=== PATIENT | male | born 1965 | race Native Hawaiian/Other Pacific Islander ===

== ENCOUNTER 2018-11-13 21:45 | Inpatient (IN) | payer OTHER ==
[2018-11-13] MEDS ORDERED: OCTREOTIDE 200 MCG in SODIUM CHLORIDE 0.9% 100 ML IV STA (21:50)
[2018-11-13] MEDS ORDERED: OCTREOTIDE 100 MCG/ML INJ IVP STA (21:50)
[2018-11-13] MEDS ORDERED: SODIUM CHLORIDE 0.9% 1,000 ML IV STA ×2 (21:50)
[2018-11-13] MEDS ORDERED: PANTOPRAZOLE 40 MG/10 ML VIAL IVP ONE (21:54)
[2018-11-13] MEDS ORDERED: ONDANSETRON 4 MG/2 ML VIAL IVP STA (22:00)
[2018-11-13 22:22] LABS: Anisocytosis Slight; Basophils # (A) 0.1 k/uL (0-0.2); Basophils % (A) 1 %; Eosinophils % (A) 0 %; HCT 20.6 % (39.0-53.0); Hypochromasia Marked; Lymphocytes # (A) 0.9 k/uL (1.0-4.8); Lymphocytes % (A) 18 %; MCH 24.8 pg (25.0-35.0); MCV 82.9 fL (80.0-100.0); Mean Platelet Volume 8.7; Monocytes # (A) 0.4 k/uL (0-1.0); Monocytes % (A) 9 %; Neutrophils # (A) 3.4 k/uL (1.3-7.7); Neutrophils % (A) 67 %; Platelet Count 88 k/uL (150-450); RBC 2.48 m/uL (4.30-5.90); RDW 17.6 % (11.5-15.5); WBC 5.1 k/uL (3.8-10.6)
[2018-11-13 22:32] LABS: INR 1.4 (<1.2)
[2018-11-13 22:33] LABS: Partial Thromboplastin Time 24.5 sec (22.0-30.0); Prothrombin Time 14.5 sec (9.0-12.0)
[2018-11-13 22:36] LABS: ALT 34 U/L (21-72); AST 93 U/L (17-59); Alkaline Phosphatase 172 U/L (38-126); Anion Gap 10 mmol/L; Blood Urea Nitrogen 32 mg/dL (9-20); Calcium 8.2 mg/dL (8.4-10.2); Carbon Dioxide 19 mmol/L (22-30); Chloride 109 mmol/L (98-107); Glucose 168 mg/dL (74-99); Lipase 314 U/L (23-300); Potassium 5.1 mmol/L (3.5-5.1); Sodium 138 mmol/L (137-145); Total Bilirubin 1.5 mg/dL (0.2-1.3); Total Protein 6.9 g/dL (6.3-8.2)
[2018-11-13 22:46] LABS: HGB 6.2 gm/dL (13.0-17.5)
[2018-11-13 22:47] LABS: Creatine Kinase 407 U/L (55-170)
[2018-11-13 23:00] LABS: Troponin I <0.012 ng/mL (0.000-0.034)
--- NOTE | 2018-11-14 00:24 | ED ---
GI Bleed HPI - General Chief complaint: GI Bleed Stated complaint: Vomiting Blood Time Seen by Provider: 11/13/18 21:49 Source: patient, EMS Mode of arrival: EMS Limitations: no limitations - History of Present Illness Initial comments: This 53-year-old male presents with a GI bleed. He apparently has been vomiting up blood. Onset occurred 4 times so far. He states that it was bright red blood. This just started several hours prior to arrival. He denies any abdominal pain. He states that he may have had some slight dark stools recently. He does drink alcohol regularly. He states that he drinks 6+ beers per day on average. He denies any known history of esophageal varices. He was seen in the ER a couple years ago for some rectal bleeding. He denies any chest pain, shortness breath, or fevers. He does not take any nonsteroidal anti -inflammatory medications. He does not take any PPI medications but has been on them in the past. No other complaints or modifying factors. - Related Data Home Medications Medication Instructions Recorded Confirmed No Known Home Medications 11/13/18 11/13/18 Allergies Allergy/AdvReac Type Severity Reaction Status Date / Time No Known Allergies Allergy Verified 11/13/18 21:58 Review of Systems ROS Statement: Those systems with pertinent positive or pertinent negative responses have been documented in the HPI. ROS Other: All systems not noted in ROS Statement are negative. Past Medical History Past Medical History: Chest Pain / Angina, Diabetes Mellitus, GERD/Reflux, GI Bleed, Hyperlipidemia, Hypertension Additional Past Medical History / Comment(s): IP ADM JAN 17-2015 FOR PNEUMONIA. HAS BEEN NON-COMPLIANT WITH MEDICATIONS DUE TO FINANCES. FEW YEARS AGO, RECTAL BLEEDING WHICH REQUIRED TRANSFUSIONS, BUT ORIGIN WAS NEVER DISCOVERED, [facility] TO [facility]. History of Any Multi-Drug Resistant Organisms: None Reported Past Surgical History: Orthopedic Surgery Additional Past Surgical History / Comment(s): LT ANKLE PINS/PLATES. Past Anesthesia/Blood Transfusion Reactions: Postoperative Nausea & Vomiting ( PONV) Additional Past Anesthesia/Blood Transfusion Reaction / Comment(s): HX BLOOD TRANSFUSION (LOW HGB FROM BLEEDING, UNKNOW SOURCE) Past Psychological History: No Psychological Hx Reported Smoking Status: Former smoker Past Alcohol Use History: Daily Past Drug Use History: None Reported General Exam - General Exam Comments Initial Comments: GENERAL: The patient is well nourished and well hydrated. VITAL SIGNS: Heart rate, blood pressure, respiratory rate reviewed as recorded in nurse's notes. EYES: Pupils are round and reactive. Extraocular movements are intact. No conjunctival / lid redness or swelling. ENT: No external evidence of injury, swelling, or ecchymosis. Airway is patent. Throat is clear. NECK: Nontender. No swelling or evidence of injury. No subcutaneous emphysema. Trachea is midline. No thyroid mass. HEART: Regular rate and rhythm. Good peripheral pulses. LUNGS/CHEST: Breath sounds clear and equal bilaterally. No rales, rhonchi, or wheezes. No ecchymosis, subcutaneous emphysema, or tenderness. ABDOMEN: Abdomen soft without tenderness. No palpable masses or organomegaly. No peritoneal signs. No abdominal wall swelling or ecchymosis. EXTREMITIES: No extremity tenderness. Normal muscle tone and function. No thoracolumbar tenderness. NEUROLOGIC: Sensation is grossly intact. Cranial nerve exam reveals face is symmetrical, tongue is midline, speech is clear. SKIN: No abrasions or ecchymosis is noted. No induration or masses noted. PSYCHIATRIC: Alert and oriented. Appropriate behavior and judgment. Limitations: no limitations Course Vital Signs 11/13/18 11/13/18 11/13/18 21:51 22:30 23:00 Temperature 99.3 F Pulse Rate 134 H 120 H 115 H Respiratory 20 18 18 Rate Blood Pressure 114/55 126/88 141/71 O2 Sat by Pulse 98 98 98 Oximetry 11/13/18 11/13/18 11/14/18 23:29 23:39 00:09 Temperature 98.3 F 98.8 F 98.6 F Pulse Rate 114 H 111 H 112 H Respiratory 18 18 18 Rate Blood Pressure 130/61 128/71 120/66 O2 Sat by Pulse 100 99 98 Oximetry Medical Decision Making - Medical Decision Making The patient was seen and examined immediately upon arrival. He did present as a alliance party when EMS. He did receive some Zofran intravenously for his nausea. He does present quite tachycardic on the monitor with a heart rate around 130. His blood pressure has remained stable. The EKG shows a sinus tachycardia at a rate of 124. There is no acute ST-T wave changes identified. The IN intervals 122, QRS duration is 86, and the QTC intervals 497. His hemoglobin came back quite low at 6.2. Old records do relate that his previous hemoglobin was 13.8 two years ago. The old records do relate that he had a slight degree of rectal bleeding on last admission ear there is no EGD completed at his records that I am aware of. The possibility of esophageal varices is always possible. The possibility of a gastritis or peptic ulcer disease is also likely. He was started on octreotide intravenously as well as Protonix intravenously. He received ample fluid hydration. It is felt as though he would require blood transfusion. He is agreeable and 2 units of packed red blood cells are transfused. The case is discussed with Dr. Jimenez from gastroenterology and she is agreeable with current course of care. The case also was discussed with Dr. Garvey from intensive care unit. Case will be discussed with internal medicine in the near future and patient admitted to the ICU. Approximately 30 minutes of critical care time is utilized and the treatment of the patient. He is counseled extensively regarding alcohol abuse. - Lab Data Result diagrams: 11/13/18 21:48 11/13/18 21:48 Lab Results 11/13/18 11/13/18 11/13/18 Range/Units 21:48 21:48 21:48 WBC 5.1 (3.8-10.6) k/uL RBC 2.48 L (4.30-5.90) m/uL Hgb 6.2 L* (13.0-17.5) gm/dL Hct 20.6 L (39.0-53.0) % MCV 82.9 (80.0-100.0) fL MCH 24.8 L (25.0-35.0) pg MCHC 30.0 L (31.0-37.0) g/dL RDW 17.6 H (11.5-15.5) % Plt Count 88 L (150-450) k/uL Neutrophils % 67 % Lymphocytes % 18 % Monocytes % 9 % Eosinophils % 0 % Basophils % 1 % Neutrophils # 3.4 (1.3-7.7) k/uL Lymphocytes # 0.9 L (1.0-4.8) k/uL Monocytes # 0.4 (0-1.0) k/uL Eosinophils # 0.0 (0-0.7) k/uL Basophils # 0.1 (0-0.2) k/uL Hypochromasia Marked Anisocytosis Slight PT (9.0-12.0) sec INR (<1.2) APTT (22.0-30.0) sec Sodium 138 (137-145) mmol/L Potassium 5.1 (3.5-5.1) mmol/L Chloride 109 H (98-107) mmol/L Carbon Dioxide 19 L (22-30) mmol/L Anion Gap 10 mmol/L BUN 32 H (9-20) mg/dL Creatinine 0.64 L (0.66-1.25) mg/dL Est GFR (CKD-EPI)AfAm >90 (>60 ml/min/1.73 sqM) Est GFR (CKD-EPI)NonAf >90 (>60 ml/min/1.73 sqM) Glucose 168 H (74-99) mg/dL Plasma Lactic Acid Ranjit (0.7-2.0) mmol/L Calcium 8.2 L (8.4-10.2) mg/dL Total Bilirubin 1.5 H (0.2-1.3) mg/dL AST 93 H (17-59) U/L ALT 34 (21-72) U/L Alkaline Phosphatase 172 H (38-126) U/L Total Creatine Kinase 407 H (55-170) U/L CK-MB (CK-2) 3.0 H (0.0-2.4) ng/mL CK-MB (CK-2) Rel Index 0.7 Troponin I <0.012 (0.000-0.034) ng/mL Total Protein 6.9 (6.3-8.2) g/dL Albumin 3.0 L (3.5-5.0) g/dL Lipase 314 H (23-300) U/L Serum Alcohol mg/dL Blood Type Blood Type Recheck Antibody Screen Crossmatch Spec Expiration Date 11/13/18 11/13/18 11/13/18 Range/Units 21:48 21:48 21:48 WBC (3.8-10.6) k/uL RBC (4.30-5.90) m/uL Hgb (13.0-17.5) gm/dL Hct (39.0-53.0) % MCV (80.0-100.0) fL MCH (25.0-35.0) pg MCHC (31.0-37.0) g/dL RDW (11.5-15.5) % Plt Count (150-450) k/uL Neutrophils % % Lymphocytes % % Monocytes % % Eosinophils % % Basophils % % Neutrophils # (1.3-7.7) k/uL Lymphocytes # (1.0-4.8) k/uL Monocytes # (0-1.0) k/uL Eosinophils # (0-0.7) k/uL Basophils # (0-0.2) k/uL Hypochromasia Anisocytosis PT 14.5 H (9.0-12.0) sec INR 1.4 H (<1.2) APTT 24.5 (22.0-30.0) sec Sodium (137-145) mmol/L Potassium (3.5-5.1) mmol/L Chloride (98-107) mmol/L Carbon Dioxide (22-30) mmol/L Anion Gap mmol/L BUN (9-20) mg/dL Creatinine (0.66-1.25) mg/dL Est GFR (CKD-EPI)AfAm (>60 ml/min/1.73 sqM) Est GFR (CKD-EPI)NonAf (>60 ml/min/1.73 sqM) Glucose (74-99) mg/dL Plasma Lactic Acid Ranjit 4.6 H* (0.7-2.0) mmol/L Calcium (8.4-10.2) mg/dL Total Bilirubin (0.2-1.3) mg/dL AST (17-59) U/L ALT (21-72) U/L Alkaline Phosphatase (38-126) U/L Total Creatine Kinase (55-170) U/L CK-MB (CK-2) (0.0-2.4) ng/mL CK-MB (CK-2) Rel Index Troponin I (0.000-0.034) ng/mL Total Protein (6.3-8.2) g/dL Albumin (3.5-5.0) g/dL Lipase (23-300) U/L Serum Alcohol mg/dL Blood Type A Positive Blood Type Recheck No Antibody Screen NEGATIVE Crossmatch See Detail Spec Expiration Date 11/16/2018 - 234711/13/18 Range/Units 23:38 WBC (3.8-10.6) k/uL RBC (4.30-5.90) m/uL Hgb (13.0-17.5) gm/dL Hct (39.0-53.0) % MCV (80.0-100.0) fL MCH (25.0-35.0) pg MCHC (31.0-37.0) g/dL RDW (11.5-15.5) % Plt Count (150-450) k/uL Neutrophils % % Lymphocytes % % Monocytes % % Eosinophils % % Basophils % % Neutrophils # (1.3-7.7) k/uL Lymphocytes # (1.0-4.8) k/uL Monocytes # (0-1.0) k/uL Eosinophils # (0-0.7) k/uL Basophils # (0-0.2) k/uL Hypochromasia Anisocytosis PT (9.0-12.0) sec INR (<1.2) APTT (22.0-30.0) sec Sodium (137-145) mmol/L Potassium (3.5-5.1) mmol/L Chloride (98-107) mmol/L Carbon Dioxide (22-30) mmol/L Anion Gap mmol/L BUN (9-20) mg/dL Creatinine (0.66-1.25) mg/dL Est GFR (CKD-EPI)AfAm (>60 ml/min/1.73 sqM) Est GFR (CKD-EPI)NonAf (>60 ml/min/1.73 sqM) Glucose (74-99) mg/dL Plasma Lactic Acid Ranjit (0.7-2.0) mmol/L Calcium (8.4-10.2) mg/dL Total Bilirubin (0.2-1.3) mg/dL AST (17-59) U/L ALT (21-72) U/L Alkaline Phosphatase (38-126) U/L Total Creatine Kinase (55-170) U/L CK-MB (CK-2) (0.0-2.4) ng/mL CK-MB (CK-2) Rel Index Troponin I (0.000-0.034) ng/mL Total Protein (6.3-8.2) g/dL Albumin (3.5-5.0) g/dL Lipase (23-300) U/L Serum Alcohol 41 mg/dL Blood Type Blood Type Recheck Antibody Screen Crossmatch Spec Expiration Date Disposition Clinical Impression: Upper GI bleed, Sinus tachycardia, Anemia, Alcohol abuse, Elevated LFTs, Lactic acidosis Disposition: ADMITTED IP TO THIS HOSP Condition: Fair Is patient prescribed a controlled substance at d/c from ED?: No Time of Disposition: 00:24 Decision Date: 11/14/18 Decision Time: 00:24
[2018-11-14] MEDS ORDERED: NALOXONE 0.4 MG/ML 1 ML VIAL IV PRN (00:25)
[2018-11-14 01:26] LABS: Glucose,Whole Blood 152 mg/dL (75-99)
[2018-11-14 02:06] VITALS: BMI 25.3
[2018-11-14 05:41] LABS: Anion Gap 8 mmol/L; Blood Urea Nitrogen 27 mg/dL (9-20); Carbon Dioxide 22 mmol/L (22-30); Chloride 109 mmol/L (98-107); Glucose 142 mg/dL (74-99); Magnesium 1.6 mg/dL (1.6-2.3); Phosphorus 3.4 mg/dL (2.5-4.5); Potassium 4.5 mmol/L (3.5-5.1); Sodium 139 mmol/L (137-145)
[2018-11-14 05:52] LABS: Anisocytosis Slight; Basophils % (A) 1 %; Eosinophils % (A) 1 %; HCT 24.7 % (39.0-53.0); Hypochromasia Marked; Lymphocytes # (A) 1.5 k/uL (1.0-4.8); Lymphocytes % (A) 30 %; MCH 26.1 pg (25.0-35.0); MCHC 31.1 g/dL (31.0-37.0); Mean Platelet Volume 7.9; Monocytes # (A) 0.5 k/uL (0-1.0); Monocytes % (A) 10 %; Neutrophils # (A) 2.7 k/uL (1.3-7.7); Neutrophils % (A) 55 %; Poikilocytosis Moderate; RBC 2.94 m/uL (4.30-5.90); WBC 4.9 k/uL (3.8-10.6)
[2018-11-14] MEDS ORDERED: Magnesium Replacement Protocol 1 EACH MISC MISCELLANE PRN (06:20)
[2018-11-14 06:39] LABS: HGB 7.7 gm/dL (13.0-17.5); Platelet Count 60 k/uL (150-450)
[2018-11-14 07:03] LABS: Glucose,Whole Blood 140 mg/dL (75-99)
[2018-11-14] MEDS: PANTOPRAZOLE 40 MG/10 ML VIAL IV SCH ×2 (08:07→20:17)
[2018-11-14] MEDS: MAGNESIUM SULFATE-D5W PMX 1 GM in DEXTROSE/WATER 1 100ML.BAG IVPB SCH ×2 (08:07→09:24)
[2018-11-14] MEDS ORDERED: THIAMINE 100 MG/ML 2 ML VIAL IM STA (08:39)
[2018-11-14] MEDS ORDERED: LORazepam 2 MG/ML INJ IV PRN ×2 (08:39)
--- NOTE | 2018-11-14 10:38 | P.CNPUL ---
History of Present Illness Consult date: 11/14/18 Requesting physician: Chung Etienne Chief complaint: Hematemesis, melena, acute GI bleed History of present illness: This is a 53-year-old male, he is to follow with Dr. Amaya in [place], but has not followed with her for some time, was brought into the emergency department on 11/13/2018 per ambulance for acute onset of gastrointestinal bleeding, patient started vomiting bright red blood yesterday at around 5 PM in the afternoon, he did have some dark stools as well. He denies any abdominal pain, he has a regular alcohol intake, 5-6 beers daily. Denies any prior history of GI bleeding, or esophageal varices. Reviewing previous records it appears that patient does have history of liver cirrhosis related to EtOH abuse , ascites, previous history of cholecystectomy, liver biopsy, diabetes mellitus type 2 previously insulin-dependent, however has not been on any insulin for some time. The history includes hypertension, hyperlipidemia, GERD/reflux, previous episodes of pneumonia, former smoker, depression. His previous episode of rectal bleeding did require blood transfusions. In the emergency department blood work showed WBC of 5.1, hemoglobin of 6.2, platelet count was 88, INR is 1.4, sodium 138, potassium 5.1, chloride is 109, CO2 of 19, BUN of 32 , creatinine is 0.64, plasma lactic acid was 4.6, total bilirubin was 1.5, AST was 93, ALT was 34, alkaline phosphatase was 172, total CK was 407, CK-MB was 3.0, troponins was negative 1, lipase was slightly elevated at 314. Serum alcohol level was 41. he was transfused with 2 units of pack red blood cells, he was given IV fluids of 0.9 normal saline of 1 L. His morning he is hemodynamically stable, he was given an infusion of octreotide in the emergency department started on PPI therapy. Currently on no oxygen, maintenance IV fluid is 0.9 normal saline at 100 ML per hour. His awake and alert, oriented 3 , his mother is at the bedside, and apparently patient's brother a few years back from from acute esophageal varices hemorrhage related to liver cirrhosis related to alcohol abuse. Review of Systems All systems: negative Constitutional: Denies chills, Denies fever Eyes: denies blurred vision, denies pain Ears, nose, mouth and throat: Denies headache, Denies sore throat Cardiovascular: Denies chest pain, Denies shortness of breath Respiratory: Denies cough Gastrointestinal: Reports change in bowel habits, Reports hematemesis, Reports melena, Denies abdominal pain, Denies diarrhea, Denies nausea, Denies vomiting Musculoskeletal: Denies myalgias Integumentary: Denies pruritus, Denies rash Neurological: Denies numbness, Denies weakness Psychiatric: Denies anxiety, Denies depression Endocrine: Denies fatigue, Denies weight change Past Medical History Past Medical History: Chest Pain / Angina, Diabetes Mellitus, GERD/Reflux, GI Bleed, Hyperlipidemia, Hypertension Additional Past Medical History / Comment(s): IP ADM JAN 17-2015 FOR PNEUMONIA. HAS BEEN NON-COMPLIANT WITH MEDICATIONS DUE TO FINANCES. FEW YEARS AGO, RECTAL BLEEDING WHICH REQUIRED TRANSFUSIONS, BUT ORIGIN WAS NEVER DISCOVERED, [facility]. History of Any Multi-Drug Resistant Organisms: None Reported Past Surgical History: Orthopedic Surgery Additional Past Surgical History / Comment(s): LT ANKLE PINS/PLATES. Past Anesthesia/Blood Transfusion Reactions: Postoperative Nausea & Vomiting ( PONV) Additional Past Anesthesia/Blood Transfusion Reaction / Comment(s): HX BLOOD TRANSFUSION (LOW HGB FROM BLEEDING, UNKNOW SOURCE) Past Psychological History: No Psychological Hx Reported Smoking Status: Current some day smoker Past Alcohol Use History: Daily Additional Past Alcohol Use History / Comment(s): QUIT: Dec. SMOKED FOR : 30 YRS. PPD: 1.5. NO ETOH, BUT UP UNTIL HIS ADMISSION FOR PNEUMONIA IN DEC 2015, PATIENT WAS DRINKING DAILY, ENOUGH TO PUT HIM TO SLEEP. DEPRESSED TO DUE LOSS OF NIECE AND BROTHER. Past Drug Use History: None Reported Medications and Allergies Home Medications Medication Instructions Recorded Confirmed Type No Known Home Medications 11/13/18 11/13/18 History Allergies Allergy/AdvReac Type Severity Reaction Status Date / Time No Known Allergies Allergy Verified 11/13/18 21:58 Physical Exam Vitals: Vital Signs Temp Pulse Pulse Resp BP BP Pulse Ox 11/14/18 10:00 105 H 10 L 150/87 98 11/14/18 09:00 104 H 15 140/81 96 11/14/18 08:27 98 11/14/18 08:00 98.1 F 98 12 143/80 98 11/14/18 07:00 100 15 131/73 97 11/14/18 06:30 103 H 11 L 131/73 97 18 06:00 103 H 14 148/80 94 L 11/14/18 05:30 96 8 L 148/80 95 11/14/18 05:00 105 H 11 L 148/86 95 11/14/18 04:30 103 H 10 L 148/86 95 11/14/18 04:00 98.4 F 105 H 16 149/86 97 11/14/18 03:52 98.5 F 107 H 17 149/86 97 11/14/18 03:30 106 H 14 149/86 98 11/14/18 03:07 105 H 30 H 11/14/18 03:00 104 H 17 135/68 96 11/14/18 02:30 112 H 30 H 135/68 96 11/14/18 02:28 98.7 F 110 H 22 132/67 97 11/14/18 02:00 112 H 19 111/69 96 11/14/18 01:58 98.5 F 105 H 21 136/68 99 11/14/18 01:48 98.6 F 107 H 18 111/69 98 11/14/18 01:46 98.6 F 112 H 18 111/69 98 11/14/18 01:30 109 H 10 L 111/69 98 11/14/18 01:25 109 H 20 98 11/14/18 01:00 98.6 F 117 H 20 119/64 98 11/14/18 00:54 98.6 F 105 H 18 111/69 98 11/14/18 00:30 118 H 24 120/66 99 11/14/18 00:09 98.6 F 112 H 18 120/66 98 11/14/18 00:00 98.6 F 122 H 14 128/71 99 18 23:39 98.8 F 111 H 18 128/71 99 11/13/18 23:32 113 H 10 L 114/69 98 11/13/18 23:29 98.3 F 114 H 18 130/61 100 11/13/18 23:00 115 H 18 141/71 98 18 22:30 120 H 18 126/88 98 11/13/18 21:51 99.3 F 134 H 20 114/55 98 Intake and Output 12/11/14/18 11/14/18 22:59 06:59 14:59 Intake Total 1530 400 Output Total 1300 Balance 1530 -900 Intake: IV 300 400 Magnesium Sulfate-D5w Pmx 200 1 gm In Dextrose/Water 1 100ml.bag @ 100 mls/hr IVPB Q1H [facility] Rx#: [id number] Sodium Chloride 0.9% 1, 300 200 000 ml @ 100 mls/hr IV . Q10H [facility] Rx#:[id number] Blood Product 1230 Rc As-1 Unit 310 [id number] Rc As-1 Unit 310 [id number] Output: Urine 1300 Other: Voiding Method Toilet Toilet Urinal Urinal # Voids 1 Weight 79.379 kg 73.5 kg GENERAL EXAM: Alert, active, has a 53-year-old male comfortable in no apparent distress. HEAD: Normocephalic/atraumatic. EYES: Normal reaction of pupils, equal size. Conjunctiva pink, sclera white. NOSE: Clear with pink turbinates. THROAT: No erythema or exudates. NECK: No masses, no JVD, no thyroid enlargement, no adenopathy. CHEST: No chest wall deformity. Symmetrical expansion. LUNGS: Equal air entry with no crackles, wheeze, rhonchi or dullness. CVS: Regular rate and rhythm, normal S1 and S2, no gallops, no murmurs, no rubs ABDOMEN: Soft, nontender. No hepatosplenomegaly, normal bowel sounds, no guarding or rigidity. EXTREMITIES: No clubbing, no edema, no cyanosis, 2+ pulses and upper and lower extremities. MUSCULOSKELETAL: Muscle strength and tone normal. SPINE: No scoliosis or deformity SKIN: No rashes CENTRAL NERVOUS SYSTEM: Alert and oriented -3. No focal deficits, tone is normal in all 4 extremities. PSYCHIATRIC: Alert and oriented -3. Appropriate affect. Intact judgment and insight. Results - Laboratory Findings CBC and BMP: 11/14/18 05:01 11/14/18 05:01 PT/INR, D-dimer PT 14.5 sec (9.0-12.0) H 11/13/18 21:48 INR 1.4 (<1.2) H 11/13/18 21:48 Abnormal lab findings: Abnormal Labs 11/13/18 11/13/18 11/13/18 21:48 21:48 21:48 RBC 2.48 L Hgb 6.2 L* Hct 20.6 L MCH 24.8 L MCHC 30.0 L RDW 17.6 H Plt Count 88 L Lymphocytes # 0.9 L PT INR Chloride 109 H Carbon Dioxide 19 L BUN 32 H Creatinine 0.64 L Glucose 168 H POC Glucose (mg/dL) Plasma Lactic Acid Ranjit Calcium 8.2 L Total Bilirubin 1.5 H AST 93 H Alkaline Phosphatase 172 H Total Creatine Kinase 407 H CK-MB (CK-2) 3.0 H Albumin 3.0 L Lipase 314 H Crossmatch 11/13/18 11/13/18 11/13/18 21:48 21:48 21:48 RBC Hgb Hct MCH MCHC RDW Plt Count Lymphocytes # PT 14.5 H INR 1.4 H Chloride Carbon Dioxide BUN Creatinine Glucose POC Glucose (mg/dL) Plasma Lactic Acid Ranjit 4.6 H* Calcium Total Bilirubin AST Alkaline Phosphatase Total Creatine Kinase CK-MB (CK-2) Albumin Lipase Crossmatch See Detail 11/14/18 11/14/18 11/14/18 01:23 05:01 05:01 RBC 2.94 L Hgb 7.7 L D Hct 24.7 L MCH MCHC RDW 17.0 H Plt Count 60 L Lymphocytes # PT INR Chloride 109 H Carbon Dioxide BUN 27 H Creatinine 0.60 L Glucose 142 H POC Glucose (mg/dL) 152 H Plasma Lactic Acid Ranjit Calcium 8.0 L Total Bilirubin AST Alkaline Phosphatase Total Creatine Kinase CK-MB (CK-2) Albumin Lipase Crossmatch 11/14/18 07:01 RBC Hgb Hct MCH MCHC RDW Plt Count Lymphocytes # PT INR Chloride Carbon Dioxide BUN Creatinine Glucose POC Glucose (mg/dL) 140 H Plasma Lactic Acid Ranjit Calcium Total Bilirubin AST Alkaline Phosphatase Total Creatine Kinase CK-MB (CK-2) Albumin Lipase Crossmatch - Diagnostic Findings Additional studies: EKG reviewed Assessment and Plan Plan: Assessment: #1. Acute GI hemorrhage, patient presented with hematemesis and dark tarry stools #2. Blood loss anemia #3. Elevated liver enzymes #4. History of liver cirrhosis related to EtOH #5. 5-6 beers daily #6. Elevated plasma lactic acid level, improved with IV hydration and blood transfusions #7. Diabetes mellitus type 2, previously on insulin, has not taken it in a while #8. Medical noncompliance #9. Hypertension #10. Previous episode of rectal bleeding requiring blood transfusions #11. Smoker #12. Previous episodes of pneumonia Plan: Continue the IV fluids, continue serial H&H's, GI service has been consulted. Continue PPI therapy, patient did receive infusion of octreotide in the emergency department, has not had any recurrence of hematemesis or dark tarry stools while in the hospital, he will remain in the intensive care unit. We'll continue to closely monitor I performed a history & physical examination of the patient and discussed their management with my nurse practitioner, Rosamaria Patel. I reviewed the nurse practitioner's note and agree with the documented findings and plan of care. Lung sounds are positive for clear breath sounds. The findings and the impression was discussed with the patient. I attest to the documentation by the nurse practitioner. Time with Patient: Greater than 30
[2018-11-14 12:20] LABS: Glucose,Whole Blood 171 mg/dL (75-99)
[2018-11-14] MEDS: LORazepam 2 MG/ML INJ IV PRN (12:56)
[2018-11-14 13:19] LABS: Anisocytosis Slight; HCT 25.8 % (39.0-53.0); HGB 8.2 gm/dL (13.0-17.5); Hypochromasia Marked; MCH 26.3 pg (25.0-35.0); MCHC 31.7 g/dL (31.0-37.0); Mean Platelet Volume 7.9; Poikilocytosis Moderate; RBC 3.11 m/uL (4.30-5.90); RDW 17.3 % (11.5-15.5); WBC 4.2 k/uL (3.8-10.6)
[2018-11-14 13:24] LABS: Platelet Count 71 k/uL (150-450)
[2018-11-14 14:45] LABS: Hemoglobin A1C 6.7 % (4.0-6.0)
[2018-11-14] MEDS ORDERED: PROPOFOL 10 MG/ML 20 ML VIAL IV ONE (15:21)
[2018-11-14] MEDS ORDERED: IV FLUID CONTINUATION 1,000 ML IV ONE (15:21)
--- NOTE | 2018-11-14 16:05 | P.PCN ---
Date of Procedure: 11/14/18 Description of Procedure: BRIEF HISTORY: 53-year-old male, brought into the emergency department on 11/13/2018 per ambulance for acute onset of gastrointestinal bleeding, patient started vomiting bright red blood yesterday, he did have some dark stools as well. He denies any abdominal pain, he has a regular alcohol intake, 5-6 beers daily. Denies any prior history of GI bleeding, or esophageal varices. Reviewing previous records it appears that patient does have history of liver cirrhosis related to EtOH abuse, ascites, previous history of cholecystectomy, liver biopsy, diabetes mellitus type 2 previously insulin-dependent, hypertension, hyperlipidemia, GERD/reflux, previous episodes of pneumonia, former smoker, depression. His previous episode of rectal bleeding did require blood transfusions. In the emergency department blood work showed WBC of 5.1, hemoglobin of 6.2, platelet count was 88, INR is 1.4, sodium 138, potassium 5.1 , chloride is 109, CO2 of 19, BUN of 32, creatinine is 0.64, plasma lactic acid was 4.6, total bilirubin was 1.5, AST was 93, ALT was 34, alkaline phosphatase was 172, total CK was 407, CK-MB was 3.0, troponins was negative 1, lipase was slightly elevated at 314. Serum alcohol level was 41. he was transfused with 2 units of pack red blood cells. PROCEDURE PERFORMED: Esophagogastroduodenoscopy with esophageal variceal banding. PREOPERATIVE DIAGNOSIS: Hematemesis, Anemia due to blood loss. ESTIMATED BLOOD LOSS: Minimal. IV sedation per anesthesia. PROCEDURE: After informed consent was obtained, the patient was brought into the endoscopy unit. IV sedation was administered by Anesthesia under continuous monitoring. Initially the Olympus GIF-190 video endoscope was inserted into the mouth. Esophagus intubated without any difficulty. It was gradually advanced into the stomach and duodenum and carefully examined. The bulb and the second part of the duodenum appeared normal. The scope at this time was withdrawn to the stomach, adequately insufflated with air, and upon careful examination, mucosa of the antrum, body, cardia and the fundus appeared normal. The scope was then withdrawn into the esophagus. The GE junction was located at 38 cm from the incisors. Moderate sized esophageal varices were noted in the distal esophagus and variceal banding with placement of 4 bands was performed. No active GI bleeding was noted. The patient tolerated the procedure well. IMPRESSION: 1. Moderate sized esophageal varices, status post esophageal variceal banding. 2. No active GI bleeding. RECOMMENDATIONS: The findings of this examination were discussed with the patient in the ICU team. Okay for liquid diet. Continue Protonix IV therapy, octreotide therapy and ceftriaxone for SBP prophylaxis given history of ascites. Monitor hemoglobin and transfuse as needed. Alcohol abstinence. Follow up with gastroenterology on discharge for scheduling for repeat EGD to ensure variceal obliteration.
[2018-11-14] MEDS: THIAMINE 100 MG TAB PO SCH (16:46)
[2018-11-14 17:03] LABS: Glucose,Whole Blood 123 mg/dL (75-99)
[2018-11-14] MEDS: OCTREOTIDE 200 MCG in SODIUM CHLORIDE 0.9% 100 ML IV SCH (17:08)
--- NOTE | 2018-11-14 20:14 | P.HPIM ---
History of Present Illness H&P Date: 11/14/18 Chief Complaint: GI BLEED 53 y/o male with a H/O alcoholism says he drinnks about 6-7 beers /day comes in with above mentioned complains. Patient says he had about 3 episodes of bright red vomitus . He denied loida abdominal pain , no chest pain, no racing heart, no diarrhea, no constipation, no lightheadedness, no diaainess, no fever, no chiulls, no tingling, no numbness of the extremities, no itch , no rash. ER course : In the emergency department blood work showed WBC of 5.1, hemoglobin of 6.2, platelet count was 88, INR is 1.4, sodium 138, potassium 5.1 , chloride is 109, CO2 of 19, BUN of 32, creatinine is 0.64, plasma lactic acid was 4.6, total bilirubin was 1.5, AST was 93, ALT was 34, alkaline phosphatase was 172, total CK was 407, CK-MB was 3.0, troponins was negative 1, lipase was slightly elevated at 314. Serum alcohol level was 41. he was transfused with 2 units of pack red blood cells, he was given IV fluids of 0.9 normal saline of 1 L. He was started on octreotide drip and PPI. He was also started on maintanence fluids. He was admitted to the ICU. GI and research physicist are consulted. Past Medical History Past Medical History: Chest Pain / Angina, Diabetes Mellitus, GERD/Reflux, GI Bleed, Hyperlipidemia, Hypertension Additional Past Medical History / Comment(s): IP ADM JAN 17-2015 FOR PNEUMONIA. HAS BEEN NON-COMPLIANT WITH MEDICATIONS DUE TO FINANCES. FEW YEARS AGO, RECTAL BLEEDING WHICH REQUIRED TRANSFUSIONS, BUT ORIGIN WAS NEVER DISCOVERED, [facility] TO [facility]. History of Any Multi-Drug Resistant Organisms: None Reported Past Surgical History: Orthopedic Surgery Additional Past Surgical History / Comment(s): LT ANKLE PINS/PLATES. Past Anesthesia/Blood Transfusion Reactions: Postoperative Nausea & Vomiting ( PONV) Additional Past Anesthesia/Blood Transfusion Reaction / Comment(s): HX BLOOD TRANSFUSION (LOW HGB FROM BLEEDING, UNKNOW SOURCE) Past Psychological History: No Psychological Hx Reported Smoking Status: Current some day smoker Past Alcohol Use History: Daily Additional Past Alcohol Use History / Comment(s): QUIT: Dec. SMOKED FOR : 30 YRS. PPD: 1.5. NO ETOH, BUT UP UNTIL HIS ADMISSION FOR PNEUMONIA IN DEC 2015, PATIENT WAS DRINKING DAILY, ENOUGH TO PUT HIM TO SLEEP. DEPRESSED TO DUE LOSS OF NIECE AND BROTHER. Past Drug Use History: None Reported Medications and Allergies Home Medications Medication Instructions Recorded Confirmed Type No Known Home Medications 11/13/18 11/13/18 History Allergies Allergy/AdvReac Type Severity Reaction Status Date / Time No Known Allergies Allergy Verified 11/13/18 21:58 Physical Exam Vitals: Vital Signs Temp Pulse Pulse Resp BP BP Pulse Ox 11/14/18 18:00 87 13 135/71 97 11/14/18 17:00 96 18 126/37 97 11/14/18 16:00 98.0 F 96 11 L 149/93 98 11/14/18 15:00 98 13 127/74 95 11/14/18 14:00 92 11 L 126/88 96 11/14/18 13:42 82 11 L 149/93 11/14/18 13:00 97 24 148/96 98 11/14/18 12:00 98.1 F 100 17 114/97 97 11/14/18 11:00 107 H 8 L 136/84 95 11/14/18 10:00 105 H 10 L 150/87 98 11/14/18 09:00 104 H 15 140/81 96 11/14/18 08:27 98 11/14/18 08:00 98.1 F 98 12 143/80 98 11/14/18 07:00 100 15 131/73 97 11/14/18 06:30 103 H 11 L 131/73 97 11/14/18 06:00 103 H 14 148/80 94 L 11/14/18 05:30 96 8 L 148/80 95 11/14/18 05:00 105 H 11 L 148/86 95 11/14/18 04:30 103 H 10 L 148/86 95 11/14/18 04:00 98.4 F 105 H 16 149/86 97 11/14/18 03:52 98.5 F 107 H 17 149/86 97 11/14/18 03:30 106 H 14 149/86 98 11/14/18 03:07 105 H 30 H 11/14/18 03:00 104 H 17 135/68 96 11/14/18 02:30 112 H 30 H 135/68 96 11/14/18 02:28 98.7 F 110 H 22 132/67 97 11/14/18 02:00 112 H 19 111/69 96 11/14/18 01:58 98.5 F 105 H 21 136/68 99 11/14/18 01:48 98.6 F 107 H 18 111/69 98 11/14/18 01:46 98.6 F 112 H 18 111/69 98 11/14/18 01:30 109 H 10 L 111/69 98 11/14/18 01:25 109 H 20 98 11/14/18 01:00 98.6 F 117 H 20 119/64 98 11/14/18 00:54 98.6 F 105 H 18 111/69 98 11/14/18 00:30 118 H 24 120/66 99 11/14/18 00:09 98.6 F 112 H 18 120/66 98 11/14/18 00:00 98.6 F 122 H 14 128/71 99 11/13/18 23:39 98.8 F 111 H 18 128/71 99 11/13/18 23:32 113 H 10 L 114/69 98 11/13/18 23:29 98.3 F 114 H 18 130/61 100 11/13/18 23:00 115 H 18 141/71 98 11/13/18 22:30 120 H 18 126/88 98 11/13/18 21:51 99.3 F 134 H 20 114/55 98 Intake and Output 11/14/18 11/14/18 11/14/18 06:59 14:59 22:59 Intake Total 1530 800 800 Output Total 2000 400 Balance 1530 -1200 400 Intake: IV 300 800 800 Magnesium Sulfate-D5w Pmx 200 1 gm In Dextrose/Water 1 100ml.bag @ 100 mls/hr IVPB Q1H [facility] Rx#: [id number] Sodium Chloride 0.9% 1, 300 600 500 000 ml @ 100 mls/hr IV . Q10H STA Rx#:[id number] Blood Product 1230 Rc As-1 Unit 310 [id number] Rc As-1 Unit 310 [id number] Output: Urine 1999 400 Other: Voiding Method Toilet Toilet Toilet Urinal Urinal Urinal # Voids 1 Weight 73.5 kg - Constitutional General appearance: average body habitus, cooperative, no acute distress - EENT Eyes: PERRLA ENT: hearing grossly normal, normal oropharynx - Neck Neck: no lymphadenopathy, no thyromegaly - Respiratory Respiratory: bilateral: CTA - Cardiovascular Heart sounds: normal: S1, S2 - Gastrointestinal General gastrointestinal: no hepatomegaly, normal bowel sounds, no splenomegaly - Neurologic Neurologic: CNII-XII intact - Musculoskeletal Musculoskeletal: strength equal bilaterally - Psychiatric Psychiatric: A&O x's 3, appropriate affect Results CBC & Chem 7: 11/14/18 12:27 11/14/18 05:01 Labs: Abnormal Lab Results - Last 24 Hours (Table) 11/13/18 11/13/18 11/13/18 Range/Units 21:48 21:48 21:48 RBC 2.48 L (4.30-5.90) m/uL Hgb 6.2 L* (13.0-17.5) gm/dL Hct 20.6 L (39.0-53.0) % MCH 24.8 L (25.0-35.0) pg MCHC 30.0 L (31.0-37.0) g/dL RDW 17.6 H (11.5-15.5) % Plt Count 88 L (150-450) k/uL Lymphocytes # 0.9 L (1.0-4.8) k/uL PT (9.0-12.0) sec INR (<1.2) Chloride 109 H (98-107) mmol/L Carbon Dioxide 19 L (22-30) mmol/L BUN 32 H (9-20) mg/dL Creatinine 0.64 L (0.66-1.25) mg/dL Glucose 168 H (74-99) mg/dL POC Glucose (mg/dL) (75-99) mg/dL Hemoglobin A1c (4.0-6.0) % Plasma Lactic Acid Ranjit (0.7-2.0) mmol/L Calcium 8.2 L (8.4-10.2) mg/dL Total Bilirubin 1.5 H (0.2-1.3) mg/dL AST 93 H (17-59) U/L Alkaline Phosphatase 172 H (38-126) U/L Total Creatine Kinase 407 H (55-170) U/L CK-MB (CK-2) 3.0 H (0.0-2.4) ng/mL Albumin 3.0 L (3.5-5.0) g/dL Lipase 314 H (23-300) U/L Crossmatch 11/13/18 11/13/18 11/13/18 Range/Units 21:48 21:48 21:48 RBC (4.30-5.90) m/uL Hgb (13.0-17.5) gm/dL Hct (39.0-53.0) % MCH (25.0-35.0) pg MCHC (31.0-37.0) g/dL RDW (11.5-15.5) % Plt Count (150-450) k/uL Lymphocytes # (1.0-4.8) k/uL PT 14.5 H (9.0-12.0) sec INR 1.4 H (<1.2) Chloride (98-107) mmol/L Carbon Dioxide (22-30) mmol/L BUN (9-20) mg/dL Creatinine (0.66-1.25) mg/dL Glucose (74-99) mg/dL POC Glucose (mg/dL) (75-99) mg/dL Hemoglobin A1c (4.0-6.0) % Plasma Lactic Acid Ranjit 4.6 H* (0.7-2.0) mmol/L Calcium (8.4-10.2) mg/dL Total Bilirubin (0.2-1.3) mg/dL AST (17-59) U/L Alkaline Phosphatase (38-126) U/L Total Creatine Kinase (55-170) U/L CK-MB (CK-2) (0.0-2.4) ng/mL Albumin (3.5-5.0) g/dL Lipase (23-300) U/L Crossmatch See Detail 11/14/18 11/14/18 11/14/18 Range/Units 01:23 05:01 05:01 RBC 2.94 L (4.30-5.90) m/uL Hgb 7.7 L D (13.0-17.5) gm/dL Hct 24.7 L (39.0-53.0) % MCH (25.0-35.0) pg MCHC (31.0-37.0) g/dL RDW 17.0 H (11.5-15.5) % Plt Count 60 L (150-450) k/uL Lymphocytes # (1.0-4.8) k/uL PT (9.0-12.0) sec INR (<1.2) Chloride 109 H (98-107) mmol/L Carbon Dioxide (22-30) mmol/L BUN 27 H (9-20) mg/dL Creatinine 0.60 L (0.66-1.25) mg/dL Glucose 142 H (74-99) mg/dL POC Glucose (mg/dL) 152 H (75-99) mg/dL Hemoglobin A1c (4.0-6.0) % Plasma Lactic Acid Ranjit (0.7-2.0) mmol/L Calcium 8.0 L (8.4-10.2) mg/dL Total Bilirubin (0.2-1.3) mg/dL AST (17-59) U/L Alkaline Phosphatase (38-126) U/L Total Creatine Kinase (55-170) U/L CK-MB (CK-2) (0.0-2.4) ng/mL Albumin (3.5-5.0) g/dL Lipase (23-300) U/L Crossmatch 11/14/18 11/14/18 11/14/18 Range/Units 05:01 07:01 11:53 RBC (4.30-5.90) m/uL Hgb (13.0-17.5) gm/dL Hct (39.0-53.0) % MCH (25.0-35.0) pg MCHC (31.0-37.0) g/dL RDW (11.5-15.5) % Plt Count (150-450) k/uL Lymphocytes # (1.0-4.8) k/uL PT (9.0-12.0) sec INR (<1.2) Chloride (98-107) mmol/L Carbon Dioxide (22-30) mmol/L BUN (9-20) mg/dL Creatinine (0.66-1.25) mg/dL Glucose (74-99) mg/dL POC Glucose (mg/dL) 140 H 171 H (75-99) mg/dL Hemoglobin A1c 6.7 H (4.0-6.0) % Plasma Lactic Acid Ranjit (0.7-2.0) mmol/L Calcium (8.4-10.2) mg/dL Total Bilirubin (0.2-1.3) mg/dL AST (17-59) U/L Alkaline Phosphatase (38-126) U/L Total Creatine Kinase (55-170) U/L CK-MB (CK-2) (0.0-2.4) ng/mL Albumin (3.5-5.0) g/dL Lipase (23-300) U/L Crossmatch 11/14/18 11/14/18 Range/Units 12:27 16:49 RBC 3.11 L (4.30-5.90) m/uL Hgb 8.2 L (13.0-17.5) gm/dL Hct 25.8 L (39.0-53.0) % MCH (25.0-35.0) pg MCHC (31.0-37.0) g/dL RDW 17.3 H (11.5-15.5) % Plt Count 71 L (150-450) k/uL Lymphocytes # (1.0-4.8) k/uL PT (9.0-12.0) sec INR (<1.2) Chloride (98-107) mmol/L Carbon Dioxide (22-30) mmol/L BUN (9-20) mg/dL Creatinine (0.66-1.25) mg/dL Glucose (74-99) mg/dL POC Glucose (mg/dL) 123 H (75-99) mg/dL Hemoglobin A1c (4.0-6.0) % Plasma Lactic Acid Ranjit (0.7-2.0) mmol/L Calcium (8.4-10.2) mg/dL Total Bilirubin (0.2-1.3) mg/dL AST (17-59) U/L Alkaline Phosphatase (38-126) U/L Total Creatine Kinase (55-170) U/L CK-MB (CK-2) (0.0-2.4) ng/mL Albumin (3.5-5.0) g/dL Lipase (23-300) U/L Crossmatch Thrombosis Risk Factor Assmnt - DVT/VTE Prophylaxis DVT/VTE Prophylaxis: Mechanical Prophylaxis ordered - Choose All That Apply Each Factor Represents 1 point: Age 41-60 years, Obesity (BMI >25) Other Risk Factors: No Thrombosis Risk Factor Assessment Total Risk Factor Score: 2 Thrombosis Risk Factor Assessment Level: Low Risk Assessment and Plan Assessment: 1. Acute GI hemorrhage, patient presented with hematemesis and dark tarry stools 2. Blood loss anemia 3. Transaminitis 4. History of liver cirrhosis related to EtOH 5. Alcoholism 6. Lactic acidosis 7. Diabetes mellitus type 2, previously on insulin, has not taken it in a while 8. Hypertension 9. Non compliance Plan: - The patient will be admitted to ICU - The patient now is hemodynamically stable. - He is s/p 2 units blood transfusion, - GI consutled. NPO for now for possible scope - Will monitor H AND H, transfuse if needed. - DVT PPX will SCDS - Continue protonix - Will f/u with the patient - Expected lenght of stay is more than 2 midnights. - Patient is full code. Time with Patient: Greater than 30
[2018-11-14] MEDS: SODIUM CHLORIDE 0.9% 1,000 ML IV SCH (20:17)
[2018-11-14 21:15] LABS: Anisocytosis Slight; HCT 25.5 % (39.0-53.0); HGB 8.3 gm/dL (13.0-17.5); Hypochromasia Marked; MCH 27.2 pg (25.0-35.0); MCHC 32.5 g/dL (31.0-37.0); MCV 83.7 fL (80.0-100.0); Mean Platelet Volume 8.5; Poikilocytosis Moderate; RBC 3.05 m/uL (4.30-5.90); RDW 17.4 % (11.5-15.5); WBC 3.8 k/uL (3.8-10.6)
[2018-11-14 21:17] LABS: Platelet Count 67 k/uL (150-450)
[2018-11-14 21:57] LABS: Glucose,Whole Blood 120 mg/dL (75-99)
[2018-11-15] MEDS: OCTREOTIDE 200 MCG in SODIUM CHLORIDE 0.9% 100 ML IV SCH ×3 (00:17→17:20)
[2018-11-15] MEDS: SODIUM CHLORIDE 0.9% 1,000 ML IV SCH ×2 (04:44→17:19)
[2018-11-15 04:57] LABS: Anisocytosis Slight; HCT 23.8 % (39.0-53.0); HGB 7.8 gm/dL (13.0-17.5); Hypochromasia Marked; MCHC 32.6 g/dL (31.0-37.0); Mean Platelet Volume 8.2; Poikilocytosis Moderate; RBC 2.87 m/uL (4.30-5.90); RDW 17.6 % (11.5-15.5)
[2018-11-15 04:59] LABS: Platelet Count 70 k/uL (150-450)
[2018-11-15 05:13] LABS: Anion Gap 6 mmol/L; Blood Urea Nitrogen 18 mg/dL (9-20); Calcium 7.4 mg/dL (8.4-10.2); Carbon Dioxide 22 mmol/L (22-30); Chloride 108 mmol/L (98-107); Glucose 113 mg/dL (74-99); Magnesium 2.1 mg/dL (1.6-2.3); Phosphorus 3.3 mg/dL (2.5-4.5); Potassium 4.1 mmol/L (3.5-5.1); Sodium 136 mmol/L (137-145)
--- NOTE | 2018-11-15 05:56 | P.CONS ---
History of Present Illness - Reason for Consult Consult date: 11/14/18 Hematemesis Requesting physician: Chung Etienne - Chief Complaint Hematemesis - History of Present Illness 53-year-old male patient with multiple medical comorbidities including decompensated alcoholic cirrhosis with ascites, diabetes mellitus, hypertension , dyslipidemia, GERD, depression and active alcohol abuse who presented to the hospital with complaints of bright red blood in his vomitus. The patient reports multiple episodes of vomiting bright red blood prior to presentation. He denies any prior history of variceal bleeding or being told of the diagnosis of varices in the past. He has had episodes of bright red blood per rectum with the last episode approximately 4 years ago at which time he had a colonoscopy. He currently drinks 5-6 beers daily. He has a documented history of abdominal ascites. He also had a brother who had a similar episode of upper GI bleeding and presented to the hospital late and subsequently from a variceal bleed. He denies any abdominal pain at this time. On presentation he was found to have a hemoglobin of 8.5 which subsequently trended down to 7.3. Other laboratory evaluation was significant for an INR of 1.4, total bilirubin 1.5, alkaline phosphatase 172, AST 93, ALT 34, and a platelet count of 88,000. He denies any prior upper endoscopy. Review of Systems REVIEW OF SYSTEMS: CARDIO: Denies any chest pain or palpitations. PULMONARY: Denies any shortness of breath or wheezing. GENITOURINARY: No dysuria or hematuria. MUSCULOSKELETAL: No weakness reported. SKIN: Denies any new rashes or lesions, jaundice or pallor. PSYCHIATRIC: Documented history of depression. NEUROLOGY: Denies headache, denies any new focal deficits. EARS: No tinnitus, discharge or new hearing loss. NOSE: No discharge or congestion. EYES: No pain in eyes or change in vision. CONSTITUTIONAL: No recent weight loss. No fever, chills, night sweats. Past Medical History Past Medical History: Chest Pain / Angina, Diabetes Mellitus, GERD/Reflux, GI Bleed, Hyperlipidemia, Hypertension Additional Past Medical History / Comment(s): IP ADM JAN 17-2015 FOR PNEUMONIA. HAS BEEN NON-COMPLIANT WITH MEDICATIONS DUE TO FINANCES. FEW YEARS AGO, RECTAL BLEEDING WHICH REQUIRED TRANSFUSIONS, BUT ORIGIN WAS NEVER DISCOVERED, [facility]. History of Any Multi-Drug Resistant Organisms: None Reported Past Surgical History: Orthopedic Surgery Additional Past Surgical History / Comment(s): LT ANKLE PINS/PLATES. Past Anesthesia/Blood Transfusion Reactions: Postoperative Nausea & Vomiting ( PONV) Additional Past Anesthesia/Blood Transfusion Reaction / Comm: HX BLOOD TRANSFUSION (LOW HGB FROM BLEEDING, UNKNOW SOURCE) Past Psychological History: No Psychological Hx Reported Smoking Status: Current some day smoker Past Alcohol Use History: Daily Additional Past Alcohol Use History / Comment(s): QUIT: Dec. SMOKED FOR : 30 YRS. PPD: 1.5. NO ETOH, BUT UP UNTIL HIS ADMISSION FOR PNEUMONIA IN DEC 2015, PATIENT WAS DRINKING DAILY, ENOUGH TO PUT HIM TO SLEEP. DEPRESSED TO DUE LOSS OF NIECE AND BROTHER. Past Drug Use History: None Reported Medications and Allergies Home Medications Medication Instructions Recorded Confirmed Type No Known Home Medications 11/13/18 11/13/18 History Allergies Allergy/AdvReac Type Severity Reaction Status Date / Time No Known Allergies Allergy Verified 11/13/18 21:58 Physical Exam Vitals: Vital Signs Temp Pulse Pulse Resp BP BP Pulse Ox 11/14/18 12:00 98.1 F 100 17 114/97 97 11/14/18 11:00 107 H 8 L 136/84 95 11/14/18 10:00 105 H 10 L 150/87 98 11/14/18 09:00 104 H 15 140/81 96 11/14/18 08:27 98 11/14/18 08:00 98.1 F 98 12 143/80 98 11/14/18 07:00 100 15 131/73 97 11/14/18 06:30 103 H 11 L 131/73 97 11/14/18 06:00 103 H 14 148/80 94 L 11/14/18 05:30 96 8 L 148/80 95 11/14/18 05:00 105 H 11 L 148/86 95 11/14/18 04:30 103 H 10 L 148/86 95 11/14/18 04:00 98.4 F 105 H 16 149/86 97 11/14/18 03:52 98.5 F 107 H 17 149/86 97 11/14/18 03:30 106 H 14 149/86 98 11/14/18 03:07 105 H 30 H 11/14/18 03:00 104 H 17 135/68 96 11/14/18 02:30 112 H 30 H 135/68 96 11/14/18 02:28 98.7 F 110 H 22 132/67 97 11/14/18 02:00 112 H 19 111/69 96 11/14/18 01:58 98.5 F 105 H 21 136/68 99 11/14/18 01:48 98.6 F 107 H 18 111/69 98 11/14/18 01:46 98.6 F 112 H 18 111/69 98 11/14/18 01:30 109 H 10 L 111/69 98 11/14/18 01:25 109 H 20 98 11/14/18 01:00 98.6 F 117 H 20 119/64 98 11/14/18 00:54 98.6 F 105 H 18 111/69 98 11/14/18 00:30 118 H 24 120/66 99 11/14/18 00:09 98.6 F 112 H 18 120/66 98 11/14/18 00:00 98.6 F 122 H 14 128/71 99 11/13/18 23:39 98.8 F 111 H 18 128/71 99 11/13/18 23:32 113 H 10 L 114/69 98 11/13/18 23:29 98.3 F 114 H 18 130/61 100 11/13/18 23:00 115 H 18 141/71 98 11/13/18 22:30 120 H 18 126/88 98 11/13/18 21:51 99.3 F 134 H 20 114/55 98 Intake and Output 11/14/18 11/14/18 11/14/18 06:59 14:59 22:59 Intake Total 1530 600 Output Total 1999 Balance 1530 -1400 Intake: IV 300 600 Magnesium Sulfate-D5w Pmx 200 1 gm In Dextrose/Water 1 100ml.bag @ 100 mls/hr IVPB Q1H [facility] Rx#: [id number] Sodium Chloride 0.9% 1, 300 400 000 ml @ 100 mls/hr IV . Q10H [facility] Rx#:[id number] Blood Product 1230 Rc As-1 Unit 310 [id number] Rc As-1 Unit 310 [id number] Output: Urine 2000 Other: Voiding Method Toilet Toilet Urinal Urinal # Voids 1 Weight 73.5 kg On physical examination, patient appears comfortable in no apparent distress. HEAD: Normocephalic, atraumatic. EYES: No scleral icterus. No conjunctival injection. MOUTH: No lesions, tongue midline. NECK: Trachea midline, no gross abnormalities. CHEST: Clear to auscultation with no wheezing or rhonchi appreciated. HEART: Regular rate and rhythm. ABDOMEN: Soft, obese. Bowel sounds are positive. No organomegaly. No guarding or rigidity. EXTREMITIES: No pedal edema. SKIN: No rashes, no jaundice. NEUROLOGIC: Alert and oriented x3. No focal deficits. Results CBC & Chem 7: 11/15/18 04:23 11/15/18 04:23 Labs: Abnormal Lab Results - Last 24 Hours (Table) 11/13/18 11/13/18 11/13/18 Range/Units 21:48 21:48 21:48 RBC 2.48 L (4.30-5.90) m/uL Hgb 6.2 L* (13.0-17.5) gm/dL Hct 20.6 L (39.0-53.0) % MCH 24.8 L (25.0-35.0) pg MCHC 30.0 L (31.0-37.0) g/dL RDW 17.6 H (11.5-15.5) % Plt Count 88 L (150-450) k/uL Lymphocytes # 0.9 L (1.0-4.8) k/uL PT (9.0-12.0) sec INR (<1.2) Chloride 109 H (98-107) mmol/L Carbon Dioxide 19 L (22-30) mmol/L BUN 32 H (9-20) mg/dL Creatinine 0.64 L (0.66-1.25) mg/dL Glucose 168 H (74-99) mg/dL POC Glucose (mg/dL) (75-99) mg/dL Hemoglobin A1c (4.0-6.0) % Plasma Lactic Acid Ranjit (0.7-2.0) mmol/L Calcium 8.2 L (8.4-10.2) mg/dL Total Bilirubin 1.5 H (0.2-1.3) mg/dL AST 93 H (17-59) U/L Alkaline Phosphatase 172 H (38-126) U/L Total Creatine Kinase 407 H (55-170) U/L CK-MB (CK-2) 3.0 H (0.0-2.4) ng/mL Albumin 3.0 L (3.5-5.0) g/dL Lipase 314 H (23-300) U/L Crossmatch 11/13/18 11/13/18 11/13/18 Range/Units 21:48 21:48 21:48 RBC (4.30-5.90) m/uL Hgb (13.0-17.5) gm/dL Hct (39.0-53.0) % MCH (25.0-35.0) pg MCHC (31.0-37.0) g/dL RDW (11.5-15.5) % Plt Count (150-450) k/uL Lymphocytes # (1.0-4.8) k/uL PT 14.5 H (9.0-12.0) sec INR 1.4 H (<1.2) Chloride (98-107) mmol/L Carbon Dioxide (22-30) mmol/L BUN (9-20) mg/dL Creatinine (0.66-1.25) mg/dL Glucose (74-99) mg/dL POC Glucose (mg/dL) (75-99) mg/dL Hemoglobin A1c (4.0-6.0) % Plasma Lactic Acid Ranjit 4.6 H* (0.7-2.0) mmol/L Calcium (8.4-10.2) mg/dL Total Bilirubin (0.2-1.3) mg/dL AST (17-59) U/L Alkaline Phosphatase (38-126) U/L Total Creatine Kinase (55-170) U/L CK-MB (CK-2) (0.0-2.4) ng/mL Albumin (3.5-5.0) g/dL Lipase (23-300) U/L Crossmatch See Detail 11/14/18 11/14/18 11/14/18 Range/Units 01:23 05:01 05:01 RBC 2.94 L (4.30-5.90) m/uL Hgb 7.7 L D (13.0-17.5) gm/dL Hct 24.7 L (39.0-53.0) % MCH (25.0-35.0) pg MCHC (31.0-37.0) g/dL RDW 17.0 H (11.5-15.5) % Plt Count 60 L (150-450) k/uL Lymphocytes # (1.0-4.8) k/uL PT (9.0-12.0) sec INR (<1.2) Chloride 109 H (98-107) mmol/L Carbon Dioxide (22-30) mmol/L BUN 27 H (9-20) mg/dL Creatinine 0.60 L (0.66-1.25) mg/dL Glucose 142 H (74-99) mg/dL POC Glucose (mg/dL) 152 H (75-99) mg/dL Hemoglobin A1c (4.0-6.0) % Plasma Lactic Acid Ranjit (0.7-2.0) mmol/L Calcium 8.0 L (8.4-10.2) mg/dL Total Bilirubin (0.2-1.3) mg/dL AST (17-59) U/L Alkaline Phosphatase (38-126) U/L Total Creatine Kinase (55-170) U/L CK-MB (CK-2) (0.0-2.4) ng/mL Albumin (3.5-5.0) g/dL Lipase (23-300) U/L Crossmatch 11/14/18 11/14/18 11/14/18 Range/Units 05:01 07:01 11:53 RBC (4.30-5.90) m/uL Hgb (13.0-17.5) gm/dL Hct (39.0-53.0) % MCH (25.0-35.0) pg MCHC (31.0-37.0) g/dL RDW (11.5-15.5) % Plt Count (150-450) k/uL Lymphocytes # (1.0-4.8) k/uL PT (9.0-12.0) sec INR (<1.2) Chloride (98-107) mmol/L Carbon Dioxide (22-30) mmol/L BUN (9-20) mg/dL Creatinine (0.66-1.25) mg/dL Glucose (74-99) mg/dL POC Glucose (mg/dL) 140 H 171 H (75-99) mg/dL Hemoglobin A1c 6.7 H (4.0-6.0) % Plasma Lactic Acid Ranjit (0.7-2.0) mmol/L Calcium (8.4-10.2) mg/dL Total Bilirubin (0.2-1.3) mg/dL AST (17-59) U/L Alkaline Phosphatase (38-126) U/L Total Creatine Kinase (55-170) U/L CK-MB (CK-2) (0.0-2.4) ng/mL Albumin (3.5-5.0) g/dL Lipase (23-300) U/L Crossmatch 11/14/18 Range/Units 12:27 RBC 3.11 L (4.30-5.90) m/uL Hgb 8.2 L (13.0-17.5) gm/dL Hct 25.8 L (39.0-53.0) % MCH (25.0-35.0) pg MCHC (31.0-37.0) g/dL RDW 17.3 H (11.5-15.5) % Plt Count 71 L (150-450) k/uL Lymphocytes # (1.0-4.8) k/uL PT (9.0-12.0) sec INR (<1.2) Chloride (98-107) mmol/L Carbon Dioxide (22-30) mmol/L BUN (9-20) mg/dL Creatinine (0.66-1.25) mg/dL Glucose (74-99) mg/dL POC Glucose (mg/dL) (75-99) mg/dL Hemoglobin A1c (4.0-6.0) % Plasma Lactic Acid Ranjit (0.7-2.0) mmol/L Calcium (8.4-10.2) mg/dL Total Bilirubin (0.2-1.3) mg/dL AST (17-59) U/L Alkaline Phosphatase (38-126) U/L Total Creatine Kinase (55-170) U/L CK-MB (CK-2) (0.0-2.4) ng/mL Albumin (3.5-5.0) g/dL Lipase (23-300) U/L Crossmatch Assessment and Plan (1) Anemia Narrative/Plan: Anemia of acute blood loss with the patient presenting after multiple episodes of upper GI bleeding. No documented history of varices, however labwork is consistent with cirrhosis and the patient has a history of ascites in the past. Current Visit: Yes Status: Acute Code(s): D64.9 - ANEMIA, UNSPECIFIED SNOMED Code(s): 819083555 (2) Alcohol abuse Current Visit: Yes Status: Acute Code(s): F10.10 - ALCOHOL ABUSE, UNCOMPLICATED SNOMED Code(s): 85402362 (3) Upper GI bleed Current Visit: Yes Status: Acute Code(s): K92.2 - GASTROINTESTINAL HEMORRHAGE, UNSPECIFIED SNOMED Code(s): 83290069 (4) Cirrhosis of liver Narrative/Plan: Decompensated alcoholic cirrhosis with history of ascites. Current Visit: No Status: Acute Code(s): K74.60 - UNSPECIFIED CIRRHOSIS OF LIVER SNOMED Code(s): 23230888 Plan: Supportive care Nothing by mouth prior to upper endoscopy Continue Protonix We'll start ceftriaxone for SBP prophylaxis Continue octreotide Alcohol abstinence Sodium restriction Monitor hemoglobin and transfuse as needed Thank you for allowing us to participate in the care of this patient we will continue to follow
[2018-11-15 07:10] LABS: Glucose,Whole Blood 119 mg/dL (75-99)
[2018-11-15] MEDS: PANTOPRAZOLE 40 MG/10 ML VIAL IV SCH ×2 (08:41→21:17)
--- NOTE | 2018-11-15 08:54 | P.PN ---
Subjective Progress Note Date: 11/15/18 Principal diagnosis: Hematemesis, melena, acute GI bleed This is a 53-year-old male, he is to follow with Dr. Amaya in [place], but has not followed with her for some time, was brought into the emergency department on 11/13/2018 per ambulance for acute onset of gastrointestinal bleeding, patient started vomiting bright red blood yesterday at around 5 PM in the afternoon, he did have some dark stools as well. He denies any abdominal pain, he has a regular alcohol intake, 5-6 beers daily. Denies any prior history of GI bleeding, or esophageal varices. Reviewing previous records it appears that patient does have history of liver cirrhosis related to EtOH abuse , ascites, previous history of cholecystectomy, liver biopsy, diabetes mellitus type 2 previously insulin-dependent, however has not been on any insulin for some time. The history includes hypertension, hyperlipidemia, GERD/reflux, previous episodes of pneumonia, former smoker, depression. His previous episode of rectal bleeding did require blood transfusions. In the emergency department blood work showed WBC of 5.1, hemoglobin of 6.2, platelet count was 88, INR is 1.4, sodium 138, potassium 5.1, chloride is 109, CO2 of 19, BUN of 32 , creatinine is 0.64, plasma lactic acid was 4.6, total bilirubin was 1.5, AST was 93, ALT was 34, alkaline phosphatase was 172, total CK was 407, CK-MB was 3.0, troponins was negative 1, lipase was slightly elevated at 314. Serum alcohol level was 41. he was transfused with 2 units of pack red blood cells, he was given IV fluids of 0.9 normal saline of 1 L. His morning he is hemodynamically stable, he was given an infusion of octreotide in the emergency department started on PPI therapy. Currently on no oxygen, maintenance IV fluid is 0.9 normal saline at 100 ML per hour. His awake and alert, oriented 3 , his mother is at the bedside, and apparently patient's brother a few years back from from acute esophageal varices hemorrhage related to liver cirrhosis related to alcohol abuse. On 11/15/2018 patient seen again in follow-up in the intensive care unit, he is status post EGD on 11/14/2018 which showed esophageal varices, and banding was done for esophageal varices. Morning he is awake and alert, in no acute distress, just mild abdominal discomfort, feels like his stomach is upset, stomach is soft and nontender. No nausea or vomiting, no further episodes of hematemesis or melena. Today's hemoglobin is 7.8, she was transfused with 2 units of packed red blood cells this admission. He is afebrile, nontoxic tachycardic, sinus mechanism, blood pressures 140/100, room air pulse ox is 95% . No signs of delirium tremens. Current IV fluids include 0.9 normal saline at a rate of 100 ML per hour, and octreotide at 25 mg per hour. Objective - Vital Signs Vital signs: Vital Signs Temp 98.2 F 11/15/18 08:00 Pulse 93 11/15/18 08:00 Resp 13 11/15/18 08:00 BP 148/100 11/15/18 08:00 Pulse Ox 95 11/15/18 08:00 Intake & Output 11/14/18 11/15/18 11/15/18 18:59 06:59 18:59 Intake Total 1600 1190.233 200 Output Total 2400 700 975 Balance -800 490.233 -775 Weight 73.9 kg Intake: IV 1600 1100 200 Magnesium Sulfate-D5w Pmx 200 1 gm In Dextrose/Water 1 100ml.bag @ 100 mls/hr IVPB Q1H [facility] Rx#: [id number] Sodium Chloride 0.9% 1, 100 000 ml @ 100 mls/hr IV . Q10H [facility] Rx#:[id number] Sodium Chloride 0.9% 1, 1100 1100 100 000 ml @ 100 mls/hr IV . Q10H [facility] Rx#:[id number] Intake, IV Titration 90.233 Amount Octreotide 200 mcg In 90.233 Sodium Chloride 0.9% 100 ml @ 25 MCG/HR 12.62 mls/ hr IV .Q8H1M [facility] Rx#: [id number] Output: Urine 2400 700 975 Other: Voiding Method Toilet Toilet Urinal Urinal # Voids 1 - Exam GENERAL EXAM: Alert, active, has a 53-year-old male comfortable in no apparent distress. HEAD: Normocephalic/atraumatic. EYES: Normal reaction of pupils, equal size. Conjunctiva pink, sclera white. NOSE: Clear with pink turbinates. THROAT: No erythema or exudates. NECK: No masses, no JVD, no thyroid enlargement, no adenopathy. CHEST: No chest wall deformity. Symmetrical expansion. LUNGS: Equal air entry with no crackles, wheeze, rhonchi or dullness. CVS: Regular rate and rhythm, normal S1 and S2, no gallops, no murmurs, no rubs ABDOMEN: Soft, nontender. No hepatosplenomegaly, normal bowel sounds, no guarding or rigidity. EXTREMITIES: No clubbing, no edema, no cyanosis, 2+ pulses and upper and lower extremities. MUSCULOSKELETAL: Muscle strength and tone normal. SPINE: No scoliosis or deformity SKIN: No rashes CENTRAL NERVOUS SYSTEM: Alert and oriented -3. No focal deficits, tone is normal in all 4 extremities. PSYCHIATRIC: Alert and oriented -3. Appropriate affect. Intact judgment and insight. - Labs CBC & Chem 7: 11/15/18 04:23 11/15/18 04:23 Labs: Abnormal Lab Results - Last 24 Hours (Table) 11/14/18 11/14/18 11/14/18 Range/Units 05:01 11:53 12:27 RBC 3.11 L (4.30-5.90) m/uL Hgb 8.2 L (13.0-17.5) gm/dL Hct 25.8 L (39.0-53.0) % RDW 17.3 H (11.5-15.5) % Plt Count 71 L (150-450) k/uL Sodium (137-145) mmol/L Chloride (98-107) mmol/L Creatinine (0.66-1.25) mg/dL Glucose (74-99) mg/dL POC Glucose (mg/dL) 171 H (75-99) mg/dL Hemoglobin A1c 6.7 H (4.0-6.0) % Calcium (8.4-10.2) mg/dL 11/14/18 11/14/18 11/14/18 Range/Units 16:49 20:33 21:11 RBC 3.05 L (4.30-5.90) m/uL Hgb 8.3 L (13.0-17.5) gm/dL Hct 25.5 L (39.0-53.0) % RDW 17.4 H (11.5-15.5) % Plt Count 67 L (150-450) k/uL Sodium (137-145) mmol/L Chloride (98-107) mmol/L Creatinine (0.66-1.25) mg/dL Glucose (74-99) mg/dL POC Glucose (mg/dL) 123 H 120 H (75-99) mg/dL Hemoglobin A1c (4.0-6.0) % Calcium (8.4-10.2) mg/dL 11/15/18 11/15/18 11/15/18 Range/Units 04:23 04:23 07:07 RBC 2.87 L (4.30-5.90) m/uL Hgb 7.8 L (13.0-17.5) gm/dL Hct 23.8 L (39.0-53.0) % RDW 17.6 H (11.5-15.5) % Plt Count 70 L (150-450) k/uL Sodium 136 L (137-145) mmol/L Chloride 108 H (98-107) mmol/L Creatinine 0.63 L (0.66-1.25) mg/dL Glucose 113 H (74-99) mg/dL POC Glucose (mg/dL) 119 H (75-99) mg/dL Hemoglobin A1c (4.0-6.0) % Calcium 7.4 L (8.4-10.2) mg/dL Assessment and Plan Plan: Assessment: #1. Acute GI hemorrhage, patient presented with hematemesis and dark tarry stools, status post EGD with banding of for esophageal varices #2. Blood loss anemia, patient has been transfused with 2 units of packed red blood cells, this morning's hemoglobin is 7.8 #3. Elevated liver enzymes #4. History of liver cirrhosis related to EtOH #5. 5-6 beers daily #6. Elevated plasma lactic acid level, improved with IV hydration and blood transfusions #7. Diabetes mellitus type 2, previously on insulin, has not taken it in a while #8. Medical noncompliance #9. Hypertension #10. Previous episode of rectal bleeding requiring blood transfusions #11. Smoker #12. Previous episodes of pneumonia Plan: Continue the octreotide infusion per GI service recommendations, continue the IV fluids, patient is tolerating clear liquid diet, has not had any recurrence of hematemesis or melena. Continue serial H&H's. We'll continue to follow. I performed a history & physical examination of the patient and discussed their management with my nurse practitioner, Rosamaria Patel. I reviewed the nurse practitioner's note and agree with the documented findings and plan of care. Lung sounds are positive for clear breath sounds. The findings and the impression was discussed with the patient. I attest to the documentation by the nurse practitioner. Time with Patient: Greater than 30
--- NOTE | 2018-11-15 09:11 | P.PN ---
Subjective Progress Note Date: 11/15/18 Principal diagnosis: Acute upper GI bleed 53-year-old male admitted with acute upper GI bleed status post EGD yesterday with findings of moderate size esophageal varices status post banding without active bleeding. Hemoglobin 7.8. Platelets 70,000. BUN 18. Creatinine 0.6. Denies abdominal pain. No episodes of hematemesis hematochezia or melena post procedure. Reports some mild nausea. Receiving intravenous PPI and Sandostatin. Objective - Vital Signs Vital signs: Vital Signs Temp 98.2 F 11/15/18 08:00 Pulse 93 11/15/18 08:00 Resp 13 11/15/18 08:00 BP 148/100 11/15/18 08:00 Pulse Ox 95 11/15/18 08:00 Intake & Output 11/14/18 11/15/18 11/15/18 18:59 06:59 18:59 Intake Total 1600 1190.233 200 Output Total 2400 700 975 Balance -800 490.233 -775 Weight 73.9 kg Intake: IV 1600 1100 200 Magnesium Sulfate-D5w Pmx 200 1 gm In Dextrose/Water 1 100ml.bag @ 100 mls/hr IVPB Q1H [facility] Rx#: [id number] Sodium Chloride 0.9% 1, 100 000 ml @ 100 mls/hr IV . Q10H [facility] Rx#:[id number] Sodium Chloride 0.9% 1, 1100 1100 100 000 ml @ 100 mls/hr IV . Q10H [facility] Rx#:[id number] Intake, IV Titration 90.233 Amount Octreotide 200 mcg In 90.233 Sodium Chloride 0.9% 100 ml @ 25 MCG/HR 12.62 mls/ hr IV .Q8H1M [facility] Rx#: [id number] Output: Urine 2400 700 975 Other: Voiding Method Toilet Toilet Urinal Urinal # Voids 1 - Exam General appearance: The patient is alert, oriented, in no acute distress. HET: Head is normocephalic and atraumatic. Pupils are equal and reactive. Oropharynx is clear without lesions. Neck: Supple without lymphadenopathy. Trachea midline. Heart: S1 S2. Regular rate and rhythm. Lungs: No crackles or wheezes are heard. Abdomen: Soft, nontender, nondistended with bowel sounds. No peritoneal signs. No palpable organomegaly or masses. Extremities: Normal skin color and turgor. No cyanosis, rash, ulceration, clubbing, or edema. Radial and pedal pulses are 2/4 bilaterally. Neurological: No focal deficits. Strength and sensation are grossly intact. - Labs CBC & Chem 7: 11/15/18 04:23 11/15/18 04:23 Labs: Abnormal Lab Results - Last 24 Hours (Table) 11/14/18 11/14/18 11/14/18 Range/Units 05:01 11:53 12:27 RBC 3.11 L (4.30-5.90) m/uL Hgb 8.2 L (13.0-17.5) gm/dL Hct 25.8 L (39.0-53.0) % RDW 17.3 H (11.5-15.5) % Plt Count 71 L (150-450) k/uL Sodium (137-145) mmol/L Chloride (98-107) mmol/L Creatinine (0.66-1.25) mg/dL Glucose (74-99) mg/dL POC Glucose (mg/dL) 171 H (75-99) mg/dL Hemoglobin A1c 6.7 H (4.0-6.0) % Calcium (8.4-10.2) mg/dL 11/14/18 11/14/18 11/14/18 Range/Units 16:49 20:33 21:11 RBC 3.05 L (4.30-5.90) m/uL Hgb 8.3 L (13.0-17.5) gm/dL Hct 25.5 L (39.0-53.0) % RDW 17.4 H (11.5-15.5) % Plt Count 67 L (150-450) k/uL Sodium (137-145) mmol/L Chloride (98-107) mmol/L Creatinine (0.66-1.25) mg/dL Glucose (74-99) mg/dL POC Glucose (mg/dL) 123 H 120 H (75-99) mg/dL Hemoglobin A1c (4.0-6.0) % Calcium (8.4-10.2) mg/dL 11/15/18 11/15/18 11/15/18 Range/Units 04:23 04:23 07:07 RBC 2.87 L (4.30-5.90) m/uL Hgb 7.8 L (13.0-17.5) gm/dL Hct 23.8 L (39.0-53.0) % RDW 17.6 H (11.5-15.5) % Plt Count 70 L (150-450) k/uL Sodium 136 L (137-145) mmol/L Chloride 108 H (98-107) mmol/L Creatinine 0.63 L (0.66-1.25) mg/dL Glucose 113 H (74-99) mg/dL POC Glucose (mg/dL) 119 H (75-99) mg/dL Hemoglobin A1c (4.0-6.0) % Calcium 7.4 L (8.4-10.2) mg/dL Assessment and Plan (1) Upper GI bleed Narrative/Plan: Secondary to esophageal varices status post EGD with esophageal banding. Current Visit: Yes Status: Acute Code(s): K92.2 - GASTROINTESTINAL HEMORRHAGE, UNSPECIFIED SNOMED Code(s): 65978920 (2) Thrombocytopenia Current Visit: Yes Status: Acute Code(s): D69.6 - THROMBOCYTOPENIA, UNSPECIFIED SNOMED Code(s): 176077156 (3) Esophageal varices Current Visit: Yes Status: Acute Code(s): I85.00 - ESOPHAGEAL VARICES WITHOUT BLEEDING SNOMED Code(s): 16649245 (4) Acute blood loss anemia Current Visit: Yes Status: Acute Code(s): D62 - ACUTE POSTHEMORRHAGIC ANEMIA SNOMED Code(s): 723683782 (5) Alcohol abuse Current Visit: Yes Status: Acute Code(s): F10.10 - ALCOHOL ABUSE, UNCOMPLICATED SNOMED Code(s): 08884949 (6) Cirrhosis of liver Current Visit: No Status: Acute Code(s): K74.60 - UNSPECIFIED CIRRHOSIS OF LIVER SNOMED Code(s): 23014709 Plan: 1. Clear liquids do not advance. CBC at noon. Continue the IV Sandostatin and PPI. Daily monitoring of CBC. We'll continue to follow. Assessment and plan a care discussed with Dr. Peña
--- NOTE | 2018-11-15 09:37 | P.PN ---
Subjective Progress Note Date: 11/15/18 53-year-old gentleman admitted to ICU for upper GI bleed. He has a history of alcoholism apparently drinks about 6-7 beers daily. 11/15/2019 Patient had EGD with banding of the varices He is on octreotide drip He complains of no further bleeding episode but at the same time he hasn't had a bowel movement yet. He does not complain of any chest pain racing heart, says that he is feeling dizzy when he walks to the restroom No cough no shortness of breath No abdominal pain Objective - Vital Signs Vital signs: Vital Signs Temp 98.2 F 11/15/18 08:00 Pulse 93 11/15/18 08:00 Resp 13 11/15/18 08:00 BP 148/100 11/15/18 08:00 Pulse Ox 95 11/15/18 08:00 Intake & Output 11/14/18 11/15/18 11/15/18 18:59 06:59 18:59 Intake Total 1600 1190.233 200 Output Total 2400 700 975 Balance -800 490.233 -775 Weight 73.9 kg Intake: IV 1600 1100 200 Magnesium Sulfate-D5w Pmx 200 1 gm In Dextrose/Water 1 100ml.bag @ 100 mls/hr IVPB Q1H [facility] Rx#: [id number] Sodium Chloride 0.9% 1, 100 000 ml @ 100 mls/hr IV . Q10H [facility] Rx#:[id number] Sodium Chloride 0.9% 1, 1100 1100 100 000 ml @ 100 mls/hr IV . Q10H [facility] Rx#:[id number] Intake, IV Titration 90.233 Amount Octreotide 200 mcg In 90.233 Sodium Chloride 0.9% 100 ml @ 25 MCG/HR 12.62 mls/ hr IV .Q8H1M [facility] Rx#: [id number] Output: Urine 2400 700 975 Other: Voiding Method Toilet Toilet Urinal Urinal # Voids 1 - Constitutional General appearance: Present: cooperative - EENT Eyes: Present: PERRLA - Neck Neck: Absent: lymphadenopathy, thyromegaly - Respiratory Respiratory: bilateral: CTA - Cardiovascular Heart sounds: normal: S1, S2 - Gastrointestinal General gastrointestinal: Present: normal bowel sounds. Absent: hepatomegaly, splenomegaly - Integumentary Integumentary: Present: normal - Neurologic Neurologic: Present: CNII-XII intact - Musculoskeletal Musculoskeletal: Present: generalized weakness, strength equal bilaterally - Psychiatric Psychiatric: Present: A&O x's 3, appropriate affect - Labs CBC & Chem 7: 11/15/18 04:23 11/15/18 04:23 Labs: Abnormal Lab Results - Last 24 Hours (Table) 11/14/18 11/14/18 11/14/18 Range/Units 05:01 11:53 12:27 RBC 3.11 L (4.30-5.90) m/uL Hgb 8.2 L (13.0-17.5) gm/dL Hct 25.8 L (39.0-53.0) % RDW 17.3 H (11.5-15.5) % Plt Count 71 L (150-450) k/uL Sodium (137-145) mmol/L Chloride (98-107) mmol/L Creatinine (0.66-1.25) mg/dL Glucose (74-99) mg/dL POC Glucose (mg/dL) 171 H (75-99) mg/dL Hemoglobin A1c 6.7 H (4.0-6.0) % Calcium (8.4-10.2) mg/dL 11/14/18 11/14/18 11/14/18 Range/Units 16:49 20:33 21:11 RBC 3.05 L (4.30-5.90) m/uL Hgb 8.3 L (13.0-17.5) gm/dL Hct 25.5 L (39.0-53.0) % RDW 17.4 H (11.5-15.5) % Plt Count 67 L (150-450) k/uL Sodium (137-145) mmol/L Chloride (98-107) mmol/L Creatinine (0.66-1.25) mg/dL Glucose (74-99) mg/dL POC Glucose (mg/dL) 123 H 120 H (75-99) mg/dL Hemoglobin A1c (4.0-6.0) % Calcium (8.4-10.2) mg/dL 11/15/18 11/15/18 11/15/18 Range/Units 04:23 04:23 07:07 RBC 2.87 L (4.30-5.90) m/uL Hgb 7.8 L (13.0-17.5) gm/dL Hct 23.8 L (39.0-53.0) % RDW 17.6 H (11.5-15.5) % Plt Count 70 L (150-450) k/uL Sodium 136 L (137-145) mmol/L Chloride 108 H (98-107) mmol/L Creatinine 0.63 L (0.66-1.25) mg/dL Glucose 113 H (74-99) mg/dL POC Glucose (mg/dL) 119 H (75-99) mg/dL Hemoglobin A1c (4.0-6.0) % Calcium 7.4 L (8.4-10.2) mg/dL Assessment and Plan Assessment: 1. Acute GI hemorrhage, patient presented with hematemesis and dark tarry stools status post EGD and banding 2. Blood loss anemia 3. Transaminitis 4. History of liver cirrhosis related to EtOH 5. Alcoholism with impending ETOH withdrawals 6. Lactic acidosis 7. Diabetes mellitus type 2, previously on insulin, has not taken it in a while 8. Hypertension 9. Non compliance Plan: - The patient will be admitted to ICU - The patient now is hemodynamically stable. - He is s/p 2 units blood transfusion, hemoglobin is stable as of now - GI consutled. Had EGD done with banding of the VARICES. He is on clear liquid diet - Will monitor H AND H, transfuse if needed. - He apparently was on insulin previously but because of financial issues is not on any diabetic medication. His blood pressure is maintaining okay as of now we'll continue to monitor the blood pressure - His blood pressure as also high apparently we'll keep a watch on the blood pressure and will put him on an JUSTINO inhibitor if his blood pressures more than 160/110 consistently - DVT PPX will SCDS - Continue protonix - Will f/u with the patient - Expected length of stay is more than 2 midnights. - Patient is full code.
[2018-11-15] MEDS: THIAMINE 100 MG TAB PO SCH ×2 (11:55→17:19)
[2018-11-15 12:09] LABS: Glucose,Whole Blood 110 mg/dL (75-99)
[2018-11-15 13:32] LABS: Anisocytosis Slight; Basophils % (A) 1 %; Eosinophils # (A) 0.1 k/uL (0-0.7); Eosinophils % (A) 3 %; HCT 26.2 % (39.0-53.0); HGB 8.1 gm/dL (13.0-17.5); Hypochromasia Marked; Lymphocytes # (A) 0.9 k/uL (1.0-4.8); Lymphocytes % (A) 27 %; MCH 25.8 pg (25.0-35.0); MCHC 30.9 g/dL (31.0-37.0); MCV 83.5 fL (80.0-100.0); Mean Platelet Volume 8.4; Monocytes # (A) 0.3 k/uL (0-1.0); Monocytes % (A) 8 %; Neutrophils % (A) 58 %; Poikilocytosis Slight; RBC 3.13 m/uL (4.30-5.90); RDW 17.5 % (11.5-15.5); WBC 3.5 k/uL (3.8-10.6)
[2018-11-15 13:47] LABS: Platelet Count 73 k/uL (150-450)
[2018-11-15] MEDS ORDERED: SODIUM CHLORIDE 0.9% 500 ML 500 ML IV ONE (15:42)
[2018-11-15 17:17] LABS: Glucose,Whole Blood 140 mg/dL (75-99)
[2018-11-15 18:29] LABS: Anisocytosis Slight; HCT 24.8 % (39.0-53.0); HGB 7.8 gm/dL (13.0-17.5); Hypochromasia Marked; MCH 26.8 pg (25.0-35.0); MCHC 31.4 g/dL (31.0-37.0); MCV 85.4 fL (80.0-100.0); Mean Platelet Volume 7.9; Poikilocytosis Moderate; RBC 2.91 m/uL (4.30-5.90); RDW 17.5 % (11.5-15.5); WBC 4.2 k/uL (3.8-10.6)
[2018-11-15 18:31] LABS: Platelet Count 75 k/uL (150-450)
[2018-11-15 20:39] LABS: Glucose,Whole Blood 105 mg/dL (75-99)
[2018-11-15] MEDS: LORazepam 2 MG/ML INJ IV PRN (21:28)
[2018-11-16 05:08] LABS: Anisocytosis Slight; Basophils % (A) 1 %; Eosinophils # (A) 0.2 k/uL (0-0.7); Eosinophils % (A) 4 %; HCT 24.2 % (39.0-53.0); HGB 7.6 gm/dL (13.0-17.5); Hypochromasia Marked; Lymphocytes # (A) 1.2 k/uL (1.0-4.8); Lymphocytes % (A) 30 %; MCH 26.5 pg (25.0-35.0); MCHC 31.6 g/dL (31.0-37.0); MCV 84.1 fL (80.0-100.0); Mean Platelet Volume 8.1; Monocytes # (A) 0.4 k/uL (0-1.0); Monocytes % (A) 9 %; Neutrophils % (A) 51 %; Poikilocytosis Slight; RBC 2.87 m/uL (4.30-5.90); RDW 17.9 % (11.5-15.5); WBC 3.8 k/uL (3.8-10.6)
[2018-11-16 05:25] LABS: ALT 38 U/L (21-72); AST 83 U/L (17-59); Albumin 2.7 g/dL (3.5-5.0); Alkaline Phosphatase 172 U/L (38-126); Anion Gap 7 mmol/L; Blood Urea Nitrogen 12 mg/dL (9-20); Calcium 7.4 mg/dL (8.4-10.2); Carbon Dioxide 21 mmol/L (22-30); Chloride 106 mmol/L (98-107); Glucose 104 mg/dL (74-99); Magnesium 1.8 mg/dL (1.6-2.3); Phosphorus 3.3 mg/dL (2.5-4.5); Potassium 3.7 mmol/L (3.5-5.1); Sodium 134 mmol/L (137-145); Total Bilirubin 1.8 mg/dL (0.2-1.3); Total Protein 6.6 g/dL (6.3-8.2)
[2018-11-16 05:33] LABS: Platelet Count 75 k/uL (150-450)
[2018-11-16] MEDS ORDERED: Potassium Replacement Protocol 1 EACH MISC MISCELLANE PRN (06:36)
[2018-11-16] MEDS: SODIUM CHLORIDE 0.9% 1,000 ML IV SCH ×4 (06:51→22:36)
[2018-11-16] MEDS: OCTREOTIDE 200 MCG in SODIUM CHLORIDE 0.9% 100 ML IV SCH ×2 (06:51→22:35)
[2018-11-16 06:57] LABS: Glucose,Whole Blood 114 mg/dL (75-99)
[2018-11-16] MEDS: POTASSIUM CHLORIDE 10 MEQ in WATER FOR INJECTION 1 100ML.BAG IVPB SCH ×2 (07:17→09:01)
[2018-11-16] MEDS: MAGNESIUM SULFATE-D5W PMX 1 GM in DEXTROSE/WATER 1 100ML.BAG IVPB SCH ×2 (07:17→09:00)
[2018-11-16] MEDS: PANTOPRAZOLE 40 MG/10 ML VIAL IV SCH ×2 (09:01→20:31)
[2018-11-16] MEDS ORDERED: diphenhydrAMINE 25 MG CAP PO STA (09:23)
--- NOTE | 2018-11-16 09:23 | P.PN ---
Subjective Progress Note Date: 11/16/18 Principal diagnosis: Hematemesis, melena, acute GI bleed This is a 53-year-old male, he is to follow with Dr. Amaya in [place], but has not followed with her for some time, was brought into the emergency department on 11/13/2018 per ambulance for acute onset of gastrointestinal bleeding, patient started vomiting bright red blood yesterday at around 5 PM in the afternoon, he did have some dark stools as well. He denies any abdominal pain, he has a regular alcohol intake, 5-6 beers daily. Denies any prior history of GI bleeding, or esophageal varices. Reviewing previous records it appears that patient does have history of liver cirrhosis related to EtOH abuse , ascites, previous history of cholecystectomy, liver biopsy, diabetes mellitus type 2 previously insulin-dependent, however has not been on any insulin for some time. The history includes hypertension, hyperlipidemia, GERD/reflux, previous episodes of pneumonia, former smoker, depression. His previous episode of rectal bleeding did require blood transfusions. In the emergency department blood work showed WBC of 5.1, hemoglobin of 6.2, platelet count was 88, INR is 1.4, sodium 138, potassium 5.1, chloride is 109, CO2 of 19, BUN of 32 , creatinine is 0.64, plasma lactic acid was 4.6, total bilirubin was 1.5, AST was 93, ALT was 34, alkaline phosphatase was 172, total CK was 407, CK-MB was 3.0, troponins was negative 1, lipase was slightly elevated at 314. Serum alcohol level was 41. he was transfused with 2 units of pack red blood cells, he was given IV fluids of 0.9 normal saline of 1 L. His morning he is hemodynamically stable, he was given an infusion of octreotide in the emergency department started on PPI therapy. Currently on no oxygen, maintenance IV fluid is 0.9 normal saline at 100 ML per hour. His awake and alert, oriented 3 , his mother is at the bedside, and apparently patient's brother a few years back from from acute esophageal varices hemorrhage related to liver cirrhosis related to alcohol abuse. On 11/15/2018 patient seen again in follow-up in the intensive care unit, he is status post EGD on 11/14/2018 which showed esophageal varices, and banding was done for esophageal varices. Morning he is awake and alert, in no acute distress, just mild abdominal discomfort, feels like his stomach is upset, stomach is soft and nontender. No nausea or vomiting, no further episodes of hematemesis or melena. Today's hemoglobin is 7.8, she was transfused with 2 units of packed red blood cells this admission. He is afebrile, nontoxic tachycardic, sinus mechanism, blood pressures 140/100, room air pulse ox is 95% . No signs of delirium tremens. Current IV fluids include 0.9 normal saline at a rate of 100 ML per hour, and octreotide at 25 mg per hour. On 11/16/2018 patient seen in follow-up in the intensive care unit, he is awake and alert, no acute distress,no hematemesis or melena, hemodynamically patient is stable, this morning's hemoglobin is 7.6. Patient has received 2 units of packed red blood cells on admission. Patient status post EGD with esophageal variceal banding 4. Remains on octreotide infusion at 25 mg per hour, IV fluids 0.9 normal saline at a rate of 125 ML per hour. No nausea, no vomiting or diarrhea. Tolerating clear liquid diet. No shortness of breath, no chest pain Objective - Vital Signs Vital signs: Vital Signs Temp 98.0 F 11/16/18 04:00 Pulse 84 11/16/18 09:00 Resp 12 11/16/18 09:00 BP 142/92 11/16/18 09:00 Pulse Ox 97 11/16/18 09:00 Intake & Output 11/15/18 11/16/18 11/16/18 18:59 06:59 18:59 Intake Total 9003.152 5721 1175 Output Total 2800 2150 1200 Balance -855.191 -549 -25 Weight 73.9 kg 72 kg Intake: IV 1750 1500 375 Sodium Chloride 0.9% 1, 100 000 ml @ 100 mls/hr IV . Q10H [facility] Rx#:[id number] Sodium Chloride 0.9% 1, 1025 1500 375 000 ml @ 125 mls/hr IV . Q8H [facility] Rx#:[id number] Sodium Chloride 0.9% 500 625 ml 500 ml @ 999 mls/hr IV .Q31M [facility] Rx#:[id number] Intake, IV Titration 194.809 101 300 Amount Magnesium Sulfate-D5w Pmx 200 1 gm In Dextrose/Water 1 100ml.bag @ 100 mls/hr IVPB Q1H [facility] Rx#: [id number] Octreotide 200 mcg In 194.809 101 Sodium Chloride 0.9% 100 ml @ 25 MCG/HR 12.62 mls/ hr IV .Q8H1M [facility] Rx#: [id number] Potassium Chloride 10 meq 100 In Water For Injection 1 100ml.bag @ 100 mls/hr IVPB Q1H [facility] Rx#: [id number] Oral 500 Output: Urine 2800 2150 1200 Other: Voiding Method Toilet Toilet Toilet Urinal Urinal Urinal # Voids 1 1 - Exam GENERAL EXAM: Alert, active, has a 53-year-old male comfortable in no apparent distress. HEAD: Normocephalic/atraumatic. EYES: Normal reaction of pupils, equal size. Conjunctiva pink, sclera white. NOSE: Clear with pink turbinates. THROAT: No erythema or exudates. NECK: No masses, no JVD, no thyroid enlargement, no adenopathy. CHEST: No chest wall deformity. Symmetrical expansion. LUNGS: Equal air entry with no crackles, wheeze, rhonchi or dullness. CVS: Regular rate and rhythm, normal S1 and S2, no gallops, no murmurs, no rubs ABDOMEN: Soft, nontender. No hepatosplenomegaly, normal bowel sounds, no guarding or rigidity. EXTREMITIES: No clubbing, no edema, no cyanosis, 2+ pulses and upper and lower extremities. MUSCULOSKELETAL: Muscle strength and tone normal. SPINE: No scoliosis or deformity SKIN: No rashes CENTRAL NERVOUS SYSTEM: Alert and oriented -3. No focal deficits, tone is normal in all 4 extremities. PSYCHIATRIC: Alert and oriented -3. Appropriate affect. Intact judgment and insight. - Labs CBC & Chem 7: 11/16/18 04:26 11/16/18 04:26 Labs: Abnormal Lab Results - Last 24 Hours (Table) 11/15/18 11/15/18 11/15/18 Range/Units 11:53 12:29 17:13 WBC 3.5 L (3.8-10.6) k/uL RBC 3.13 L (4.30-5.90) m/uL Hgb 8.1 L (13.0-17.5) gm/dL Hct 26.2 L (39.0-53.0) % MCHC 30.9 L (31.0-37.0) g/dL RDW 17.5 H (11.5-15.5) % Plt Count 73 L (150-450) k/uL Lymphocytes # 0.9 L (1.0-4.8) k/uL Sodium (137-145) mmol/L Carbon Dioxide (22-30) mmol/L Creatinine (0.66-1.25) mg/dL Glucose (74-99) mg/dL POC Glucose (mg/dL) 110 H 140 H (75-99) mg/dL Calcium (8.4-10.2) mg/dL Total Bilirubin (0.2-1.3) mg/dL AST (17-59) U/L Alkaline Phosphatase (38-126) U/L Albumin (3.5-5.0) g/dL 11/15/18 11/15/18 11/16/18 Range/Units 18:13 20:26 04:26 WBC (3.8-10.6) k/uL RBC 2.91 L (4.30-5.90) m/uL Hgb 7.8 L (13.0-17.5) gm/dL Hct 24.8 L (39.0-53.0) % MCHC (31.0-37.0) g/dL RDW 17.5 H (11.5-15.5) % Plt Count 75 L (150-450) k/uL Lymphocytes # (1.0-4.8) k/uL Sodium 134 L (137-145) mmol/L Carbon Dioxide 21 L (22-30) mmol/L Creatinine 0.59 L (0.66-1.25) mg/dL Glucose 104 H (74-99) mg/dL POC Glucose (mg/dL) 105 H (75-99) mg/dL Calcium 7.4 L (8.4-10.2) mg/dL Total Bilirubin 1.8 H (0.2-1.3) mg/dL AST 83 H (17-59) U/L Alkaline Phosphatase 172 H (38-126) U/L Albumin 2.7 L (3.5-5.0) g/dL 18 12/20/18 Range/Units 04:26 06:54 WBC (3.8-10.6) k/uL RBC 2.87 L (4.30-5.90) m/uL Hgb 7.6 L (13.0-17.5) gm/dL Hct 24.2 L (39.0-53.0) % MCHC (31.0-37.0) g/dL RDW 17.9 H (11.5-15.5) % Plt Count 75 L (150-450) k/uL Lymphocytes # (1.0-4.8) k/uL Sodium (137-145) mmol/L Carbon Dioxide (22-30) mmol/L Creatinine (0.66-1.25) mg/dL Glucose (74-99) mg/dL POC Glucose (mg/dL) 114 H (75-99) mg/dL Calcium (8.4-10.2) mg/dL Total Bilirubin (0.2-1.3) mg/dL AST (17-59) U/L Alkaline Phosphatase (38-126) U/L Albumin (3.5-5.0) g/dL Assessment and Plan Plan: Assessment: #1. Acute GI hemorrhage, patient presented with hematemesis and dark tarry stools, status post EGD with banding of for esophageal varices times 4 #2. Blood loss anemia, patient has been transfused with 2 units of packed red blood cells, this morning's hemoglobin is 7.6 #3. Elevated liver enzymes #4. History of liver cirrhosis related to EtOH #5. 5-6 beers daily #6. Elevated plasma lactic acid level, improved with IV hydration and blood transfusions #7. Diabetes mellitus type 2, previously on insulin, has not taken it in a while #8. Medical noncompliance #9. Hypertension #10. Previous episode of rectal bleeding requiring blood transfusions #11. Smoker #12. Previous episodes of pneumonia Plan: Patient remains stable, no further bleeding, despite his hemoglobin 7.6, continues on octreotide infusion, we'll ask the GI service whether the patient has to continue on that. Tolerating clear liquid diet. Possible transfer out of the intensive care unit today I performed a history & physical examination of the patient and discussed their management with my nurse practitioner, Rosamaria Patel. I reviewed the nurse practitioner's note and agree with the documented findings and plan of care. Lung sounds are positive for clear breath sounds. The findings and the impression was discussed with the patient. I attest to the documentation by the nurse practitioner. Time with Patient: Greater than 30
--- NOTE | 2018-11-16 09:58 | P.PN ---
Subjective Progress Note Date: 11/16/18 53-year-old gentleman admitted to ICU for upper GI bleed. He has a history of alcoholism apparently drinks about 6-7 beers daily. 11/15/2018 Patient had EGD with banding of the varices He is on octreotide drip He complains of no further bleeding episode but at the same time he hasn't had a bowel movement yet. He does not complain of any chest pain racing heart, says that he is feeling dizzy when he walks to the restroom No cough no shortness of breath No abdominal pain 11/16/2018 Patient having no further episodes of bleeding. Started on clear liquids by GI. Awaiting further recommendations by GI On octreotide drip as per GI recommendations Patient is having a new rash on his chest and his bilateral shoulders. He said that he slept on his chest facing the bed, the reason for the rash. Objective - Vital Signs Vital signs: Vital Signs Temp 98.0 F 11/16/18 04:00 Pulse 84 11/16/18 09:00 Resp 12 11/16/18 09:00 BP 142/92 11/16/18 09:00 Pulse Ox 97 11/16/18 09:00 Intake & Output 11/15/18 11/16/18 11/16/18 18:59 06:59 18:59 Intake Total 4164.026 3466 1175 Output Total 2800 2150 1200 Balance -855.191 -549 -25 Weight 73.9 kg 72 kg Intake: IV 1750 1500 375 Sodium Chloride 0.9% 1, 100 000 ml @ 100 mls/hr IV . Q10H [facility] Rx#:[id number] Sodium Chloride 0.9% 1, 1025 1500 375 000 ml @ 125 mls/hr IV . Q8H [facility] Rx#:[id number] Sodium Chloride 0.9% 500 625 ml 500 ml @ 999 mls/hr IV .Q31M [facility] Rx#:[id number] Intake, IV Titration 194.809 101 300 Amount Magnesium Sulfate-D5w Pmx 200 1 gm In Dextrose/Water 1 100ml.bag @ 100 mls/hr IVPB Q1H [facility] Rx#: [id number] Octreotide 200 mcg In 194.809 101 Sodium Chloride 0.9% 100 ml @ 25 MCG/HR 12.62 mls/ hr IV .Q8H1M [facility] Rx#: [id number] Potassium Chloride 10 meq 100 In Water For Injection 1 100ml.bag @ 100 mls/hr IVPB Q1H [facility] Rx#: [id number] Oral 500 Output: Urine 2800 2150 1200 Other: Voiding Method Toilet Toilet Toilet Urinal Urinal Urinal # Voids 1 1 - Exam Insert physical exam - Constitutional General appearance: Present: cooperative - EENT Eyes: Present: PERRLA ENT: Present: normal oropharynx - Neck Neck: Absent: lymphadenopathy, thyromegaly - Respiratory Respiratory: bilateral: CTA - Cardiovascular Heart sounds: normal: S1, S2 - Gastrointestinal General gastrointestinal: Present: normal bowel sounds. Absent: hepatomegaly, splenomegaly - Integumentary Integumentary: Present: rash - Neurologic Neurologic Comment(s): Patient complaining of lightheadedness while walking Neurologic: Present: CNII-XII intact - Psychiatric Psychiatric: Present: A&O x's 3, appropriate affect - Labs CBC & Chem 7: 11/16/18 04:26 11/16/18 04:26 Labs: Abnormal Lab Results - Last 24 Hours (Table) 11/15/18 11/15/18 11/15/18 Range/Units 11:53 12:29 17:13 WBC 3.5 L (3.8-10.6) k/uL RBC 3.13 L (4.30-5.90) m/uL Hgb 8.1 L (13.0-17.5) gm/dL Hct 26.2 L (39.0-53.0) % MCHC 30.9 L (31.0-37.0) g/dL RDW 17.5 H (11.5-15.5) % Plt Count 73 L (150-450) k/uL Lymphocytes # 0.9 L (1.0-4.8) k/uL Sodium (137-145) mmol/L Carbon Dioxide (22-30) mmol/L Creatinine (0.66-1.25) mg/dL Glucose (74-99) mg/dL POC Glucose (mg/dL) 110 H 140 H (75-99) mg/dL Calcium (8.4-10.2) mg/dL Total Bilirubin (0.2-1.3) mg/dL AST (17-59) U/L Alkaline Phosphatase (38-126) U/L Albumin (3.5-5.0) g/dL 11/15/18 11/15/18 11/16/18 Range/Units 18:13 20:26 04:26 WBC (3.8-10.6) k/uL RBC 2.91 L (4.30-5.90) m/uL Hgb 7.8 L (13.0-17.5) gm/dL Hct 24.8 L (39.0-53.0) % MCHC (31.0-37.0) g/dL RDW 17.5 H (11.5-15.5) % Plt Count 75 L (150-450) k/uL Lymphocytes # (1.0-4.8) k/uL Sodium 134 L (137-145) mmol/L Carbon Dioxide 21 L (22-30) mmol/L Creatinine 0.59 L (0.66-1.25) mg/dL Glucose 104 H (74-99) mg/dL POC Glucose (mg/dL) 105 H (75-99) mg/dL Calcium 7.4 L (8.4-10.2) mg/dL Total Bilirubin 1.8 H (0.2-1.3) mg/dL AST 83 H (17-59) U/L Alkaline Phosphatase 172 H (38-126) U/L Albumin 2.7 L (3.5-5.0) g/dL 11/16/18 11/16/18 Range/Units 04:26 06:54 WBC (3.8-10.6) k/uL RBC 2.87 L (4.30-5.90) m/uL Hgb 7.6 L (13.0-17.5) gm/dL Hct 24.2 L (39.0-53.0) % MCHC (31.0-37.0) g/dL RDW 17.9 H (11.5-15.5) % Plt Count 75 L (150-450) k/uL Lymphocytes # (1.0-4.8) k/uL Sodium (137-145) mmol/L Carbon Dioxide (22-30) mmol/L Creatinine (0.66-1.25) mg/dL Glucose (74-99) mg/dL POC Glucose (mg/dL) 114 H (75-99) mg/dL Calcium (8.4-10.2) mg/dL Total Bilirubin (0.2-1.3) mg/dL AST (17-59) U/L Alkaline Phosphatase (38-126) U/L Albumin (3.5-5.0) g/dL Assessment and Plan Assessment: 1. Acute GI hemorrhage, patient presented with hematemesis and dark tarry stools status post EGD and banding 2. Orthostatic hypertension 3. Blood loss anemia 4. Transaminitis 5. History of liver cirrhosis related to EtOH 6. Alcoholism with impending ETOH withdrawals 7. Lactic acidosis 8. Diabetes mellitus type 2, previously on insulin, has not taken it in a while 9. Hypertension 10. Non compliance Plan: - The patient will be admitted to ICU - Patient still on octreotide drip. We will wait for J further recommendations regarding this - He is on clear liquids. Further recommendations regarding [place] diet as per GI - He had orthostatics positive yesterday. He was given 500 mL fluid bolus and was started on 125 mL/h of IV fluids. We'll check orthostatics again - Monitor H&H and transfuse if needed - He is on CIWA protocol but is not requiring Ativan frequently. His CIWA score this morning was 2 - DVT and GI prophylaxis - We'll monitor labs - He might transfer out of ICU today - Counselled again to stop all alcohol and smoking patient showed understanding Time with Patient: Greater than 30
--- NOTE | 2018-11-16 11:31 | P.PN ---
Subjective Progress Note Date: 11/16/18 Principal diagnosis: Acute upper GI bleed 53-year-old male admitted with acute upper GI bleed status post EGD with findings of moderate size esophageal varices status post banding without active bleeding. Hemoglobin 7.6. Platelets 75,000. BUN 12. Creatinine 0.5. Denies abdominal pain. Mild lightheadedness dizziness when sitting up otherwise denies hematemesis hematochezia or melena. Receiving intravenous PPI and Sandostatin. Objective - Vital Signs Vital signs: Vital Signs Temp 98.0 F 11/16/18 04:00 Pulse 86 11/16/18 10:00 Resp 19 11/16/18 10:00 BP 161/95 11/16/18 10:00 Pulse Ox 96 11/16/18 10:00 Intake & Output 11/15/18 11/16/18 11/16/18 18:59 06:59 18:59 Intake Total 9264.537 6543 1400 Output Total 2800 2150 1500 Balance -855.191 -549 -100 Weight 73.9 kg 72 kg Intake: IV 1750 1500 500 Sodium Chloride 0.9% 1, 100 000 ml @ 100 mls/hr IV . Q10H [facility] Rx#:[id number] Sodium Chloride 0.9% 1, 1025 1500 500 000 ml @ 125 mls/hr IV . Q8H [facility] Rx#:[id number] Sodium Chloride 0.9% 500 625 ml 500 ml @ 999 mls/hr IV .Q31M [facility] Rx#:[id number] Intake, IV Titration 194.809 101 400 Amount Magnesium Sulfate-D5w Pmx 200 1 gm In Dextrose/Water 1 100ml.bag @ 100 mls/hr IVPB Q1H [facility] Rx#: [id number] Octreotide 200 mcg In 194.809 101 Sodium Chloride 0.9% 100 ml @ 25 MCG/HR 12.62 mls/ hr IV .Q8H1M [facility] Rx#: [id number] Potassium Chloride 10 meq 150 In Water For Injection 1 100ml.bag @ 100 mls/hr IVPB Q1H [facility] Rx#: [id number] cefTRIAXone 1,000 mg In 50 Sodium Chloride 0.9% 50 ml @ 100 mls/hr IVPB Q24HR [facility] Rx#:[id number] Oral 500 Output: Urine 2800 2150 1500 Other: Voiding Method Toilet Toilet Toilet Urinal Urinal Urinal # Voids 1 1 - Exam General appearance: The patient is alert, oriented, in no acute distress. HET: Head is normocephalic and atraumatic. Pupils are equal and reactive. Oropharynx is clear without lesions. Neck: Supple without lymphadenopathy. Trachea midline. Heart: S1 S2. Regular rate and rhythm. Lungs: No crackles or wheezes are heard. Abdomen: Soft, nontender, nondistended with bowel sounds. No peritoneal signs. No palpable organomegaly or masses. Extremities: Normal skin color and turgor. No cyanosis, rash, ulceration, clubbing, or edema. Radial and pedal pulses are 2/4 bilaterally. Neurological: No focal deficits. Strength and sensation are grossly intact. - Labs CBC & Chem 7: 11/16/18 04:26 11/16/18 04:26 Labs: Abnormal Lab Results - Last 24 Hours (Table) 11/15/18 11/15/18 11/15/18 Range/Units 11:53 12:29 17:13 WBC 3.5 L (3.8-10.6) k/uL RBC 3.13 L (4.30-5.90) m/uL Hgb 8.1 L (13.0-17.5) gm/dL Hct 26.2 L (39.0-53.0) % MCHC 30.9 L (31.0-37.0) g/dL RDW 17.5 H (11.5-15.5) % Plt Count 73 L (150-450) k/uL Lymphocytes # 0.9 L (1.0-4.8) k/uL Sodium (137-145) mmol/L Carbon Dioxide (22-30) mmol/L Creatinine (0.66-1.25) mg/dL Glucose (74-99) mg/dL POC Glucose (mg/dL) 110 H 140 H (75-99) mg/dL Calcium (8.4-10.2) mg/dL Total Bilirubin (0.2-1.3) mg/dL AST (17-59) U/L Alkaline Phosphatase (38-126) U/L Albumin (3.5-5.0) g/dL 11/15/18 11/15/18 11/16/18 Range/Units 18:13 20:26 04:26 WBC (3.8-10.6) k/uL RBC 2.91 L (4.30-5.90) m/uL Hgb 7.8 L (13.0-17.5) gm/dL Hct 24.8 L (39.0-53.0) % MCHC (31.0-37.0) g/dL RDW 17.5 H (11.5-15.5) % Plt Count 75 L (150-450) k/uL Lymphocytes # (1.0-4.8) k/uL Sodium 134 L (137-145) mmol/L Carbon Dioxide 21 L (22-30) mmol/L Creatinine 0.59 L (0.66-1.25) mg/dL Glucose 104 H (74-99) mg/dL POC Glucose (mg/dL) 105 H (75-99) mg/dL Calcium 7.4 L (8.4-10.2) mg/dL Total Bilirubin 1.8 H (0.2-1.3) mg/dL AST 83 H (17-59) U/L Alkaline Phosphatase 172 H (38-126) U/L Albumin 2.7 L (3.5-5.0) g/dL 18 11/16/18 Range/Units 04:26 06:54 WBC (3.8-10.6) k/uL RBC 2.87 L (4.30-5.90) m/uL Hgb 7.6 L (13.0-17.5) gm/dL Hct 24.2 L (39.0-53.0) % MCHC (31.0-37.0) g/dL RDW 17.9 H (11.5-15.5) % Plt Count 75 L (150-450) k/uL Lymphocytes # (1.0-4.8) k/uL Sodium (137-145) mmol/L Carbon Dioxide (22-30) mmol/L Creatinine (0.66-1.25) mg/dL Glucose (74-99) mg/dL POC Glucose (mg/dL) 114 H (75-99) mg/dL Calcium (8.4-10.2) mg/dL Total Bilirubin (0.2-1.3) mg/dL AST (17-59) U/L Alkaline Phosphatase (38-126) U/L Albumin (3.5-5.0) g/dL Assessment and Plan (1) Upper GI bleed Narrative/Plan: Secondary to esophageal varices status post EGD with esophageal banding. Current Visit: Yes Status: Acute Code(s): K92.2 - GASTROINTESTINAL HEMORRHAGE, UNSPECIFIED SNOMED Code(s): 18616201 (2) Thrombocytopenia Current Visit: Yes Status: Acute Code(s): D69.6 - THROMBOCYTOPENIA, UNSPECIFIED SNOMED Code(s): 434306456 (3) Esophageal varices Current Visit: Yes Status: Acute Code(s): I85.00 - ESOPHAGEAL VARICES WITHOUT BLEEDING SNOMED Code(s): 01569280 (4) Acute blood loss anemia Current Visit: Yes Status: Acute Code(s): D62 - ACUTE POSTHEMORRHAGIC ANEMIA SNOMED Code(s): 365584381 (5) Alcohol abuse Current Visit: Yes Status: Acute Code(s): F10.10 - ALCOHOL ABUSE, UNCOMPLICATED SNOMED Code(s): 97269577 (6) Cirrhosis of liver Current Visit: No Status: Acute Code(s): K74.60 - UNSPECIFIED CIRRHOSIS OF LIVER SNOMED Code(s): 23236084 Plan: 1. Low residue diet. CBC in a.m. Discontinue IV Sandostatin continue PPI. We 'll continue to follow. Assessment and plan a care discussed with Dr. Peña
[2018-11-16] MEDS: THIAMINE 100 MG TAB PO SCH ×2 (11:54→17:25)
[2018-11-16 12:55] LABS: Glucose,Whole Blood 135 mg/dL (75-99)
[2018-11-16 18:26] LABS: Glucose,Whole Blood 143 mg/dL (75-99)
[2018-11-16 20:37] LABS: Glucose,Whole Blood 151 mg/dL (75-99)
[2018-11-16] MEDS ORDERED: diphenhydrAMINE 25 MG CAP PO PRN (20:47)
[2018-11-17 07:30] LABS: Glucose,Whole Blood 123 mg/dL (75-99)
[2018-11-17] MEDS: SODIUM CHLORIDE 0.9% 1,000 ML IV SCH ×2 (08:12→16:14)
[2018-11-17] MEDS: PANTOPRAZOLE 40 MG/10 ML VIAL IV SCH ×2 (08:12→20:41)
[2018-11-17 08:26] LABS: Anisocytosis Slight; HCT 25.4 % (39.0-53.0); HGB 7.9 gm/dL (13.0-17.5); Hypochromasia Marked; MCH 26.4 pg (25.0-35.0); MCV 85.3 fL (80.0-100.0); Mean Platelet Volume 7.6; Poikilocytosis Slight; RBC 2.98 m/uL (4.30-5.90); RDW 18.2 % (11.5-15.5)
[2018-11-17 08:34] LABS: Anion Gap 6 mmol/L; Blood Urea Nitrogen 14 mg/dL (9-20); Calcium 7.7 mg/dL (8.4-10.2); Carbon Dioxide 21 mmol/L (22-30); Chloride 110 mmol/L (98-107); Glucose 110 mg/dL (74-99); Magnesium 1.9 mg/dL (1.6-2.3); Potassium 4.4 mmol/L (3.5-5.1); Sodium 137 mmol/L (137-145)
[2018-11-17 08:44] LABS: Basophils # (M) 0.04 k/uL (0-0.2); Lymphocytes # (M) 1.24 k/uL (1.0-4.8); Monocytes # (M) 0.32 k/uL (0-1.0); Neutrophils % (M) 55 %; Nucleated Red Blood Cells 0 /100 WBC (0-0); Total Cells Counted 100
[2018-11-17 08:45] LABS: Platelet Count 97 k/uL (150-450)
[2018-11-17 08:47] LABS: Polychromasia Present
[2018-11-17] MEDS ORDERED: POLYETHYLENE GLYCOL 3350 17 GM POWD.PACK PO PRN (09:15)
--- NOTE | 2018-11-17 09:25 | P.PN ---
Subjective Progress Note Date: 11/17/18 53-year-old gentleman admitted to ICU for upper GI bleed. He has a history of alcoholism apparently drinks about 6-7 beers daily. 11/15/2018 Patient had EGD with banding of the varices He is on octreotide drip He complains of no further bleeding episode but at the same time he hasn't had a bowel movement yet. He does not complain of any chest pain racing heart, says that he is feeling dizzy when he walks to the restroom No cough no shortness of breath No abdominal pain 11/16/2018 Patient having no further episodes of bleeding. Started on clear liquids by GI. Awaiting further recommendations by GI On octreotide drip as per GI recommendations Patient is having a new rash on his chest and his bilateral shoulders. He said that he slept on his chest facing the bed, the reason for the rash. 11/17/2018 Patient says that he still N and dizzy on getting up and walk. No further bleeding episodes but he hasn't had a bowel movement the last 4 days. He says he is passing gas as though and complains of no belly pain. He was transferred out of ICU yesterday after the octreotide drip was stopped He had a new rash on his chest which is stable and not spreading Objective - Vital Signs Vital signs: Vital Signs Temp 99.5 F 11/17/18 06:12 Pulse 104 H 11/17/18 06:12 Resp 16 11/17/18 06:12 BP 102/63 11/17/18 06:12 Pulse Ox 99 11/17/18 06:12 Intake & Output 11/16/18 11/17/18 11/17/18 18:59 06:59 18:59 Intake Total 2775 1000 Output Total 3800 300 Balance -1025 700 Intake: IV 1125 1000 Sodium Chloride 0.9% 1, 1125 1000 000 ml @ 125 mls/hr IV . Q8H [facility] Rx#:[id number] Intake, IV Titration 450 Amount Magnesium Sulfate-D5w Pmx 200 1 gm In Dextrose/Water 1 100ml.bag @ 100 mls/hr IVPB Q1H [facility] Rx#: [id number] Potassium Chloride 10 meq 200 In Water For Injection 1 100ml.bag @ 100 mls/hr IVPB Q1H [facility] Rx#: [id number] cefTRIAXone 1,000 mg In 50 Sodium Chloride 0.9% 50 ml @ 100 mls/hr IVPB Q24HR [facility] Rx#:[id number] Oral 1200 Output: Urine 3800 300 Other: Voiding Method Toilet Toilet Urinal Urinal # Voids 2 - Exam On exam, alert and oriented x3. HEENT: Conjunctivae normal. eyes normal. NECK: No JVD. No thyroid enlargement. No LNs CARDIOVASCULAR: S1, S2 muffled. No murmur RESPIRATION: Breath sounds diminished in the bases. No rhonchi or crackles. No bronchial breathing. ABDOMEN: Soft, nontender . No guarding. no masses palpable. No ascites, No hepatosplenomegaly.Bowel sounds heard. LEGS: No edema. no swelling NERVOUS SYSTEM: Cranial N 2-12 grossly normal. Moves all 4 limbs. No focal deficits. No sensory deficit. No signs of cerebellar dysfucntion. Skin: no ulcer rash on his chest and bilateral shoulders anteriorly. Joints: No active swelling. No inflammation. Lymphatic system. No LN neck axilla or groin. - Labs CBC & Chem 7: 11/17/18 08:04 11/17/18 07:44 Labs: Abnormal Lab Results - Last 24 Hours (Table) 11/16/18 11/16/18 11/16/18 Range/Units 12:52 18:24 20:35 RBC (4.30-5.90) m/uL Hgb (13.0-17.5) gm/dL Hct (39.0-53.0) % RDW (11.5-15.5) % Plt Count (150-450) k/uL Chloride (98-107) mmol/L Carbon Dioxide (22-30) mmol/L Glucose (74-99) mg/dL POC Glucose (mg/dL) 135 H 143 H 151 H (75-99) mg/dL Calcium (8.4-10.2) mg/dL 11/17/18 11/17/18 11/17/18 Range/Units 07:08 07:44 08:04 RBC 2.98 L (4.30-5.90) m/uL Hgb 7.9 L (13.0-17.5) gm/dL Hct 25.4 L (39.0-53.0) % RDW 18.2 H (11.5-15.5) % Plt Count 97 L (150-450) k/uL Chloride 110 H (98-107) mmol/L Carbon Dioxide 21 L (22-30) mmol/L Glucose 110 H (74-99) mg/dL POC Glucose (mg/dL) 123 H (75-99) mg/dL Calcium 7.7 L (8.4-10.2) mg/dL Assessment and Plan Assessment: 1. Acute GI hemorrhage, patient presented with hematemesis and dark tarry stools status post EGD and banding 2. Orthostatic hypertension 3. Blood loss anemia 4. Rash on his chest and bilateral shoulders anteriorly 5. Transaminitis 6. History of liver cirrhosis related to EtOH 7. Alcoholism with impending ETOH withdrawals 8. Lactic acidosis 9. Diabetes mellitus type 2, previously on insulin, has not taken it in a while 10. Hypertension 11. Non compliance Plan: - Patient transferred to ICU last night - Still complaining of lightheadedness. He was orthostatic positive previously - We will recheck orthostatic blood pressure. Continue fluid resuscitation - Monitor hemoglobin and hematocrit - Advance diet as per GI - We'll continue to monitor the patient Time with Patient: Greater than 30
[2018-11-17] MEDS: THIAMINE 100 MG TAB PO SCH ×2 (11:17→16:13)
--- NOTE | 2018-11-17 11:24 | P.PN ---
Subjective Progress Note Date: 11/17/18 Principal diagnosis: Acute upper GI bleed 53-year-old male admitted with acute upper GI bleed status post EGD with findings of moderate size esophageal varices status post banding without active bleeding. Hemoglobin 7.9. Platelets 97,000. Denies abdominal pain. Mild lightheadedness dizziness when sitting up otherwise denies hematemesis hematochezia or melena. Objective - Vital Signs Vital signs: Vital Signs Temp 98.1 F 11/17/18 09:25 Pulse 105 H 11/17/18 09:25 Resp 16 11/17/18 06:12 BP 118/66 11/17/18 09:25 Pulse Ox 99 11/17/18 06:12 Intake & Output 11/16/18 11/17/18 11/17/18 18:59 06:59 18:59 Intake Total 2775 1000 240 Output Total 3800 300 Balance -1025 700 240 Intake: IV 1125 1000 Sodium Chloride 0.9% 1, 1125 1000 000 ml @ 125 mls/hr IV . Q8H [facility] Rx#:[id number] Intake, IV Titration 450 Amount Magnesium Sulfate-D5w Pmx 200 1 gm In Dextrose/Water 1 100ml.bag @ 100 mls/hr IVPB Q1H [facility] Rx#: [id number] Potassium Chloride 10 meq 200 In Water For Injection 1 100ml.bag @ 100 mls/hr IVPB Q1H [facility] Rx#: [id number] cefTRIAXone 1,000 mg In 50 Sodium Chloride 0.9% 50 ml @ 100 mls/hr IVPB Q24HR [facility] Rx#:[id number] Oral 1200 240 Output: Urine 3800 300 Other: Voiding Method Toilet Toilet Urinal Urinal # Voids 2 - Exam General appearance: The patient is alert, oriented, in no acute distress. HET: Head is normocephalic and atraumatic. Pupils are equal and reactive. Oropharynx is clear without lesions. Neck: Supple without lymphadenopathy. Trachea midline. Heart: S1 S2. Regular rate and rhythm. Lungs: No crackles or wheezes are heard. Abdomen: Soft, nontender, nondistended with bowel sounds. No peritoneal signs. No palpable organomegaly or masses. Extremities: Normal skin color and turgor. No cyanosis, rash, ulceration, clubbing, or edema. Radial and pedal pulses are 2/4 bilaterally. Neurological: No focal deficits. Strength and sensation are grossly intact. - Labs CBC & Chem 7: 11/17/18 08:04 11/17/18 07:44 Labs: Abnormal Lab Results - Last 24 Hours (Table) 11/16/18 11/16/18 11/16/18 Range/Units 12:52 18:24 20:35 RBC (4.30-5.90) m/uL Hgb (13.0-17.5) gm/dL Hct (39.0-53.0) % RDW (11.5-15.5) % Plt Count (150-450) k/uL Chloride (98-107) mmol/L Carbon Dioxide (22-30) mmol/L Glucose (74-99) mg/dL POC Glucose (mg/dL) 135 H 143 H 151 H (75-99) mg/dL Calcium (8.4-10.2) mg/dL 11/17/18 11/17/18 11/17/18 Range/Units 07:08 07:44 08:04 RBC 2.98 L (4.30-5.90) m/uL Hgb 7.9 L (13.0-17.5) gm/dL Hct 25.4 L (39.0-53.0) % RDW 18.2 H (11.5-15.5) % Plt Count 97 L (150-450) k/uL Chloride 110 H (98-107) mmol/L Carbon Dioxide 21 L (22-30) mmol/L Glucose 110 H (74-99) mg/dL POC Glucose (mg/dL) 123 H (75-99) mg/dL Calcium 7.7 L (8.4-10.2) mg/dL Assessment and Plan (1) Upper GI bleed Narrative/Plan: Secondary to esophageal varices status post EGD with esophageal banding. Current Visit: Yes Status: Acute Code(s): K92.2 - GASTROINTESTINAL HEMORRHAGE, UNSPECIFIED SNOMED Code(s): 10751828 (2) Thrombocytopenia Current Visit: Yes Status: Acute Code(s): D69.6 - THROMBOCYTOPENIA, UNSPECIFIED SNOMED Code(s): 030962706 (3) Esophageal varices Current Visit: Yes Status: Acute Code(s): I85.00 - ESOPHAGEAL VARICES WITHOUT BLEEDING SNOMED Code(s): 71716473 (4) Acute blood loss anemia Current Visit: Yes Status: Acute Code(s): D62 - ACUTE POSTHEMORRHAGIC ANEMIA SNOMED Code(s): 142729500 (5) Alcohol abuse Current Visit: Yes Status: Acute Code(s): F10.10 - ALCOHOL ABUSE, UNCOMPLICATED SNOMED Code(s): 81747896 (6) Cirrhosis of liver Current Visit: No Status: Acute Code(s): K74.60 - UNSPECIFIED CIRRHOSIS OF LIVER SNOMED Code(s): 50685562 Plan: 1. Low residue diet. CBC in a.m. Protonix 40 mg twice daily. Continue antibiotics for a total of 7 days. We'll follow as needed. Return to GI office in 3-4 weeks. Assessment and plan a care discussed with Dr. Peña
[2018-11-17 12:46] LABS: Glucose,Whole Blood 123 mg/dL (75-99)
--- NOTE | 2018-11-17 14:54 | P.PN ---
Subjective Progress Note Date: 11/17/18 Principal diagnosis: Hematemesis, melena, acute GI bleed This is a 53-year-old male, he is to follow with Dr. Amaya in [place], but has not followed with her for some time, was brought into the emergency department on 11/13/2018 per ambulance for acute onset of gastrointestinal bleeding, patient started vomiting bright red blood yesterday at around 5 PM in the afternoon, he did have some dark stools as well. He denies any abdominal pain, he has a regular alcohol intake, 5-6 beers daily. Denies any prior history of GI bleeding, or esophageal varices. Reviewing previous records it appears that patient does have history of liver cirrhosis related to EtOH abuse , ascites, previous history of cholecystectomy, liver biopsy, diabetes mellitus type 2 previously insulin-dependent, however has not been on any insulin for some time. The history includes hypertension, hyperlipidemia, GERD/reflux, previous episodes of pneumonia, former smoker, depression. His previous episode of rectal bleeding did require blood transfusions. In the emergency department blood work showed WBC of 5.1, hemoglobin of 6.2, platelet count was 88, INR is 1.4, sodium 138, potassium 5.1, chloride is 109, CO2 of 19, BUN of 32 , creatinine is 0.64, plasma lactic acid was 4.6, total bilirubin was 1.5, AST was 93, ALT was 34, alkaline phosphatase was 172, total CK was 407, CK-MB was 3.0, troponins was negative 1, lipase was slightly elevated at 314. Serum alcohol level was 41. he was transfused with 2 units of pack red blood cells, he was given IV fluids of 0.9 normal saline of 1 L. His morning he is hemodynamically stable, he was given an infusion of octreotide in the emergency department started on PPI therapy. Currently on no oxygen, maintenance IV fluid is 0.9 normal saline at 100 ML per hour. His awake and alert, oriented 3 , his mother is at the bedside, and apparently patient's brother a few years back from from acute esophageal varices hemorrhage related to liver cirrhosis related to alcohol abuse. On 11/15/2018 patient seen again in follow-up in the intensive care unit, he is status post EGD on 11/14/2018 which showed esophageal varices, and banding was done for esophageal varices. Morning he is awake and alert, in no acute distress, just mild abdominal discomfort, feels like his stomach is upset, stomach is soft and nontender. No nausea or vomiting, no further episodes of hematemesis or melena. Today's hemoglobin is 7.8, she was transfused with 2 units of packed red blood cells this admission. He is afebrile, nontoxic tachycardic, sinus mechanism, blood pressures 140/100, room air pulse ox is 95% . No signs of delirium tremens. Current IV fluids include 0.9 normal saline at a rate of 100 ML per hour, and octreotide at 25 mg per hour. On 11/16/2018 patient seen in follow-up in the intensive care unit, he is awake and alert, no acute distress,no hematemesis or melena, hemodynamically patient is stable, this morning's hemoglobin is 7.6. Patient has received 2 units of packed red blood cells on admission. Patient status post EGD with esophageal variceal banding 4. Remains on octreotide infusion at 25 mg per hour, IV fluids 0.9 normal saline at a rate of 125 ML per hour. No nausea, no vomiting or diarrhea. Tolerating clear liquid diet. No shortness of breath, no chest pain On 11/17/2018 patient seen again in follow-up on medical surgical floor. She is resting comfortably in bed, in no acute distress, has not had any further bleeding, no abdominal pain, no hematemesis, no melena, hemodynamically patient is stable, no specific complaints, today's hemoglobin is 7.9, patient will receive another unit of blood today. He did receive 3 units of packed red blood cells this admission, IV 0.9 normal saline at a rate of 125 ML per hour, patient is on PPI therapy, simvastatin has been discontinued, no chest pain or shortness of breath. Patient is tolerating low-fat diet. Objective - Vital Signs Vital signs: Vital Signs Temp 99.7 F H 11/17/18 14:32 Pulse 88 11/17/18 14:32 Resp 18 11/17/18 14:32 BP 127/62 11/17/18 14:32 Pulse Ox 97 11/17/18 14:32 Intake & Output 11/16/18 11/17/18 11/17/18 18:59 06:59 18:59 Intake Total 2775 1000 480 Output Total 3800 300 Balance -1025 700 480 Intake: IV 1125 1000 Sodium Chloride 0.9% 1, 1125 1000 000 ml @ 125 mls/hr IV . Q8H [facility] Rx#:[id number] Intake, IV Titration 450 Amount Magnesium Sulfate-D5w Pmx 200 1 gm In Dextrose/Water 1 100ml.bag @ 100 mls/hr IVPB Q1H [facility] Rx#: [id number] Potassium Chloride 10 meq 200 In Water For Injection 1 100ml.bag @ 100 mls/hr IVPB Q1H [facility] Rx#: [id number] cefTRIAXone 1,000 mg In 50 Sodium Chloride 0.9% 50 ml @ 100 mls/hr IVPB Q24HR [facility] Rx#:[id number] Oral 1200 480 Blood Product 0 Rc As-1 Unit 0 [id number] Output: Urine 3800 300 Other: Voiding Method Toilet Toilet Urinal Urinal # Voids 2 2 - Exam GENERAL EXAM: Alert, active, has a 53-year-old male comfortable in no apparent distress. HEAD: Normocephalic/atraumatic. EYES: Normal reaction of pupils, equal size. Conjunctiva pink, sclera white. NOSE: Clear with pink turbinates. THROAT: No erythema or exudates. NECK: No masses, no JVD, no thyroid enlargement, no adenopathy. CHEST: No chest wall deformity. Symmetrical expansion. LUNGS: Equal air entry with no crackles, wheeze, rhonchi or dullness. CVS: Regular rate and rhythm, normal S1 and S2, no gallops, no murmurs, no rubs ABDOMEN: Soft, nontender. No hepatosplenomegaly, normal bowel sounds, no guarding or rigidity. EXTREMITIES: No clubbing, no edema, no cyanosis, 2+ pulses and upper and lower extremities. MUSCULOSKELETAL: Muscle strength and tone normal. SPINE: No scoliosis or deformity SKIN: No rashes CENTRAL NERVOUS SYSTEM: Alert and oriented -3. No focal deficits, tone is normal in all 4 extremities. PSYCHIATRIC: Alert and oriented -3. Appropriate affect. Intact judgment and insight. - Labs CBC & Chem 7: 11/17/18 08:04 11/17/18 07:44 Labs: Abnormal Lab Results - Last 24 Hours (Table) 11/16/18 11/16/18 11/17/18 Range/Units 18:24 20:35 07:08 RBC (4.30-5.90) m/uL Hgb (13.0-17.5) gm/dL Hct (39.0-53.0) % RDW (11.5-15.5) % Plt Count (150-450) k/uL Chloride (98-107) mmol/L Carbon Dioxide (22-30) mmol/L Glucose (74-99) mg/dL POC Glucose (mg/dL) 143 H 151 H 123 H (75-99) mg/dL Calcium (8.4-10.2) mg/dL Crossmatch 11/17/18 11/17/18 11/17/18 Range/Units 07:44 08:04 12:22 RBC 2.98 L (4.30-5.90) m/uL Hgb 7.9 L (13.0-17.5) gm/dL Hct 25.4 L (39.0-53.0) % RDW 18.2 H (11.5-15.5) % Plt Count 97 L (150-450) k/uL Chloride 110 H (98-107) mmol/L Carbon Dioxide 21 L (22-30) mmol/L Glucose 110 H (74-99) mg/dL POC Glucose (mg/dL) (75-99) mg/dL Calcium 7.7 L (8.4-10.2) mg/dL Crossmatch See Detail 11/17/18 Range/Units 12:31 RBC (4.30-5.90) m/uL Hgb (13.0-17.5) gm/dL Hct (39.0-53.0) % RDW (11.5-15.5) % Plt Count (150-450) k/uL Chloride (98-107) mmol/L Carbon Dioxide (22-30) mmol/L Glucose (74-99) mg/dL POC Glucose (mg/dL) 123 H (75-99) mg/dL Calcium (8.4-10.2) mg/dL Crossmatch Assessment and Plan Plan: Assessment: #1. Acute GI hemorrhage, patient presented with hematemesis and dark tarry stools, status post EGD with banding of for esophageal varices times 4 #2. Blood loss anemia, patient has been transfused with 2 units of packed red blood cells, this morning's hemoglobin is 7.6 #3. Elevated liver enzymes #4. History of liver cirrhosis related to EtOH #5. 5-6 beers daily #6. Elevated plasma lactic acid level, improved with IV hydration and blood transfusions #7. Diabetes mellitus type 2, previously on insulin, has not taken it in a while #8. Medical noncompliance #9. Hypertension #10. Previous episode of rectal bleeding requiring blood transfusions #11. Smoker #12. Previous episodes of pneumonia Plan: Hemodynamically patient remains stable, no further bleeding noted, no shortness of breath or chest pain, vital signs are stable, today's hemoglobin 7.9, patient will receive another unit of packed red blood cells. From pulmonary/ critical care perspective patient is stable, will continue to follow on as- needed basis. I performed a history & physical examination of the patient and discussed their management with my nurse practitioner, Rosamaria Patel. I reviewed the nurse practitioner's note and agree with the documented findings and plan of care. Lung sounds are positive for clear breath sounds. The findings and the impression was discussed with the patient. I attest to the documentation by the nurse practitioner. Time with Patient: Less than 30
[2018-11-17 17:30] LABS: Glucose,Whole Blood 116 mg/dL (75-99)
[2018-11-17 21:09] LABS: Glucose,Whole Blood 162 mg/dL (75-99)
[2018-11-18] MEDS: SODIUM CHLORIDE 0.9% 1,000 ML IV SCH ×2 (02:39→09:20)
[2018-11-18 07:16] LABS: Glucose,Whole Blood 109 mg/dL (75-99)
[2018-11-18 08:08] LABS: Anisocytosis Slight; Basophils % (A) 1 %; Eosinophils # (A) 0.2 k/uL (0-0.7); Eosinophils % (A) 4 %; HCT 30.2 % (39.0-53.0); HGB 9.3 gm/dL (13.0-17.5); Hypochromasia Marked; Lymphocytes # (A) 1.2 k/uL (1.0-4.8); Lymphocytes % (A) 30 %; MCH 26.5 pg (25.0-35.0); MCV 85.6 fL (80.0-100.0); Mean Platelet Volume 8.9; Monocytes # (A) 0.4 k/uL (0-1.0); Monocytes % (A) 11 %; Neutrophils % (A) 51 %; Poikilocytosis Slight; RBC 3.52 m/uL (4.30-5.90); RDW 18.2 % (11.5-15.5); WBC 3.9 k/uL (3.8-10.6)
[2018-11-18 08:16] LABS: Platelet Count 94 k/uL (150-450)
[2018-11-18 08:22] LABS: Magnesium 1.7 mg/dL (1.6-2.3); Phosphorus 3.3 mg/dL (2.5-4.5)
[2018-11-18] MEDS: PANTOPRAZOLE 40 MG/10 ML VIAL IV SCH (09:20)
[2018-11-18] MEDS: THIAMINE 100 MG TAB PO SCH (09:20)
--- NOTE | 2018-11-18 11:50 | PN ---
PROGRESS NOTE DATE OF SERVICE: 11/18/2018 Patient is a 53 -year-old white male with alcoholic cirrhosis of the liver, admitted to hospital with acute upper GI bleed, underwent an EGD with variceal ligation by Dr. Peña 4 days ago. Hemoglobin remains stable. No further bleeding. He denies any symptoms. PHYSICAL EXAMINATION: Appears comfortable in no apparent distress. VITAL SIGNS: Stable. Blood pressure is 124/76, pulse rate 93, temperature 99.2. HEENT examination unremarkable. Conjunctivae pink. Sclerae anicteric. Oral cavity no lesions. Neck no jugular venous distention or lymph node enlargement. Chest was clear to auscultation. HEART: Regular rate and rhythm. ABDOMEN: Soft, nontender. Bowel sounds are positive. No organomegaly. Extremities: No pedal edema. Skin: No rashes. NEUROLOGIC: Alert and oriented x3. No focal deficits. LABS: Today hemoglobin is 9.3, WBC 3.9, platelets 94,000. Basic metabolic panel is within normal limits. IMPRESSION: 1. Acute esophageal variceal bleeding, status post 3 units of blood transfusion. He underwent an EGD with variceal ligation by Dr. Peña 3 days ago. He remains stable. No further bleeding. Hemoglobin stable at 9.3 g/dL. 2. History of heavy alcoholism of 30 years, quit drinking 2 weeks ago. 3. Thrombocytopenia related to portal hypertension/hypersplenism. 4. Mild elevation of AST and ALT and bilirubin consistent with chronic alcoholic liver disease. RECOMMENDATIONS: 1. Advance diet as tolerated. 2. Low-fat diet, low-salt diet. 3. Abstinence from alcohol. 4. He was advised to follow up with Dr. Peña in 2 weeks for repeat upper endoscopy with variceal ligation on outpatient basis to prevent recurrent esophageal variceal bleeding. Thank you for this consultation. MMODL / IJN: [id number] /
[2018-11-18 12:13] LABS: Glucose,Whole Blood 153 mg/dL (75-99)
--- NOTE | 2018-11-18 14:12 | P.DS ---
Providers Date of admission: 11/14/18 00:24 Expected date of discharge: 11/18/18 Attending physician: Chung Etienne Consults: 11/14/18 00:25 Consult Physician Urgent Consulting Provider: Navdeep Garvey Consult Reason/Comments: ICU mgmt Do you want consulting provider notified?: Already Contacted Consult Physician Urgent Consulting Provider: Lorin Pride Consult Reason/Comments: upper gi bleed Do you want consulting provider notified?: Already Contacted Primary care physician: Luana Amaya Hospital Course: Discharge diagnosis - Upper GI bleed status post EGD and banding of esophageal paresis - Anemia blood loss hemoglobin stable at this time. - Orthostatic hypotension - Transaminitis probably due to EtOH - Diabetes mellitus previously on insulin blood sugar stable so far. 53-year-old gentleman was admitted for upper GI bleed. His hemoglobin was low. He was given about 2 units of blood transfusion initially. He was also seen by GI who did scope and had banding of his wheezes done. Patient's initially was lightheaded and dizzy on walking. Orthostatic blood pressures were done which were positive. Patient was given IV fluids. He was also given one extra unit of blood later on. His lightheadedness and dizziness improved and follow- up orthostats were negative. On the day of discharge that is 11/18/2018 He was initially complaining of lightheadedness. But later on he was instructed to not to get up too fast and sit on the edge of the bed for about a few minutes before starting to get up and walk. Patient did that and he was no longer lightheaded. He later on walked the whole hallway without been lightheaded or dizzy. He was instructed to take it slow in the beginning and continue drinking a lot of fluids. He did not complain of any further GI bleeding episodes, no abdominal pain, nausea and vomiting, or diarrhea constipation, no tingling numbness of his extremities, and additional rash. On exam, alert and oriented x3. HEENT: Conjunctivae normal. eyes normal. NECK: No JVD. No thyroid enlargement. No LNs CARDIOVASCULAR: S1, S2 muffled. No murmur RESPIRATION: Breath sounds diminished in the bases. No rhonchi or crackles. No bronchial breathing. ABDOMEN: Soft, nontender . No guarding. no masses palpable. No ascites, No hepatosplenomegaly.Bowel sounds heard. LEGS: No edema. no swelling NERVOUS SYSTEM: Cranial N 2-12 grossly normal. Moves all 4 limbs. No focal deficits. No sensory deficit. No signs of cerebellar dysfucntion. Skin: no ulcer no rash Joints: No active swelling. No inflammation. Lymphatic system. No LN neck axilla or groin. Patient Condition at Discharge: Fair Plan - Discharge Summary Discharge Rx Participant: No New Discharge Prescriptions: New Omeprazole [PriLOSEC] 20 mg PO AC-BRKFST #30 cap Discharge Medication List Omeprazole [PriLOSEC] 20 mg PO AC-BRKFST #30 cap 11/18/18 [Rx] Follow up Appointment(s)/Referral(s): Kasi Peña MD [STAFF PHYSICIAN] - 12/12/18 11:30 am Activity/Diet/Wound Care/Special Instructions: Please make an appointment with the PCP and follow them closely. If you don't have one please get a new PCP Discharge Disposition: HOME SELF-CARE
[2018-11-18 15:19] VITALS: BP 108/73; PULSE 96; RESP 16; TEMP 98.9
== END 2018-11-18 16:00 | disposition home or self-care (01) | DRG 432 ==
LOC: EC 21:45 → 2SICU 11-14 00:24 → 4MS4W 11-16 22:20
PROVIDERS: ADMIT Hospitalist; ATTEND Hospitalist
PROC: 30233N1 Transfusion of Nonautologous Red Blood Cells into Peripheral Vein, Percutaneous Approach (ICD-10-PCS; principal; 2018-11-13)
PROC: 06L38CZ Occlusion of Esophageal Vein with Extraluminal Device, Via Natural or Artificial Opening Endoscopic (ICD-10-PCS; 2018-11-14)
DX: K70.31 Alcoholic cirrhosis of liver with ascites (principal); I85.11 Secondary esophageal varices with bleeding; F10.239 Alcohol dependence with withdrawal, unspecified; E87.2 Acidosis; D62 Acute posthemorrhagic anemia; K76.6 Portal hypertension; D69.59 Other secondary thrombocytopenia; D73.1 Hypersplenism; E11.9 Type 2 diabetes mellitus without complications; F32.9 Major depressive disorder, single episode, unspecified; I95.1 Orthostatic hypotension; I10 Essential (primary) hypertension; K21.9 Gastro-esophageal reflux disease without esophagitis; E78.5 Hyperlipidemia, unspecified; Y90.1 Blood alcohol level of 20-39 mg/100 ml; F17.210 Nicotine dependence, cigarettes, uncomplicated; Z71.6 Tobacco abuse counseling; Z71.41 Alcohol abuse counseling and surveillance of alcoholic; Z91.19 Patient's noncompliance with other medical treatment and regimen; Z87.01 Personal history of pneumonia (recurrent); Z90.49 Acquired absence of other specified parts of digestive tract
CPT/HCPCS: 36415; 43255; 80048; 80053; 80320; 82550; 82553; 83036; 83605; 83690; 83735; 84100; 84484; 85025; 85027; 85610; 85730; 86850; 86900; 86901; 86920; 93005; 96361; 96365; 96366; 96374; 96375; 99291

== ENCOUNTER 2019-01-04 09:32 | Day surgery (SDC) | payer OTHER ==
[2019-01-02 14:30] VITALS: BMI 25.2
[~2019-01-04 09:32] MED LIST: HYDROmorphone 0.5 MG/0.5 ML SYRINGE IVP PRN; LACTATED RINGERS 1,000 ML IV SCH; LIDOCAINE 1% 20 ML VIAL (10MG/ML) FOR IV START INTRADERMA PRN
[2019-01-04 10:22] VITALS: RESP 18; TEMP 98
[2019-01-04 10:25] LABS: Glucose,Whole Blood 119 mg/dL (75-99)
[2019-01-04] MEDS ORDERED: PROPOFOL 10 MG/ML 20 ML VIAL IV ONE (10:42)
--- NOTE | 2019-01-04 11:13 | P.PCN ---
Date of Procedure: 01/04/19 Description of Procedure: BRIEF HISTORY: 53-year-old male who is here for follow-up after recent hospitalization for upper GI bleed in which the patient initially presented with a hemoglobin of 6.2 and underwent upper esophageal endoscopy. The patient was found to have moderate sized esophageal varices which were banded at that time. He reports no bleeding since his last admission. He has a known history of EtOH cirrhosis.. PROCEDURE PERFORMED: Esophagogastroduodenoscopy with esophageal variceal banding. PREOPERATIVE DIAGNOSIS: Alcoholic cirrhosis, esophageal varices, history of upper GI bleed. ESTIMATED BLOOD LOSS: Minimal. IV sedation per anesthesia. PROCEDURE: After informed consent was obtained, the patient was brought into the endoscopy unit. IV sedation was administered by Anesthesia under continuous monitoring. Initially the Olympus GIF-190 video endoscope was inserted into the mouth. Esophagus intubated without any difficulty. It was gradually advanced into the stomach and duodenum and carefully examined. The bulb and the second part of the duodenum appeared normal. The scope at this time was withdrawn to the stomach, adequately insufflated with air, and upon careful examination, mucosa of the antrum, body, cardia and the fundus appeagrossly normal, however mucosal changes consistent with portal hypertension gastropathy were noted. The scope was then withdrawn into the esophagus. The GE junction was located at 37 cm from the incisors. moderate sized esophageal varices were noted in the distal esophagus. Banding of 4 varices with the [employer] super 7 corporate quality manager was successfully achieved. Patient tolerated the procedure well. IMPRESSION: 1. Moderate-sized esophageal varices with banding of 4 varices. 2. Portal hypertensive gastropathy. RECOMMENDATIONS: The findings of this examination were discussed with the patient. Okay for liquid diet today. Can advance to soft diet tomorrow. Monitor for signs or symptoms of GI bleeding. Follow up with gastroenterology as previously scheduled. Patient will need repeat upper endoscopy in 4 weeks with possible banding at that time.
[2019-01-04 11:41] VITALS: BP 140/87; PULSE 89
== END 2019-01-04 11:45 | disposition home or self-care (01) ==
LOC: ORWHC2ENDO 09:32
PROVIDERS: ATTEND Internal Medicine
DX: I85.00 Esophageal varices without bleeding (principal); K76.6 Portal hypertension; K31.89 Other diseases of stomach and duodenum; F10.10 Alcohol abuse, uncomplicated; K70.31 Alcoholic cirrhosis of liver with ascites; I20.9 Angina pectoris, unspecified; I10 Essential (primary) hypertension; E78.5 Hyperlipidemia, unspecified; E11.9 Type 2 diabetes mellitus without complications; K21.9 Gastro-esophageal reflux disease without esophagitis; K85.90 Acute pancreatitis without necrosis or infection, unspecified; F17.210 Nicotine dependence, cigarettes, uncomplicated; Z79.899 Other long term (current) drug therapy; Z90.49 Acquired absence of other specified parts of digestive tract
CPT/HCPCS: 43244; J2704; 43255

== ENCOUNTER → 2019-01-04 | Outpatient (CLI) | payer OTHER ==
--- NOTE | 2019-01-04 09:21 | US ---
EXAMINATION TYPE: US abdomen complete DATE OF EXAM: 01/04/2019 COMPARISON: 01/19/2016 CLINICAL HISTORY: K70.30 Alcoholic cirrhosis of liver without ascite. EXAM MEASUREMENTS: Liver Length: 17.1 cm Gallbladder Wall: Surgically absent CBD: 0.5 cm Spleen: 12.5 cm Right Kidney: 11.8 x 5.0 x 4.9 cm Left Kidney: 11.1 x 4.2 x 4.3 cm Pancreas: Obscured by bowel gas Liver: Coarse, heterogeneous echotexture. Nodular contour Gallbladder: Surgically absent. Echogenic area visualized, possible air within the gallbladder fossa Evidence for sonographic Jenkins's sign: No CBD: wnl as visualized, distal portion obscured by bowel gas Spleen: Granulomas visualized Right Kidney: No hydronephrosis or masses seen Left Kidney: No hydronephrosis or masses seen Upper IVC: wnl as visualized Abd Aorta: Proximal portion obscured by bowel gas, visualized portions wnl The liver is coarse in its overall echotexture with nodular peripheral contour. The intrahepatic port ion of the IVC and proximal abdominal aorta are within normal limits. Common bile duct is unremarkab le. The visualized portions of the pancreas are homogenous. The spleen is unremarkable. Kidneys ar e symmetric and free of hydronephrosis. No renal lesions are seen. IMPRESSION: 1. Coarse echotexture throughout the liver which may reflect fatty liver versus diffuse hepatocellula r disease. Underlying cirrhosis is difficult to exclude. Correlate clinically.
[2019-01-04 10:44] LABS: INR 1.2 (<1.2); Prothrombin Time 12.3 sec (9.0-12.0)
[2019-01-04 10:53] LABS: Anisocytosis Slight; HCT 31.9 % (39.0-53.0); HGB 10.1 gm/dL (13.0-17.5); Hypochromasia Moderate; MCH 26.5 pg (25.0-35.0); MCHC 31.5 g/dL (31.0-37.0); Mean Platelet Volume 6.1; Microcytosis Slight; RDW 17.9 % (11.5-15.5); WBC 4.1 k/uL (3.8-10.6)
[2019-01-04 10:54] LABS: Platelet Count 159 k/uL (150-450)
[2019-01-04 11:05] LABS: ALT 28 U/L (21-72); AST 51 U/L (17-59); Albumin 3.7 g/dL (3.5-5.0); Alkaline Phosphatase 232 U/L (38-126); Anion Gap 8 mmol/L; Blood Urea Nitrogen 11 mg/dL (9-20); Calcium 9.3 mg/dL (8.4-10.2); Carbon Dioxide 23 mmol/L (22-30); Chloride 110 mmol/L (98-107); Glucose 122 mg/dL (74-99); Potassium 4.6 mmol/L (3.5-5.1); Sodium 141 mmol/L (137-145); Total Bilirubin 1.3 mg/dL (0.2-1.3); Total Protein 8.1 g/dL (6.3-8.2)
== END | disposition home or self-care (01) ==
LOC: RADUSWWP 08:46
PROVIDERS: ATTEND Internal Medicine
DX: K70.30 Alcoholic cirrhosis of liver without ascites (principal)
CPT/HCPCS: 36415; 76700; 80053; 82105; 85027; 85610

== ENCOUNTER 2019-03-22 12:10 | Day surgery (SDC) | payer OTHER ==
[2019-03-22 13:02] VITALS: RESP 16; TEMP 97.4
[2019-03-22] MEDS ORDERED: LIDOCAINE 1% 20 ML VIAL (10MG/ML) FOR IV START INTRADERMA ONE (13:10)
[2019-03-22] MEDS ORDERED: LACTATED RINGERS 1,000 ML IV ONE (13:11)
[2019-03-22 13:14] LABS: Glucose,Whole Blood 143 mg/dL (75-99)
[2019-03-22] MEDS ORDERED: LACTATED RINGERS 1,000 ML IV SCH (13:15)
[2019-03-22] MEDS ORDERED: LIDOCAINE 1% 20 ML VIAL (10MG/ML) FOR IV START INTRADERMA PRN (13:15)
[2019-03-22] MEDS ORDERED: LIDOCAINE 1% INJ 10MG/ML (20 ML MDV) ONE (14:23)
[2019-03-22] MEDS ORDERED: MIDAZOLAM 2 MG/2 ML VIAL ONE (14:23)
[2019-03-22] MEDS ORDERED: fentaNYL (PF) 50 MCG/ML 2 ML AMP ONE (14:23)
[2019-03-22] MEDS ORDERED: PROPOFOL 10 MG/ML 20 ML VIAL IV ONE (14:23)
--- NOTE | 2019-03-22 14:50 | P.PCN ---
Date of Procedure: 03/22/19 Description of Procedure: BRIEF HISTORY: Patient is a 53-year-old, pleasant, male patient with a known history of alcoholic cirrhosis and prior variceal bleeding who presents for outpatient variceal banding. Patient has had banding on 2 occasions. He does report a recent episode of hematemesis. Currently no acute complaints. PROCEDURE PERFORMED: Esophagogastroduodenoscopy with variceal banding. PREOPERATIVE DIAGNOSIS: Cirrhosis, esophageal varices, history of variceal bleed . ESTIMATED BLOOD LOSS: Minimal. IV sedation per anesthesia. PROCEDURE: After informed consent was obtained, the patient was brought into the endoscopy unit. IV sedation was administered by Anesthesia under continuous monitoring. Initially the Olympus GIF-190 video endoscope was inserted into the mouth. Esophagus intubated without any difficulty. It was gradually advanced into the stomach and duodenum and carefully examined. The bulb and the second part of the duodenum appeared normal. The scope at this time was withdrawn to the stomach, adequately insufflated with air, and upon careful examination, mucosa of the antrum, body, cardia and the fundus with mucosal findings consistent with total hypertensive gastropathy. The scope was then withdrawn into the esophagus. The GE junction was located at 38 cm from the incisors Esophageal varices were noted in the distal esophagus. At this time the scope was withdrawn through the esophagus out of the patient's mouth and a super 7 variceal manager pricing was placed on the endoscope, which was then passed through the patient's mouth into his distal esophagus. 6 bands were placed around varices in the distal esophagus. The patient tolerated the procedure well. IMPRESSION: 1. Portal hypertensive gastropathy . 2. Esophageal variceal banding, 6 bands were placed in the distal esophagus. RECOMMENDATIONS: The findings of this examination were discussed with the patient and his family. Okay for full liquids today. Monitor for signs and symptoms of GI bleeding. Follow-up in the gastroenterology office as previously scheduled. Plan on repeat EGD in 4 weeks for further banding.
[2019-03-22 15:55] VITALS: BP 119/71; PULSE 91
== END 2019-03-22 15:48 | disposition home or self-care (01) ==
LOC: ORWHC2ENDO 12:10
PROVIDERS: ATTEND Internal Medicine
DX: K70.30 Alcoholic cirrhosis of liver without ascites (principal); I85.10 Secondary esophageal varices without bleeding; K76.6 Portal hypertension; K31.89 Other diseases of stomach and duodenum; K21.9 Gastro-esophageal reflux disease without esophagitis; F17.210 Nicotine dependence, cigarettes, uncomplicated; E11.9 Type 2 diabetes mellitus without complications; Z87.19 Personal history of other diseases of the digestive system; Z79.899 Other long term (current) drug therapy
CPT/HCPCS: 43244; J2250; J2001; J3010; J2704; 43255

== ENCOUNTER 2019-03-23 10:53 | Inpatient (IN) | payer OTHER ==
[2019-03-23] MEDS ORDERED: PANTOPRAZOLE 40 MG/10 ML VIAL IVP STA (11:27)
[2019-03-23] MEDS ORDERED: OCTREOTIDE 100 MCG/ML INJ IVP STA (11:27)
[2019-03-23] MEDS ORDERED: SODIUM CHLORIDE 0.9% 1,000 ML IV STA (11:27)
[2019-03-23] MEDS ORDERED: OCTREOTIDE 500 MCG in SODIUM CHLORIDE 0.9% 250 ML IV STA (11:32)
--- NOTE | 2019-03-23 11:32 | ED ---
General Adult HPI - General Chief complaint: GI Bleed Stated complaint: Vomiting Blood Time Seen by Provider: 03/23/19 11:06 Source: patient, RN notes reviewed Mode of arrival: EMS Limitations: no limitations - History of Present Illness Initial comments: Patient is a pleasant 53-year-old male presenting to the emergency department with hematemesis. Patient had a single episode on Tuesday. Patient did have EGD done yesterday with what patient describes as banding. Patient had some discomfort last night. Patient did have dark stools this morning. Patient has vomited approximately 6 or 7 times of moderate amount of bloody emesis. Patient does have known history of cirrhosis and esophageal varices. Patient believes this is from history of alcohol use. Patient did feel somewhat lightheaded earlier. - Related Data Home Medications Medication Instructions Recorded Confirmed No Known Home Medications 03/22/19 03/23/19 Allergies Allergy/AdvReac Type Severity Reaction Status Date / Time No Known Allergies Allergy Verified 03/23/19 11:14 Review of Systems ROS Statement: Those systems with pertinent positive or pertinent negative responses have been documented in the HPI. ROS Other: All systems not noted in ROS Statement are negative. Constitutional: Denies: fever Eyes: Denies: eye pain ENT: Denies: ear pain Respiratory: Denies: cough, dyspnea Cardiovascular: Denies: chest pain Endocrine: Denies: fatigue Gastrointestinal: Reports: abdominal pain, vomiting, hematemesis Genitourinary: Denies: dysuria Musculoskeletal: Denies: back pain Skin: Denies: rash Neurological: Denies: headache Past Medical History Past Medical History: Chest Pain / Angina, Diabetes Mellitus, GERD/Reflux, GI Bleed, Hyperlipidemia, Hypertension Additional Past Medical History / Comment(s): IP ADM JAN 17-2015 FOR PNEUMONIA. HAS BEEN NON-COMPLIANT WITH MEDICATIONS DUE TO FINANCES. FEW YEARS AGO, RECTAL BLEEDING WHICH REQUIRED TRANSFUSIONS, BUT ORIGIN WAS NEVER DISCOVE RED, [facility] WENT TO [facility]. History of Any Multi-Drug Resistant Organisms: None Reported Past Surgical History: Orthopedic Surgery Additional Past Surgical History / Comment(s): EGD 03/22/19 Past Anesthesia/Blood Transfusion Reactions: Postoperative Nausea & Vomiting (PONV) Additional Past Anesthesia/Blood Transfusion Reaction / Comment(s): HX BLOOD TRANSFUSION (LOW HGB FROM BLEEDING, UNKNOW SOURCE) Past Psychological History: No Psychological Hx Reported Smoking Status: Current some day smoker Past Alcohol Use History: Daily, Occasional Past Drug Use History: None Reported - Past Family History Mother Family Medical History: No Reported History General Exam Limitations: no limitations General appearance: alert, in no apparent distress Head exam: Present: normocephalic Eye exam: Present: normal appearance, PERRL ENT exam: Present: normal oropharynx Neck exam: Present: normal inspection Respiratory exam: Present: normal lung sounds bilaterally Cardiovascular Exam: Present: tachycardia Expanded Peripheral pulses: 2+: Radial (R), Radial (L), Dorsalis Pedis (R), Dorsalis Pedis (L) GI/Abdominal exam: Present: soft. Absent: distended, tenderness Extremities exam: Present: normal inspection Neurological exam: Present: alert Psychiatric exam: Present: normal affect, normal mood Skin exam: Present: normal color Course Vital Signs 03/23/19 11:00 Temperature 98.1 F Pulse Rate 108 H Respiratory 19 Rate Blood Pressure 85/49 O2 Sat by Pulse 99 Oximetry - Reevaluation(s) Reevaluation #1: 03/23/19 11:41 Case was discussed with Dr. vigil, who will consult and see the patient. 03/23/19 12:22 Patient was seen by practitioner Awa ruiz. Plan is for patient to be admitted and Dr. vigil is going to schedule for scope today. Medical Decision Making - Medical Decision Making Patient reevaluated. Patient updated. Case was discussed with Dr. Medley, covering for hospital call, who will admit. Case also discussed with Dr. Gan, who will consult for critical care. Blood transfusion was ordered by GI. - Lab Data Result diagrams: 03/23/19 11:00 03/23/19 11:00 Lab Results 03/23/19 03/23/19 03/23/19 Range/Units 11:00 11:00 11:00 WBC 6.0 (3.8-10.6) k/uL RBC 2.45 L (4.30-5.90) m/uL Hgb 6.7 L* (13.0-17.5) gm/dL Hct 21.0 L (39.0-53.0) % MCV 85.7 (80.0-100.0) fL MCH 27.3 (25.0-35.0) pg MCHC 31.8 (31.0-37.0) g/dL RDW 16.7 H (11.5-15.5) % Plt Count 111 L (150-450) k/uL Neutrophils % 73 % Lymphocytes % 19 % Monocytes % 5 % Eosinophils % 1 % Basophils % 0 % Neutrophils # 4.4 (1.3-7.7) k/uL Lymphocytes # 1.1 (1.0-4.8) k/uL Monocytes # 0.3 (0-1.0) k/uL Eosinophils # 0.0 (0-0.7) k/uL Basophils # 0.0 (0-0.2) k/uL Hypochromasia Slight Anisocytosis Slight PT 13.8 H (9.0-12.0) sec INR 1.4 H (<1.2) APTT 23.4 (22.0-30.0) sec Sodium 136 L (137-145) mmol/L Potassium 4.2 (3.5-5.1) mmol/L Chloride 107 (98-107) mmol/L Carbon Dioxide 18 L (22-30) mmol/L Anion Gap 11 mmol/L BUN 26 H (9-20) mg/dL Creatinine 0.61 L (0.66-1.25) mg/dL Est GFR (CKD-EPI)AfAm >90 (>60 ml/min/1.73 sqM) Est GFR (CKD-EPI)NonAf >90 (>60 ml/min/1.73 sqM) Glucose 171 H (74-99) mg/dL Calcium 8.1 L (8.4-10.2) mg/dL Total Bilirubin 1.8 H (0.2-1.3) mg/dL AST 55 (17-59) U/L ALT 34 (21-72) U/L Alkaline Phosphatase 180 H (38-126) U/L Total Protein 6.2 L (6.3-8.2) g/dL Albumin 2.8 L (3.5-5.0) g/dL Lipase 199 (23-300) U/L Blood Type Blood Type Recheck Antibody Screen Crossmatch Spec Expiration Date 03/23/19 Range/Units 11:00 WBC (3.8-10.6) k/uL RBC (4.30-5.90) m/uL Hgb (13.0-17.5) gm/dL Hct (39.0-53.0) % MCV (80.0-100.0) fL MCH (25.0-35.0) pg MCHC (31.0-37.0) g/dL RDW (11.5-15.5) % Plt Count (150-450) k/uL Neutrophils % % Lymphocytes % % Monocytes % % Eosinophils % % Basophils % % Neutrophils # (1.3-7.7) k/uL Lymphocytes # (1.0-4.8) k/uL Monocytes # (0-1.0) k/uL Eosinophils # (0-0.7) k/uL Basophils # (0-0.2) k/uL Hypochromasia Anisocytosis PT (9.0-12.0) sec INR (<1.2) APTT (22.0-30.0) sec Sodium (137-145) mmol/L Potassium (3.5-5.1) mmol/L Chloride (98-107) mmol/L Carbon Dioxide (22-30) mmol/L Anion Gap mmol/L BUN (9-20) mg/dL Creatinine (0.66-1.25) mg/dL Est GFR (CKD-EPI)AfAm (>60 ml/min/1.73 sqM) Est GFR (CKD-EPI)NonAf (>60 ml/min/1.73 sqM) Glucose (74-99) mg/dL Calcium (8.4-10.2) mg/dL Total Bilirubin (0.2-1.3) mg/dL AST (17-59) U/L ALT (21-72) U/L Alkaline Phosphatase (38-126) U/L Total Protein (6.3-8.2) g/dL Albumin (3.5-5.0) g/dL Lipase (23-300) U/L Blood Type A Positive Blood Type Recheck No Antibody Screen NEGATIVE Crossmatch See Detail Spec Expiration Date 03/26/2019 - 230 Critical Care Time Critical Care Time: Yes Total Critical Care Time: 33 Disposition Clinical Impression: Upper GI hemorrhage, Esophageal varices Disposition: ADMITTED IP TO THIS [facility] Condition: Critical Is patient prescribed a controlled substance at d/c from ED?: No Referrals: None,Stated [Primary Care Provider] - 1-2 days Decision Time: 13:03
--- NOTE | 2019-03-23 12:11 | P.CONS ---
History of Present Illness - Reason for Consult Consult date: 03/23/19 GI bleed Requesting physician: Arvind Rojas - Chief Complaint Hematemesis - History of Present Illness 53-year-old gentleman with a history of alcohol liver cirrhosis portal hypertension and ascites esophageal varices previous banding December 2018 status post outpatient EGD yesterday with variceal banding 6 bands. Patient presented with lightheadedness multiple episodes of hematemesis with melena and epigastric discomfort. No current hemoglobin or labs to review. Hemoglobin in December 2018 was 10.1. Platelet 159. White count 4.1. Afebrile. Blood pressure 85/49. Heart rate 108. Respiratory rate 19. Oxygen saturation room air 99%. Review of Systems Constitutional: Denies fever, chills, sweats, weight gain, or loss. L ightheadedness. HEENT: Negative for migraines, blurred vision or loss, earaches, drainage, tinnitus, oral mucosal lesions, dysphagia, or odynophagia. Cardiac: Negative for chest pain, arrhythmias, or palpitation. Respiratory: Negative for shortness of breath, hemoptysis, cough, or sputum production. Gastrointestinal: See HPI for pertinent findings. Genitourinary: Negative for hematuria, urgency, frequency, polyuria, dysuria, or penile discharge. Musculoskeletal: Negative for muscle aches, swelling, arthritis, and arthralgias. Neurologic: Negative for stroke or TIA. Endocrine: Negative for thyroid problems. Skin: Negative for rash or itching. Psychiatric: Negative history for depression and anxiety Past Medical History Past Medical History: Chest Pain / Angina, Diabetes Mellitus, GERD/Reflux, GI Bleed, Hyperlipidemia, Hypertension Additional Past Medical History / Comment(s): IP ADM JAN 17-2015 FOR PNEUM ONIA. HAS BEEN NON-COMPLIANT WITH MEDICATIONS DUE TO FINANCES. FEW YEARS AGO, RECTAL BLEEDING WHICH REQUIRED TRANSFUSIONS, BUT ORIGIN WAS NEVER DISCOVERED, [facility] WENT TO [facility]. History of Any Multi-Drug Resistant Organisms: None Reported Past Surgical History: Orthopedic Surgery Additional Past Surgical History / Comment(s): EGD 03/22/19 Past Anesthesia/Blood Transfusion Reactions: Postoperative Nausea & Vomiting (PONV) Additional Past Anesthesia/Blood Transfusion Reaction / Comm: HX BLOOD TRANSFUSION (LOW HGB FROM BLEEDING, UNKNOW SOURCE) Past Psychological History: No Psychological Hx Reported Smoking Status: Current some day smoker Past Alcohol Use History: Daily, Occasional Past Drug Use History: None Reported - Past Family History Mother Family Medical History: No Reported History Medications and Allergies Home Medications Medication Instructions Recorded Confirmed Type No Known Home Medications 03/22/19 03/23/19 History Allergies Allergy/AdvReac Type Severity Reaction Status Date / Time No Known Allergies Allergy Verified 03/23/19 11:14 Physical Exam Vitals: Vital Signs Temp Pulse Resp BP Pulse Ox 03/23/19 11:00 98.1 F 108 H 19 85/49 99 Intake and Output 03/22/19 03/23/19 03/23/19 22:59 06:59 14:59 Other: Weight 71.214 kg General appearance: The patient is alert, oriented, pale. HET: Head is normocephalic and atraumatic. Pupils are equal and reactive. Oropharynx is clear without lesions. Neck: Supple without lymphadenopathy. Trachea midline. Heart: S1 S2. Regular rate and rhythm. Lungs: No crackles or wheezes are heard. Abdomen: Soft, mild midepigastric tenderness, nondistended with bowel sounds. No peritoneal signs. No palpable organomegaly or masses. Extremities: Normal skin color and turgor. No cyanosis, rash, ulceration, clubbing, or edema. Radial and pedal pulses are 2/4 bilaterally. Neurological: No focal deficits. Strength and sensation are grossly intact. Results CBC & Chem 7: 03/23/19 11:00 Assessment and Plan (1) Hematemesis Narrative/Plan: Acute symptomatic upper GI bleed hematemesis melena acute blood loss in a patient with known alcohol liver cirrhosis portal hypertension esophageal varices status post outpatient EGD yesterday with variceal banding 6. Current Visit: Yes Status: Acute Code(s): K92.0 - HEMATEMESIS SNOMED Code(s): 8539382 (2) Esophageal varices Current Visit: Yes Status: Acute Code(s): I85.00 - ESOPHAGEAL VARICES WITHOUT BLEEDING SNOMED Code(s): 17108026 (3) Alcoholic cirrhosis of liver Current Visit: Yes Status: Acute Code(s): K70.30 - ALCOHOLIC CIRRHOSIS OF LIVER WITHOUT ASCITES SNOMED Code(s): 651044923 Plan: 1. ICU monitoring. Nothing by mouth. EGD evaluation. IV Sandostatin bolus followed by continuous infusion. T/C/Transfuse 1 unit of blood now. Rocephin 1 g every 24 SBP prophylaxis. CBC PT/INR CMP pending. Protonix 40 mg IV twice daily. The journeyman apprentice electricians has discussed the risks, benefits and alternative therapies for the above-mentioned procedure and for both sedation/analgesia as well as necessary blood product administration, if indicated, as they pertain to this patient. The patient has indicated understanding and acceptance of the risks and procedures discussed. Thank you for this kind referral and the opportunity to participate in the care of your patient. This consultation was discussed with Dr. Peña. The impression and plan of care have been directed as dictated.
[2019-03-23 12:20] LABS: Anisocytosis Slight; Basophils % (A) 0 %; Eosinophils % (A) 1 %; Hypochromasia Slight; Lymphocytes # (A) 1.1 k/uL (1.0-4.8); Lymphocytes % (A) 19 %; MCH 27.3 pg (25.0-35.0); MCHC 31.8 g/dL (31.0-37.0); MCV 85.7 fL (80.0-100.0); Mean Platelet Volume 8.2; Monocytes # (A) 0.3 k/uL (0-1.0); Monocytes % (A) 5 %; Neutrophils # (A) 4.4 k/uL (1.3-7.7); Neutrophils % (A) 73 %; Platelet Count 111 k/uL (150-450); RBC 2.45 m/uL (4.30-5.90); RDW 16.7 % (11.5-15.5)
[2019-03-23 12:23] LABS: INR 1.4 (<1.2); Partial Thromboplastin Time 23.4 sec (22.0-30.0); Prothrombin Time 13.8 sec (9.0-12.0)
[2019-03-23 12:25] LABS: HGB 6.7 gm/dL (13.0-17.5)
[2019-03-23 12:26] LABS: ALT 34 U/L (21-72); AST 55 U/L (17-59); Albumin 2.8 g/dL (3.5-5.0); Alkaline Phosphatase 180 U/L (38-126); Anion Gap 11 mmol/L; Blood Urea Nitrogen 26 mg/dL (9-20); Calcium 8.1 mg/dL (8.4-10.2); Carbon Dioxide 18 mmol/L (22-30); Chloride 107 mmol/L (98-107); Glucose 171 mg/dL (74-99); Lipase 199 U/L (23-300); Potassium 4.2 mmol/L (3.5-5.1); Sodium 136 mmol/L (137-145); Total Bilirubin 1.8 mg/dL (0.2-1.3); Total Protein 6.2 g/dL (6.3-8.2)
[2019-03-23] MEDS ORDERED: NALOXONE 0.4 MG/ML 1 ML VIAL IV PRN (13:03)
[2019-03-23] MEDS ORDERED: PHENYLEPHRINE-0.9% NACL SYG 1 MG/10 ML SYRINGE ONE (14:40)
[2019-03-23] MEDS ORDERED: LIDOCAINE 1% INJ 10MG/ML (20 ML MDV) ONE (14:40)
[2019-03-23] MEDS ORDERED: PROPOFOL 10 MG/ML 20 ML VIAL IV ONE (14:40)
[2019-03-23] MEDS ORDERED: IV FLUID CONTINUATION 700 ML IV ONE (14:50)
--- NOTE | 2019-03-23 15:28 | P.HPIM ---
History of Present Illness Chief Complaint: Upper GI bleed Very pleasant 53-year-old gentleman with a past medical history significant for GI bleed, history of esophageal varesis, alcoholic liver disease comes to the ER for above-mentioned complaints. He says that he's been having upper GI bleed for the past few days. He had EGD with banding done yesterday. This morning he started having bleeding again, that's why came into the ER for further management. Patient says that this morning he was lightheaded and dizzy. Otherwise he was not complaining of any chest pain, racing heart, no cough no shortness breath, he was having abdominal pain this morning but not now. He is not having any diarrhea constipation, no tingling numbness of any extremities, no itch no rash ER course- temperature 97.6 pulse 90 respiration 18 blood pressure 91/58. Labwork was initial WBC 6.0 hemoglobin 6.7 platelets 111 sodium 1:30 potassium 4.2 bun 26 creatinine 0.61. Lipase 199. Patient was given 1 L alert, IV fluids and admitted to the hospitalist service for further evaluation and management. GI saw the patient and he's been taken for an EGD at the time of my dictation Review of Systems All systems: negative Past Medical History Past Medical History: Chest Pain / Angina, Diabetes Mellitus, GERD/Reflux, GI Bleed, Hyperlipidemia, Hypertension, Pneumonia Additional Past Medical History / Comment(s): Cirrhosis, esophageal varicies with variceal bleed, lower GI bleed with transfusions, anemia, chronic low back pain with sciatica, diet controlled diabetic History of Any Multi-Drug Resistant Organisms: None Reported Past Surgical History: Cholecystectomy, Orthopedic Surgery Additional Past Surgical History / Comment(s): EGDs-last time 03/22/19 with banding, colonoscopies with benign polyps, capsule endoscopy, L ankle fracture with pins/plate, Past Anesthesia/Blood Transfusion Reactions: Postoperative Nausea & Vomiting (PONV) Additional Past Anesthesia/Blood Transfusion Reaction / Comment(s): Blood transf usions without reaction. Smoking Status: Former smoker - Past Family History Mother Family Medical History: Diabetes Mellitus, Pneumonia Father Family Medical History: Coronary Artery Disease (CAD), Myocardial Infarction (MT) Additional Family Medical History / Comment(s): Father had MIs with the first MT occuring while he was in his 60s. Medications and Allergies Home Medications Medication Instructions Recorded Confirmed Type No Known Home Medications 03/22/19 03/23/19 History Allergies Allergy/AdvReac Type Severity Reaction Status Date / Time No Known Allergies Allergy Verified 03/23/19 11:14 Physical Exam Vitals: Vital Signs Temp Pulse Resp BP Pulse Ox 03/23/19 14:15 90 18 91/58 03/23/19 13:55 97.6 F 92 18 89/56 03/23/19 13:50 98.0 F 94 16 97/54 100 03/23/19 13:45 98.0 F 20 L 16 90/32 03/23/19 13:40 97.9 F 93 18 96/52 99 03/23/19 13:35 97.9 F 91 18 80/48 03/23/19 13:34 97.9 F 93 20 67/49 03/23/19 13:00 100 19 88/55 99 03/23/19 12:50 101 H 15 88/55 100 03/23/19 12:40 99 16 89/51 99 03/23/19 12:30 97 18 95/55 99 03/23/19 12:20 106 H 16 03/23/19 12:10 113 H 18 91/54 99 03/23/19 12:00 110 H 16 107/60 100 03/23/19 11:50 112 H 18 89/51 100 03/23/19 11:40 105 H 17 89/54 99 03/23/19 11:30 108 H 15 89/54 98 03/23/19 11:20 117 H 20 90/53 100 03/23/19 11:10 107 H 17 85/49 99 03/23/19 11:00 98.1 F 110 H 17 85/49 99 03/23/19 10:58 99 Intake and Output 03/23/19 03/23/19 03/23/19 06:59 14:59 22:59 Intake Total 500 Balance 500 Intake: IV 500 Blood Product 0 Rc As-1 Unit 0 [id number] Other: Weight 71.214 kg On exam, alert and oriented x3. HEENT: Patient has pallor on conjunctival examination, no evidence of any trauma. NECK: No JVD. No thyroid enlargement. No LNs CARDIOVASCULAR: S1, S2 muffled. No murmur RESPIRATION: Breath sounds diminished in the bases. No rhonchi or crackles. No bronchial breathing. ABDOMEN: Soft, nontender . No guarding. no masses palpable. No ascites, No hepatosplenomegaly.Bowel sounds heard. LEGS: No edema. no swelling NERVOUS SYSTEM: Cranial N 2-12 grossly normal. Moves all 4 limbs. No focal deficits. No sensory deficit. No signs of cerebellar dysfucntion. Skin: no ulcer no rash Results CBC & Chem 7: 03/23/19 11:00 03/23/19 11:00 Labs: Abnormal Lab Results - Last 24 Hours (Table) 03/23/19 03/23/19 03/23/19 Range/Units 11:00 11:00 11:00 RBC 2.45 L (4.30-5.90) m/uL Hgb 6.7 L* (13.0-17.5) gm/dL Hct 21.0 L (39.0-53.0) % RDW 16.7 H (11.5-15.5) % Plt Count 111 L (150-450) k/uL PT 13.8 H (9.0-12.0) sec INR 1.4 H (<1.2) Sodium 136 L (137-145) mmol/L Carbon Dioxide 18 L (22-30) mmol/L BUN 26 H (9-20) mg/dL Creatinine 0.61 L (0.66-1.25) mg/dL Glucose 171 H (74-99) mg/dL Calcium 8.1 L (8.4-10.2) mg/dL Total Bilirubin 1.8 H (0.2-1.3) mg/dL Alkaline Phosphatase 180 H (38-126) U/L Total Protein 6.2 L (6.3-8.2) g/dL Albumin 2.8 L (3.5-5.0) g/dL Crossmatch 03/23/19 Range/Units 11:00 RBC (4.30-5.90) m/uL Hgb (13.0-17.5) gm/dL Hct (39.0-53.0) % RDW (11.5-15.5) % Plt Count (150-450) k/uL PT (9.0-12.0) sec INR (<1.2) Sodium (137-145) mmol/L Carbon Dioxide (22-30) mmol/L BUN (9-20) mg/dL Creatinine (0.66-1.25) mg/dL Glucose (74-99) mg/dL Calcium (8.4-10.2) mg/dL Total Bilirubin (0.2-1.3) mg/dL Alkaline Phosphatase (38-126) U/L Total Protein (6.3-8.2) g/dL Albumin (3.5-5.0) g/dL Crossmatch See Detail Thrombosis Risk Factor Assmnt - Choose All That Apply Any of the Below Risk Factors Present?: Yes Each Factor Represents 1 point: Age 41-60 years Other Risk Factors: No Other congenital or acquired thrombophilia - If yes, enter type in comment: No Thrombosis Risk Factor Assessment Total Risk Factor Score: 1 Thrombosis Risk Factor Assessment Level: Low Risk Assessment and Plan Assessment: - Upper GI bleed - Anemia due to blood loss - Esophageal varesis status post banding a day ago - Alcoholic liver disease - History of diabetes - History of GERD - History of hypertension - History of hyperlipidemia Plan We will admit the patient to ICU Patient is being taken to EGD. He is in the process of receiving 1 unit of blood transfusion He will be needing further blood transfusion. Continue Protonix DVT and GI prophylaxis We'll order for lab work in the morning Expected length of stay more than 2 midnights Patient wants a full code Time with Patient: Greater than 30
--- NOTE | 2019-03-23 15:28 | P.PCN ---
Date of Procedure: 03/23/19 Description of Procedure: BRIEF HISTORY: 53-year-old gentleman with a history of alcohol liver cirrhosis portal hypertension and ascites esophageal varices previous banding December 2018 status post outpatient EGD yesterday with variceal banding 6 bands. Patient presented with lightheadedness multiple episodes of hematemesis with melena and epigastric discomfort. No current hemoglobin or labs to review. Hemoglobin in December 2018 was 10.1. Platelet 159. White count 4.1. Afebrile. Blood pressure 85/49. Heart rate 108. Respiratory rate 19. Oxygen saturation room air 99%. PROCEDURE PERFORMED: Esophagogastroduodenoscopy with variceal banding. PREOPERATIVE DIAGNOSIS: Hematemesis, history of esophageal varices. ESTIMATED BLOOD LOSS: Minimal. IV sedation per anesthesia. PROCEDURE: After informed consent was obtained, the patient was brought into the endoscopy unit. IV sedation was administered by Anesthesia under continuous monitoring. Initially the Olympus GIF-190 video endoscope was inserted into the mouth. Esophagus intubated without any difficulty. It was gradually advanced into the stomach and duodenum and carefully examined. The bulb and the second part of the duodenum appeared normal, with a small amount of old hemolyzed blood noted. The scope at this time was withdrawn to the stomach, adequately insufflated with air, and upon careful examination, mucosa of the antrum, body, cardia and the fundus appeared normal, with old blood but no active bleeding noted in the stomach. Lavage was performed with clearing of the old blood and source of bleeding was noted. The scope was then withdrawn into the esophagus. Shallow ulcerated areas where previous variceal bands had been placed were noted. 2 varices with suspicion for bleeding were banded. The patient tolerated the procedure well. IMPRESSION: 1. Old blood with no active bleeding noted in the stomach and small bowel. 2. Ulceration at the site of prior variceal band ligation was noted. 2 varices were banded. RECOMMENDATIONS: The findings of this examination were discussed with the patient. Okay for ice chips and sips of water. Continue Protonix IV twice daily. Continue octreotide IV. Continue to monitor hemoglobin and transfuse as needed. Further recommendations pending clinical course.
[2019-03-23 15:46] LABS: Glucose,Whole Blood 192 mg/dL (75-99)
--- NOTE | 2019-03-23 15:53 | P.CNPUL ---
History of Present Illness Consult date: 03/23/19 Requesting physician: Arvind Rojas Chief complaint: Acute GI bleed, hematemesis, anemia History of present illness: This is a 53-year-old male patient of Dr. Amaya, past medical history of chronic alcoholic liver disease, esophageal varices with banding, previous episodes of GI bleeding, and we had previously seen this patient in consultation for critical care management for previous episodes of GI bleed requiring adm ission to the intensive care unit. On 03/23/2019 patient presented to the emergency department per ambulance with complaints of hematemesis. Patient apparently undergone EGD yesterday with banding of the esophageal varices, he had increased discomfort last night, and passed some dark stools this morning. This morning he had 6 or 7 episodes of bloody emesis. Was complaining of weakness and lightheadedness. His discomfort was in the epigastric area. Blood work showed a hemoglobin of 6.7, white blood cell count was 6.0, platelet count was 111, INR was 1.4, sodium is 136, potassium is 4.2, CO2 was 18, BUN is 26, creatinine 0.61. Total bilirubin is 1.8, AST was 55, ALT was 34, alkaline gina sphatase was 180, lipase was 199. Patient was hypotensive, with a pressure of 67/49, heart rate is 93-101 BPM, he is afebrile, he is symptomatic, with lightheadedness, he was given 2 L of 0.9 normal saline and fluid boluses, he was started on Sandostatin drip at 25 g per hour. PPI therapy was started at 40 mg twice daily of Protonix. Patient is being transfused with good of packed red blood cells. She will be admitted to the intensive care unit for close hemodynamic monitoring Review of Systems All systems: negative Constitutional: Reports fatigue, Reports weakness, Denies chills, Denies fever Eyes: denies blurred vision, denies pain Ears, nose, mouth and throat: Denies headache, Denies sore throat Cardiovascular: Denies chest pain, Denies shortness of breath Respiratory: Reports dyspnea, Denies cough Gastrointestinal: Reports hematemesis, Reports melena, Denies abdominal pain, Denies diarrhea, Denies nausea, Denies vomiting Musculoskeletal: Denies myalgias Integumentary: Denies pruritus, Denies rash Neurological: Denies numbness, Denies weakness Psychiatric: Denies anxiety, Denies depression Endocrine: Denies fatigue, Denies weight change Past Medical History Past Medical History: Chest Pain / Angina, Diabetes Mellitus, GERD/Reflux, GI Bleed, Hyperlipidemia, Hypertension, Pneumonia Additional Past Medical History / Comment(s): Cirrhosis, esophageal varicies with variceal bleed, lower GI bleed with transfusions, anemia, chronic low back pain with sciatica, diet controlled diabetic History of Any Multi-Drug Resistant Organisms: None Reported Past Surgical History: Cholecystectomy, Orthopedic Surgery Additional Past Surgical History / Comment(s): EGDs-last time 03/22/19 with banding, colonoscopies with benign polyps, capsule endoscopy, L ankle fracture with pins/plate, Past Anesthesia/Blood Transfusion Reactions: Postoperative Nausea & Vomiting (PONV) Additional Past Anesthesia/Blood Transfusion Reaction / Comment(s): Blood transfusions without reaction. Smoking Status: Former smoker - Past Family History Mother Family Medical History: Diabetes Mellitus, Pneumonia Father Family Medical History: Coronary Artery Disease (CAD), Myocardial Infarction (ME) Additional Family Medical History / Comment(s): Father had MIs with the first ME occuring while he was in his 60s. Medications and Allergies Home Medications Medication Instructions Recorded Confirmed Type No Known Home Medications 03/22/19 03/23/19 History Allergies Allergy/AdvReac Type Severity Reaction Status Date / Time No Known Allergies Allergy Verified 03/23/19 11:14 Physical Exam Vitals: Vital Signs Temp Pulse Resp BP Pulse Ox 03/23/19 14:15 90 18 91/58 03/23/19 13:55 97.6 F 92 18 89/56 03/23/19 13:50 98.0 F 94 16 97/54 100 03/23/19 13:45 98.0 F 20 L 16 90/32 03/23/19 13:40 97.9 F 93 18 96/52 99 03/23/19 13:35 97.9 F 91 18 80/48 03/23/19 13:34 97.9 F 93 20 67/49 03/23/19 13:00 100 19 88/55 99 03/23/19 12:50 101 H 15 88/55 100 03/23/19 12:40 99 16 89/51 99 03/23/19 12:30 97 18 95/55 99 03/23/19 12:20 106 H 16 03/23/19 12:10 113 H 18 91/54 99 03/23/19 12:00 110 H 16 107/60 100 03/23/19 11:50 112 H 18 89/51 100 03/23/19 11:40 105 H 17 89/54 99 03/23/19 11:30 108 H 15 89/54 98 03/23/19 11:20 117 H 20 90/53 100 03/23/19 11:10 107 H 17 85/49 99 03/23/19 11:00 98.1 F 110 H 17 85/49 99 03/23/19 10:58 99 Intake and Output 03/22/19 03/23/19 03/23/19 22:59 06:59 14:59 Intake Total 0 Balance 0 Intake: Blood Product 0 Rc As-1 Unit 0 [id number] Other: Weight 71.214 kg GENERAL EXAM: Alert, pleasant, 53-year-old male comfortable in no apparent distress. HEAD: Normocephalic/atraumatic. EYES: Normal reaction of pupils, equal size. Conjunctiva pink, sclera white. NOSE: Clear with pink turbinates. THROAT: No erythema or exudates. NECK: No masses, no JVD, no thyroid enlargement, no adenopathy. CHEST: No chest wall deformity. Symmetrical expansion. LUNGS: Equal air entry with no crackles, wheeze, rhonchi or dullness. CVS: Regular rate and rhythm, normal S1 and S2, no gallops, no murmurs, no rubs ABDOMEN: Soft, nontender. No hepatosplenomegaly, normal bowel sounds, no guarding or rigidity. EXTREMITIES: No clubbing, no edema, no cyanosis, 2+ pulses and upper and lower extremities. MUSCULOSKELETAL: Muscle strength and tone normal. SPINE: No scoliosis or deformity SKIN: No rashes CENTRAL NERVOUS SYSTEM: Alert and oriented -3. No focal deficits, tone is normal in all 4 extremities. PSYCHIATRIC: Alert and oriented -3. Appropriate affect. Intact judgment and insight. Results - Laboratory Findings CBC and BMP: 03/23/19 11:00 03/23/19 11:00 PT/INR, D-dimer PT 13.8 sec (9.0-12.0) H 03/23/19 11:00 INR 1.4 (<1.2) H 03/23/19 11:00 Abnormal lab findings: Abnormal Labs 03/23/19 03/23/19 03/23/19 11:00 11:00 11:00 RBC 2.45 L Hgb 6.7 L* Hct 21.0 L RDW 16.7 H Plt Count 111 L PT 13.8 H INR 1.4 H Sodium 136 L Carbon Dioxide 18 L BUN 26 H Creatinine 0.61 L Glucose 171 H Calcium 8.1 L Total Bilirubin 1.8 H Alkaline Phosphatase 180 H Total Protein 6.2 L Albumin 2.8 L Crossmatch 03/23/19 11:00 RBC Hgb Hct RDW Plt Count PT INR Sodium Carbon Dioxide BUN Creatinine Glucose Calcium Total Bilirubin Alkaline Phosphatase Total Protein Albumin Crossmatch See Detail Assessment and Plan Plan: Assessment: #1. Acute GI hemorrhage, status post EGD with banding of esophageal varices 6 on 03/22/2019, and history of previous banding of esophageal varices 2 in the past #2. Recurrent episodes of GI bleeding, requiring hospitalization and blood transfusions #3. Blood loss anemia, with hemoglobin of 6.7 #4. History of liver cirrhosis related to EtOH #5. Daily EtOH use, currently down to 2 beers a day #6. Diabetes mellitus type 2, previously on insulin, has not taken it in a while #7. Medical noncompliance #8. Hypertension #9. Previous episode of rectal bleeding requiring blood transfusions #10. Smoker #11. Previous episodes of pneumonia Plan: Sandostatin infusion, continue PPI therapy, continue serial H&H's, patient is receiving a unit of packed red blood cells, and receive 2 L of 0.9 normal saline and fluid boluses, GI service is following, and patient has undergone EGD with banding and 2 other esophageal varices. Will remain the intensive care unit today, for close hemodynamic monitoring. Will continue to closely monitor. I performed a history & physical examination of the patient and discussed their management with my nurse practitioner, Rosamaria Patel. I reviewed the nurse practitioner's note and agree with the documented findings and plan of care. Lung sounds are positive for diminished breath sounds. The findings and the impression was discussed with the patient. I attest to the documentation by the nurse practitioner. Time with Patient: Greater than 30
[2019-03-23] MEDS: SODIUM CHLORIDE 0.9% 1,000 ML IV SCH ×2 (16:00→20:54)
[2019-03-23 18:08] LABS: Anisocytosis Slight; HGB 7.3 gm/dL (13.0-17.5); MCH 28.3 pg (25.0-35.0); MCV 85.8 fL (80.0-100.0); Mean Platelet Volume 8.7; RBC 2.57 m/uL (4.30-5.90); RDW 16.9 % (11.5-15.5); WBC 5.2 k/uL (3.8-10.6)
[2019-03-23 18:11] LABS: Platelet Count 92 k/uL (150-450)
[2019-03-23] MEDS: PANTOPRAZOLE 40 MG/10 ML VIAL IVP SCH (20:55)
[2019-03-23 21:46] LABS: Anisocytosis Slight; HCT 23.3 % (39.0-53.0); HGB 7.4 gm/dL (13.0-17.5); Hypochromasia Moderate; MCH 28.4 pg (25.0-35.0); MCV 88.8 fL (80.0-100.0); Mean Platelet Volume 8.2; RBC 2.62 m/uL (4.30-5.90); RDW 16.6 % (11.5-15.5); WBC 5.7 k/uL (3.8-10.6)
[2019-03-23 21:50] LABS: Platelet Count 85 k/uL (150-450)
[2019-03-23 21:56] LABS: ALT 39 U/L (21-72); AST 56 U/L (17-59); Albumin 2.6 g/dL (3.5-5.0); Alkaline Phosphatase 172 U/L (38-126); Anion Gap 6 mmol/L; Blood Urea Nitrogen 25 mg/dL (9-20); Calcium 7.8 mg/dL (8.4-10.2); Carbon Dioxide 20 mmol/L (22-30); Chloride 111 mmol/L (98-107); Glucose 98 mg/dL (74-99); Potassium 4.1 mmol/L (3.5-5.1); Sodium 137 mmol/L (137-145); Total Bilirubin 1.4 mg/dL (0.2-1.3); Total Protein 5.9 g/dL (6.3-8.2)
[2019-03-24 04:39] LABS: Anisocytosis Slight; Basophils % (A) 1 %; Eosinophils # (A) 0.1 k/uL (0-0.7); Eosinophils % (A) 1 %; HCT 21.1 % (39.0-53.0); Hypochromasia Moderate; Lymphocytes # (A) 1.7 k/uL (1.0-4.8); Lymphocytes % (A) 31 %; MCH 29.1 pg (25.0-35.0); MCV 88.2 fL (80.0-100.0); Mean Platelet Volume 7.8; Monocytes # (A) 0.3 k/uL (0-1.0); Monocytes % (A) 6 %; Neutrophils % (A) 58 %; RBC 2.39 m/uL (4.30-5.90); RDW 17.2 % (11.5-15.5); WBC 5.3 k/uL (3.8-10.6)
[2019-03-24 04:40] LABS: Platelet Count 82 k/uL (150-450)
[2019-03-24 04:47] LABS: Anion Gap 6 mmol/L; Blood Urea Nitrogen 21 mg/dL (9-20); Calcium 7.7 mg/dL (8.4-10.2); Carbon Dioxide 18 mmol/L (22-30); Chloride 111 mmol/L (98-107); Glucose 97 mg/dL (74-99); Magnesium 1.6 mg/dL (1.6-2.3); Potassium 3.9 mmol/L (3.5-5.1); Sodium 135 mmol/L (137-145)
[2019-03-24] MEDS ORDERED: Magnesium Replacement Protocol 1 EACH MISC MISCELLANE PRN (05:33)
[2019-03-24] MEDS ORDERED: Potassium Replacement Protocol 1 EACH MISC MISCELLANE PRN (05:34)
[2019-03-24] MEDS ORDERED: POTASSIUM CHLORIDE ER 20 MEQ TAB.ER PO SCH (06:00)
[2019-03-24] MEDS: SODIUM CHLORIDE 0.9% 1,000 ML IV SCH ×3 (06:52→20:30)
[2019-03-24] MEDS: MAGNESIUM SULFATE-D5W PMX 1 GM in DEXTROSE/WATER 1 100ML.BAG IVPB SCH ×2 (06:53→08:46)
[2019-03-24] MEDS: PANTOPRAZOLE 40 MG/10 ML VIAL IVP SCH ×2 (08:47→20:30)
[2019-03-24] MEDS: ACETAMINOPHEN TAB 325 MG TAB PO PRN (10:08)
--- NOTE | 2019-03-24 10:37 | P.PN ---
Subjective Progress Note Date: 03/24/19 Principal diagnosis: This is a 53-year-old male patient of Dr. Amaya, past medical history of chronic alcoholic liver disease, esophageal varices with banding, previous episodes of GI bleeding, and we had previously seen this patient in consultation for critical care management for previous episodes of GI bleed requiring admission to the intensive care unit. On 03/23/2019 patient presented to the emergency department per ambulance with complaints of hematemesis. Patient ap parently undergone EGD yesterday with banding of the esophageal varices, he had increased discomfort last night, and passed some dark stools this morning. This morning he had 6 or 7 episodes of bloody emesis. Was complaining of weakness and lightheadedness. His discomfort was in the epigastric area. Blood work showed a hemoglobin of 6.7, white blood cell count was 6.0, platelet count was 111, INR was 1.4, sodium is 136, potassium is 4.2, CO2 was 18, BUN is 26, creatinine 0.61. Total bilirubin is 1.8, AST was 55, ALT was 34, alkaline phosphatase was 180, lipase was 199. Patient was hypotensive, with a pressure of 67/49, heart rate is 93-101 BPM, he is afebrile, he is symptomatic, with l ightheadedness, he was given 2 L of 0.9 normal saline and fluid boluses, he was started on Sandostatin drip at 25 g per hour. PPI therapy was started at 40 mg twice daily of Protonix. Patient is being transfused with good of packed red blood cells. She will be admitted to the intensive care unit for close hemodynamic monitoring The patient is seen today 03/24/2019 in follow-up in the intensive care unit. He is status post EGD with esophageal variceal binding. He had 1 small black tarry stool last evening. Current hemoglobin 7.0. He is awake and alert in no acute distress. He is on room air. He's afebrile. He is hemodynamically stable. White count 5.3. Hemoglobin 7.0. Creatinine 0.52. He remains on octreotide at 25 g per hour. Protonix 40 mg IV push twice a day. 0.9 normal saline at 125 mL per hour. Currently nothing by mouth. Objective - Vital Signs Vital signs: Vital Signs Temp 98.6 F 03/24/19 04:00 Pulse 93 04/27/19 07:00 Resp 17 03/24/19 07:00 BP 131/73 03/24/19 07:00 Pulse Ox 96 03/24/19 07:00 Intake & Output 03/23/19 03/24/19 03/24/19 18:59 06:59 18:59 Intake Total 887.5 1500 225 Output Total 1153 0 Balance 887.5 347 225 Weight 71.214 kg 72 kg Intake: IV 887.5 1500 225 Magnesium Sulfate-D5w Pmx 100 1 gm In Dextrose/Water 1 100ml.bag @ 100 mls/hr IVPB Q1H [facility] Rx#: [id number] Octreotide 500 mcg In 12.5 Sodium Chloride 0.9% 250 ml @ 25 MCG/HR 12.5 mls/ hr IV .Q20H [facility] Rx#: [id number] Sodium Chloride 0.9% 1, 375 1500 125 000 ml @ 125 mls/hr IV . Q8H [facility] Rx#:[id number] Blood Product 0 Rc As-1 Unit 0 [id number] Output: Urine 1150 0 Stool 3 Other: # Voids 1 - Exam GENERAL EXAM: Alert, pleasant, 53-year-old male comfortable in no apparent distress. On room air. HEAD: Normocephalic/atraumatic. EYES: Normal reaction of pupils, equal size. Conjunctiva pink, sclera white. NOSE: Clear with pink turbinates. THROAT: No erythema or exudates. NECK: No masses, no JVD, no thyroid enlargement, no adenopathy. CHEST: No chest wall deformity. Symmetrical expansion. LUNGS: Equal air entry with no crackles, wheeze, rhonchi or dullness. CVS: Regular rate and rhythm, normal S1 and S2, no gallops, no murmurs, no rubs ABDOMEN: Soft, nontender. No hepatosplenomegaly, normal bowel sounds, no guarding or rigidity. EXTREMITIES: No clubbing, no edema, no cyanosis, 2+ pulses and upper and lower extremities. MUSCULOSKELETAL: Muscle strength and tone normal. SPINE: No scoliosis or deformity SKIN: No rashes CENTRAL NERVOUS SYSTEM: Alert and oriented -3. No focal deficits, tone is normal in all 4 extremities. PSYCHIATRIC: Alert and oriented -3. Appropriate affect. Intact judgment and insight. - Labs CBC & Chem 7: 03/24/19 04:20 03/24/19 04:20 Labs: Abnormal Lab Results - Last 24 Hours (Table) 03/23/19 03/23/19 03/23/19 Range/Units 11:00 11:00 11:00 RBC 2.45 L (4.30-5.90) m/uL Hgb 6.7 L* (13.0-17.5) gm/dL Hct 21.0 L (39.0-53.0) % RDW 16.7 H (11.5-15.5) % Plt Count 111 L (150-450) k/uL PT 13.8 H (9.0-12.0) sec INR 1.4 H (<1.2) Sodium 136 L (137-145) mmol/L Chloride (98-107) mmol/L Carbon Dioxide 18 L (22-30) mmol/L BUN 26 H (9-20) mg/dL Creatinine 0.61 L (0.66-1.25) mg/dL Glucose 171 H (74-99) mg/dL POC Glucose (mg/dL) (75-99) mg/dL Calcium 8.1 L (8.4-10.2) mg/dL Total Bilirubin 1.8 H (0.2-1.3) mg/dL Alkaline Phosphatase 180 H (38-126) U/L Total Protein 6.2 L (6.3-8.2) g/dL Albumin 2.8 L (3.5-5.0) g/dL Crossmatch 03/23/19 03/23/19 03/23/19 Range/Units 11:00 15:43 17:37 RBC 2.57 L (4.30-5.90) m/uL Hgb 7.3 L (13.0-17.5) gm/dL Hct 22.0 L (39.0-53.0) % RDW 16.9 H (11.5-15.5) % Plt Count 92 L (150-450) k/uL PT (9.0-12.0) sec INR (<1.2) Sodium (137-145) mmol/L Chloride (98-107) mmol/L Carbon Dioxide (22-30) mmol/L BUN (9-20) mg/dL Creatinine (0.66-1.25) mg/dL Glucose (74-99) mg/dL POC Glucose (mg/dL) 192 H (75-99) mg/dL Calcium (8.4-10.2) mg/dL Total Bilirubin (0.2-1.3) mg/dL Alkaline Phosphatase (38-126) U/L Total Protein (6.3-8.2) g/dL Albumin (3.5-5.0) g/dL Crossmatch See Detail 03/23/19 03/23/19 03/24/19 Range/Units 21:24 21:24 04:20 RBC 2.62 L 2.39 L (4.30-5.90) m/uL Hgb 7.4 L 7.0 L (13.0-17.5) gm/dL Hct 23.3 L 21.1 L (39.0-53.0) % RDW 16.6 H 17.2 H (11.5-15.5) % Plt Count 85 L 82 L (150-450) k/uL PT (9.0-12.0) sec INR (<1.2) Sodium (137-145) mmol/L Chloride 111 H (98-107) mmol/L Carbon Dioxide 20 L (22-30) mmol/L BUN 25 H (9-20) mg/dL Creatinine 0.51 L (0.66-1.25) mg/dL Glucose (74-99) mg/dL POC Glucose (mg/dL) (75-99) mg/dL Calcium 7.8 L (8.4-10.2) mg/dL Total Bilirubin 1.4 H (0.2-1.3) mg/dL Alkaline Phosphatase 172 H (38-126) U/L Total Protein 5.9 L (6.3-8.2) g/dL Albumin 2.6 L (3.5-5.0) g/dL Crossmatch 03/24/19 Range/Units 04:20 RBC (4.30-5.90) m/uL Hgb (13.0-17.5) gm/dL Hct (39.0-53.0) % RDW (11.5-15.5) % Plt Count (150-450) k/uL PT (9.0-12.0) sec INR (<1.2) Sodium 135 L (137-145) mmol/L Chloride 111 H (98-107) mmol/L Carbon Dioxide 18 L (22-30) mmol/L BUN 21 H (9-20) mg/dL Creatinine 0.52 L (0.66-1.25) mg/dL Glucose (74-99) mg/dL POC Glucose (mg/dL) (75-99) mg/dL Calcium 7.7 L (8.4-10.2) mg/dL Total Bilirubin (0.2-1.3) mg/dL Alkaline Phosphatase (38-126) U/L Total Protein (6.3-8.2) g/dL Albumin (3.5-5.0) g/dL Crossmatch Assessment and Plan Assessment: Assessment: #1. Acute GI hemorrhage, status post EGD with banding of esophageal varices 6 on 03/22/2019, and history of previous banding of esophageal varices 2 in the past #2. Recurrent episodes of GI bleeding, requiring hospitalization and blood transfusions #3. Blood loss anemia, with hemoglobin of 6.7 #4. History of liver cirrhosis related to EtOH #5. Daily EtOH use, currently down to 2 beers a day #6. Diabetes mellitus type 2, previously on insulin, has not taken it in a while #7. Medical noncompliance #8. Hypertension #9. Previous episode of rectal bleeding requiring blood transfusions #10. Smoker #11. Previous episodes of pneumonia Plan: The patient was seen and evaluated by Dr. Garvey. He is currently stable from the critical care standpoint. We'll continue to monitor his hemoglobins every 6 hours. Transfuse if less than 7.0. Continue 0.9 normal saline at 125 ML's per hour. Octreotide per GI services. Nutrition per GI services. Continue Protonix. We'll continue to follow and make further recommendations based on his clinical status. I, the cosigning physician, performed a history & physical examination of the patient. Lungs sounds are clear. Maintaining good O2 saturations in the 90s on room air. I discussed the assessment and plan of care with my nurse practitioner, Adalgisa Dubose. I attest to the above note as dictated by her.
[2019-03-24 10:48] LABS: WBC 4.7 k/uL (3.8-10.6)
[2019-03-24 10:49] LABS: Anisocytosis Slight; HCT 21.2 % (39.0-53.0); HGB 7.1 gm/dL (13.0-17.5); MCH 28.4 pg (25.0-35.0); MCHC 33.3 g/dL (31.0-37.0); MCV 85.3 fL (80.0-100.0); Mean Platelet Volume 8.8; RBC 2.49 m/uL (4.30-5.90); RDW 17.7 % (11.5-15.5)
[2019-03-24 10:50] LABS: Platelet Count 81 k/uL (150-450)
--- NOTE | 2019-03-24 17:17 | P.PN ---
Subjective This is a pleasant 53 years old male with past medical history of diabetes mellitus, GERD, GI bleed, hyperlipidemia, hypertension, liver cirrhosis and esophageal varices, chronic low back pain with sciatica. Patient presents with hematemesis. Patient underwent EGD and has esophageal varices banding. Patient currently feels comfortable not in distress. No abdominal pain no more bleeding episodes. No chest pain or dyspnea. Vitas looks stable. Hemoglobin stable at 7.1. BMP was unremarkable. Objective - Vital Signs Vital signs: Vital Signs Temp 98.3 F 03/24/19 16:00 Pulse 78 03/24/19 16:00 Resp 14 03/24/19 16:00 BP 114/71 03/24/19 16:00 Pulse Ox 97 03/24/19 16:00 Intake & Output 03/23/19 03/24/19 03/24/19 18:59 06:59 18:59 Intake Total 887.5 1500 1987.5 Output Total 1153 550 Balance 887.5 347 1437.5 Weight 71.214 kg 72 kg Intake: IV 887.5 1500 1187.5 Magnesium Sulfate-D5w Pmx 100 1 gm In Dextrose/Water 1 100ml.bag @ 100 mls/hr IVPB Q1H [facility] Rx#: [id number] Octreotide 500 mcg In 12.5 87.5 Sodium Chloride 0.9% 250 ml @ 25 MCG/HR 12.5 mls/ hr IV .Q20H [facility] Rx#: [id number] Sodium Chloride 0.9% 1, 375 1500 1000 000 ml @ 125 mls/hr IV . Q8H [facility] Rx#:[id number] Oral 800 Blood Product 0 Rc As-1 Unit 0 [id number] Output: Urine 1150 550 Stool 3 Other: Voiding Method Toilet # Voids 1 2 - Exam GENERAL: The patient is alert and oriented x3, not in any acute distress. Well developed, well nourished. HEENT: Pupils are round and equally reacting to light. EOMI. No scleral icterus. No conjunctival pallor. Normocephalic, atraumatic. No pharyngeal erythema. No thyromegaly. CARDIOVASCULAR: S1 and S2 present. No murmurs, rubs, or gallops. PULMONARY: Chest is clear to auscultation, no wheezing or crackles. ABDOMEN: Soft, nontender, nondistended, normoactive bowel sounds. No palpable organomegaly. MUSCULOSKELETAL: No joint swelling or deformity. EXTREMITIES: No cyanosis, clubbing, or pedal edema. NEUROLOGICAL: Gross neurological examination did not reveal any focal deficits. SKIN: No rashes. - Labs CBC & Chem 7: 03/24/19 09:37 03/24/19 04:20 Labs: Abnormal Lab Results - Last 24 Hours (Table) 03/23/19 03/23/19 03/23/19 Range/Units 17:37 21:24 21:24 RBC 2.57 L 2.62 L (4.30-5.90) m/uL Hgb 7.3 L 7.4 L (13.0-17.5) gm/dL Hct 22.0 L 23.3 L (39.0-53.0) % RDW 16.9 H 16.6 H (11.5-15.5) % Plt Count 92 L 85 L (150-450) k/uL Sodium (137-145) mmol/L Chloride 111 H (98-107) mmol/L Carbon Dioxide 20 L (22-30) mmol/L BUN 25 H (9-20) mg/dL Creatinine 0.51 L (0.66-1.25) mg/dL Calcium 7.8 L (8.4-10.2) mg/dL Total Bilirubin 1.4 H (0.2-1.3) mg/dL Alkaline Phosphatase 172 H (38-126) U/L Total Protein 5.9 L (6.3-8.2) g/dL Albumin 2.6 L (3.5-5.0) g/dL 03/24/19 03/24/19 03/24/19 Range/Units 04:20 04:20 09:37 RBC 2.39 L 2.49 L (4.30-5.90) m/uL Hgb 7.0 L 7.1 L (13.0-17.5) gm/dL Hct 21.1 L 21.2 L (39.0-53.0) % RDW 17.2 H 17.7 H (11.5-15.5) % Plt Count 82 L 81 L (150-450) k/uL Sodium 135 L (137-145) mmol/L Chloride 111 H (98-107) mmol/L Carbon Dioxide 18 L (22-30) mmol/L BUN 21 H (9-20) mg/dL Creatinine 0.52 L (0.66-1.25) mg/dL Calcium 7.7 L (8.4-10.2) mg/dL Total Bilirubin (0.2-1.3) mg/dL Alkaline Phosphatase (38-126) U/L Total Protein (6.3-8.2) g/dL Albumin (3.5-5.0) g/dL Assessment and Plan Assessment: - Upper GI bleed - Acute blood loss anemia - Esophageal varesis status post banding - Alcoholic liver disease - History of diabetes - History of GERD - History of hypertension - History of hyperlipidemia Plan: This is a pleasant 53 years old male who presents with hematemesis. He had EGD with banding of his esophageal varices. GI consult is appreciated. Pulmonary team are following the patient. Continue antibiotic. Continue Protonix. Continue with IV fluids. Keep monitoring his hemoglobin.Labs and medication were reviewed.. Continue same treatment. Continue with symptomatic treatment. Resume home medication. Monitor lytes and vitals. DVT and GI prophylaxis. Further recommendations of the clinical course of the patient DVT prophylaxis: no heparin and review of GI bleed GI Prophylaxis: PPI
--- NOTE | 2019-03-24 17:31 | P.PN ---
Subjective Progress Note Date: 03/24/19 Principal diagnosis: Anemia of acute blood loss, upper GI bleed The patient is seen lying in bed. No further hematemesis or dark stool. Asking for his diet to be advanced. Objective - Vital Signs Vital signs: Vital Signs Temp 98.3 F 03/24/19 16:00 Pulse 78 03/24/19 16:00 Resp 14 03/24/19 16:00 BP 114/71 03/24/19 16:00 Pulse Ox 97 03/24/19 16:00 Intake & Output 03/23/19 03/24/19 03/24/19 18:59 06:59 18:59 Intake Total 887.5 1500 1987.5 Output Total 1153 550 Balance 887.5 347 1437.5 Weight 71.214 kg 72 kg Intake: IV 887.5 1500 1187.5 Magnesium Sulfate-D5w Pmx 100 1 gm In Dextrose/Water 1 100ml.bag @ 100 mls/hr IVPB Q1H [facility] Rx#: [id number] Octreotide 500 mcg In 12.5 87.5 Sodium Chloride 0.9% 250 ml @ 25 MCG/HR 12.5 mls/ hr IV .Q20H [facility] Rx#: [id number] Sodium Chloride 0.9% 1, 375 1500 1000 000 ml @ 125 mls/hr IV . Q8H [facility] Rx#:[id number] Oral 800 Blood Product 0 Rc As-1 Unit 0 [id number] Output: Urine 1150 550 Stool 3 Other: Voiding Method Toilet # Voids 1 2 - Exam On physical examination, patient appears comfortable in no apparent distress. HEAD: Normocephalic, atraumatic. EYES: No scleral icterus. No conjunctival injection. MOUTH: No lesions, tongue midline. NECK: Trachea midline, no gross abnormalities. CHEST: Clear to auscultation with no wheezing or rhonchi appreciated. HEART: Regular rate and rhythm. ABDOMEN: Soft, obese. Bowel sounds are positive. No organomegaly. No guarding or rigidity. EXTREMITIES: No pedal edema. SKIN: No rashes, no jaundice. NEUROLOGIC: Alert and oriented x3. No focal deficits. - Labs CBC & Chem 7: 03/24/19 09:37 03/24/19 04:20 Labs: Abnormal Lab Results - Last 24 Hours (Table) 03/23/19 03/23/1903/23/19 Range/Units 17:37 21:24 21:24 RBC 2.57 L 2.62 L (4.30-5.90) m/uL Hgb 7.3 L 7.4 L (13.0-17.5) gm/dL Hct 22.0 L 23.3 L (39.0-53.0) % RDW 16.9 H 16.6 H (11.5-15.5) % Plt Count 92 L 85 L (150-450) k/uL Sodium (137-145) mmol/L Chloride 111 H (98-107) mmol/L Carbon Dioxide 20 L (22-30) mmol/L BUN 25 H (9-20) mg/dL Creatinine 0.51 L (0.66-1.25) mg/dL Calcium 7.8 L (8.4-10.2) mg/dL Total Bilirubin 1.4 H (0.2-1.3) mg/dL Alkaline Phosphatase 172 H (38-126) U/L Total Protein 5.9 L (6.3-8.2) g/dL Albumin 2.6 L (3.5-5.0) g/dL 03/24/19 03/24/19 03/24/19 Range/Units 04:20 04:20 09:37 RBC 2.39 L 2.49 L (4.30-5.90) m/uL Hgb 7.0 L 7.1 L (13.0-17.5) gm/dL Hct 21.1 L 21.2 L (39.0-53.0) % RDW 17.2 H 17.7 H (11.5-15.5) % Plt Count 82 L 81 L (150-450) k/uL Sodium 135 L (137-145) mmol/L Chloride 111 H (98-107) mmol/L Carbon Dioxide 18 L (22-30) mmol/L BUN 21 H (9-20) mg/dL Creatinine 0.52 L (0.66-1.25) mg/dL Calcium 7.7 L (8.4-10.2) mg/dL Total Bilirubin (0.2-1.3) mg/dL Alkaline Phosphatase (38-126) U/L Total Protein (6.3-8.2) g/dL Albumin (3.5-5.0) g/dL Assessment and Plan (1) Hematemesis Narrative/Plan: Patient presenting with multiple episodes of hematemesis one day after variceal banding in the outpatient setting. Unclear if hematemesis is secondary to variceal bleed or secondary to bleeding from ulcerated in the setting of previous banding, no active bleeding on repeat EGD with to further varices banded. Current Visit: Yes Status: Acute Code(s): K92.0 - HEMATEMESIS SNOMED Code(s): 3602392 (2) Esophageal varices Current Visit: Yes Status: Acute Code(s): I85.00 - ESOPHAGEAL VARICES WITHOUT BLEEDING SNOMED Code(s): 37422535 (3) Upper GI bleed Current Visit: Yes Status: Acute Code(s): K92.2 - GASTROINTESTINAL HEMORRHAGE, UNSPECIFIED SNOMED Code(s): 21430809 (4) Acute blood loss anemia Narrative/Plan: Anemia of acute blood loss due to upper GI bleed. Hemoglobin stable at 7.1 from 7.0 previously. Current Visit: No Status: Acute Code(s): D62 - ACUTE POSTHEMORRHAGIC ANEMIA SNOMED Code(s): 640544603 Plan: Supportive care Diet advance to full liquid today Continue to monitor hemoglobin every 12 hours, or sooner if signs or symptoms of GI bleeding occur Continue Protonix and octreotide therapy No further plans for endoscopic evaluation at this time Continue to monitor for signs and symptoms of GI bleeding Thank you for allowing us to participate in the care of this patient we will continue to follow
[2019-03-24 22:19] LABS: Anisocytosis Slight; HCT 22.1 % (39.0-53.0); HGB 7.2 gm/dL (13.0-17.5); Hypochromasia Slight; MCH 28.7 pg (25.0-35.0); MCHC 32.5 g/dL (31.0-37.0); MCV 88.3 fL (80.0-100.0); Mean Platelet Volume 8.4; RDW 18.3 % (11.5-15.5); WBC 4.6 k/uL (3.8-10.6)
[2019-03-24 22:21] LABS: Platelet Count 93 k/uL (150-450)
[2019-03-25 05:46] LABS: Anisocytosis Slight; Hypochromasia Slight; MCV 87.7 fL (80.0-100.0); Mean Platelet Volume 8.2; Monocytes % (A) 7 %
[2019-03-25 05:49] LABS: Basophils % (A) 1 %; Eosinophils # (A) 0.2 k/uL (0-0.7); Eosinophils % (A) 4 %; HCT 21.9 % (39.0-53.0); HGB 7.1 gm/dL (13.0-17.5); Lymphocytes # (A) 1.6 k/uL (1.0-4.8); Lymphocytes % (A) 33 %; MCH 28.5 pg (25.0-35.0); MCHC 32.5 g/dL (31.0-37.0); Monocytes # (A) 0.4 k/uL (0-1.0); Neutrophils # (A) 2.5 k/uL (1.3-7.7); Neutrophils % (A) 51 %; RBC 2.49 m/uL (4.30-5.90); RDW 18.6 % (11.5-15.5); WBC 4.9 k/uL (3.8-10.6)
[2019-03-25 05:51] LABS: Platelet Count 98 k/uL (150-450)
[2019-03-25 06:04] LABS: Anion Gap 6 mmol/L; Blood Urea Nitrogen 12 mg/dL (9-20); Calcium 7.8 mg/dL (8.4-10.2); Carbon Dioxide 21 mmol/L (22-30); Chloride 109 mmol/L (98-107); Glucose 109 mg/dL (74-99); Magnesium 1.9 mg/dL (1.6-2.3); Sodium 136 mmol/L (137-145)
[2019-03-25] MEDS: SODIUM CHLORIDE 0.9% 1,000 ML IV SCH (06:17)
[2019-03-25] MEDS: PANTOPRAZOLE 40 MG/10 ML VIAL IVP SCH ×2 (08:26→20:09)
[2019-03-25 09:11] LABS: Glucose,Whole Blood 225 mg/dL (75-99)
--- NOTE | 2019-03-25 09:24 | P.PN ---
Subjective Progress Note Date: 03/25/19 Principal diagnosis: Acute GI bleeding, hematemesis, anemia This is a 53-year-old male patient of Dr. Amaya, past medical history of chronic alcoholic liver disease, esophageal varices with banding, previous episodes of GI bleeding, and we had previously seen this patient in consultation for critical care management for previous episodes of GI bleed requiring admission to the intensive care unit. On 03/23/2019 patient presented to the emergency department per ambulance with complaints of hematemesis. Patient apparently undergone EGD yesterday with banding of the esophageal varices, he had increased discomfort last night, and passed some dark stools this morning. This morning he had 6 or 7 episodes of bloody emesis. Was complaining of weakness and lightheadedness. His discomfort was in the epigastric area. Blood work showed a hemoglobin of 6.7, white blood cell count was 6.0, platelet count was 111, INR was 1.4, sodium is 136, potassium is 4.2, CO2 was 18, BUN is 26, creatinine 0.61. Total bilirubin is 1.8, AST was 55, ALT was 34, alkaline phosphatase was 180, lipase was 199. Patient was hypotensive, with a pressure of 67/49, heart rate is 93-101 BPM, he is afebrile, he is symptomatic, with lightheadedness, he was given 2 L of 0.9 normal saline and fluid boluses, he was started on Sandostatin drip at 25 g per hour. PPI therapy was started at 40 mg twice daily of Protonix. Patient is being transfused with good of packed red blood cells. She will be admitted to the intensive care unit for close hemodynamic monitoring On 03/25/2019 patient seen in follow-up in intensive care unit, he is awake and alert, oriented 3, no acute distress, no further episodes of hematemesis or melanotic stools, today's hemoglobin is 7.1, patient was transfused with only one unit of packed red blood cells this admission, troponin normal saline at a rate of 125 ML per hour, with him probably Hep-Lock his IV fluids, he is tolerating full liquid diet, hemodynamically stable, no abdominal pain, no nausea or vomiting. Fever or chills, no acute complaints overnight. He is awaiting a bed on general medical floor. Sandostatin drip has been discontinued. Objective - Vital Signs Vital signs: Vital Signs Temp 98.6 F 03/25/19 08:00 Pulse 75 03/25/19 08:00 Resp 14 03/25/19 08:00 BP 130/84 03/25/19 08:00 Pulse Ox 96 03/25/19 08:00 Intake & Output 03/24/19 03/25/19 03/25/19 18:59 06:59 18:59 Intake Total 1987.5 1000 500 Output Total 550 1 Balance 1437.5 1000 499 Weight 72.2 kg Intake: IV 1187.5 1000 500 Magnesium Sulfate-D5w Pmx 100 1 gm In Dextrose/Water 1 100ml.bag @ 100 mls/hr IVPB Q1H [facility] Rx#: [id number] Octreotide 500 mcg In 87.5 Sodium Chloride 0.9% 250 ml @ 25 MCG/HR 12.5 mls/ hr IV .Q20H [facility] Rx#: [id number] Sodium Chloride 0.9% 1, 1000 1000 500 000 ml @ 125 mls/hr IV . Q8H [facility] Rx#:[id number] Oral 800 Output: Urine 550 Stool 1 Other: Voiding Method Toilet Toilet # Voids 2 2 2 - Exam GENERAL EXAM: Alert, pleasant, 53-year-old male comfortable in no apparent distress. HEAD: Normocephalic/atraumatic. EYES: Normal reaction of pupils, equal size. Conjunctiva pink, sclera white. NOSE: Clear with pink turbinates. THROAT: No erythema or exudates. NECK: No masses, no JVD, no thyroid enlargement, no adenopathy. CHEST: No chest wall deformity. Symmetrical expansion. LUNGS: Equal air entry with no crackles, wheeze, rhonchi or dullness. CVS: Regular rate and rhythm, normal S1 and S2, no gallops, no murmurs, no rubs ABDOMEN: Soft, nontender. No hepatosplenomegaly, normal bowel sounds, no guarding or rigidity. EXTREMITIES: No clubbing, no edema, no cyanosis, 2+ pulses and upper and lower extremities. MUSCULOSKELETAL: Muscle strength and tone normal. SPINE: No scoliosis or deformity SKIN: No rashes CENTRAL NERVOUS SYSTEM: Alert and oriented -3. No focal deficits, tone is normal in all 4 extremities. PSYCHIATRIC: Alert and oriented -3. Appropriate affect. Intact judgment and insight. - Labs CBC & Chem 7: 03/25/19 04:30 03/25/19 04:30 Labs: Abnormal Lab Results - Last 24 Hours (Table) 03/24/19 03/24/19 03/25/19 Range/Units 09:37 21:48 04:30 RBC 2.49 L 2.50 L (4.30-5.90) m/uL Hgb 7.1 L 7.2 L (13.0-17.5) gm/dL Hct 21.2 L 22.1 L (39.0-53.0) % RDW 17.7 H 18.3 H (11.5-15.5) % Plt Count 81 L 93 L (150-450) k/uL Sodium 136 L (137-145) mmol/L Chloride 109 H (98-107) mmol/L Carbon Dioxide 21 L (22-30) mmol/L Creatinine 0.52 L (0.66-1.25) mg/dL Glucose 109 H (74-99) mg/dL POC Glucose (mg/dL) (75-99) mg/dL Calcium 7.8 L (8.4-10.2) mg/dL 03/25/19 03/25/19 Range/Units 04:30 09:09 RBC 2.49 L (4.30-5.90) m/uL Hgb 7.1 L (13.0-17.5) gm/dL Hct 21.9 L (39.0-53.0) % RDW 18.6 H (11.5-15.5) % Plt Count 98 L (150-450) k/uL Sodium (137-145) mmol/L Chloride (98-107) mmol/L Carbon Dioxide (22-30) mmol/L Creatinine (0.66-1.25) mg/dL Glucose (74-99) mg/dL POC Glucose (mg/dL) 225 H (75-99) mg/dL Calcium (8.4-10.2) mg/dL Assessment and Plan Plan: Assessment: #1. Acute GI hemorrhage, status post EGD with banding of esophageal varices 6 on 03/22/2019, and history of previous banding of esophageal varices 2 in the past #2. Recurrent episodes of GI bleeding, requiring hospitalization and blood transfusions #3. Blood loss anemia, with hemoglobin of 6.7 #4. History of liver cirrhosis related to EtOH #5. Daily EtOH use, currently down to 2 beers a day #6. Diabetes mellitus type 2, previously on insulin, has not taken it in a while #7. Medical noncompliance #8. Hypertension #9. Previous episode of rectal bleeding requiring blood transfusions #10. Smoker #11. Previous episodes of pneumonia Plan: Continue monitoring for evidence of bleeding, hemodynamically patient remains stable, has had no hematemesis or melanotic stools, hemoglobin is stable at 7.1. Clinically he is stable, no acute complaints, Hep-Lock IV fluids, he is tolerating oral diet, continue with Protonix, Sandostatin drip has been discontinued, he stable to be transferred out of the intensive care unit today to general medical floor. I performed a history & physical examination of the patient and discussed their management with my nurse practitioner, Rosamaria Patel. I reviewed the nurse practitioner's note and agree with the documented findings and plan of care. Lung sounds are positive for diminished breath sounds. The findings and the impression was discussed with the patient. I attest to the documentation by the nurse practitioner. Time with Patient: Less than 30
[2019-03-25 10:26] LABS: Glucose,Whole Blood 148 mg/dL (75-99)
--- NOTE | 2019-03-25 11:44 | P.PN ---
Subjective 53-year-old gentleman with a past medical history significant for oncology liver disease, esophageal varices who had banding a day before the present admission comes in with upper GI bleed. He was taken to EGD by GI and had 2 more bands put in. 03/25/2019 Today, the patient says that he's doing good still feeling lightheaded and dizzy little bit. He is on full liquid diet. He said that he hasn't had a bowel movement as he's not been eating since admission. He otherwise does not complain of any further bleeding episodes He does not complain of any chest pain racing heart, no cough no shortness breath, no abdominal pain, no nausea and vomiting. Objective - Vital Signs Vital signs: Vital Signs Temp 98.6 F 03/25/19 08:00 Pulse 75 03/25/19 08:00 Resp 14 03/25/19 08:00 BP 130/84 03/25/19 08:00 Pulse Ox 96 03/25/19 08:00 Intake & Output 03/24/19 03/25/19 03/25/19 18:59 06:59 18:59 Intake Total 1987.5 1000 500 Output Total 550 3 Balance 1437.5 1000 497 Weight 72.2 kg Intake: IV 1187.5 1000 500 Magnesium Sulfate-D5w Pmx 100 1 gm In Dextrose/Water 1 100ml.bag @ 100 mls/hr IVPB Q1H [facility] Rx#: [id number] Octreotide 500 mcg In 87.5 Sodium Chloride 0.9% 250 ml @ 25 MCG/HR 12.5 mls/ hr IV .Q20H [facility] Rx#: [id number] Sodium Chloride 0.9% 1, 1000 1000 500 000 ml @ 125 mls/hr IV . Q8H [facility] Rx#:[id number] Oral 800 Output: Urine 550 Stool 3 Other: Voiding Method Toilet Toilet # Voids 2 2 2 - Exam On exam, alert and oriented x3. HEENT: Pallor appreciated. NECK: No JVD. No thyroid enlargement. No LNs CARDIOVASCULAR: S1, S2 positive RESPIRATION: Breath sounds diminished in the bases. No rhonchi or crackles. No bronchial breathing. ABDOMEN: Soft, nontender . No guarding. no masses palpable. No ascites, No hepatosplenomegaly.Bowel sounds heard. LEGS: No edema. no swelling NERVOUS SYSTEM: Cranial N 2-12 grossly normal. Moves all 4 limbs. No focal deficits. No sensory deficit. No signs of cerebellar dysfucntion. - Labs CBC & Chem 7: 03/25/19 04:30 03/25/19 04:30 Labs: Abnormal Lab Results - Last 24 Hours (Table) 03/24/19 03/25/19 03/25/19 Range/Units 21:48 04:30 04:30 RBC 2.50 L 2.49 L (4.30-5.90) m/uL Hgb 7.2 L 7.1 L (13.0-17.5) gm/dL Hct 22.1 L 21.9 L (39.0-53.0) % RDW 18.3 H 18.6 H (11.5-15.5) % Plt Count 93 L 98 L (150-450) k/uL Sodium 136 L (137-145) mmol/L Chloride 109 H (98-107) mmol/L Carbon Dioxide 21 L (22-30) mmol/L Creatinine 0.52 L (0.66-1.25) mg/dL Glucose 109 H (74-99) mg/dL POC Glucose (mg/dL) (75-99) mg/dL Calcium 7.8 L (8.4-10.2) mg/dL 03/25/19 03/25/19 Range/Units 09:09 10:24 RBC (4.30-5.90) m/uL Hgb (13.0-17.5) gm/dL Hct (39.0-53.0) % RDW (11.5-15.5) % Plt Count (150-450) k/uL Sodium (137-145) mmol/L Chloride (98-107) mmol/L Carbon Dioxide (22-30) mmol/L Creatinine (0.66-1.25) mg/dL Glucose (74-99) mg/dL POC Glucose (mg/dL) 225 H 148 H (75-99) mg/dL Calcium (8.4-10.2) mg/dL Assessment and Plan Assessment: - Upper GI bleed - Anemia due to blood loss - Esophageal varesis status post banding a day ago - Alcoholic liver disease - History of diabetes - History of GERD - History of hypertension - History of hyperlipidemia Plan - patient's hemoglobin still 7.1 but is stable right now - We'll wait for GI for the recommendations regarding advancement of diet - Patient's hemoglobin remained stable and he is able to tolerate diet he probably might be able to be discharged tomorrow - We'll continue Protonix drip - We'll continue to follow with the patient Time with Patient: Greater than 30
[2019-03-25 17:14] LABS: Glucose,Whole Blood 114 mg/dL (75-99)
--- NOTE | 2019-03-25 19:14 | P.PN ---
Subjective Progress Note Date: 03/25/19 Principal diagnosis: Anemia of acute blood loss, upper GI bleed The patient is seen today denying any bowel movements, melena or hematemesis. The patient tolerated the liquid diet yesterday and has been advanced to a soft diet today. No abdominal pain reported. Objective - Vital Signs Vital signs: Vital Signs Temp 98.0 F 03/25/19 16:54 Pulse 84 03/25/19 16:54 Resp 16 03/25/19 16:54 BP 138/80 03/25/19 16:54 Pulse Ox 100 03/25/19 16:54 Intake & Output 03/25/19 03/25/19 03/26/19 06:59 18:59 06:59 Intake Total 1000 620 Output Total 4 Balance 1000 616 Weight 72.2 kg Intake: IV 1000 500 Sodium Chloride 0.9% 1, 1000 500 000 ml @ 125 mls/hr IV . Q8H [facility] Rx#:[id number] Oral 120 Output: Stool 4 Other: Voiding Method Toilet # Voids 2 1 - Exam On physical examination, patient appears comfortable in no apparent distress. HEAD: Normocephalic, atraumatic. EYES: No scleral icterus. No conjunctival injection. MOUTH: No lesions, tongue midline. NECK: Trachea midline, no gross abnormalities. CHEST: Clear to auscultation with no wheezing or rhonchi appreciated. HEART: Regular rate and rhythm. ABDOMEN: Soft, obese. Bowel sounds are positive. No organomegaly. No guarding or rigidity. EXTREMITIES: No pedal edema. SKIN: No rashes, no jaundice. NEUROLOGIC: Alert and oriented x3. No focal deficits. - Labs CBC & Chem 7: 03/25/19 04:30 03/25/19 04:30 Labs: Abnormal Lab Results - Last 24 Hours (Table) 03/24/19 03/25/19 03/25/19 Range/Units 21:48 04:30 04:30 RBC 2.50 L 2.49 L (4.30-5.90) m/uL Hgb 7.2 L 7.1 L (13.0-17.5) gm/dL Hct 22.1 L 21.9 L (39.0-53.0) % RDW 18.3 H 18.6 H (11.5-15.5) % Plt Count 93 L 98 L (150-450) k/uL Sodium 136 L (137-145) mmol/L Chloride 109 H (98-107) mmol/L Carbon Dioxide 21 L (22-30) mmol/L Creatinine 0.52 L (0.66-1.25) mg/dL Glucose 109 H (74-99) mg/dL POC Glucose (mg/dL) (75-99) mg/dL Calcium 7.8 L (8.4-10.2) mg/dL 03/25/19 03/25/19 03/25/19 Range/Units 09:09 10:24 16:56 RBC (4.30-5.90) m/uL Hgb (13.0-17.5) gm/dL Hct (39.0-53.0) % RDW (11.5-15.5) % Plt Count (150-450) k/uL Sodium (137-145) mmol/L Chloride (98-107) mmol/L Carbon Dioxide (22-30) mmol/L Creatinine (0.66-1.25) mg/dL Glucose (74-99) mg/dL POC Glucose (mg/dL) 225 H 148 H 114 H (75-99) mg/dL Calcium (8.4-10.2) mg/dL Assessment and Plan (1) Hematemesis Narrative/Plan: Patient presenting with multiple episodes of hematemesis one day after variceal banding in the outpatient setting. Unclear if hematemesis is secondary to variceal bleed or secondary to bleeding from ulcerated in the setting of previous banding, no active bleeding on repeat EGD with to further varices banded. Current Visit: Yes Status: Acute Code(s): K92.0 - HEMATEMESIS SNOMED Code(s): 3177535 (2) Esophageal varices Current Visit: Yes Status: Acute Code(s): I85.00 - ESOPHAGEAL VARICES WITHOUT BLEEDING SNOMED Code(s): 77989226 (3) Upper GI bleed Current Visit: Yes Status: Acute Code(s): K92.2 - GASTROINTESTINAL HEMORRHAGE, UNSPECIFIED SNOMED Code(s): 11730396 (4) Acute blood loss anemia Narrative/Plan: Anemia of acute blood loss due to upper GI bleed. Hemoglobin stable at 7.1. Current Visit: No Status: Acute Code(s): D62 - ACUTE POSTHEMORRHAGIC ANEMIA SNOMED Code(s): 324915402 Plan: Supportive care Diet advance to soft today Continue to monitor hemoglobin every 12 hours, or sooner if signs or symptoms of GI bleeding occur Continue Protonix and octreotide therapy No further plans for endoscopic evaluation at this time Continue to monitor for signs and symptoms of GI bleeding Thank you for allowing us to participate in the care of this patient we will continue to follow
[2019-03-25 20:09] LABS: Glucose,Whole Blood 199 mg/dL (75-99)
[2019-03-25 20:58] VITALS: RESP 18
[2019-03-26 04:55] VITALS: PULSE 80; TEMP 98.1
[2019-03-26 07:35] LABS: Anisocytosis Slight; HCT 24.1 % (39.0-53.0); HGB 7.8 gm/dL (13.0-17.5); Hypochromasia Slight; MCH 28.5 pg (25.0-35.0); MCHC 32.6 g/dL (31.0-37.0); MCV 87.4 fL (80.0-100.0); Platelet Count 113 k/uL (150-450); RBC 2.75 m/uL (4.30-5.90); RDW 18.9 % (11.5-15.5); WBC 4.3 k/uL (3.8-10.6)
[2019-03-26 07:49] LABS: Anion Gap 7 mmol/L; Blood Urea Nitrogen 11 mg/dL (9-20); Calcium 8.3 mg/dL (8.4-10.2); Carbon Dioxide 24 mmol/L (22-30); Chloride 105 mmol/L (98-107); Glucose 108 mg/dL (74-99); Sodium 136 mmol/L (137-145)
[2019-03-26] MEDS: ACETAMINOPHEN TAB 325 MG TAB PO PRN (09:03)
[2019-03-26] MEDS: PANTOPRAZOLE 40 MG/10 ML VIAL IVP SCH (09:04)
[2019-03-26 11:10] LABS: Glucose,Whole Blood 148 mg/dL (75-99)
[2019-03-26] MEDS ORDERED: LACTULOSE 20 GM/30 ML CUP PO ONE ×2 (11:26→11:39)
[2019-03-26 11:49] VITALS: BP 118/70
--- NOTE | 2019-03-26 14:47 | P.DS ---
Providers Date of admission: 03/23/19 13:03 Attending physician: Arvind Rojas MD Consults: 03/23/19 13:03 Consult Physician Stat Consulting Provider: Navdeep Garvey Consult Reason/Comments: critical care Do you want consulting provider notified?: Yes Consult Physician Stat Consulting Provider: Kasi Peña Consult Reason/Comments: Upper GI hemorrhage, esophageal varices Do you want consulting provider notified?: Already Contacted Primary care physician: Stated None Hospital Course: Diagnoses: - Upper GI bleed - Acute blood loss anemia - Esophageal varesis status post banding - Alcoholic liver disease - History of diabetes - History of GERD - History of hypertension - History of hyperlipidemia Hospital course: This is a pleasant 53 years old male with past medical history of diabetes mellitus, GERD, GI bleed, hyperlipidemia, hypertension, liver cirrhosis and esophageal varices, chronic low back pain with sciatica. Patient presents with hematemesis. Patient underwent EGD and has esophageal varices banding recently. Patient presenting with multiple episodes of hematemesis one day after variceal banding in the outpatient setting. On the presentation patient was hypotensive, he was treated with IV fluids and her significant blood transfusion and monitored intensive care unit after stabilization patient was transferred to the general medical floor. Currently patient vitals are stable. Hemoglobin stable at 7.8. Creatinine 0.5. Sugar controlled. Patient denies melena or hematemesis. No abdominal pain. No nausea vomiting. He is tolerating diet well. Patient has been evaluated and cleared by both pulmonary/critical care and gastroenterology team for discharge. Patient was eager to go home. Patient has no other complaint left chest pain or dyspnea. Problems and management plan was discussed with patient in details and he verbalized understanding and acceptance Patient was found stable and can be discharged home however he needs follow-up as an outpatient. Patient agrees with the appointments made for him with GI and PCP and he said he will follow-up. Gen: patient is a AAOx3, no distress CVS: S1-S2, RRR, no murmur Lungs: B/L CTA, no wheezing Abdomen: soft, no distention, no tenderness, positive bowel sounds Extremity: no leg edema or induration Time spent more than 35 minutes Patient Condition at Discharge: Critical Plan - Discharge Summary Discharge Rx Participant: No New Discharge Prescriptions: No Action No Known Home Medications Discharge Medication List No Known Home Medications 03/22/19 [History] Follow up Appointment(s)/Referral(s): Navdeep Garvey DO [Doctor of Osteopathic Medicine] - 10 Days Luana Amaya MD [STAFF PHYSICIAN] - 1 Week Kasi Peña MD [STAFF PHYSICIAN] - 03/31/19 11:00 am
--- NOTE | 2019-03-26 17:10 | P.PN ---
Subjective Progress Note Date: 03/26/19 Principal diagnosis: Acute GI bleeding, hematemesis, anemia This is a 53-year-old male patient of Dr. Amaya, past medical history of chronic alcoholic liver disease, esophageal varices with banding, previous episodes of GI bleeding, and we had previously seen this patient in consultation for critical care management for previous episodes of GI bleed requiring admission to the intensive care unit. On 03/23/2019 patient presented to the emergency department per ambulance with complaints of hematemesis. Patient apparently undergone EGD yesterday with banding of the esophageal varices, he had increased discomfort last night, and passed some dark stools this morning. This morning he had 6 or 7 episodes of bloody emesis. Was complaining of weakness and lightheadedness. His discomfort was in the epigastric area. Blood work showed a hemoglobin of 6.7, white blood cell count was 6.0, platelet count was 111, INR was 1.4, sodium is 136, potassium is 4.2, CO2 was 18, BUN is 26, creatinine 0.61. Total bilirubin is 1.8, AST was 55, ALT was 34, alkaline phosphatase was 180, lipase was 199. Patient was hypotensive, with a pressure of 67/49, heart rate is 93-101 BPM, he is afebrile, he is symptomatic, with lightheadedness, he was given 2 L of 0.9 normal saline and fluid boluses, he was started on Sandostatin drip at 25 g per hour. PPI therapy was started at 40 mg twice daily of Protonix. Patient is being transfused with good of packed red blood cells. She will be admitted to the intensive care unit for close hemodynamic monitoring On 03/25/2019 patient seen in follow-up in intensive care unit, he is awake and alert, oriented 3, no acute distress, no further episodes of hematemesis or melanotic stools, today's hemoglobin is 7.1, patient was transfused with only one unit of packed red blood cells this admission, troponin normal saline at a rate of 125 ML per hour, with him probably Hep-Lock his IV fluids, he is tolerating full liquid diet, hemodynamically stable, no abdominal pain, no nausea or vomiting. Fever or chills, no acute complaints overnight. He is awaiting a bed on general medical floor. Sandostatin drip has been discontinued. On 03/26/2019 patient is seen in follow-up on medical surgical floor. Patient is awake and alert, in no acute distress. Has been no further hematemesis, no melanotic 12, room air pulse ox is 100%, hemodynamically patient is stable, today's hemoglobin is 7.8, patient remains on PPI therapy. He states he hasn't had any bowel movements in several days, and patient will be given a dose of oral lactulose today Objective - Vital Signs Vital signs: Vital Signs Temp 98.1 F 03/26/19 11:48 Pulse 80 03/26/19 11:48 Resp 18 03/26/19 11:48 BP 118/70 03/26/19 11:48 Pulse Ox 100 03/26/19 11:48 Intake & Output 03/25/19 03/26/19 03/26/19 18:59 06:59 18:59 Intake Total 620 375 Output Total 4 Balance 616 375 Intake: IV 500 375 Sodium Chloride 0.9% 1, 500 375 000 ml @ 125 mls/hr IV . Q8H [facility] Rx#:[id number] Oral 120 Output: Stool 4 Other: Voiding Method Toilet # Voids 1 1 - Exam GENERAL EXAM: Alert, pleasant, 53-year-old male comfortable in no apparent distress. HEAD: Normocephalic/atraumatic. EYES: Normal reaction of pupils, equal size. Conjunctiva pink, sclera white. NOSE: Clear with pink turbinates. THROAT: No erythema or exudates. NECK: No masses, no JVD, no thyroid enlargement, no adenopathy. CHEST: No chest wall deformity. Symmetrical expansion. LUNGS: Equal air entry with no crackles, wheeze, rhonchi or dullness. CVS: Regular rate and rhythm, normal S1 and S2, no gallops, no murmurs, no rubs ABDOMEN: Soft, nontender. No hepatosplenomegaly, normal bowel sounds, no guarding or rigidity. EXTREMITIES: No clubbing, no edema, no cyanosis, 2+ pulses and upper and lower extremities. MUSCULOSKELETAL: Muscle strength and tone normal. SPINE: No scoliosis or deformity SKIN: No rashes CENTRAL NERVOUS SYSTEM: Alert and oriented -3. No focal deficits, tone is normal in all 4 extremities. PSYCHIATRIC: Alert and oriented -3. Appropriate affect. Intact judgment and insight. - Labs CBC & Chem 7: 03/26/19 06:56 03/26/19 06:56 Labs: Abnormal Lab Results - Last 24 Hours (Table) 03/25/19 03/25/19 03/26/19 Range/Units 16:56 20:07 06:56 RBC 2.75 L (4.30-5.90) m/uL Hgb 7.8 L (13.0-17.5) gm/dL Hct 24.1 L (39.0-53.0) % RDW 18.9 H (11.5-15.5) % Plt Count 113 L (150-450) k/uL Sodium (137-145) mmol/L Creatinine (0.66-1.25) mg/dL Glucose (74-99) mg/dL POC Glucose (mg/dL) 114 H 199 H (75-99) mg/dL Calcium (8.4-10.2) mg/dL 03/26/19 03/26/19 Range/Units 06:56 11:09 RBC (4.30-5.90) m/uL Hgb (13.0-17.5) gm/dL Hct (39.0-53.0) % RDW (11.5-15.5) % Plt Count (150-450) k/uL Sodium 136 L (137-145) mmol/L Creatinine 0.57 L (0.66-1.25) mg/dL Glucose 108 H (74-99) mg/dL POC Glucose (mg/dL) 148 H (75-99) mg/dL Calcium 8.3 L (8.4-10.2) mg/dL Assessment and Plan Plan: Assessment: #1. Acute GI hemorrhage, status post EGD with banding of esophageal varices 6 on 03/22/2019, and history of previous banding of esophageal varices 2 in the past #2. Recurrent episodes of GI bleeding, requiring hospitalization and blood transfusions #3. Blood loss anemia, with hemoglobin of 6.7 #4. History of liver cirrhosis related to EtOH #5. Daily EtOH use, currently down to 2 beers a day #6. Diabetes mellitus type 2, previously on insulin, has not taken it in a while #7. Medical noncompliance #8. Hypertension #9. Previous episode of rectal bleeding requiring blood transfusions #10. Smoker #11. Previous episodes of pneumonia Plan: Continue current medical treatment, give the patient on dose of oral lactulose t donato, hemodynamically patient is stable, no further bleeding, patient is being discharged home today. Advised to abstain from drinking I performed a history & physical examination of the patient and discussed their management with my nurse practitioner, Rosamaria Patel. I reviewed the nurse practitioner's note and agree with the documented findings and plan of care. Lung sounds are positive for diminished breath sounds. The findings and the impression was discussed with the patient. I attest to the documentation by the nurse practitioner. Time with Patient: Less than 30
== END 2019-03-26 14:59 | disposition home or self-care (01) | DRG 441 ==
LOC: EC 10:53 → 2SICU 13:03 → 3NMEDONC 03-25 16:46
PROVIDERS: ADMIT Internal Medicine; ATTEND Internal Medicine
PROC: 30230N1 Transfusion of Nonautologous Red Blood Cells into Peripheral Vein, Open Approach (ICD-10-PCS; 2019-03-23)
PROC: 06L38CZ Occlusion of Esophageal Vein with Extraluminal Device, Via Natural or Artificial Opening Endoscopic (ICD-10-PCS; principal; 2019-03-23 08:45)
DX: K76.6 Portal hypertension (principal); I85.11 Secondary esophageal varices with bleeding; D62 Acute posthemorrhagic anemia; K70.30 Alcoholic cirrhosis of liver without ascites; F10.20 Alcohol dependence, uncomplicated; K21.9 Gastro-esophageal reflux disease without esophagitis; E78.5 Hyperlipidemia, unspecified; G89.29 Other chronic pain; M54.40 Lumbago with sciatica, unspecified side; I10 Essential (primary) hypertension; Z91.120 Patient's intentional underdosing of medication regimen due to financial hardship; Z91.19 Patient's noncompliance with other medical treatment and regimen; Z87.01 Personal history of pneumonia (recurrent); Z90.49 Acquired absence of other specified parts of digestive tract; Z87.891 Personal history of nicotine dependence; Z83.3 Family history of diabetes mellitus; Z83.6 Family history of other diseases of the respiratory system; Z82.49 Family history of ischemic heart disease and other diseases of the circulatory system; E11.9 Type 2 diabetes mellitus without complications; I95.9 Hypotension, unspecified
CPT/HCPCS: 36415; 43255; 80048; 80053; 83690; 83735; 84100; 85025; 85027; 85610; 85730; 86850; 86900; 86901; 86920; 96365; 96366; 96367; 96375; 99291

== ENCOUNTER 2019-06-20 22:18 | Emergency (ER) | payer OTHER ==
[2019-06-20 22:28] VITALS: TEMP 98.2
[2019-06-21 00:06] LABS: Anisocytosis Slight; HCT 24.9 % (39.0-53.0); Hypochromasia Marked; MCH 20.6 pg (25.0-35.0); MCV 73.7 fL (80.0-100.0); Microcytosis Moderate; Platelet Count 106 k/uL (150-450); Poikilocytosis Slight; RBC 3.39 m/uL (4.30-5.90); RDW 18.6 % (11.5-15.5); WBC 4.2 k/uL (3.8-10.6)
[2019-06-21 00:10] LABS: ALT 30 U/L (21-72); AST 70 U/L (17-59); African American GFR (CKD) >90 (>60 ml/min/1.73 sqM); Albumin 4.1 g/dL (3.5-5.0); Alkaline Phosphatase 297 U/L (38-126); Anion Gap 12 mmol/L; Blood Urea Nitrogen 12 mg/dL (9-20); Calcium 8.7 mg/dL (8.4-10.2); Carbon Dioxide 22 mmol/L (22-30); Chloride 110 mmol/L (98-107); Glucose 119 mg/dL (74-99); Sodium 144 mmol/L (137-145); Total Bilirubin 1.2 mg/dL (0.2-1.3); Total Protein 8.3 g/dL (6.3-8.2)
--- NOTE | 2019-06-21 00:12 | ED ---
General Adult HPI - General Source: patient, RN notes reviewed Mode of arrival: ambulatory Limitations: no limitations <Wesley Gastelum - Last Filed: 06/21/19 00:56> <Angi Quevedo - Last Filed: 06/21/19 01:43> - General Chief complaint: Extremity Injury, Upper Stated complaint: Rt Hand Bug Bite Time Seen by Provider: 06/20/19 22:35 - History of Present Illness Initial comments: 53-year-old male with a past medical history of diabetes, hyperlipidemia, hypertension presents to the emergency department for pain of the left thumb. Patient states he noticed a lump to the left thumb 2 days ago. States this has worsened and swollen larger over the past 2 days. States it is painful to bend. Sates he thinks he may have gotten bit by a bug as he was outside over the weekend. Denies fevers or chills. Denies any spreading redness of his hand.Patient has no other complaints at this time including shortness of breath, chest pain, abdominal pain, nausea or vomiting, headache, or visual changes. (Wesley Gastelum) - Related Data Home Medications Medication Instructions Recorded Confirmed Pantoprazole Sodium [Protonix] 40 mg PO DAILY 05/04/19 05/04/19 Previous Rx's Medication Instructions Recorded Cephalexin [Keflex] 500 mg PO Q6HR 10 Days cap 06/21/19 Sulfamethox-Tmp 800-160Mg [Bactrim 1 tab PO Q12HR #20 tab 06/21/19 DS 800-160 mg] Allergies Allergy/AdvReac Type Severity Reaction Status Date / Time No Known Allergies Allergy Verified 05/04/19 13:54 Review of Systems ROS Other: All systems not noted in ROS Statement are negative. <Wesley Gastelum - Last Filed: 06/21/19 00:56> ROS Other: All systems not noted in ROS Statement are negative. <Angi Quevedo - Last Filed: 06/21/19 01:43> ROS Statement: Those systems with pertinent positive or pertinent negative responses have been documented in the HPI. Past Medical History Past Medical History: Chest Pain / Angina, Diabetes Mellitus, GERD/Reflux, GI Bleed, Hyperlipidemia, Hypertension, Pneumonia Additional Past Medical History / Comment(s): Cirrhosis, esophageal varicies with variceal bleed, lower GI bleed with transfusions, anemia, chronic low back pain with sciatica, diet controlled diabetic History of Any Multi-Drug Resistant Organisms: None Reported Past Surgical History: Cholecystectomy, Orthopedic Surgery Additional Past Surgical History / Comment(s): EGDs-last time 03/22/19 with banding, colonoscopies with benign polyps, capsule endoscopy, L ankle fracture with pins/plate, Past Anesthesia/Blood Transfusion Reactions: Postoperative Nausea & Vomiting (PONV) Additional Past Anesthesia/Blood Transfusion Reaction / Comment(s): Blood transfusions without reaction. Past Psychological History: No Psychological Hx Reported Smoking Status: Former smoker - Past Family History Mother Family Medical History: Diabetes Mellitus, Pneumonia Father Family Medical History: Coronary Artery Disease (CAD), Myocardial Infarction ([place]) Additional Family Medical History / Comment(s): Father had MIs with the first PR occuring while he was in his 60s. <Wesley Gastelum P - Last Filed: 06/21/19 00:56> General Exam Limitations: no limitations General appearance: alert, in no apparent distress Head exam: Present: atraumatic, normocephalic, normal inspection Eye exam: Present: normal appearance, PERRL, EOMI. Absent: scleral icterus, conjunctival injection, periorbital swelling ENT exam: Present: normal exam, mucous membranes moist Neck exam: Present: normal inspection, full ROM. Absent: tenderness, meningismus, lymphadenopathy Respiratory exam: Present: normal lung sounds bilaterally. Absent: respiratory distress, wheezes, rales, rhonchi, stridor Cardiovascular Exam: Present: regular rate, normal rhythm, normal heart sounds. Absent: systolic murmur, diastolic murmur, rubs, gallop, clicks Extremities exam: Present: tenderness (Circumferential tenderness noted to the MCP joint of the left thumb), normal capillary refill (Capillary refill less than 2 seconds, radial pulse 2+ and left upper extremity.), joint swelling (Patient does have induration noted to the left thumb MCP joint, no fluctuance palpated. Is mild stranding erythema consistent with cellulitis, mild edema.). Absent: full ROM (A she is able to flex and extend the left thumb, does have some mild pain with full extension and full flexion.) Neurological exam: Present: alert, oriented X3 Psychiatric exam: Present: normal affect, normal mood <Wesley Gastelum P - Last Filed: 06/21/19 00:56> Course Vital Signs 06/20/19 22:24 Temperature 98.2 F Pulse Rate 95 Respiratory 16 Rate Blood Pressure 148/87 O2 Sat by Pulse 99 Oximetry Medical Decision Making - Lab Data Result diagrams: 06/20/19 23:26 06/20/19 23:26 <Wesley Gastelum - Last Filed: 06/21/19 00:56> - Lab Data Result diagrams: 06/20/19 23:26 06/20/19 23:26 <Angi Quevedo - Last Filed: 06/21/19 01:43> - Medical Decision Making 53-year-old male with a past medical history of diet controlled diabetes, hyperlipidemia, hypertension presents for chief complaint of left thumb pain. States that he noticed a lump over the left MCP joint over the past several days. States that it is painful to bend his thumb. States that he did drain the area and the fluid came out. On exam patient does have intact extension and flexion of the thumb with mild pain and circumferential MCP joint tenderness. Mild edema without significant erythema. CBC shows a white count of 4.2. Patient has a history of anemia with hemoglobin of 7.0, appears chronic. CMP unremarkable. ALP is 287 which is chronic. She likely has abscess with cellulitis. Abscess is already draining. Given negative CRP and normal white blood cell count patient will be started on outpatient antibiotics after receiving 1 dose of IV antibiotics. However recommended returning if he has any worsening symptoms or more pain with movement of the thumb. Patient was also evaluated by Dr. Quevedo. (Wesley Gastelum) I, Dr. Angi Quevedo, personally saw and examined the patient. I have reviewed and agree with the [employer] findings, including all diagnostic interpretations and treatment plans as written unless otherwise stated. I was present for the jarquin portions of any procedures performed and inclusive time noted for any critical care statement (Angi Quevedo) - Lab Data Lab Results 06/20/19 06/20/19 06/20/19 Range/Units 23:26 23:26 23:26 WBC 4.2 (3.8-10.6) k/uL RBC 3.39 L (4.30-5.90) m/uL Hgb 7.0 L (13.0-17.5) gm/dL Hct 24.9 L (39.0-53.0) % MCV 73.7 L (80.0-100.0) fL MCH 20.6 L (25.0-35.0) pg MCHC 28.0 L (31.0-37.0) g/dL RDW 18.6 H (11.5-15.5) % Plt Count 106 L (150-450) k/uL Hypochromasia Marked Poikilocytosis Slight Anisocytosis Slight Microcytosis Moderate Sodium 144 (137-145) mmol/L Potassium 4.0 (3.5-5.1) mmol/L Chloride 110 H (98-107) mmol/L Carbon Dioxide 22 (22-30) mmol/L Anion Gap 12 mmol/L BUN 12 (9-20) mg/dL Creatinine 0.58 L (0.66-1.25) mg/dL Est GFR (CKD-EPI)AfAm >90 (>60 ml/min/1.73 sqM) Est GFR (CKD-EPI)NonAf >90 (>60 ml/min/1.73 sqM) Glucose 119 H (74-99) mg/dL Plasma Lactic Acid Ranjit 1.2 (0.7-2.0) mmol/L Calcium 8.7 (8.4-10.2) mg/dL Total Bilirubin 1.2 (0.2-1.3) mg/dL AST 70 H (17-59) U/L ALT 30 (21-72) U/L Alkaline Phosphatase 297 H (38-126) U/L C-Reactive Protein <5.0 (<10.0) mg/L Total Protein 8.3 H (6.3-8.2) g/dL Albumin 4.1 (3.5-5.0) g/dL Disposition Is patient prescribed a controlled substance at d/c from ED?: No Time of Disposition: 00:57 <Wesley Gastelum P - Last Filed: 06/21/19 00:56> <Angi Quevedo - Last Filed: 06/21/19 01:43> Clinical Impression: Cellulitis and abscess of hand Disposition: HOME SELF-CARE Condition: Good Instructions (If sedation given, give patient instructions): Cellulitis (ED), Abscess (ED) Additional Instructions: Please take antibiotics as directed. Please follow-up with primary care in 1-2 days. If symptoms are not improving after 24 hours return to the emergency department. Prescriptions: Sulfamethox-Tmp 800-160Mg [Bactrim DS 800-160 mg] 1 tab PO Q12HR #20 tab Cephalexin [Keflex] 500 mg PO Q6HR 10 Days cap Referrals: Luana Amaya MD [Primary Care Provider] - 1-2 days
--- NOTE | 2019-06-21 00:19 | XR ---
EXAM: XR Right Hand Complete, 3 or More Views CLINICAL HISTORY: bug bite to thumb area Reason: Pain TECHNIQUE: Frontal, lateral and oblique views of the right hand. COMPARISON: None FINDINGS: Bones/joints: No displaced fracture or dislocation identified. Osteopenia. Old fracture deformity of the distal right fifth metacarpal. Erosions of the right second metacarpal head. Soft tissues: Normal. IMPRESSION: No displaced fracture or dislocation identified. Age-indeterminate erosions of the right second metacarpal head.
[2019-06-21] MEDS ORDERED: cefTRIAXone IN SWFI 1,000 MG/10 ML SYRINGE IVP STA (00:37)
[2019-06-21 00:43] LABS: C Reactive Protein <5.0 mg/L (<10.0)
[2019-06-21] MEDS: SODIUM CHLORIDE 0.9% 1,000 ML IV STA ×2 (00:53→01:14)
[2019-06-21 01:27] VITALS: BP 143/72; PULSE 96; RESP 18
[2019-06-21 01:31] LABS: Monocytes # (M) 0.59 k/uL (0-1.0); Neutrophils % (M) 48 %; Nucleated Red Blood Cells 0 /100 WBC (0-0); Total Cells Counted 100
[2019-06-21 01:32] LABS: Anisocytosis (M) Present; Ovalocytes Present; Target Cells Present
== END 2019-06-21 01:27 | disposition home or self-care (01) ==
LOC: EC 22:18
DX: L03.113 Cellulitis of right upper limb (principal); L02.511 Cutaneous abscess of right hand; K21.9 Gastro-esophageal reflux disease without esophagitis; E11.9 Type 2 diabetes mellitus without complications; Z87.891 Personal history of nicotine dependence; Z90.49 Acquired absence of other specified parts of digestive tract; Z98.890 Other specified postprocedural states; Z79.899 Other long term (current) drug therapy; Z87.81 Personal history of (healed) traumatic fracture; Z87.01 Personal history of pneumonia (recurrent); Z87.19 Personal history of other diseases of the digestive system
CPT/HCPCS: 36415; 80053; 83605; 85025; 86140; 73130; 99283; 96374; J0696

== ENCOUNTER 2019-11-03 12:19 | Emergency (ER) | payer OTHER ==
[2019-11-03] MEDS ORDERED: diphenhydrAMINE 50 MG/ML 1 ML VIAL IVP STA (14:32)
[2019-11-03] MEDS ORDERED: methylPREDNISolone SOD SUCCI 125 MG/2 ML VIAL IV STA (14:32)
[2019-11-03] MEDS ORDERED: FAMOTIDINE 20 MG/2 ML VIAL IV STA (14:32)
[2019-11-03] MEDS ORDERED: SODIUM CHLORIDE 0.9% 500 ML 500 ML IV STA (14:32)
--- NOTE | 2019-11-03 14:41 | ED ---
General Adult HPI - General Chief complaint: Skin/Abscess/Foreign Body Stated complaint: rash; sinus cold Time Seen by Provider: 11/03/19 14:19 Source: patient, family, RN notes reviewed, old records reviewed Mode of arrival: ambulatory Limitations: no limitations - History of Present Illness Initial comments: 54-year-old male patient presents to ED for chief complaint of approximately 1 month of waxing and waning with rash. Patient reports that he changed his laundry detergent approximately one month ago. Reports that since then he has had waxing and waning itchy rash in his upper or lower extremities anterior torso. Denies taking anything for this rash. Reports that has gotten worse the last few days. Denies any other complaints at this time. Systemic: Pt denies fatigue, fever/chills. Pt denies weakness, night sweats, weight loss. Neuro: Pt denies headache, visual disturbances, syncope or pre-syncope. HEENT: Pt denies ocular discharge or irritation, otalgia, rhinorrhea, pharyngitis or notable lymphadenopathy. Cardiopulmonary: Pt denies chest pain, SOB, heart palpitations, dyspnea on exertion. Abdominal/GI: Pt denies abdominal pain, n/v/d. : Pt denies dysuria, burning w/ urination, frequency/urgency. Denies new onset urinary or bowel incontinence. MSK: Pt denies myalgia, loss of strength or function in extremities. Neuro: Pt denies new onset weakness, paresthesias. - Related Data Home Medications Medication Instructions Recorded Confirmed Pantoprazole Sodium [Protonix] 40 mg PO DAILY 05/04/19 05/04/19 Previous Rx's Medication Instructions Recorded Cephalexin [Keflex] 500 mg PO Q6HR 10 Days cap 06/21/19 Sulfamethox-Tmp 800-160Mg [Bactrim 1 tab PO Q12HR #20 tab 06/21/19 DS 800-160 mg] Cephalexin [Keflex] 500 mg PO Q6HR 10 Days #40 cap 11/03/19 Famotidine [Pepcid] 20 mg PO DAILY 3 Days #3 tablet 11/03/19 diphenhydrAMINE [Benadryl] 50 mg PO TID PRN 3 Days #9 capsule 11/03/19 predniSONE 50 mg PO DAILY 3 Days #3 tab 11/03/19 Allergies Allergy/AdvReac Type Severity Reaction Status Date / Time No Known Allergies Allergy Verified 11/03/19 12:52 Review of Systems ROS Statement: Those systems with pertinent positive or pertinent negative responses have been documented in the HPI. ROS Other: All systems not noted in ROS Statement are negative. Past Medical History Past Medical History: Chest Pain / Angina, Diabetes Mellitus, GERD/Reflux, GI Bleed, Hyperlipidemia, Hypertension, Pneumonia Additional Past Medical History / Comment(s): Cirrhosis, esophageal varicies with variceal bleed, lower GI bleed with transfusions, anemia, chronic low back pain with sciatica, diet controlled diabetic History of Any Multi-Drug Resistant Organisms: None Reported Past Surgical History: Cholecystectomy, Orthopedic Surgery Additional Past Surgical History / Comment(s): EGDs-last time 03/22/19 with banding, colonoscopies with benign polyps, capsule endoscopy, L ankle fracture with pins/plate, Past Anesthesia/Blood Transfusion Reactions: Postoperative Nausea & Vomiting (PONV) Additional Past Anesthesia/Blood Transfusion Reaction / Comment(s): Blood transfusions without reaction. Past Psychological History: No Psychological Hx Reported Smoking Status: Former smoker Past Alcohol Use History: None Reported Past Drug Use History: None Reported - Past Family History Mother Family Medical History: Diabetes Mellitus, Pneumonia Father Family Medical History: Coronary Artery Disease (CAD), Myocardial Infarction ([place]) Additional Family Medical History / Comment(s): Father had MIs with the first [place] occuring while he was in his 60s. General Exam - General Exam Comments Initial Comments: Constitutional: NAD, AOX3, Pt has pleasant affect. HEENT: NC/AT, trachea midline, neck supple, no lymphadenopathy. Posterior pharynx non erythematous, without exudates. External ears appear normal, without discharge. Right cerumen impaction noted in right ear, left tympanic membranes pale waldrop. Mucous membranes moist. Eyes PERRLA, EOM intact. There is no scleral icterus. No pallor noted. Cardiopulmonary: RRR, no murmurs, rubs or gallops, no JVD noted. Lungs CTAB in anterior and posterior james. No peripheral edema. Abdominal exam: Abdomen soft and non-distended. Abdomen non-tender to palpation in all 4 quadrants. Bowel sounds active in LLQ. No hepatosplenomegaly. No ecchymosis Neuro: CN II-XII grossly intact. No nuchal rigidity. No raccon eyes, no matos sign, no hemotympanum. No cervical spinal tenderness. MSK: No posterior calf tenderness bilaterally, homans sign negative bilaterally. Posterior tibialis and radial pulse +2 bilaterally. Sensation intact in upper and lower extremities. Full active ROM in upper and lower extremities, 5/5 stregnth. Derm: Maculopapular rash upper and lower extremities anterior torso. Does not involve palms and soles. Nonvesicular. Limitations: no limitations Course Vital Signs 11/03/19 12:52 Temperature 99.2 F Pulse Rate 96 Respiratory 18 Rate Blood Pressure 146/72 O2 Sat by Pulse 99 Oximetry Medical Decision Making - Medical Decision Making 54-year-old male patient presents to ED for chief complaint of approximately 1 month of waxing and waning with rash. Patient reports that he changed his laundry detergent approximately one month ago. Reports that since then he has had waxing and waning itchy rash in his upper or lower extremities anterior torso. Denies taking anything for this rash. Reports that has gotten worse the last few days. Denies any other complaints at this time. Patient vital signs stable, afebrile. Physical exam displayed: Maculopapular rash upper and lower extremities anterior torso. Does not involve palms and soles. Nonvesicular. Patient also had a right cerumen impaction, this was irrigated. Patient administered Benadryl Reglan steroids. We discharged 3 days these medications as well. Also be discharged with Keflex for possible secondary infection. This rash is likely contact dermatitis in nature. Girlfriend also has a similar rash. And then recently changed their laundry detergent and the rash began after. Follow with primary care provider will return to ER if condition worsens. Case discussed with Dr. Sweeney. Disposition Clinical Impression: Impacted cerumen of right ear, Rash Disposition: HOME SELF-CARE Condition: Stable Instructions (If sedation given, give patient instructions): Acute Rash (ED) Additional Instructions: Take medications as directed. Follow-up with primary care provider tomorrow. Return to ER if condition worsens in any way. Prescriptions: diphenhydrAMINE [Benadryl] 50 mg PO TID PRN 3 Days #9 capsule PRN Reason: rash Cephalexin [Keflex] 500 mg PO Q6HR 10 Days #40 cap Famotidine [Pepcid] 20 mg PO DAILY 3 Days #3 tablet predniSONE 50 mg PO DAILY 3 Days #3 tab Is patient prescribed a controlled substance at d/c from ED?: No Referrals: Luana Amaya MD [Primary Care Provider] - 1-2 days
[2019-11-03 16:16] LABS: Glucose,Whole Blood 149 mg/dL (75-99)
[2019-11-03 16:21] VITALS: BP 148/77; PULSE 86; RESP 19; TEMP 98.9
== END 2019-11-03 16:21 | disposition home or self-care (01) ==
LOC: EC 12:19
DX: H61.21 Impacted cerumen, right ear (principal); R21 Rash and other nonspecific skin eruption; K21.9 Gastro-esophageal reflux disease without esophagitis; I10 Essential (primary) hypertension; E11.9 Type 2 diabetes mellitus without complications; I25.2 Old myocardial infarction; Z79.899 Other long term (current) drug therapy; Z90.49 Acquired absence of other specified parts of digestive tract
CPT/HCPCS: 36415; 99283; 96374; 96375 ×2; J1200; J2930

== ENCOUNTER 2019-12-01 13:48 | Emergency (ER) | payer OTHER ==
[2019-12-01] MEDS ORDERED: SODIUM CHLORIDE 0.9% 1,000 ML IV STA (14:13)
[2019-12-01] MEDS ORDERED: ONDANSETRON 4 MG/2 ML VIAL IVP STA (14:13)
[2019-12-01] MEDS ORDERED: SODIUM CHLORIDE 0.9% 500 ML 500 ML IV STA (14:13)
[2019-12-01] MEDS ORDERED: PANTOPRAZOLE 40 MG/10 ML VIAL IVP STA (14:13)
[2019-12-01] MEDS ORDERED: OCTREOTIDE 500 MCG in SODIUM CHLORIDE 0.9% 250 ML IV STA (14:13)
[2019-12-01] MEDS ORDERED: OCTREOTIDE 100 MCG/ML INJ IVP STA (14:13)
--- NOTE | 2019-12-01 14:22 | ED ---
General Adult HPI - General Chief complaint: GI Bleed Stated complaint: GI BLEED Time Seen by Provider: 12/01/19 13:51 Source: patient, RN notes reviewed Mode of arrival: EMS Limitations: no limitations - History of Present Illness Initial comments: Patient is a pleasant 54-year-old male presenting to the emergency Department with complaints of hematemesis. Patient has had 5 or 6 episodes since this morning. Patient does have history of similar symptoms previously associated with gastric varices that he did have banded around 1 year ago. Patient still has nauseous and unsettled feeling of the stomach. No abdominal pain. Patient did have one black stool today earlier. 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 Patient does admit to drinking some alcohol over the holidays. - Related Data Home Medications Medication Instructions Recorded Confirmed Pantoprazole Sodium [Protonix] 40 mg PO DAILY 05/04/19 05/04/19 Previous Rx's Medication Instructions Recorded Cephalexin [Keflex] 500 mg PO Q6HR 10 Days cap 06/21/19 Sulfamethox-Tmp 800-160Mg [Bactrim 1 tab PO Q12HR #20 tab 06/21/19 DS 800-160 mg] Cephalexin [Keflex] 500 mg PO Q6HR 10 Days #40 cap 11/03/19 Famotidine [Pepcid] 20 mg PO DAILY 3 Days #3 tablet 11/03/19 diphenhydrAMINE [Benadryl] 50 mg PO TID PRN 3 Days #9 capsule 11/03/19 predniSONE 50 mg PO DAILY 3 Days #3 tab 11/03/19 Allergies Allergy/AdvReac Type Severity Reaction Status Date / Time No Known Allergies Allergy Verified 11/03/19 12:52 Review of Systems ROS Statement: Those systems with pertinent positive or pertinent negative responses have been documented in the HPI. ROS Other: All systems not noted in ROS Statement are negative. Constitutional: Denies: fever Eyes: Denies: eye pain ENT: Denies: ear pain Respiratory: Denies: cough, dyspnea Cardiovascular: Denies: chest pain Endocrine: Reports: fatigue Gastrointestinal: Reports: as per HPI, hematemesis, melena Genitourinary: Denies: dysuria Musculoskeletal: Denies: back pain Skin: Denies: rash Neurological: Denies: confusion Past Medical History Past Medical History: Chest Pain / Angina, Diabetes Mellitus, GERD/Reflux, GI Bleed, Hyperlipidemia, Hypertension, Pneumonia Additional Past Medical History / Comment(s): Cirrhosis, esophageal varicies with variceal bleed, lower GI bleed with transfusions, anemia, chronic low back pain with sciatica, diet controlled diabetic History of Any Multi-Drug Resistant Organisms: None Reported Past Surgical History: Cholecystectomy, Orthopedic Surgery Additional Past Surgical History / Comment(s): EGDs-last time 03/22/19 with banding, colonoscopies with benign polyps, capsule endoscopy, L ankle fracture with pins/plate, Past Anesthesia/Blood Transfusion Reactions: Postoperative Nausea & Vomiting (PONV) Additional Past Anesthesia/Blood Transfusion Reaction / Comment(s): Blood transfusions without reaction. Past Psychological History: No Psychological Hx Reported Smoking Status: Former smoker Past Alcohol Use History: Occasional Past Drug Use History: None Reported - Past Family History Mother Family Medical History: Diabetes Mellitus, Pneumonia Father Family Medical History: Coronary Artery Disease (CAD), Myocardial Infarction ([place]) Additional Family Medical History / Comment(s): Father had MIs with the first [place] occuring while he was in his 60s. General Exam Limitations: no limitations General appearance: alert, in no apparent distress Head exam: Present: normocephalic Eye exam: Present: scleral icterus ENT exam: Present: normal oropharynx Neck exam: Present: normal inspection Respiratory exam: Present: normal lung sounds bilaterally Cardiovascular Exam: Present: tachycardia GI/Abdominal exam: Present: soft, organomegaly (Hepatomegaly). Absent: distended, tenderness Extremities exam: Present: normal inspection Neurological exam: Present: alert Psychiatric exam: Present: normal affect, normal mood Skin exam: Present: normal color Course Vital Signs 12/01/19 13:58 Temperature 97.5 F L Pulse Rate 115 H Respiratory 22 Rate Blood Pressure 137/74 O2 Sat by Pulse 97 Oximetry Medical Decision Making - Medical Decision Making Patient reevaluated and resting comfortably in bed. Heart rate remains 113 1:15. Blood pressure remains stable. Patient is updated on results and plan. Case was discussed with both Dr. Castillo and Dr. Franklin who did not feel comfortable with consultation without GI present secondary to history of esophageal varices. Case was discussed also with Dr. Thurston at their [place], who will accept transfer. - Lab Data Result diagrams: 12/01/19 14:10 12/01/19 14:10 Lab Results 12/01/19 12/01/19 12/01/19 Range/Units 14:10 14:10 14:10 WBC 3.5 L (3.8-10.6) k/uL RBC 2.45 L (4.30-5.90) m/uL Hgb 5.7 L* (13.0-17.5) gm/dL Hct 19.5 L* (39.0-53.0) % MCV 79.5 L (80.0-100.0) fL MCH 23.4 L (25.0-35.0) pg MCHC 29.5 L (31.0-37.0) g/dL RDW 19.6 H (11.5-15.5) % Plt Count 64 L (150-450) k/uL Neutrophils % 69 % Lymphocytes % 19 % Monocytes % 7 % Eosinophils % 1 % Basophils % 1 % Neutrophils # 2.4 (1.3-7.7) k/uL Lymphocytes # 0.7 L (1.0-4.8) k/uL Monocytes # 0.3 (0-1.0) k/uL Eosinophils # 0.0 (0-0.7) k/uL Basophils # 0.0 (0-0.2) k/uL Manual Slide Review Performed Hypochromasia Marked Poikilocytosis (manual Present Anisocytosis Slight Microcytosis Slight PT 12.5 H (9.0-12.0) sec INR 1.2 H (<1.2) APTT 23.4 (22.0-30.0) sec Sodium 136 L (137-145) mmol/L Potassium 4.8 (3.5-5.1) mmol/L Chloride 102 (98-107) mmol/L Carbon Dioxide 21 L (22-30) mmol/L Anion Gap 13 mmol/L BUN 21 H (9-20) mg/dL Creatinine 0.54 L (0.66-1.25) mg/dL Est GFR (CKD-EPI)AfAm >90 (>60 ml/min/1.73 sqM) Est GFR (CKD-EPI)NonAf >90 (>60 ml/min/1.73 sqM) Glucose 318 H (74-99) mg/dL Calcium 8.4 (8.4-10.2) mg/dL Total Bilirubin 3.1 H (0.2-1.3) mg/dL AST 78 H (17-59) U/L ALT 36 (4-49) U/L Alkaline Phosphatase 279 H (38-126) U/L Total Protein 7.2 (6.3-8.2) g/dL Albumin 3.2 L (3.5-5.0) g/dL Lipase 402 H (23-300) U/L Serum Alcohol 70 mg/dL Blood Type Blood Type Recheck Bld Type Recheck Status Antibody Screen Crossmatch Spec Expiration Date 12/01/19 Range/Units 14:10 WBC (3.8-10.6) k/uL RBC (4.30-5.90) m/uL Hgb (13.0-17.5) gm/dL Hct (39.0-53.0) % MCV (80.0-100.0) fL MCH (25.0-35.0) pg MCHC (31.0-37.0) g/dL RDW (11.5-15.5) % Plt Count (150-450) k/uL Neutrophils % % Lymphocytes % % Monocytes % % Eosinophils % % Basophils % % Neutrophils # (1.3-7.7) k/uL Lymphocytes # (1.0-4.8) k/uL Monocytes # (0-1.0) k/uL Eosinophils # (0-0.7) k/uL Basophils # (0-0.2) k/uL Manual Slide Review Hypochromasia Poikilocytosis (manual Anisocytosis Microcytosis PT (9.0-12.0) sec INR (<1.2) APTT (22.0-30.0) sec Sodium (137-145) mmol/L Potassium (3.5-5.1) mmol/L Chloride (98-107) mmol/L Carbon Dioxide (22-30) mmol/L Anion Gap mmol/L BUN (9-20) mg/dL Creatinine (0.66-1.25) mg/dL Est GFR (CKD-EPI)AfAm (>60 ml/min/1.73 sqM) Est GFR (CKD-EPI)NonAf (>60 ml/min/1.73 sqM) Glucose (74-99) mg/dL Calcium (8.4-10.2) mg/dL Total Bilirubin (0.2-1.3) mg/dL AST (17-59) U/L ALT (4-49) U/L Alkaline Phosphatase (38-126) U/L Total Protein (6.3-8.2) g/dL Albumin (3.5-5.0) g/dL Lipase (23-300) U/L Serum Alcohol mg/dL Blood Type A Positive Blood Type Recheck A Pos Bld Type Recheck Status No Antibody Screen NEGATIVE Crossmatch See Detail Spec Expiration Date 12/04/2019 - 2310 Critical Care Time Critical Care Time: Yes Total Critical Care Time: 33 Disposition Clinical Impression: Upper GI hemorrhage Disposition: OTHER INSTITUTION NOT DEFINED Is patient prescribed a controlled substance at d/c from ED?: No Referrals: Luana Amaya MD [Primary Care Provider] - 1-2 days Time of Disposition: 15:28 - Out of Hospital Transfer - Req. Specs Out of Hospital Transfer - Requested Specifics: Other Emergency Center
[2019-12-01 14:55] LABS: ALT 36 U/L (4-49); AST 78 U/L (17-59); African American GFR (CKD) >90 (>60 ml/min/1.73 sqM); Albumin 3.2 g/dL (3.5-5.0); Alcohol 70 mg/dL; Alkaline Phosphatase 279 U/L (38-126); Anion Gap 13 mmol/L; Blood Urea Nitrogen 21 mg/dL (9-20); Calcium 8.4 mg/dL (8.4-10.2); Carbon Dioxide 21 mmol/L (22-30); Chloride 102 mmol/L (98-107); Glucose 318 mg/dL (74-99); INR 1.2 (<1.2); Non-African American GFR(CKD) >90 (>60 ml/min/1.73 sqM); Partial Thromboplastin Time 23.4 sec (22.0-30.0); Potassium 4.8 mmol/L (3.5-5.1); Prothrombin Time 12.5 sec (9.0-12.0); Sodium 136 mmol/L (137-145); Total Bilirubin 3.1 mg/dL (0.2-1.3); Total Protein 7.2 g/dL (6.3-8.2)
[2019-12-01 14:57] LABS: Anisocytosis Slight; Basophils % (A) 1 %; Eosinophils % (A) 1 %; Hypochromasia Marked; Lymphocytes # (A) 0.7 k/uL (1.0-4.8); Lymphocytes % (A) 19 %; MCH 23.4 pg (25.0-35.0); MCHC 29.5 g/dL (31.0-37.0); MCV 79.5 fL (80.0-100.0); Mean Platelet Volume 9.8; Microcytosis Slight; Monocytes # (A) 0.3 k/uL (0-1.0); Monocytes % (A) 7 %; Neutrophils # (A) 2.4 k/uL (1.3-7.7); Neutrophils % (A) 69 %; RBC 2.45 m/uL (4.30-5.90); RDW 19.6 % (11.5-15.5); WBC 3.5 k/uL (3.8-10.6)
[2019-12-01 14:58] LABS: HGB 5.7 gm/dL (13.0-17.5); Platelet Count 64 k/uL (150-450)
[2019-12-01 14:59] LABS: HCT 19.5 % (39.0-53.0)
[2019-12-01 15:05] LABS: Poikilocytosis (M) Present
[2019-12-01 15:58] VITALS: BP 149/74; PULSE 124; RESP 18; TEMP 99.1
== END 2019-12-01 15:56 | disposition short-term general hospital (02) ==
LOC: EC 13:48
DX: K92.0 Hematemesis (principal); R17 Unspecified jaundice; R16.0 Hepatomegaly, not elsewhere classified; R00.0 Tachycardia, unspecified; K21.9 Gastro-esophageal reflux disease without esophagitis; E11.9 Type 2 diabetes mellitus without complications; Z87.891 Personal history of nicotine dependence; Z79.899 Other long term (current) drug therapy; Z86.2 Personal history of diseases of the blood and blood-forming organs and certain disorders involving the immune mechanism; Z87.19 Personal history of other diseases of the digestive system; Z90.49 Acquired absence of other specified parts of digestive tract
CPT/HCPCS: 36415; 86900; 86901; 80053; 83690; 85025; 85610; 85730; 86850; 86920; 99291; 96374; 96375; 96361; P9016; G0480; J2405; C9113; 80320

== ENCOUNTER 2020-01-10 06:45 | Day surgery (SDC) | payer OTHER ==
[2020-01-08 14:28] VITALS: BMI 24.3
[~2020-01-10 06:45] MED LIST changes: -HYDROmorphone 0.5 MG/0.5 ML SYRINGE IVP PRN; +MIDAZOLAM 2 MG/2 ML VIAL IV PRN
[2020-01-10 07:25] VITALS: TEMP 98.3
[2020-01-10] MEDS ORDERED: LIDOCAINE 1% INJ 10MG/ML (20 ML MDV) ONE (07:30)
[2020-01-10] MEDS ORDERED: MIDAZOLAM 2 MG/2 ML VIAL ONE (07:30)
[2020-01-10] MEDS ORDERED: PROPOFOL 10 MG/ML 20 ML VIAL IV ONE (07:30)
[2020-01-10] MEDS ORDERED: fentaNYL (PF) 50 MCG/ML 2 ML AMP ONE (07:30)
--- NOTE | 2020-01-10 08:00 | P.PCN ---
Date of Procedure: 01/10/20 Description of Procedure: BRIEF HISTORY: Patient is a 54-year-old, pleasant, male patient with a known history of alcoholic cirrhosis and prior variceal bleeding who presents for outpatient variceal banding. Patient has had banding on 4 occasions in the past. He was recently seen at an outside hospital where he presented with hematemesis and had a variceal banding 1. PROCEDURE PERFORMED: Esophagogastroduodenoscopy with variceal banding. PREOPERATIVE DIAGNOSIS: Esophageal varices, cirrhosis, history of variceal bleed. ESTIMATED BLOOD LOSS: Minimal. IV sedation per anesthesia. PROCEDURE: After informed consent was obtained, the patient was brought into the endoscopy unit. IV sedation was administered by Anesthesia under continuous monitoring. Initially the Olympus GIF-190 video endoscope was inserted into the mouth. Esophagus intubated without any difficulty. It was gradually advanced into the stomach and duodenum and carefully examined. The bulb and the second part of the duodenum appeared normal. The scope at this time was withdrawn to the stomach, adequately insufflated with air, and upon careful examination, mucosa of the antrum, body, cardia and the fundus with mucosal findings consistent with total hypertensive gastropathy. The scope was then withdrawn into the esophagus. The GE junction was located at 38 cm from the incisors Esophageal varices were noted in the mid to distal esophagus. At this time the scope was withdrawn through the esophagus out of the patient's mouth and a super 7 variceal claims adjuster supervisor was placed on the endoscope, which was then passed through the patient's mouth into his distal esophagus. 6 bands were placed around varices in the distal esophagus. The patient tolerated the procedure well. IMPRESSION: 1. Portal hypertensive gastropathy . 2. Esophageal variceal banding, 6 bands were placed in the mid to distal esophagus. RECOMMENDATIONS: The findings of this examination were discussed with the patient and his girlfriend. Okay for full liquids today. Monitor for signs and symptoms of GI bleeding. Follow-up in the gastroenterology office as previously scheduled. Plan on repeat EGD in 4 weeks for further banding.
[2020-01-10 08:12] LABS: Anisocytosis Slight; Basophils % (A) 1 %; Eosinophils # (A) 0.2 k/uL (0-0.7); Eosinophils % (A) 6 %; HCT 35.6 % (39.0-53.0); Hypochromasia Moderate; Lymphocytes % (A) 23 %; MCH 24.8 pg (25.0-35.0); MCHC 30.2 g/dL (31.0-37.0); MCV 82.1 fL (80.0-100.0); Mean Platelet Volume 7.7; Microcytosis Slight; Monocytes # (A) 0.3 k/uL (0-1.0); Monocytes % (A) 7 %; Neutrophils # (A) 2.6 k/uL (1.3-7.7); Neutrophils % (A) 60 %; RBC 4.34 m/uL (4.30-5.90); RDW 17.5 % (11.5-15.5); WBC 4.3 k/uL (3.8-10.6)
[2020-01-10] MEDS ORDERED: ONDANSETRON 4 MG/2 ML VIAL IVP ONE (08:14)
[2020-01-10 08:15] LABS: ALT 29 U/L (4-49); AST 54 U/L (17-59); African American GFR (CKD) >90 (>60 ml/min/1.73 sqM); Albumin 3.8 g/dL (3.5-5.0); Alkaline Phosphatase 288 U/L (38-126); Anion Gap 8 mmol/L; Blood Urea Nitrogen 9 mg/dL (9-20); Calcium 9.1 mg/dL (8.4-10.2); Carbon Dioxide 23 mmol/L (22-30); Chloride 107 mmol/L (98-107); Glucose 133 mg/dL (74-99); Non-African American GFR(CKD) >90 (>60 ml/min/1.73 sqM); Sodium 138 mmol/L (137-145); Total Bilirubin 1.6 mg/dL (0.2-1.3); Total Protein 8.2 g/dL (6.3-8.2)
[2020-01-10 08:17] LABS: HGB 10.8 gm/dL (13.0-17.5); Platelet Count 140 k/uL (150-450)
[2020-01-10 08:31] LABS: INR 1.1 (<1.2); Prothrombin Time 11.6 sec (9.0-12.0)
[2020-01-10] MEDS ORDERED: ENALAPRILAT 1.25 MG/ML 1 ML VIAL IVP ONE ×2 (09:00→09:45)
--- NOTE | 2020-01-10 09:07 | XR ---
EXAMINATION TYPE: XR chest 1V DATE OF EXAM: 01/10/2020 HISTORY: Shortness of breath. COMPARISON: 01/21/2016 TECHNIQUE: Single view of the chest is submitted. FINDINGS: Demonstrated are scattered senescent parenchymal change. There is no evidence for focal infiltrate. The heart is stable. Hilar and mediastinal structures are within normal limits. Degenerative changes are seen of the dorsal spine. IMPRESSION: 1. Chronic changes without evidence for acute pulmonary disease.
[2020-01-10 09:34] VITALS: RESP 16
[2020-01-10] MEDS ORDERED: HYDROmorphone 0.5 MG/0.5 ML SYRINGE IVP ONE ×2 (10:10→10:15)
[2020-01-10 10:12] LABS: Glucose,Whole Blood 132 mg/dL (75-99)
[2020-01-10] MEDS ORDERED: HYDROmorphone 1 MG/ML 1 ML SYRINGE IVP STA (10:27)
[2020-01-10 10:29] VITALS: BP 147/76; PULSE 79
== END 2020-01-10 11:26 | disposition home or self-care (01) ==
LOC: ORWHC2ENDO 06:45
PROVIDERS: ATTEND Internal Medicine
DX: I85.11 Secondary esophageal varices with bleeding (principal); K70.30 Alcoholic cirrhosis of liver without ascites; K76.6 Portal hypertension; K31.89 Other diseases of stomach and duodenum; I10 Essential (primary) hypertension; K21.9 Gastro-esophageal reflux disease without esophagitis; E78.5 Hyperlipidemia, unspecified; E11.9 Type 2 diabetes mellitus without complications; Z87.891 Personal history of nicotine dependence; Z79.899 Other long term (current) drug therapy; Z98.890 Other specified postprocedural states; Z87.81 Personal history of (healed) traumatic fracture; Z90.49 Acquired absence of other specified parts of digestive tract; Z91.89 Other specified personal risk factors, not elsewhere classified
CPT/HCPCS: 80053; 85025; 85610; 82105; 71045; 43244; J2250; J2405; J2001; J3010; J2704; J1170

== ENCOUNTER → 2020-07-07 | Outpatient (CLI) | payer OTHER ==
--- NOTE | 2020-07-07 08:27 | US ---
EXAMINATION TYPE: US abdomen complete DATE OF EXAM: 07/07/2020 COMPARISON: CT 2016, US 2019 CLINICAL HISTORY: Alcoholic cirrhosis of liver w/o ascites K70.30. No pain. GB removed. EXAM MEASUREMENTS: Liver Length: 16.7 cm CBD: 0.6 cm Spleen: 14.9 cm Right Kidney: 12.1 x 5.2 x 5.5 cm Left Kidney: 11.1 x 4.4 x 4.9 cm Pancreas: Tail obscured by overlying bowel gas Liver: Heterogenous. Coarse. Nodular in appearance. Gallbladder: Surgically absent. In area of GB fossa, echogenic area seen which could be air Evidence for sonographic Jenkins's sign: neg CBD: wnl Spleen: Enlarged in size Right Kidney: wnl Left Kidney: wnl Upper IVC: wnl Abd Aorta: Mid portion obscured by overlying bowel gas. No AAA visualized in portions seen. The visualized liver remains heterogeneous. The intrahepatic portion of the IVC and visualized abdom inal aorta are within normal limits. There is no evidence of cholelithiasis. Common bile duct is un remarkable. The visualized portions of the pancreas are homogenous. The spleen is unremarkable. Ki dneys are symmetric and free of hydronephrosis. No renal lesions are seen. No new ascites. IMPRESSION: Persistent heterogeneous hyperechoic appearance of liver could reflect product of underly ing hepatocellular disease and/or fatty infiltration. Splenomegaly now present. The former is suspect ed. Correlate clinically. No new ascites noted.
[2020-07-07 09:50] LABS: HCT 33.4 % (39.0-53.0); HGB 10.8 gm/dL (13.0-17.5); MCH 27.8 pg (25.0-35.0); MCHC 32.3 g/dL (31.0-37.0); MCV 86.2 fL (80.0-100.0); Mean Platelet Volume 7.6; Platelet Count 102 k/uL (150-450); RBC 3.88 m/uL (4.30-5.90); RDW 15.1 % (11.5-15.5); WBC 3.5 k/uL (3.8-10.6)
[2020-07-07 09:51] LABS: INR 1.1 (<1.2); Prothrombin Time 11.5 sec (9.0-12.0)
[2020-07-07 10:07] LABS: ALT 35 U/L (4-49); AST 56 U/L (17-59); African American GFR (CKD) >90 (>60 ml/min/1.73 sqM); Albumin 3.7 g/dL (3.5-5.0); Alkaline Phosphatase 283 U/L (38-126); Anion Gap 6 mmol/L; Blood Urea Nitrogen 8 mg/dL (9-20); Calcium 8.7 mg/dL (8.4-10.2); Carbon Dioxide 27 mmol/L (22-30); Chloride 104 mmol/L (98-107); Glucose 182 mg/dL (74-99); Non-African American GFR(CKD) >90 (>60 ml/min/1.73 sqM); Sodium 137 mmol/L (137-145); Total Bilirubin 1.7 mg/dL (0.2-1.3); Total Protein 7.7 g/dL (6.3-8.2)
== END | disposition home or self-care (01) ==
LOC: RADUSWWP 07:44
PROVIDERS: ATTEND Internal Medicine
DX: R16.1 Splenomegaly, not elsewhere classified (principal); K70.30 Alcoholic cirrhosis of liver without ascites
CPT/HCPCS: 36415; 76700; 80053; 82105; 85027; 85610

== ENCOUNTER 2020-07-10 06:39 | Day surgery (SDC) | payer OTHER ==
[2020-07-09 09:33] VITALS: BMI 24.3
[~2020-07-10 06:39] MED LIST changes: -LIDOCAINE 1% 20 ML VIAL (10MG/ML) FOR IV START INTRADERMA PRN; -MIDAZOLAM 2 MG/2 ML VIAL IV PRN; +ONDANSETRON 4 MG/2 ML VIAL IVP PRN
[2020-07-10] MEDS ORDERED: LIDOCAINE 1% (10MG/ML) FOR IV START INTRADERMA ONE (07:10)
[2020-07-10 07:11] LABS: Glucose,Whole Blood 160 mg/dL (75-99)
[2020-07-10 07:12] VITALS: RESP 20; TEMP 97.7
[2020-07-10] MEDS ORDERED: ONDANSETRON 4 MG/2 ML VIAL ONE (07:18)
[2020-07-10] MEDS ORDERED: PROPOFOL 10 MG/ML 20 ML VIAL IV ONE (07:34)
--- NOTE | 2020-07-10 08:02 | P.PCN ---
Date of Procedure: 07/10/20 Description of Procedure: BRIEF HISTORY: Patient is a 54-year-old male presenting for outpatient EGD for esophageal varices and alcohol cirrhosis of the liver. Patient with prior history of GI bleeding and variceal banding in the past. Last EGD 01/10/2020. PROCEDURE PERFORMED: Esophagogastroduodenoscopy with banding of esophageal varices. PREOPERATIVE DIAGNOSIS: Esophageal varices in alcoholic cirrhosis of the liver. ESTIMATED BLOOD LOSS: Minimal. IV sedation per anesthesia. PROCEDURE: After informed consent was obtained, the patient was brought into the endoscopy unit. IV sedation was administered by Anesthesia under continuous monitoring. Initially the Olympus GIF-190 video endoscope was inserted into the mouth. Esophagus intubated without any difficulty. It was gradually advanced into the stomach and duodenum and carefully examined. The bulb and the second part of the duodenum appeared normal. The scope at this time was withdrawn to the stomach, adequately insufflated with air, and upon careful examination, mucosa of the antrum, body, cardia and the fundus appeared normal, Except for some mild portal hypertensive gastropathy noted. The scope was then withdrawn into the esophagus. The GE junction was located at 39 cm from the incisors. A few columns of large esophageal varices noted in the esophagus, treated with esophageal variceal band ligation with [employer] super [address] last [address] to [address] 5 bands bleeding from the distal esophagus to the proximal esophagus in a circumferential manner. Esophagus was otherwise normal. The patient tolerated the procedure well. IMPRESSION: 1. Large esophageal varices, treated with esophageal band ligation . 2. Mild portal hypertensive gastropathy. RECOMMENDATIONS: The findings of this examination were discussed with the patient and his girlfriend. Okay for liquid diet. Continue current medical management. Would recommend repeat EGD in 3-4 weeks to assess for possible further banding.
[2020-07-10] MEDS ORDERED: fentaNYL (PF) 50 MCG/ML 2 ML AMP ONE (08:09)
[2020-07-10 08:19] VITALS: PULSE 81
[2020-07-10] MEDS ORDERED: fentaNYL (PF) 50 MCG/ML 2 ML AMP IVP ONE (08:19)
[2020-07-10 08:21] VITALS: BP 144/67
[2020-07-10] MEDS ORDERED: ACETAMINOPHEN TAB 500 MG TAB ONE (08:54)
[2020-07-10] MEDS ORDERED: ACETAMINOPHEN TAB 500 MG TAB PO ONE (08:58)
== END 2020-07-10 09:16 | disposition home or self-care (01) ==
LOC: ORWHC2ENDO 06:39
PROVIDERS: ATTEND Internal Medicine
DX: K70.30 Alcoholic cirrhosis of liver without ascites (principal); I85.10 Secondary esophageal varices without bleeding; K76.6 Portal hypertension; K31.89 Other diseases of stomach and duodenum; I10 Essential (primary) hypertension; E78.5 Hyperlipidemia, unspecified; E11.9 Type 2 diabetes mellitus without complications; M54.10 Radiculopathy, site unspecified; K21.9 Gastro-esophageal reflux disease without esophagitis; Z87.19 Personal history of other diseases of the digestive system; Z87.891 Personal history of nicotine dependence; Z79.899 Other long term (current) drug therapy; Z90.49 Acquired absence of other specified parts of digestive tract; Z98.890 Other specified postprocedural states; Z91.89 Other specified personal risk factors, not elsewhere classified
CPT/HCPCS: 43244; J2405; J3010; J2704

== ENCOUNTER 2022-09-01 13:47 | Inpatient (IN) | payer OTHER ==
[2022-09-01] MEDS ORDERED: SODIUM CHLORIDE 0.9% 500 ML 500 ML IV ONE (15:00)
--- NOTE | 2022-09-01 15:36 | ED ---
General Adult HPI - General Chief complaint: Abdominal Pain Stated complaint: stomach pain Time Seen by Provider: 09/01/22 14:38 Source: patient, RN notes reviewed, old records reviewed Mode of arrival: ambulatory Limitations: no limitations - History of Present Illness Initial comments: This is a 57-year-old male who presents emergency Department complaining about abdominal distention for 2 weeks. Patient states been a little bit constipated but he said no vomiting or nausea. Patient states she did have normal bowel movement this morning. Patient states he has been a heavy drinker for many years and he stopped about 4 weeks ago. thinks his skin is looking a lot more yellow and his eyes or look ill as well. Patient denies any chest pain difficulty breathing shortness of breath per patient has any fever or chills. Patient denies lightheadedness or dizziness. Patient states is getting difficult to breathe because his abdomen is so distended. - Related Data Home Medications Medication Instructions Recorded Confirmed No Known Home Medications 09/01/22 09/01/22 Allergies Allergy/AdvReac Type Severity Reaction Status Date / Time No Known Allergies Allergy Verified 09/01/22 16:18 Review of Systems ROS Statement: Those systems with pertinent positive or pertinent negative responses have been documented in the HPI. ROS Other: All systems not noted in ROS Statement are negative. Past Medical History Past Medical History: Chest Pain / Angina, Diabetes Mellitus, GERD/Reflux, GI Bleed, Hyperlipidemia, Hypertension, Pneumonia Additional Past Medical History / Comment(s): Cirrhosis, esophageal varicies with variceal bleed, lower GI bleed with transfusions, anemia, chronic low back pain with sciatica, diet controlled diabetic History of Any Multi-Drug Resistant Organisms: None Reported Past Surgical History: Cholecystectomy, Orthopedic Surgery Additional Past Surgical History / Comment(s): EGDs-last time 03/22/19 with banding, colonoscopies with benign polyps, capsule endoscopy, L ankle fracture with pins/plate, EGD Past Anesthesia/Blood Transfusion Reactions: Postoperative Nausea & Vomiting (PONV) Additional Past Anesthesia/Blood Transfusion Reaction / Comment(s): Blood transfusions without reaction. Past Psychological History: No Psychological Hx Reported Smoking Status: Former smoker Past Alcohol Use History: None Reported Past Drug Use History: None Reported - Past Family History Mother Family Medical History: Diabetes Mellitus, Pneumonia Father Family Medical History: Coronary Artery Disease (CAD), Myocardial Infarction ([place]) Additional Family Medical History / Comment(s): Father had MIs with the first [place] occuring while he was in his 60s. General Exam - General Exam Comments Initial Comments: GENERAL: Patient is well-developed and well-nourished. Patient is nontoxic and well- hydrated and is in mild distress. ENT: Neck is soft and supple. No significant lymphadenopathy is noted. Oropharynx is clear. Moist mucous membranes. Neck has full range of motion without eliciting any pain. EYES: Patient has sclera icterus. Extraocular movements were intact and pupils were equal round and reactive to light. Eyelids were unremarkable. PULMONARY: Unlabored respirations. Good breath sounds bilaterally. No audible rales rhonchi or wheezing was noted. CARDIOVASCULAR: There is a regular rate and rhythm without any murmurs gallops or rubs. Femoral pulses are equal bilaterally ABDOMEN: Abdomen is significantly distended and appears to be fluid filled consistent with ascites. SKIN: Patient's skin is jaundiced in appearance NEUROLOGIC: Patient is alert and oriented x3. Cranial nerves II through XII are grossly intact. Motor and sensory are also intact. Normal speech, volume and content. Symmetrical smile. MUSCULOSKELETAL: Normal extremities with adequate strength and full range of motion. LYMPHATICS: No significant lymphadenopathy is noted PSYCHIATRIC: Normal psychiatric evaluation. Limitations: no limitations Course Vital Signs 09/01/22 09/01/22 13:48 15:33 Temperature 98.1 F Pulse Rate 134 H 114 H Respiratory 20 18 Rate Blood Pressure 162/96 139/100 O2 Sat by Pulse 99 98 Oximetry Medical Decision Making - Medical Decision Making I spoke with Dr. Rodriguez from [facility] and he agreed to admit th e patient admitted the patient I consult to Dr. Pride - Lab Data Result diagrams: 09/01/22 15:29 09/01/22 15:29 Lab Results 09/01/22 09/01/22 09/01/22 Range/Units 15:29 15:29 15:29 WBC 4.2 (3.8-10.6) k/uL RBC 3.39 L (4.30-5.90) m/uL Hgb 11.5 L (13.0-17.5) gm/dL Hct 35.7 L (39.0-53.0) % MCV 105.1 H (80.0-100.0) fL MCH 34.0 (25.0-35.0) pg MCHC 32.4 (31.0-37.0) g/dL RDW 14.4 (11.5-15.5) % Plt Count 156 (150-450) k/uL MPV 7.5 Neutrophils % 72 % Lymphocytes % 16 % Monocytes % 8 % Eosinophils % 2 % Basophils % 1 % Neutrophils # 3.0 (1.3-7.7) k/uL Lymphocytes # 0.7 L (1.0-4.8) k/uL Monocytes # 0.3 (0-1.0) k/uL Eosinophils # 0.1 (0-0.7) k/uL Basophils # 0.0 (0-0.2) k/uL Macrocytosis Moderate PT 15.5 H (9.0-12.0) sec INR 1.5 H (<1.2) APTT 27.7 (22.0-30.0) sec Sodium 138 (137-145) mmol/L Potassium 3.3 L (3.5-5.1) mmol/L Chloride 103 (98-107) mmol/L Carbon Dioxide 19 L (22-30) mmol/L Anion Gap 16 mmol/L BUN 9 (9-20) mg/dL Creatinine 0.66 (0.66-1.25) mg/dL Est GFR (CKD-EPI)AfAm >90 (>60 ml/min/1.73 sqM) Est GFR (CKD-EPI)NonAf >90 (>60 ml/min/1.73 sqM) Glucose 172 H (74-99) mg/dL Calcium 8.7 (8.4-10.2) mg/dL Magnesium 2.0 (1.6-2.3) mg/dL Total Bilirubin 9.3 H (0.2-1.3) mg/dL AST 148 H (17-59) U/L ALT 52 H (4-49) U/L Alkaline Phosphatase 505 H (38-126) U/L Total Protein 8.5 H (6.3-8.2) g/dL Albumin 3.1 L (3.5-5.0) g/dL Urine Color Urine Appearance (Clear) Urine pH (5.0-8.0) Ur Specific [place] (1.001-1.035) Urine Protein (Negative) Urine Glucose (UA) (Negative) Urine Ketones (Negative) Urine Blood (Negative) Urine Nitrite (Negative) Urine Bilirubin (Negative) Urine Urobilinogen (<2.0) mg/dL Ur Leukocyte Esterase (Negative) Urine RBC (0-5) /hpf Urine WBC (0-5) /hpf Urine WBC Clumps (None) /hpf Ur Squamous Epith Cells (0-4) /hpf Calcium Oxalate Crystal (None) /hpf Hyaline Casts (0-2) /lpf Urine Mucus (None) /hpf Serum Alcohol <10 mg/dL 09/01/22 Range/Units 15:31 WBC (3.8-10.6) k/uL RBC (4.30-5.90) m/uL Hgb (13.0-17.5) gm/dL Hct (39.0-53.0) % MCV (80.0-100.0) fL MCH (25.0-35.0) pg MCHC (31.0-37.0) g/dL RDW (11.5-15.5) % Plt Count (150-450) k/uL MPV Neutrophils % % Lymphocytes % % Monocytes % % Eosinophils % % Basophils % % Neutrophils # (1.3-7.7) k/uL Lymphocytes # (1.0-4.8) k/uL Monocytes # (0-1.0) k/uL Eosinophils # (0-0.7) k/uL Basophils # (0-0.2) k/uL Macrocytosis PT (9.0-12.0) sec INR (<1.2) APTT (22.0-30.0) sec Sodium (137-145) mmol/L Potassium (3.5-5.1) mmol/L Chloride (98-107) mmol/L Carbon Dioxide (22-30) mmol/L Anion Gap mmol/L BUN (9-20) mg/dL Creatinine (0.66-1.25) mg/dL Est GFR (CKD-EPI)AfAm (>60 ml/min/1.73 sqM) Est GFR (CKD-EPI)NonAf (>60 ml/min/1.73 sqM) Glucose (74-99) mg/dL Calcium (8.4-10.2) mg/dL Magnesium (1.6-2.3) mg/dL Total Bilirubin (0.2-1.3) mg/dL AST (17-59) U/L ALT (4-49) U/L Alkaline Phosphatase (38-126) U/L Total Protein (6.3-8.2) g/dL Albumin (3.5-5.0) g/dL Urine Color Dark Brown Urine Appearance Cloudy (Clear) Urine pH 6.0 (5.0-8.0) Ur Specific [place] 1.026 (1.001-1.035) Urine Protein 1+ H (Negative) Urine Glucose (UA) Negative (Negative) Urine Ketones Negative (Negative) Urine Blood Large H (Negative) Urine Nitrite Negative (Negative) Urine Bilirubin 2+ H (Negative) Urine Urobilinogen 8.0 (<2.0) mg/dL Ur Leukocyte Esterase Negative (Negative) Urine RBC >182 H (0-5) /hpf Urine WBC 8 H (0-5) /hpf Urine WBC Clumps Rare H (None) /hpf Ur Squamous Epith Cells 2 (0-4) /hpf Calcium Oxalate Crystal Few H (None) /hpf Hyaline Casts 6 H (0-2) /lpf Urine Mucus Many H (None) /hpf Serum Alcohol mg/dL Disposition Clinical Impression: Alcoholic liver failure, Ascites Disposition: ADMITTED IP TO THIS HOSP Referrals: Luana Amaya MD [Primary Care Provider] - 1-2 days Time of Disposition: 17:07
[2022-09-01 15:39] LABS: Basophils % (A) 1 %; Eosinophils # (A) 0.1 k/uL (0-0.7); Eosinophils % (A) 2 %; HCT 35.7 % (39.0-53.0); HGB 11.5 gm/dL (13.0-17.5); Lymphocytes # (A) 0.7 k/uL (1.0-4.8); Lymphocytes % (A) 16 %; MCHC 32.4 g/dL (31.0-37.0); MCV 105.1 fL (80.0-100.0); Macrocytosis Moderate; Mean Platelet Volume 7.5; Monocytes # (A) 0.3 k/uL (0-1.0); Monocytes % (A) 8 %; Neutrophils % (A) 72 %; Platelet Count 156 k/uL (150-450); RBC 3.39 m/uL (4.30-5.90); RDW 14.4 % (11.5-15.5); WBC 4.2 k/uL (3.8-10.6)
[2022-09-01 15:55] LABS: ALT 52 U/L (4-49); AST 148 U/L (17-59); African American GFR (CKD) >90 (>60 ml/min/1.73 sqM); Albumin 3.1 g/dL (3.5-5.0); Alcohol <10 mg/dL; Alkaline Phosphatase 505 U/L (38-126); Anion Gap 16 mmol/L; Blood Urea Nitrogen 9 mg/dL (9-20); Calcium 8.7 mg/dL (8.4-10.2); Carbon Dioxide 19 mmol/L (22-30); Chloride 103 mmol/L (98-107); Glucose 172 mg/dL (74-99); Non-African American GFR(CKD) >90 (>60 ml/min/1.73 sqM); Potassium 3.3 mmol/L (3.5-5.1); Sodium 138 mmol/L (137-145); Total Bilirubin 9.3 mg/dL (0.2-1.3); Total Protein 8.5 g/dL (6.3-8.2)
[2022-09-01 15:56] LABS: Appearance,Urine Cloudy (Clear); Bilirubin,Urine 2+ (Negative); Blood,Urine Large (Negative); Calcium Oxalate Crystals,Urine Few /hpf; Color,Urine Dark Brown; Glucose,Urine (UA) Negative (Negative); Hyaline Casts,Urine 6 /lpf (0-2); Ketones,Urine Negative (Negative); Leukocyte Esterase,Urine Negative (Negative); Mucus,Urine Many /hpf; Nitrite,Urine Negative (Negative); Protein,Urine 1+ (Negative); RBC,Urine >182 /hpf (0-5); Specific Gravity,Urine 1.026 (1.001-1.035); Squamous Epithelial Cell,Urine 2 /hpf (0-4); WBC,Urine 8 /hpf (0-5)
[2022-09-01 16:08] LABS: INR 1.5 (<1.2); Partial Thromboplastin Time 27.7 sec (22.0-30.0); Prothrombin Time 15.5 sec (9.0-12.0)
[2022-09-01] MEDS ORDERED: SODIUM CHLORIDE 0.9% 1,000 ML IV ONE (17:18)
[2022-09-01] MEDS ORDERED: METOPROLOL TARTRATE 12.5 MG TAB PO STA (21:15)
[2022-09-02] MEDS: HYDROcodone/APAP 5-325MG 1 EACH TAB PO PRN (09:16)
[2022-09-02] MEDS ORDERED: SPIRONOLACTONE 25 MG TAB PO SCH (12:00)
[2022-09-02] MEDS: MULTIVITAMINS, THERA 1 EACH TAB PO SCH (12:49)
[2022-09-02] MEDS: FOLIC ACID 1 MG TAB PO SCH (12:49)
[2022-09-02] MEDS: THIAMINE 100 MG TAB PO SCH ×3 (12:49→17:31)
[2022-09-02] MEDS: FUROSEMIDE 40 MG TAB PO SCH ×2 (12:49→17:30)
--- NOTE | 2022-09-02 13:58 | P.CONS ---
History of Present Illness - Reason for Consult Consult date: 09/02/22 Ascites, liver cirrhosis Requesting physician: Chung Etienne - Chief Complaint Abdominal distention - History of Present Illness This is a pleasant 57-year-old male with a past medical history including alcoholic cirrhosis of the liver, diabetes mellitus, GERD, esophageal varices, hyperlipidemia and hypertension. Patient presented to the emergency department with complaints of abdominal distention that he stated started approximately 2 weeks ago. He also was concerned with increased yellowing of his skin and eyes. He has a long-standing history of alcohol cirrhosis of the liver. He is diagnosed around 20 years ago continued to drink. He has had multiple EGDs with esophageal varices banding. Denies any previous history of paracentesis. States he drank 2 beers this past Tuesday, however, prior to that it's been about 4 weeks since he quit drinking. He has not been following with a telephone clerks supervisor or liver specialist. Last time he was seen by Dr. Peña and underwent EGD with esophageal banding in June 2020. Labs: WBC 4.2 hemoglobin 11.5 hematocrit 35 platelet count 156,000 INR 1.5 sodium 138 potassium 3.3 BUN 9 creatinine 0.6 total bilirubin 9.3 AST 148 ALT 52 alkaline phosphatase 505 serum alcohol less than 10 Review of Systems REVIEW OF SYSTEMS: CARDIOPULMONARY: No chest pain or shortness of breath. Gastrointestinal: Abdominal distention. No nausea or vomiting. No hematemesis, coffee-ground emesis. No rectal bleeding, or melena. GENITOURINARY: No dysuria or hematuria. MUSCULOSKELETAL: Reports normal range of motion., Joint pain. SKIN: No rashes. Jaundice. ENDOCRINE: No chills, fevers. No excessive weight gain or loss. No polydipsia or polyuria. PSYCHIATRIC: Unremarkable. NEUROLOGY: No change in mental status. Denies dizziness, headache. ENT: Vision unremarkable. CONSTITUTIONAL: No recent weight loss. No fever, chills, night sweats. Past Medical History Past Medical History: Chest Pain / Angina, Diabetes Mellitus, GERD/Reflux, GI Bleed, Hyperlipidemia, Hypertension, Pneumonia Additional Past Medical History / Comment(s): Cirrhosis, esophageal varicies with variceal bleed, lower GI bleed with transfusions, anemia, chronic low back pain with sciatica, diet controlled diabetic History of Any Multi-Drug Resistant Organisms: None Reported Past Surgical History: Cholecystectomy, Orthopedic Surgery Additional Past Surgical History / Comment(s): EGDs-last time 03/22/19 with banding, colonoscopies with benign polyps, capsule endoscopy, L ankle fracture with pins/plate, EGD Past Anesthesia/Blood Transfusion Reactions: Postoperative Nausea & Vomiting (PONV) Additional Past Anesthesia/Blood Transfusion Reaction / Comm: Blood transfusions without reaction. Past Psychological History: No Psychological Hx Reported Additional Psychological History / Comment(s): Pt resides with his parents. He is independent. Smoking Status: Former smoker Past Alcohol Use History: None Reported Additional Past Alcohol Use History / Comment(s): Pt started smoking 1984 and quit 01/17/15. Pt was a heavy drinker , drinking until he "fell asleep" but states he now only drinks on occasion and last time he drank was-2 months ago Past Drug Use History: None Reported - Past Family History Mother Family Medical History: Diabetes Mellitus, Pneumonia Father Family Medical History: Coronary Artery Disease (CAD), Myocardial Infarction ([place]) Additional Family Medical History / Comment(s): Father had MIs with the first [place] occuring while he was in his 60s. Medications and Allergies Home Medications Medication Instructions Recorded Confirmed Type No Known Home Medications 09/01/22 09/01/22 History Allergies Allergy/AdvReac Type Severity Reaction Status Date / Time No Known Allergies Allergy Verified 09/01/22 16:18 Physical Exam Vitals: Vital Signs Temp Pulse Pulse Resp BP BP Pulse Ox 09/02/22 11:28 98.0 F 87 17 124/72 99 09/02/22 05:00 98.2 F 90 16 114/65 96 09/01/22 22:31 88 122/72 09/01/22 20:45 88 09/01/22 20:00 98.3 F 119 H 16 153/95 99 09/01/22 18:18 116 H 18 137/80 97 09/01/22 15:33 114 H 18 139/100 98 09/01/22 13:48 98.1 F 134 H 20 162/96 99 Intake and Output 09/01/22 09/02/22 09/02/22 22:59 06:59 14:59 Intake Total 1490 Balance 1490 Intake: Intake, IV Titration 900 Amount Sodium Chloride 0.9% 1, 900 000 ml @ 75 mls/hr IV . Q30E20H ONE Rx#:[id number] Oral 590 Other: Voiding Method Toilet Urinal # Voids 2 Weight 75.07 kg General appearance: The patient is alert, oriented, appears in no acute distress. HET: Head is normocephalic and atraumatic. Conjunctiva pink. Sclera icteric. Neck: Supple without lymphadenopathy. Trachea midline. Heart: S1 S2. Regular rate and rhythm. Lungs: Clear to auscultation. Abdomen: Soft, nontender, distended, ascites. No guarding or rigidity. Skin: No rashes. Jaundice. Extremities: Normal skin color and turgor. No pedal edema. Neurological: No focal deficits. Alert and oriented x3. Results CBC & Chem 7: 09/01/22 15:29 09/01/22 15:29 Labs: Abnormal Lab Results - Last 24 Hours (Table) 09/01/22 09/01/22 09/01/22 Range/Units 15:29 15:29 15:29 RBC 3.39 L (4.30-5.90) m/uL Hgb 11.5 L (13.0-17.5) gm/dL Hct 35.7 L (39.0-53.0) % MCV 105.1 H (80.0-100.0) fL Lymphocytes # 0.7 L (1.0-4.8) k/uL PT 15.5 H (9.0-12.0) sec INR 1.5 H (<1.2) Potassium 3.3 L (3.5-5.1) mmol/L Carbon Dioxide 19 L (22-30) mmol/L Glucose 172 H (74-99) mg/dL Total Bilirubin 9.3 H (0.2-1.3) mg/dL AST 148 H (17-59) U/L ALT 52 H (4-49) U/L Alkaline Phosphatase 505 H (38-126) U/L Total Protein 8.5 H (6.3-8.2) g/dL Albumin 3.1 L (3.5-5.0) g/dL Urine Protein (Negative) Urine Blood (Negative) Urine Bilirubin (Negative) Urine RBC (0-5) /hpf Urine WBC (0-5) /hpf Urine WBC Clumps (None) /hpf Calcium Oxalate Crystal (None) /hpf Hyaline Casts (0-2) /lpf Urine Mucus (None) /hpf 09/01/22 Range/Units 15:31 RBC (4.30-5.90) m/uL Hgb (13.0-17.5) gm/dL Hct (39.0-53.0) % MCV (80.0-100.0) fL Lymphocytes # (1.0-4.8) k/uL PT (9.0-12.0) sec INR (<1.2) Potassium (3.5-5.1) mmol/L Carbon Dioxide (22-30) mmol/L Glucose (74-99) mg/dL Total Bilirubin (0.2-1.3) mg/dL AST (17-59) U/L ALT (4-49) U/L Alkaline Phosphatase (38-126) U/L Total Protein (6.3-8.2) g/dL Albumin (3.5-5.0) g/dL Urine Protein 1+ H (Negative) Urine Blood Large H (Negative) Urine Bilirubin 2+ H (Negative) Urine RBC >182 H (0-5) /hpf Urine WBC 8 H (0-5) /hpf Urine WBC Clumps Rare H (None) /hpf Calcium Oxalate Crystal Few H (None) /hpf Hyaline Casts 6 H (0-2) /lpf Urine Mucus Many H (None) /hpf Assessment and Plan (1) Alcoholic liver failure Narrative/Plan: 57-year-old with a long-standing history of alcohol abuse presented to the emergency department with complaints of abdominal distention beginning 2 weeks ago. No previous history of paracentesis. Greater than 20 year history of alcohol abuse who states he quit about 4 weeks ago. Prior to that he had heavy alcohol consumption daily. Has not been following with any telephone clerks supervisor her liver specialist recently. Has seen Dr. arevalo in the past and underwent multiple EGDs in the past with esophageal variceal banding. Patient presented with jaundice, elevated LFTs, and abdominal ascites. Plan will be for consultation 10 interventional radiology for paracentesis with fluid studies, start diuretics. Current Visit: Yes Status: Acute Code(s): K70.40 - ALCOHOLIC HEPATIC FAILURE WITHOUT COMA SNOMED Code(s): 342978283 (2) Ascites Current Visit: Yes Status: Acute Code(s): R18.8 - OTHER ASCITES SNOMED Code(s): 489373631 (3) Alcohol abuse Current Visit: No Status: Acute Code(s): F10.10 - ALCOHOL ABUSE, UNCOMPLICATED SNOMED Code(s): 05495715 Plan: 1. Continue symptomatic and supportive care 2. Low sodium diet 3. PT INR 4. Daily CMP 5. Lasix 40 mg twice a day, will decrease to daily tomorrow 6. Aldactone 100 mg daily 7. Consult to radiology for paracentesis with fluid studies 8. Alcohol abstinence 9. Recommend outpatient follow-up with gastroenterology Thank you for this consultation, we will continue to follow. Dr. Obie Pride I agree with the dictator's note, documented as a scribe by Caridad Mcghee.
[2022-09-02] MEDS: ALBUMIN HUMAN 25% 50 ML in EMPTY BAG 1 BAG IVPB SCH ×2 (19:08→20:25)
--- NOTE | 2022-09-02 23:03 | HP ---
HISTORY AND PHYSICAL CHIEF COMPLAINTS: Abdominal pain and distention. HISTORY OF PRESENT ILLNESS: This 57-year-old gentleman with a past medical history of multiple medical issues, alcohol use disease, was previously admitted in 2019 with history of GI bleed. At that time, variceal bleeding was suspected and banding was also done and subsequently the patient apparently lost to followup and currently the patient is apparently drinking alcohol again. He is recommended abdominal distention and the patient for further evaluation and treatment. There is no history of any fever, rigors, or chills. Ascites was noted and interventional radiology aspiration being planned at this time. There is no history of any fever, rigors, or chills. Bilirubin is elevated at 9.3. PAST MEDICAL HISTORY: Reviewed including alcoholic cirrhosis liver, diabetes mellitus, the rest of the history reviewed. MEDICATIONS: Home medications are none. ALLERGIES: None. FAMILY HISTORY: Reviewed include diabetes mellitus. SOCIAL HISTORY: Alcohol, previous history of smoking as mentioned earlier. REVIEW OF SYSTEMS: A 14-point review is negative as mentioned earlier. PHYSICAL EXAMINATION: VITAL SIGNS: Pulse is 87, blood pressure 110/70 respirations 17. HEENT: Conjunctivae normal. NECK: No jugular venous distention. CARDIOVASCULAR: S1, S2. RESPIRATIONS: Clear to auscultation. ABDOMEN: Distended, ascites present. No mass palpable. No tenderness. No guarding. Bowel sounds diminished. LEGS: No edema, no cyanosis, diffusely weak. SKIN: No ulcers, no rashes. JOINTS: No active deforming arthropathy. LABS: Reviewed. Bilirubin is 9.3, serum ammonia is not available. ASSESSMENT: 1. Cirrhosis liver with ascites. 2. History of alcoholic liver disease. 3. Diabetes mellitus, type 2. 4. Multiple medical issues. RECOMMENDATIONS: Recommended to continue current management and discuss with Gastroenterology possible interventional consultation and ascitic aspiration fluid for therapeutic and diagnostic studies. Otherwise, resume the home medications. Diuretics. Alcohol cessation advised and discussed with the patient understands and further recommendations to follow. Prognosis guarded. See orders for details. MMODL / IJN: [id number] /
[2022-09-02 23:12] LABS: Appearance,BF Clear
[2022-09-03 00:12] LABS: Albumin, Fluid Source Ascites; T. Protein, Body Fluid Source Ascites; Total Protein, Body Fluid 1680 mg/dL
[2022-09-03] MEDS: SPIRONOLACTONE 25 MG TAB PO SCH (08:07)
[2022-09-03] MEDS: PANTOPRAZOLE 40 MG TABLET PO SCH (08:08)
[2022-09-03] MEDS: FUROSEMIDE 40 MG TAB PO SCH (08:08)
[2022-09-03] MEDS: HYDROcodone/APAP 5-325MG 1 EACH TAB PO PRN (08:17)
--- NOTE | 2022-09-03 09:06 | US ---
Ultrasound-guided paracentesis. DATE OF EXAM: 09/03/2022 CLINICAL HISTORY: Ascites The procedure was discussed with the patient. The risks, complications, benefits, and alternatives we re discussed and any questions were answered. Informed consent was obtained. The patient was placed s upine on the ultrasound table and prepped and draped in the usual sterile fashion. All elements of maximal barrier technique were utilized. Under ultrasound guidance, access into the right lower quadrant was obtained, via the paracentesis catheter system and direct ultrasound guidanc e. Approximately 6.4 liters of straw-colored fluid was removed. The patient was stable throughout the pr ocedure and remained stable upon discharge from Department of Radiology. IMPRESSION: Successful paracentesis under ultrasound guidance.
[2022-09-03 09:16] LABS: HCT 32.5 % (39.0-53.0); HGB 10.4 gm/dL (13.0-17.5); MCH 33.3 pg (25.0-35.0); MCHC 31.9 g/dL (31.0-37.0); MCV 104.2 fL (80.0-100.0); Macrocytosis Moderate; Mean Platelet Volume 8.2; Platelet Count 111 k/uL (150-450); RBC 3.12 m/uL (4.30-5.90); RDW 14.8 % (11.5-15.5); WBC 3.3 k/uL (3.8-10.6)
[2022-09-03 09:33] LABS: African American GFR (CKD) >90 (>60 ml/min/1.73 sqM); Anion Gap 9 mmol/L; Blood Urea Nitrogen 8 mg/dL (9-20); Calcium 7.9 mg/dL (8.4-10.2); Carbon Dioxide 24 mmol/L (22-30); Chloride 103 mmol/L (98-107); Glucose 132 mg/dL (74-99); Non-African American GFR(CKD) >90 (>60 ml/min/1.73 sqM); Potassium 3.3 mmol/L (3.5-5.1); Sodium 136 mmol/L (137-145)
[2022-09-03] MEDS ORDERED: POTASSIUM CHLORIDE ER 20 MEQ TAB.ER PO STA (10:17)
[2022-09-03] MEDS: ALBUMIN HUMAN 25% 50 ML in EMPTY BAG 1 BAG IVPB SCH ×2 (10:39→11:09)
[2022-09-03] MEDS: polyethylene glycoL 3350 17 GM POWD.PACK PO SCH (10:40)
[2022-09-03] MEDS: FOLIC ACID 1 MG TAB PO SCH (11:14)
[2022-09-03] MEDS: MULTIVITAMINS, THERA 1 EACH TAB PO SCH (11:14)
[2022-09-03] MEDS: THIAMINE 100 MG TAB PO SCH ×2 (11:16→18:12)
[2022-09-03] MEDS ORDERED: DEXTROSE 50% SYRINGE 50 ML IVP PRN ×2 (11:49)
[2022-09-03 11:57] LABS: Lymphocytes # (M) 0.53 k/uL (1.0-4.8); Neutrophils # (M) 2.48 k/uL (1.3-7.7); Neutrophils % (M) 75 %; Nucleated Red Blood Cells 0 /100 WBC (0-0); Total Cells Counted 100
[2022-09-03 12:10] LABS: Glucose,Whole Blood 148 mg/dL (70-110)
[2022-09-03] MEDS: INSULIN ASPART (NovoLOG) 100 UNIT/ML VIAL SQ SCH ×3 (13:00→20:21)
--- NOTE | 2022-09-03 13:42 | P.PN ---
Subjective Progress Note Date: 09/03/22 Principal diagnosis: Ascites This is a pleasant 57-year-old male with a past medical history including alcoholic cirrhosis of the liver, diabetes mellitus, GERD, esophageal varices, hyperlipidemia and hypertension. Patient presented to the emergency department with complaints of abdominal distention that he stated started approximately 2 weeks ago. He also was concerned with increased yellowing of his skin and eyes. He has a long-standing history of alcohol cirrhosis of the liver. He is diagnosed around 20 years ago continued to drink. He has had multiple EGDs with esophageal varices banding. Denies any previous history of paracentesis. States he drank 2 beers this past Tuesday, however, prior to that it's been about 4 weeks since he quit drinking. He has not been following with a adobe flex developer or liver specialist. Last time he was seen by Dr. Peña and underwent EGD with esophageal banding in June 2020. Labs: WBC 4.2 hemoglobin 11.5 hematocrit 35 platelet count 156,000 INR 1.5 sodium 138 potassium 3.3 BUN 9 creatinine 0.6 total bilirubin 9.3 AST 148 ALT 52 alkaline phosphatase 505 serum alcohol less than 10 09/03/2022. Patient seen and examined today for follow-up for ascites. Patient has a history of alcohol abuse and states he has been drinking heavily up to about 4 weeks ago. Patient came in with abdominal ascites and distention. Today he underwent a paracentesis with 6 L removed. He is complaining still of some abdominal discomfort and scrotal swelling. States he's not feeling well overall. He denies any fevers or chills. Ammonia level 29. Objective - Vital Signs Vital signs: Vital Signs Temp 98.9 F 09/03/22 04:34 Pulse 93 09/03/22 04:34 Resp 16 09/03/22 04:34 BP 112/70 09/03/22 04:34 Pulse Ox 95 09/03/22 04:34 FiO2 Intake & Output 09/02/22 09/03/22 09/03/22 18:59 06:59 18:59 Intake Total 150 600 Balance 150 600 Weight 68.946 kg 68.175 kg Intake: Intake, IV Titration 150 100 Amount Albumin Human 25% 50 ml 100 In Empty Bag 1 bag @ 50 mls/hr IVPB Q1H [facility] Rx#: [id number] Sodium Chloride 0.9% 1, 150 000 ml @ 75 mls/hr IV . [id number] Rx#:[id number] Oral 500 Other: Voiding Method Toilet Urinal # Voids 2 - Exam General appearance: The patient is alert, oriented, appears in no acute distress. HET: Head is normocephalic and atraumatic. Conjunctiva pink. Sclera anicteric. Neck: Supple without lymphadenopathy. Genitourinary: Scrotal swelling Abdomen: Soft, nontender, nondistended with bowel sounds. No guarding or rigidity. Extremities: Normal skin color and turgor. No pedal edema Skin: No rashes, no jaundice Neurological: No focal deficits. Alert and oriented. - Labs CBC & Chem 7: 09/03/22 08:51 09/03/22 08:51 Labs: Abnormal Lab Results - Last 24 Hours (Table) 09/03/22 09/03/22 Range/Units 08:51 08:51 WBC 3.3 L (3.8-10.6) k/uL RBC 3.12 L (4.30-5.90) m/uL Hgb 10.4 L (13.0-17.5) gm/dL Hct 32.5 L (39.0-53.0) % MCV 104.2 H (80.0-100.0) fL Plt Count 111 L (150-450) k/uL Sodium 136 L (137-145) mmol/L Potassium 3.3 L (3.5-5.1) mmol/L BUN 8 L (9-20) mg/dL Glucose 132 H (74-99) mg/dL Calcium 7.9 L (8.4-10.2) mg/dL Assessment and Plan (1) Alcoholic liver failure Narrative/Plan: 57-year-old with a long-standing history of alcohol abuse presented to the emergency department with complaints of abdominal distention beginning 2 weeks ago. No previous history of paracentesis. Greater than 20 year history of alcohol abuse who states he quit about 4 weeks ago. Prior to that he had heavy alcohol consumption daily. Has not been following with any adobe flex developer her liver specialist recently. Has seen Dr. arevalo in the past and underwent multiple EGDs in the past with esophageal variceal banding. Patient presented with jaundice, elevated LFTs, and abdominal ascites. Plan will be for consultation 10 interventional radiology for paracentesis with fluid studies, start diuretics. Current Visit: Yes Status: Acute Code(s): K70.40 - ALCOHOLIC HEPATIC FAILURE WITHOUT COMA SNOMED Code(s): 062800978 (2) Ascites Current Visit: Yes Status: Acute Code(s): R18.8 - OTHER ASCITES SNOMED Code(s): 124111917 (3) Alcohol abuse Current Visit: No Status: Acute Code(s): F10.10 - ALCOHOL ABUSE, UNCOMPLICATED SNOMED Code(s): 92778881 Plan: 1. Continue symptomatic and supportive care 2. Low sodium diet 3. Paracentesis completed 4. Albumin ordered 5. Lasix 40 mg daily 6. Aldactone 100 mg daily 7. Alcohol abstinence 8. Recommend outpatient follow-up with gastroenterology Thank you for this consultation, patient is cleared for discharge from gastroenterology. Thank you for allowing us to participate in the care of the patient, the GI service will sign off, gastroenterology will not be available at the hospital this weekend and through next week. If further evaluation by gastroenterology is required the patient will need transfer as per the primary team's discretion. Dr. Obie Pride I agree with the dictator's note, documented as a scribe by Caridad Mcghee.
[2022-09-03 18:14] LABS: Glucose,Whole Blood 129 mg/dL (70-110)
[2022-09-03 20:13] LABS: Glucose,Whole Blood 124 mg/dL (70-110)
--- NOTE | 2022-09-04 03:42 | PN ---
PROGRESS NOTE SUBJECTIVE: This is a 57-year-old gentleman admitted with cirrhosis of liver, also had abdominal paracentesis. The patient is slightly drowsy today. Serum ammonia is only 29. The patient will be closely monitored. The patient also had abnormal urine exam also. PAST MEDICAL HISTORY: Reviewed. REVIEW OF SYSTEMS: CARDIOVASCULAR: No angina. RESPIRATION: No cough, NERVOUS SYSTEM: Generally weak. HOME MEDICATIONS: Reviewed. [place] 5 mg. The rest of medication reviewed. PHYSICAL EXAMINATION: VITAL SIGNS: Pulse is 87, blood pressure 110/65, respirations 16. CHEST: Conjunctivae normal. NECK: No JVD. CARDIOVASCULAR: S1, S2 muffled. RESPIRATIONS: Breath sounds diminished at the bases. Scattered rhonchi. ABDOMEN: Soft, ascites present. LEGS: No edema. NERVOUS SYSTEM: No focal deficits. LABS: WBC 3.3, platelets are 113. Ascitic fluid shows ASSESSMENT: 1. Cirrhosis liver with ascites. 2. Possible hepatic encephalopathy. 3. History of alcoholic liver disease. 4. Diabetes mellitus, type 2. 5. Multiple medical issues. RECOMMENDATIONS AND DISCUSSION: Recommend to continue current management and symptomatic treatment. The patient has some neutropenia. Recommend cultures and short course of empiric antibiotics. Repeat labs. Guarded prognosis. Further recommendations to follow. See orders for further details. MMODL / IJN: [id number] / MTDD
[2022-09-04 07:27] LABS: Glucose,Whole Blood 128 mg/dL (70-110)
[2022-09-04] MEDS: INSULIN ASPART (NovoLOG) 100 UNIT/ML VIAL SQ SCH ×4 (07:32→20:05)
[2022-09-04] MEDS: FUROSEMIDE 40 MG TAB PO SCH (08:48)
[2022-09-04] MEDS: SPIRONOLACTONE 25 MG TAB PO SCH (08:48)
[2022-09-04] MEDS: polyethylene glycoL 3350 17 GM POWD.PACK PO SCH (08:49)
[2022-09-04] MEDS: THIAMINE 100 MG TAB PO SCH ×2 (08:49→18:04)
[2022-09-04] MEDS: PANTOPRAZOLE 40 MG TABLET PO SCH (08:49)
[2022-09-04 09:23] LABS: African American GFR (CKD) 123.4 (60.0-200.0); Albumin 2.4 g/dL (3.8-4.9); Albumin/Globulin Ratio 0.67 (1.60-3.17); Anion Gap 6.1 mmol/L (10.00-18.00); BUN/Creat Ratio 12.37 Ratio (12.00-20.00); Blood Urea Nitrogen 8.5 mg/dL (9.0-27.0); Calcium 7.9 mg/dL (8.7-10.3); Carbon Dioxide 23.9 mmol/L (20.0-27.5); Globulin 3.6 g/dL (1.6-3.3); Non-African American GFR(CKD) 106.5 (60.0-200.0); Total Bilirubin 4.8 mg/dL (0.30-1.20)
[2022-09-04 11:27] LABS: Basophils # (A) 0.03 X 10*3/uL (0.00-0.10); Basophils % (A) 0.9 %; Eosinophils # (A) 0.22 X 10*3/uL (0.04-0.35); Eosinophils % (A) 6.6 %; HCT 28.7 % (39.6-50.0); HGB 9.4 g/dL (13.0-17.0); Immature Grans, Automated 0.3 %; Lymphocytes # (A) 0.85 X 10*3/uL (0.90-5.00); Lymphocytes % (A) 25.4 %; MCH 34.1 pg (27.0-32.0); MCHC 32.8 g/dL (32.0-37.0); Mean Platelet Volume 10.1 fL (9.5-12.2); Monocytes # (A) 0.49 X 10*3/uL (0.20-1.00); Monocytes % (A) 14.7 %; NRBC Per 100 WBC 0 /100 WBCS (0.0-0.0); Neutrophils # (A) 1.74 X 10*3/uL (1.80-7.70); Neutrophils % (A) 52.1 %; Platelet Count 97 X 10*3/uL (140-440); RBC 2.76 X 10*6/uL (4.40-5.60); RBC Morphology NORMAL; RDW 15.7 % (11.5-14.5); WBC 3.34 X 10*3/uL (4.50-10.00)
[2022-09-04] MEDS: MULTIVITAMINS, THERA 1 EACH TAB PO SCH (11:54)
[2022-09-04] MEDS: FOLIC ACID 1 MG TAB PO SCH (11:54)
[2022-09-04 13:11] LABS: Glucose,Whole Blood 152 mg/dL (70-110)
[2022-09-04 17:54] LABS: Glucose,Whole Blood 156 mg/dL (70-110)
[2022-09-04 19:45] LABS: Glucose,Whole Blood 95 mg/dL (70-110)
[2022-09-04] MEDS: HYDROcodone/APAP 5-325MG 1 EACH TAB PO PRN (19:47)
[2022-09-05 07:49] LABS: Glucose,Whole Blood 116 mg/dL (70-110)
[2022-09-05] MEDS: INSULIN ASPART (NovoLOG) 100 UNIT/ML VIAL SQ SCH ×4 (08:05→20:28)
[2022-09-05] MEDS: PANTOPRAZOLE 40 MG TABLET PO SCH (08:07)
[2022-09-05] MEDS: polyethylene glycoL 3350 17 GM POWD.PACK PO SCH (08:07)
[2022-09-05] MEDS: FUROSEMIDE 40 MG TAB PO SCH (08:07)
[2022-09-05] MEDS: THIAMINE 100 MG TAB PO SCH ×2 (08:07→18:04)
[2022-09-05] MEDS: SPIRONOLACTONE 25 MG TAB PO SCH (08:07)
[2022-09-05 12:15] LABS: Glucose,Whole Blood 110 mg/dL (70-110)
[2022-09-05] MEDS: MULTIVITAMINS, THERA 1 EACH TAB PO SCH (13:28)
[2022-09-05] MEDS: FOLIC ACID 1 MG TAB PO SCH (13:28)
[2022-09-05 18:32] LABS: Glucose,Whole Blood 128 mg/dL (70-110)
--- NOTE | 2022-09-05 18:56 | PN ---
PROGRESS NOTE SUBJECTIVE: This is a 57-year-old gentleman who was admitted with cirrhosis of liver, also complaining of weakness. No chest pain. No palpitations. No fever. PHYSICAL EXAMINATION: VITAL SIGNS: Pulse is 87, blood pressure , respirations 16. CHEST: Clear . ABDOMEN: Soft. NEUROLOGIC: Nervous system diffusely weak. LABS: Reviewed. Hemoglobin 9.4. ASSESSMENT: 1. Cirrhosis of liver with ascites. 2. Possible hepatic encephalopathy. 3. History of alcoholic liver disease. 4. Gait dysfunction. 5. Diabetes mellitus, type 2. 6. Multiple medical issues. RECOMMENDATIONS: 1. To continue current management. 2. Continue PT/OT evaluation. 3. Continue the rest of medications. 4. Prognosis guarded. Further recommendation to follow. MMODL / IJN: [id number] /
[2022-09-05] MEDS: HYDROcodone/APAP 5-325MG 1 EACH TAB PO PRN (19:33)
[2022-09-05 20:27] LABS: Glucose,Whole Blood 153 mg/dL (70-110)
[2022-09-06 07:11] LABS: Glucose,Whole Blood 136 mg/dL (70-110)
--- NOTE | 2022-09-06 07:26 | PN ---
PROGRESS NOTE SUBJECTIVE: This 57-year-old gentleman was admitted with cirrhosis of liver and ascites, is being closely monitored. No chest pain. No palpitations. No fever. OBJECTIVE: VITAL SIGNS: Pulse is 91, blood pressure 124/70, respirations 18. CHEST: Clear to auscultation. CARDIOVASCULAR: S1, S2. ABDOMEN: Soft. Ascites present. LEGS: No edema. No swelling. LABORATORY DATA: Reviewed. ASSESSMENT: 1. Cirrhosis of the liver with ascites. 2. Possible hepatic encephalopathy, acute. 3. History of alcoholic liver disease. 4. Diabetes mellitus type 2. 5. History of multiple medical issues. RECOMMENDATIONS: I recommend to continue current medications and symptomatic treatment. Otherwise at this time, I recommend to continue with diuretics, and we will repeat the labs tomorrow. Possible increase ambulation, possible home versus ECF in the next 24 to 48 hours. MMRODNEYL / SASCHA: [id number] /
[2022-09-06] MEDS: INSULIN ASPART (NovoLOG) 100 UNIT/ML VIAL SQ SCH ×4 (08:03→20:43)
[2022-09-06] MEDS: FUROSEMIDE 40 MG TAB PO SCH (08:13)
[2022-09-06] MEDS: THIAMINE 100 MG TAB PO SCH ×2 (08:13→17:02)
[2022-09-06] MEDS: PANTOPRAZOLE 40 MG TABLET PO SCH (08:13)
[2022-09-06] MEDS: polyethylene glycoL 3350 17 GM POWD.PACK PO SCH (08:13)
[2022-09-06] MEDS: SPIRONOLACTONE 25 MG TAB PO SCH (08:13)
[2022-09-06 10:37] LABS: Basophils # (A) 0.04 X 10*3/uL (0.00-0.10); Basophils % (A) 1.1 %; Eosinophils # (A) 0.19 X 10*3/uL (0.04-0.35); Eosinophils % (A) 5.4 %; HCT 29.2 % (39.6-50.0); HGB 9.6 g/dL (13.0-17.0); Immature Grans, Automated 0.3 %; Lymphocytes # (A) 0.75 X 10*3/uL (0.90-5.00); Lymphocytes % (A) 21.2 %; MCH 34.4 pg (27.0-32.0); MCHC 32.9 g/dL (32.0-37.0); MCV 104.7 fL (80.0-97.0); Mean Platelet Volume 9.8 fL (9.5-12.2); Monocytes # (A) 0.49 X 10*3/uL (0.20-1.00); Monocytes % (A) 13.8 %; NRBC Per 100 WBC 0 /100 WBCS (0.0-0.0); Neutrophils # (A) 2.06 X 10*3/uL (1.80-7.70); Neutrophils % (A) 58.2 %; Platelet Count 88 X 10*3/uL (140-440); RBC 2.79 X 10*6/uL (4.40-5.60); RDW 15.5 % (11.5-14.5); WBC 3.54 X 10*3/uL (4.50-10.00)
[2022-09-06 11:12] LABS: African American GFR (CKD) 122.3 (60.0-200.0); Anion Gap 7.3 mmol/L (10.00-18.00); BUN/Creat Ratio 14.14 Ratio (12.00-20.00); Blood Urea Nitrogen 9.9 mg/dL (9.0-27.0); Calcium 7.8 mg/dL (8.7-10.3); Carbon Dioxide 23.7 mmol/L (20.0-27.5); Non-African American GFR(CKD) 105.5 (60.0-200.0); Potassium 4.2 mmol/L (3.5-5.5)
[2022-09-06] MEDS: LACTULOSE 20 GM/30 ML CUP PO SCH ×2 (11:40→20:46)
[2022-09-06 11:51] LABS: Glucose,Whole Blood 95 mg/dL (70-110)
[2022-09-06] MEDS: MULTIVITAMINS, THERA 1 EACH TAB PO SCH (12:25)
[2022-09-06] MEDS: FOLIC ACID 1 MG TAB PO SCH (12:25)
--- NOTE | 2022-09-06 16:25 | P.PN ---
Subjective Progress Note Date: 09/06/22 This is a 57-year-old female who presents for hospital with concern for liver cirrhosis and ascites. Patient is status post paracentesis with 6 L of fluid drained. Patient is overall feeling better main complaint is that he has not had a bowel movement in 5 days. He did have an episode of vomiting this morning, no blood noted. Blood cultures remain negative. Most recent labs showing a white count of 3.54, hemoglobin stable at 9.6, platelet count of 88, sodium 135, potassium 4.2, BUN and creatinine 0.7. Patient started on lactulose today. Patient also had a questionable urinalysis on admission cultures were not taken he has been maintained and IV ceftriaxone there was blood in the urine and we will repeat a urinalysis prior to for discharge. He'll be monitored overnight and plan for discharge tomorrow. He'll follow-up with GI services the office. Review of Systems Constitutional: Denied any fatigue denied any fever. Cardio vascular: denied any chest pain, palpitations Gastrointestinal: denied any nausea, vomiting, diarrhea Pulmonary: Denied any shortness of breath cough Neurologic denied any new focal deficits All inpatient medications were reviewed and appropriate changes in these medications as dictated in the interval history and assessment and plan. PHYSICAL EXAMINATION: GENERAL: The patient is alert and oriented x3, not in any acute distress. Well developed, well nourished. HEENT: Pupils are round and equally reacting to light. EOMI. No scleral icterus. No conjunctival pallor. Normocephalic, atraumatic. No pharyngeal erythema. No thyromegaly. CARDIOVASCULAR: S1 and S2 present. No murmurs, rubs, or gallops. PULMONARY: Chest is clear to auscultation, no wheezing or crackles. ABDOMEN: Soft, nontender, nondistended, normoactive bowel sounds. No palpable organomegaly. MUSCULOSKELETAL: No joint swelling or deformity. EXTREMITIES: No cyanosis, clubbing, or pedal edema. NEUROLOGICAL: Gross neurological examination did not reveal any focal deficits. SKIN: No rashes. Assessment and plan Assessment Cirrhosis of the liver with ascites status post paracentesis Possible hepatic encephalopathy, acute History of alcoholic liver disease Diabetes mellitus type 2 History of varices status post banding Hypertension Hyperlipidemia Anemia Chronic low back pain with sciatica History GI bleed Former smoker GI prophylaxis Plan Patient has been started on lactulose BID Continue on empiric antibiotics Repeat urinalysis Increase activity level Continue antiemetics as needed Plan for discharge in the next 24 hours Follow up with GI outpatient The impression and plan of care has been dictated by Ruba Scott Nurse Practitioner as directed. Dr. Saud MD I have performed a history and physical examination and medical decision making of this patient, discussed the same with the dictator, and agree with the dictators assessment and plan as written, documented as a scribe. Based on total visit time, I have performed more than 50% of this visit. Objective - Vital Signs Vital signs: Vital Signs Temp 98.7 F 09/06/22 11:22 Pulse 85 09/06/22 11:22 Resp 16 09/06/22 11:22 BP 102/63 09/06/22 11: Pulse Ox 99 09/06/22 11:22 FiO2 Intake & Output 09/05/22 09/06/22 09/06/22 18:59 06:59 18:59 Intake Total 530 777 Balance 530 777 Weight 67.9 kg Intake: Intake, IV Titration 50 Amount cefTRIAXone 1 gm In 50 Sodium Chloride 0.9% 50 ml @ 100 mls/hr IVPB Q24HR [facility] Rx#:[id number] Oral 480 777 Other: Voiding Method Toilet Toilet Urinal Urinal # Bowel Movements 1 - Labs CBC & Chem 7: 09/06/22 06:40 09/06/22 06:40 Labs: Abnormal Lab Results - Last 24 Hours (Table) 09/05/22 09/05/22 09/06/22 Range/Units 18:31 20:25 06:40 WBC 3.54 L (4.50-10.00) X 10*3/uL RBC 2.79 L (4.40-5.60) X 10*6/uL Hgb 9.6 L (13.0-17.0) g/dL Hct 29.2 L (39.6-50.0) % MCV 104.7 H (80.0-97.0) fL MCH 34.4 H (27.0-32.0) pg RDW 15.5 H (11.5-14.5) % Plt Count 88 L (140-440) X 10*3/uL Lymphocytes # 0.75 L (0.90-5.00) X 10*3/uL Anion Gap (10.00-18.00) mmol/L Glucose (70-110) mg/dL POC Glucose (mg/dL) 128 H 153 H (70-110) mg/dL Calcium (8.7-10.3) mg/dL 09/06/22 09/06/22 Range/Units 06:40 07:03 WBC (4.50-10.00) X 10*3/uL RBC (4.40-5.60) X 10*6/uL Hgb (13.0-17.0) g/dL Hct (39.6-50.0) % MCV (80.0-97.0) fL MCH (27.0-32.0) pg RDW (11.5-14.5) % Plt Count (140-440) X 10*3/uL Lymphocytes # (0.90-5.00) X 10*3/uL Anion Gap 7.30 L (10.00-18.00) mmol/L Glucose 135 H (70-110) mg/dL POC Glucose (mg/dL) 136 H (70-110) mg/dL Calcium 7.8 L (8.7-10.3) mg/dL Microbiology - Last 24 Hours (Table) 09/03/22 12:40 Blood Culture - Preliminary Blood No Growth after 72 hours Assessment and Plan Time with Patient: Less than 30
[2022-09-06 16:41] LABS: Glucose,Whole Blood 122 mg/dL (70-110)
[2022-09-06 19:31] LABS: Appearance,Urine Clear (Clear); Bilirubin,Urine 2+ (Negative); Blood,Urine Negative (Negative); Color,Urine Dark Yellow; Glucose,Urine (UA) Negative (Negative); Ketones,Urine Negative (Negative); Leukocyte Esterase,Urine Negative (Negative); Nitrite,Urine Negative (Negative); Protein,Urine Negative (Negative); Specific Gravity,Urine 1.019 (1.001-1.035); Urobilinogen,Urine >12.0 mg/dL (<2.0)
[2022-09-06 20:31] LABS: Glucose,Whole Blood 127 mg/dL (70-110)
[2022-09-07 07:31] LABS: Glucose,Whole Blood 160 mg/dL (70-110)
[2022-09-07] MEDS: LACTULOSE 20 GM/30 ML CUP PO SCH ×2 (07:43→21:17)
[2022-09-07] MEDS: PANTOPRAZOLE 40 MG TABLET PO SCH (07:44)
[2022-09-07] MEDS: FUROSEMIDE 40 MG TAB PO SCH (07:44)
[2022-09-07] MEDS: polyethylene glycoL 3350 17 GM POWD.PACK PO SCH (07:44)
[2022-09-07] MEDS: MULTIVITAMINS, THERA 1 EACH TAB PO SCH (07:44)
[2022-09-07] MEDS: INSULIN ASPART (NovoLOG) 100 UNIT/ML VIAL SQ SCH ×4 (07:46→21:15)
[2022-09-07] MEDS: THIAMINE 100 MG TAB PO SCH ×2 (07:46→17:03)
[2022-09-07] MEDS: SPIRONOLACTONE 25 MG TAB PO SCH (07:47)
[2022-09-07] MEDS: FOLIC ACID 1 MG TAB PO SCH (07:47)
--- NOTE | 2022-09-07 09:53 | CDI ---
Documentation Clarification Form Date: 09/07/2022 09:40:04 AM From: Poppy Maxwell CCS, CCDS Admit Date: 09/01/2022 05:09:00 PM Patient Name: Murali Lira Visit Number: [id number] Discharge Date: ATTENTION: The Clinical Documentation Specialists (CDI) and [facility] Coding Staff appreciate your assistance in clarifying documentation. Please respond to the clarification below the line at the bottom and electronically sign. The CDI & [facility] Coding staff will review the response and follow-up if needed. Please note: Queries are made part of the Legal Health Record. If you have any questions, please contact the author of this message via ITS. Dr. Ross Villavicencio: Anemia is documented in the Patient's Past Medical History in the 09/01 ED Note and the 09/02 GI Consult and also in the Attending Physician 09/06 Progress Note under the Assessment without further specificity. Additional specificity regarding the Type & Acuity anemia is requested. History/Risk Factors per the 09/02 H/P: Alcohol Use with history of GI Bleed and Variceal Bleeding; Alcoholic Cirrhosis of the Liver, GERD, Hypertension, Hyperlipidemia, Diabetes Mellitus Type II, Pneumonia, Chronic pain with Sciatica, Former smoker. Clinical indicators: Presented to the ED on 09/01 with Abdominal Pain and Stomach pain, Abdominal Distention for two weeks, constipated. The patient's thinks his skin & eyes look yellow. Admit with Alcoholic Liver Failure, Ascites 09/01 VS: T 98.1, P 134, R 20, 16 (sob), BP 162/96, PO 99 RA, BMI 22.8. 09/01 LAB: K 3.3, CO2 19, Glucose 172, Total Bilirubin 9.3, AST 148, ALT 52, Alk Phos 505, Total Protein 8.5, Albumin 3.1. Hemoglobin: 09/01: 11.5. 09/03: 10.4. 09/04: 9.4. 09/06: 9.6. Hematocrit: 09/01: 35.7. 09/03: 32.5. 09/04: 28.7. 09/06: 29.2. Treatment 09/01: IV Na Chl 500 mls @ 999 mls/hr q31M, IV Na Chl 1,000 mls @ 75 mls/hr q13H, po Lopressor 12.5 mg x1. 09/02: po [place] q5H, po Lasix 40 mg BID, po folic Acid 1 mg daily, po Aldactone 50 mg Daily, po Vit B1 100 mg BID, IV Albumin 50 mls @ 50 mls/hr q1H. 09/03: IV Albumin Human 50 ml 50 mls @ 200 mls/hr q15M. Please clarify the Type & Acuity of Anemia: [ ] Acute blood loss anemia [ ] Acute on chronic blood loss anemia [ ] Chronic blood loss anemia [ ] Hemolytic anemia [ ] Drug induced anemia [ ] Nutritional anemia [ ] Anemia of chronic disease [ ] Unable to determine [ x ] Other, please specify ___Not an acute problem, not addressed here (Template Last Revised: December 2020) MTDD
--- NOTE | 2022-09-07 09:55 | XR ---
EXAMINATION TYPE: XR abdomen 2V DATE OF EXAM: 09/07/2022 COMPARISON: NONE HISTORY: Pain TECHNIQUE: One view abdominal series FINDINGS: The osseous structures are intact. The bowel gas pattern is nonspecific. Lung bases are clear. Hype rtrophic and degenerative changes spine. Subsegmental changes right lung base. Arthropathy of the hip s. Few prominent small bowel loops in the midabdomen. IMPRESSION: 1. Nonspecific abdomen. Small bowel loops in mid abdomen differential diagnosis would include an ileus or enteritis. Partial obstructive pattern not excluded although there appears to be extensive retained debris throughout th e colon which may represent constipation correlate clinically.
[2022-09-07 11:36] LABS: Glucose,Whole Blood 115 mg/dL (70-110)
[2022-09-07 14:02] VITALS: TEMP 98.3
--- NOTE | 2022-09-07 14:48 | P.PN ---
Subjective Progress Note Date: 09/07/22 This is a 57-year-old female who presents for hospital with concern for liver cirrhosis and ascites. Patient is status post paracentesis with 6 L of fluid drained. Patient is overall feeling better main complaint is that he has not had a bowel movement in 5 days. He did have an episode of vomiting this morning, no blood noted. Blood cultures remain negative. Most recent labs showing a white count of 3.54, hemoglobin stable at 9.6, platelet count of 88, sodium 135, potassium 4.2, BUN and creatinine 0.7. Patient started on lactulose today. Patient also had a questionable urinalysis on admission cultures were not taken he has been maintained and IV ceftriaxone there was blood in the urine and we will repeat a urinalysis prior to for discharge. He'll be monitored overnight and plan for discharge tomorrow. He'll follow-up with GI services the office. 09/07/2022 Patient is evaluated today resting in bed. He reports significant abdominal pain with left lower quadrant tenderness. He had small BM with lactulose. Abdominal xray taken showing mostly constipation with retained fecal debris in the colon, with partial obstructive pattern unable to be excluded. Recommend for patient to have soap suds enema and continue with the lactulose. Repeat urinalysis is negative for blood in the urine. Vitals today showing temp 98.3, heart rate 100, blood pressure 113/70, 98% room air. Once constipation resolves patient can be discharged. He needs to increase his activity level. Review of Systems Constitutional: Denied any fatigue denied any fever. Cardio vascular: denied any chest pain, palpitations Gastrointestinal: denied any nausea, vomiting, diarrhea. Reports abdominal pain LLQ. Pulmonary: Denied any shortness of breath cough Neurologic denied any new focal deficits All inpatient medications were reviewed and appropriate changes in these medications as dictated in the interval history and assessment and plan. PHYSICAL EXAMINATION: GENERAL: The patient is alert and oriented x3, not in any acute distress. Well developed, well nourished. HEENT: Pupils are round and equally reacting to light. EOMI. No scleral icterus. No conjunctival pallor. Normocephalic, atraumatic. No pharyngeal erythema. No thyromegaly. CARDIOVASCULAR: S1 and S2 present. No murmurs, rubs, or gallops. PULMONARY: Chest is clear to auscultation, no wheezing or crackles. ABDOMEN: Soft, tender, nondistended, normoactive bowel sounds. No palpable organomegaly. MUSCULOSKELETAL: No joint swelling or deformity. EXTREMITIES: No cyanosis, clubbing, or pedal edema. NEUROLOGICAL: Gross neurological examination did not reveal any focal deficits. SKIN: No rashes. Assessment and plan Assessment Cirrhosis of the liver with ascites status post paracentesis Possible hepatic encephalopathy, acute Constipation History of alcoholic liver disease Diabetes mellitus type 2 History of varices status post banding Hypertension Hyperlipidemia Anemia Chronic low back pain with sciatica History GI bleed Former smoker GI prophylaxis Plan Continue on lactulose BID, recommend soap suds enema Antibiotics discontinued Increase activity level Follow up with GI outpatient Patient can be cleared medically for discharge once constipation resolves. The impression and plan of care has been dictated by Ruba Scott, Nurse Practitioner as directed. Dr. Saud MD I have performed a history and physical examination and medical decision making of this patient, discussed the same with the dictator, and agree with the dictators assessment and plan as written, documented as a scribe. Based on total visit time, I have performed more than 50% of this visit. Objective - Vital Signs Vital signs: Vital Signs Temp 98.3 F 09/07/22 11:30 Pulse 100 09/07/22 11:30 Resp 16 09/07/22 11:30 BP 113/70 09/07/22 11:30 Pulse Ox 98 09/07/22 11:30 FiO2 Intake & Output 09/06/22 09/07/22 09/07/22 18:59 06:59 18:59 Intake Total 1110 780 Balance 1110 780 Weight 66.1 kg Intake: Intake, IV Titration 50 780 Amount cefTRIAXone 1 gm In 50 780 Sodium Chloride 0.9% 50 ml @ 100 mls/hr IVPB Q24HR [facility] Rx#:[id number] Oral 1060 Other: Voiding Method Toilet Toilet Toilet Urinal Urinal Urinal # Voids 3 2 # Bowel Movements 1 - Labs CBC & Chem 7: 09/06/22 06:40 09/06/22 06:40 Labs: Abnormal Lab Results - Last 24 Hours (Table) 09/06/22 09/06/22 09/06/22 Range/Units 16:35 20:28 Unknown POC Glucose (mg/dL) 122 H 127 H (70-110) mg/dL Urine Bilirubin 2+ H (Negative) 09/07/22 09/07/22 Range/Units 07:30 11:34 POC Glucose (mg/dL) 160 H 115 H (70-110) mg/dL Urine Bilirubin (Negative) Microbiology - Last 24 Hours (Table) 09/03/22 12:40 Blood Culture - Preliminary Blood No Growth after 72 hours Assessment and Plan Time with Patient: Less than 30
[2022-09-07] MEDS ORDERED: bisacodyL 10 MG SUPP RECTAL STA (15:53)
[2022-09-07 17:17] LABS: Glucose,Whole Blood 136 mg/dL (70-110)
[2022-09-07 20:51] LABS: Glucose,Whole Blood 121 mg/dL (70-110)
[2022-09-07 21:46] VITALS: RESP 20
[2022-09-08 04:53] VITALS: BP 141/71; PULSE 101
[2022-09-08 07:22] LABS: Glucose,Whole Blood 94 mg/dL (70-110)
[2022-09-08] MEDS: INSULIN ASPART (NovoLOG) 100 UNIT/ML VIAL SQ SCH (08:00)
[2022-09-08] MEDS: polyethylene glycoL 3350 17 GM POWD.PACK PO SCH (08:03)
[2022-09-08] MEDS: PANTOPRAZOLE 40 MG TABLET PO SCH (08:03)
[2022-09-08] MEDS: FOLIC ACID 1 MG TAB PO SCH (08:03)
[2022-09-08] MEDS: MULTIVITAMINS, THERA 1 EACH TAB PO SCH (08:03)
[2022-09-08] MEDS: SPIRONOLACTONE 25 MG TAB PO SCH (08:03)
[2022-09-08] MEDS: FUROSEMIDE 40 MG TAB PO SCH (08:04)
[2022-09-08] MEDS: LACTULOSE 20 GM/30 ML CUP PO SCH (08:04)
[2022-09-08] MEDS: THIAMINE 100 MG TAB PO SCH (08:04)
--- NOTE | 2022-09-10 21:51 | P.DS ---
Providers Date of admission: 09/01/22 17:09 Attending physician: Casper Rodriguez MD Consults: 09/01/22 17:18 Consult Physician Urgent Consulting Provider: Lorin Pride Consult Reason/Comments: Acute liver failure Do you want consulting provider notified?: Yes Primary care physician: Luana Amaya Hospital Course: Final Diagnosis Cirrhosis of the liver with ascites status post paracentesis Possible hepatic encephalopathy, acute History of alcoholic liver disease Diabetes mellitus type 2 History of varices status post banding Hypertension Hyperlipidemia Anemia Chronic low back pain with sciatica History GI bleed Discharge Disposition Patient is stable for discharge home. Patient to follow with Dr. Obie Pride in 2 weeks. Recommend to follow up with primary care in 1 to 2 days. Patient follows with Dr Luana Amaya. Patient is given script for repeat complete blood count and complete metabolic panel in 2 to 3 days. He is instructed for total alcohol abstinence and has been counseled extensively on risks of continued alcohol use. He verbalizes understanding and agreeable. Total time taken in discharge planning greater than 35 minutes. Hospital Course This is a pleasant 57-year-old male with a past medical history including alcoholic cirrhosis of the liver, diabetes mellitus, GERD, esophageal varices, hyperlipidemia and hypertension. Patient was previously admitted to the hospital in 2019 for GI Bleed. Patient presented to the emergency department with complaints of abdominal distention that he stated started approximately 2 weeks ago. He also was concerned with increased yellowing of his skin and eyes. He has a long-standing history of alcohol cirrhosis of the liver. He is diagnosed around 20 years ago continued to drink. He has had multiple EGDs with esophageal varices banding. Denies any previous history of paracentesis. States he drank 2 beers this past Tuesday, however, prior to that it's been about 4 weeks since he quit drinking. He has not been following with a gastro enterologist or liver specialist. Last time he was seen by Dr. Peña and underwent EGD with esophageal banding in June 2020. Patient is admitted to the hospital for liver failure and GI services was consulted. He underwent ultrasound guided paracentesis with 6.4 Liters of straw colored fluid removed. Patient was started on oral lasix and oral aldactone and was monitored over the weekend. He did complain of abdominal pain and distention and states she had not bad a BM in 5 to 6 days. For this reason abdominal xray was taken showing nonspecific abdomen. There is possible ileus or enteritis with partical obstruction not excluded. This could also represent constipation. Patient did have positive bowel sounds. He was started on lactulose BID. He was also offered an enema, which he refused. He was agreeable to suppository and had multiple BMs. Overall clinically he improved and cleared for discharge will GI follow up. Labs on admission : WBC 4.2 hemoglobin 11.5 hematocrit 35 platelet count 156,000 INR 1.5 sodium 138 potassium 3.3 BUN 9 creatinine 0.6 total bilirubin 9.3 AST 148 ALT 52 alkaline phosphatase 505 serum alcohol less than 10 He had urinalysis on admission showing large blood 2+ bili with RBC greater than 182. 09/08/2022 Patient evaluated today sitting up in chair. He reports feeling better and would like to be discharged home today. He denies chest pain, denies shortness of breath. He has positive bowel sounds and states his abdominal pain has improved. Most recent labs showing white count 3.5, hgb 9.6, platelet count 88, sodium 135, potassium 4.2, BUN 9.9, creatinine 0.7, total bilirubin 4.80. AST 79, ALT 34, alkaline phosphatase 329. Repeat urinalysis was completed and negative for blood now. His lungs are clear, S1 S2 auscultated. Abdomen is soft and no ntender. Focal neurological exam is negative. New medications include spironolactone 100 mg po daily, lasix 40 mg po daily, folic acid, thiamine, multivitamin, protonix. Patient is also given lactulose as needed for constipation. Today he is afebrile, heart rate 101, blood pressure 141/71, 99% room air. Cleared medically for discharge. Please see medication reconciliation for a list of current medication. Thank you for allowing us to participate in the care of this patient. The impression and plan of care has been dictated by Ruba Scott Nurse Practitioner as directed. Dr. Saud MD I have performed a history and physical examination and medical decision making of this patient, discussed the same with the dictator, and agree with the dictators assessment and plan as written, documented as a scribe. Based on total visit time, I have performed more than 50% of this visit. Patient Condition at Discharge: Stable Plan - Discharge Summary Discharge Rx Participant: No New Discharge Prescriptions: New Spironolactone [Aldactone] 100 mg PO DAILY #30 tab Lactulose [Cephulac] 20 gm PO BID PRN #240 ml PRN Reason: Constipation Multivitamins, Thera [Multivitamin (formulary)] 1 each PO DAILY@1200 #30 tab Pantoprazole [Protonix] 40 mg PO AC-BRKFST #30 tab Thiamine [Vitamin B-1] 100 mg PO BID-W/MEALS #60 tab Furosemide [Lasix] 40 mg PO DAILY #30 tab Folic Acid 1 mg PO DAILY@1200 #30 tab Discharge Medication List Furosemide [Lasix] 40 mg PO DAILY #30 tab 09/03/22 [Rx] Spironolactone [Aldactone] 100 mg PO DAILY #30 tab 09/03/22 [Rx] Folic Acid 1 mg PO DAILY@1200 #30 tab 09/07/22 [Rx] Lactulose [Cephulac] 20 gm PO BID PRN #240 ml 09/07/22 [Rx] Multivitamins, Thera [Multivitamin (formulary)] 1 each PO DAILY@1200 #30 tab 09/07/22 [Rx] Pantoprazole [Protonix] 40 mg PO AC-BRKFST #30 tab 09/07/22 [Rx] Thiamine [Vitamin B-1] 100 mg PO BID-W/MEALS #60 tab 09/07/22 [Rx] Follow up Appointment(s)/Referral(s): Lorin Pride MD [STAFF PHYSICIAN] - 2 Weeks (call office for follow up appt) Luana Amaya MD [Primary Care Provider] - 1-2 days (call office for follow up apt) Ambulatory/Diagnostic Orders: Complete Blood Count w/diff [LAB.AMB] Time Frame: 2 Days, Location: None Selected Comprehensive Metabolic Panel [LAB.AMB] Time Frame: 2 Days, Location: None Selected Patient Instructions/Handouts: Low-Sodium Diet (DC) Activity/Diet/Wound Care/Special Instructions: Use lactulose as needed for constipation Follow up with primary care in 1 to 2 days Follow up with Dr. Obie Pride Recommend total alcohol cessation Discharge Disposition: HOME SELF-CARE
== END 2022-09-08 12:20 | disposition home or self-care (01) | DRG 433 ==
LOC: EC 13:47 → 5NMEDONC 17:09
PROVIDERS: ADMIT Internal Medicine; ATTEND Internal Medicine
PROC: 0W9G3ZZ Drainage of Peritoneal Cavity, Percutaneous Approach (ICD-10-PCS; principal; 2022-09-03)
DX: K70.31 Alcoholic cirrhosis of liver with ascites (principal); I85.10 Secondary esophageal varices without bleeding; K76.82 Hepatic encephalopathy; K70.40 Alcoholic hepatic failure without coma; D64.9 Anemia, unspecified; E11.9 Type 2 diabetes mellitus without complications; F10.10 Alcohol abuse, uncomplicated; E78.5 Hyperlipidemia, unspecified; Z28.310 Unvaccinated for COVID-19; I10 Essential (primary) hypertension; K59.00 Constipation, unspecified; M54.40 Lumbago with sciatica, unspecified side; G89.29 Other chronic pain; K21.9 Gastro-esophageal reflux disease without esophagitis; R26.9 Unspecified abnormalities of gait and mobility; Y90.0 Blood alcohol level of less than 20 mg/100 ml; Z87.891 Personal history of nicotine dependence
CPT/HCPCS: 36415; 49083; 74019; 80048; 80053; 80320; 81001; 81003; 82042; 82140; 83036; 83735; 84157; 85025; 85610; 85730; 87040; 89050; 96360; 96361; 99285

== ENCOUNTER → 2022-09-10 | Outpatient (CLI) | payer OTHER ==
[2022-09-10 18:31] LABS: HCT 35.7 % (39.6-50.0); HGB 11.4 g/dL (13.0-17.0); MCH 33.7 pg (27.0-32.0); MCHC 31.9 g/dL (32.0-37.0); MCV 105.6 fL (80.0-97.0); Mean Platelet Volume 9.9 fL (9.5-12.2); NRBC Per 100 WBC 0 /100 WBCS (0.0-0.0); Platelet Count 129 X 10*3/uL (140-440); RBC 3.38 X 10*6/uL (4.40-5.60); RDW 14.6 % (11.5-14.5); WBC 4.31 X 10*3/uL (4.50-10.00)
[2022-09-10 19:28] LABS: Basophils # (A) 0.05 X 10*3/uL (0.00-0.10); Basophils % (A) 1.2 %; Eosinophils # (A) 0.07 X 10*3/uL (0.04-0.35); Eosinophils % (A) 1.6 %; Immature Grans, Automated 0.2 %; Lymphocytes # (A) 0.73 X 10*3/uL (0.90-5.00); Lymphocytes % (A) 16.9 %; Monocytes # (A) 0.42 X 10*3/uL (0.20-1.00); Monocytes % (A) 9.7 %; Neutrophils # (A) 3.03 X 10*3/uL (1.80-7.70); Neutrophils % (A) 70.4 %
[2022-09-10 19:29] LABS: Macrocytosis (M) 2+
[2022-09-10 19:51] LABS: Albumin 3.1 g/dL (3.8-4.9); Albumin/Globulin Ratio 0.6 (1.60-3.17); Anion Gap 10.9 mmol/L (10.00-18.00); BUN/Creat Ratio 16.15 Ratio (12.00-20.00); Calcium 9.1 mg/dL (8.7-10.3); Globulin 5.2 g/dL (1.6-3.3); Non-African American GFR(CKD) 96.6 (60.0-200.0); Potassium 4.9 mmol/L (3.5-5.5); Total Bilirubin 9.2 mg/dL (0.30-1.20); Total Protein 8.3 g/dL (6.2-8.2)
== END | disposition home or self-care (01) ==
LOC: LABWHC1 11:03
PROVIDERS: ATTEND Nurse Practitioner Family
DX: R79.89 Other specified abnormal findings of blood chemistry (principal); D69.6 Thrombocytopenia, unspecified
CPT/HCPCS: 36415; 80053; 85025

== ENCOUNTER 2022-12-06 11:45 | Inpatient (IN) | payer OTHER ==
[2022-12-06] MEDS ORDERED: HYDROmorphone 0.5 MG/0.5 ML SYRINGE IVP STA (12:44)
[2022-12-06] MEDS ORDERED: SODIUM CHLORIDE 0.9% 1,000 ML IV ONE (12:44)
[2022-12-06] MEDS ORDERED: ONDANSETRON 4 MG/2 ML VIAL IVP STA (12:44)
--- NOTE | 2022-12-06 13:21 | ED ---
General Adult HPI - General Chief complaint: Abdominal Pain Stated complaint: Confusion Time Seen by Provider: 12/06/22 12:00 Source: patient, family, EMS, RN notes reviewed, old records reviewed Mode of arrival: EMS - History of Present Illness Initial comments: This is a 57-year-old male with past history of significant drinking liver failure and ascites. Patient was [facility] at [facility] recently and had a paracentesis according to family saw him at home today and his belly is gotten considerably bigger and he is having difficulty breathing because of its size. Patient was also confused according to her daughters tell me. Patient also complains of diffuse abdominal pain. Patient also states she's very nauseated. Patient states he is eating a little and drinking a little but he is not drinking any alcohol. Patient denies any recent fever chills or cough per patient's chest pain difficulty breathing or shortness of breath. - Related Data Home Medications Medication Instructions Recorded Confirmed Folic Acid 1 mg PO DAILY 12/06/22 12/06/22 Previous Rx's Medication Instructions Recorded Furosemide [Lasix] 40 mg PO DAILY #30 tab 09/03/22 Spironolactone [Aldactone] 100 mg PO DAILY #30 tab 09/03/22 Pantoprazole [Protonix] 40 mg PO AC-BRKFST #30 tab 09/07/22 Allergies Allergy/AdvReac Type Severity Reaction Status Date / Time No Known Allergies Allergy Verified 12/06/22 14:00 Review of Systems ROS Statement: Those systems with pertinent positive or pertinent negative responses have been documented in the HPI. ROS Other: All systems not noted in ROS Statement are negative. Past Medical History Past Medical History: Chest Pain / Angina, Diabetes Mellitus, GERD/Reflux, GI Bleed, Hyperlipidemia, Hypertension, Pneumonia Additional Past Medical History / Comment(s): Cirrhosis, esophageal varicies with variceal bleed, lower GI bleed with transfusions, anemia, chronic low back pain with sciatica, diet controlled diabetic History of Any Multi-Drug Resistant Organisms: None Reported Past Surgical History: Cholecystectomy, Orthopedic Surgery Additional Past Surgical History / Comment(s): EGDs-last time 03/22/19 with band ing, colonoscopies with benign polyps, capsule endoscopy, L ankle fracture with pins/plate, EGD Past Anesthesia/Blood Transfusion Reactions: Postoperative Nausea & Vomiting (P ONV) Additional Past Anesthesia/Blood Transfusion Reaction / Comment(s): Blood transfusions without reaction. Past Psychological History: No Psychological Hx Reported Smoking Status: Former smoker Past Alcohol Use History: None Reported Past Drug Use History: None Reported - Past Family History Mother Family Medical History: Diabetes Mellitus, Pneumonia Father Family Medical History: Coronary Artery Disease (CAD), Myocardial Infarction (NC) Additional Family Medical History / Comment(s): Father had MIs with the first NC occuring while he was in his 60s. General Exam - General Exam Comments Initial Comments: GENERAL: Patient is cachectic. Patient is nontoxic and well-hydrated and is in mild distress. ENT: Neck is soft and supple. No significant lymphadenopathy is noted. Oropharynx is clear. Moist mucous membranes. Neck has full range of motion without eliciting any pain. EYES: The sclera were anicteric and conjunctiva were pink and moist. Extraocular movements were intact and pupils were equal round and reactive to light. Eyelids were unremarkable. PULMONARY: Unlabored respirations. Good breath sounds bilaterally. No audible rales rhonchi or wheezing was noted. CARDIOVASCULAR: There is a regular rate and rhythm without any murmurs gallops or rubs. ABDOMEN: Patient has a very distended abdomen consistent with ascites SKIN: Skin is clear with no lesions or rashes and otherwise unremarkable. NEUROLOGIC: Patient is alert and oriented x3. Cranial nerves II through XII are grossly intact. Motor and sensory are also intact. Normal speech, volume and content. Symmetrical smile. MUSCULOSKELETAL: Normal extremities with adequate strength and full range of motion. he has edema to both feet and a little bit on the legs LYMPHATICS: No significant lymphadenopathy is noted PSYCHIATRIC: Normal psychiatric evaluation. Course Vital Signs 12/06/22 12/06/22 12/06/22 11:50 13:32 15:00 Temperature 97.9 F Pulse Rate 93 88 88 Respiratory 18 18 18 Rate Blood Pressure 128/89 114/82 103/74 O2 Sat by Pulse 100 100 100 Oximetry 12/06/22 15:15 Temperature Pulse Rate 88 Respiratory 16 Rate Blood Pressure 103/74 O2 Sat by Pulse Oximetry Medical Decision Making - Medical Decision Making EKG was interpreted by myself EKG shows sinus rhythm at 80 bpm MT interval 140 QRS is under QT interval is 394 QTC is 440. Patient's EKG shows Q waves in 3 and aVF there is no ST segment elevation or depression. It is consistent with previous EKGs. Was pt. sent in by a medical professional or institution (ELISA [facility]dz, WHEEL PRESS OPERATOR, urgent care, hospital, or detention...) When possible be specific @ -No Did you speak to anyone other than the patient for history (EMS, parent, family, police, friend...)? What history was obtained from this source @ -I spoke with the family extensively about the patient's history and the reasons she is here and was altered mental status Did you review nursing and triage notes (agree or disagree)? Why? @ -I reviewed and agree with nursing and triage notes Were old charts reviewed (outside hosp., previous admission, EMS record, old EKG, old radiological studies, urgent care reports/EKG's, detention records)? Report findings @ -Due to old lab work and previous admission records Differential Diagnosis (chest pain, altered mental status, abdominal pain women, abdominal pain men, vaginal bleeding, weakness, fever, dyspnea, syncope, headache, dizziness, GI bleed, back pain, seizure, CVA, palpatations, mental h ealth)? @ -Differential Altered Mental Status: Hypoglycemia, DKA, hypercapnia, ETOH, overdose, CO poisoning, trauma, myxedema coma, HTN encephalopathy, infection, encephalitis, psychosis, intercranial hemorrhage, hepatic encephalopathy, meningitis, CVA, this is not meant to be an all-inclusive list EKG interpreted by me (3pts min.). @ -As above X-rays interpreted by me (1pt min.). @ -None done CT interpreted by me (1pt min.). @ -None done U/S interpreted by me (1pt. min.). @ -None done What testing was considered but not performed or refused? (CT, X-rays, U/S, labs)? Why? @ -None What meds were considered but not given or refused? Why? @ -None Did you discuss the management of the patient with other professionals (yadira ramsey i.e. ELISA Hdz, WHEEL PRESS OPERATOR, lab, RT, psych nurse, long term care social worker, stage director, teacher, policy officer, caser)? Give summary @ -[facility] the patient wrote admitting orders Was smoking cessation discussed for >3mins.? @ -No Was critical care preformed (if so, how long)? @ -35 minutes. Patient had hepatic encephalopathy in needed lactulose and I order on the floor as well. Patient also got fluids to hydrate him Were there social determinants of health that impacted care today? How? (Homelessness, low income, unemployed, alcoholism, drug addiction, transportation, low edu. Level, literacy, decrease access to med. care, custodial, rehab)? @ -No Was there de-escalation of care discussed even if they declined (Discuss DNR or withdrawal of care, Hospice)? DNR status @ -No What co-morbidities impacted this encounter? (DM, HTN, Smoking, COPD, CAD, Cancer, CVA, ARF, Chemo, Hep., AIDS, mental health diagnosis, sleep apnea, morbid obesity)? @ -Liver failure Was patient admitted / discharged? Hospital course, mention meds given and route, prescriptions, significant lab abnormalities, going to OR and other pertinent info. @ -Patient will be admitted for hepatic encephalopathy as well as ascites. Patient received lactulose in the emergency department I will be ordering on the floor as well. I spoke with the [facility] hospitalist and they agreed to admit the patient. Undiagnosed new problem with uncertain prognosis? @ -No Drug Therapy requiring intensive monitoring for toxicity (Heparin, Nitro, Insulin, Cardizem)? @ -No Were any procedures done? @ -No Diagnosis/symptom? @ -Hepatic encephalopathy Acute, or Chronic, or Acute on Chronic? @ -Acute on chronic Uncomplicated (without systemic symptoms) or Complicated (systemic symptoms)? @ -Complicated Side effects of treatment? @ -No Exacerbation, Progression, or Severe Exacerbation? @ -Severe exacerbation Poses a threat to life or bodily function? How? (Chest pain, USA, NC, pneumonia, PE, COPD, DKA, ARF, appy, cholecystitis, CVA, Diverticulitis, Homicidal, Suicidal, threat to staff... and all critical care pts) @ -Yes severe liver failure can lead to morbidity or mortality Diagnosis/symptom? @ -Ascites Acute, or Chronic, or Acute on Chronic? @ -Acute on chronic Uncomplicated (without systemic symptoms) or Complicated (systemic symptoms)? @ -Uncomplicated Side effects of treatment? @ -none Exacerbation, Progression, or Severe Exacerbation] @ -no Poses a threat to life or bodily function? @ -no - Lab Data Result diagrams: 12/06/22 13:30 12/06/22 13:30 Lab Results 12/06/22 12/06/22 12/06/22 Range/Units 13:30 13:30 13:30 WBC 3.3 L (3.8-10.6) k/uL RBC 3.47 L (4.30-5.90) m/uL Hgb 11.3 L (13.0-17.5) gm/dL Hct 32.8 L (39.0-53.0) % MCV 94.4 (80.0-100.0) fL MCH 32.4 (25.0-35.0) pg MCHC 34.3 (31.0-37.0) g/dL RDW 13.8 (11.5-15.5) % Plt Count 137 L (150-450) k/uL MPV 7.6 Neutrophils % 67 % Lymphocytes % 16 % Monocytes % 10 % Eosinophils % 2 % Basophils % 1 % Neutrophils # 2.3 (1.3-7.7) k/uL Lymphocytes # 0.6 L (1.0-4.8) k/uL Monocytes # 0.3 (0-1.0) k/uL Eosinophils # 0.1 (0-0.7) k/uL Basophils # 0.0 (0-0.2) k/uL Sodium 132 L (137-145) mmol/L Potassium 4.3 (3.5-5.1) mmol/L Chloride 108 H (98-107) mmol/L Carbon Dioxide 17 L (22-30) mmol/L Anion Gap 7 mmol/L BUN 18 (9-20) mg/dL Creatinine 0.68 (0.66-1.25) mg/dL Est GFR (CKD-EPI)AfAm >90 (>60 ml/min/1.73 sqM) Est GFR (CKD-EPI)NonAf >90 (>60 ml/min/1.73 sqM) Glucose 113 H (74-99) mg/dL Calcium 8.3 L (8.4-10.2) mg/dL Total Bilirubin 3.9 H (0.2-1.3) mg/dL AST 69 H (17-59) U/L ALT 47 (4-49) U/L Alkaline Phosphatase 266 H (38-126) U/L Ammonia (<30) umol/L Troponin I <0.012 (0.000-0.034) ng/mL Total Protein 7.2 (6.3-8.2) g/dL Albumin 2.7 L (3.5-5.0) g/dL 12/06/22 Range/Units 13:30 WBC (3.8-10.6) k/uL RBC (4.30-5.90) m/uL Hgb (13.0-17.5) gm/dL Hct (39.0-53.0) % MCV (80.0-100.0) fL MCH (25.0-35.0) pg MCHC (31.0-37.0) g/dL RDW (11.5-15.5) % Plt Count (150-450) k/uL MPV Neutrophils % % Lymphocytes % % Monocytes % % Eosinophils % % Basophils % % Neutrophils # (1.3-7.7) k/uL Lymphocytes # (1.0-4.8) k/uL Monocytes # (0-1.0) k/uL Eosinophils # (0-0.7) k/uL Basophils # (0-0.2) k/uL Sodium (137-145) mmol/L Potassium (3.5-5.1) mmol/L Chloride (98-107) mmol/L Carbon Dioxide (22-30) mmol/L Anion Gap mmol/L BUN (9-20) mg/dL Creatinine (0.66-1.25) mg/dL Est GFR (CKD-EPI)AfAm (>60 ml/min/1.73 sqM) Est GFR (CKD-EPI)NonAf (>60 ml/min/1.73 sqM) Glucose (74-99) mg/dL Calcium (8.4-10.2) mg/dL Total Bilirubin (0.2-1.3) mg/dL AST (17-59) U/L ALT (4-49) U/L Alkaline Phosphatase (38-126) U/L Ammonia 149 H (<30) umol/L Troponin I (0.000-0.034) ng/mL Total Protein (6.3-8.2) g/dL Albumin (3.5-5.0) g/dL Critical Care Time Critical Care Time: Yes Total Critical Care Time: 35 Disposition Clinical Impression: Ascites, Hepatic encephalopathy Disposition: ADMITTED IP TO THIS HOSP Referrals: Luana Amaya MD [Primary Care Provider] - 1-2 days Time of Disposition: 16:37
[2022-12-06 13:38] LABS: Basophils % (A) 1 %; Eosinophils # (A) 0.1 k/uL (0-0.7); Eosinophils % (A) 2 %; HCT 32.8 % (39.0-53.0); HGB 11.3 gm/dL (13.0-17.5); Lymphocytes # (A) 0.6 k/uL (1.0-4.8); Lymphocytes % (A) 16 %; MCH 32.4 pg (25.0-35.0); MCHC 34.3 g/dL (31.0-37.0); MCV 94.4 fL (80.0-100.0); Mean Platelet Volume 7.6; Monocytes # (A) 0.3 k/uL (0-1.0); Monocytes % (A) 10 %; Neutrophils # (A) 2.3 k/uL (1.3-7.7); Neutrophils % (A) 67 %; Platelet Count 137 k/uL (150-450); RBC 3.47 m/uL (4.30-5.90); RDW 13.8 % (11.5-15.5); WBC 3.3 k/uL (3.8-10.6)
[2022-12-06 13:45] LABS: ALT 47 U/L (4-49); AST 69 U/L (17-59); African American GFR (CKD) >90 (>60 ml/min/1.73 sqM); Albumin 2.7 g/dL (3.5-5.0); Alkaline Phosphatase 266 U/L (38-126); Anion Gap 7 mmol/L; Blood Urea Nitrogen 18 mg/dL (9-20); Calcium 8.3 mg/dL (8.4-10.2); Carbon Dioxide 17 mmol/L (22-30); Chloride 108 mmol/L (98-107); Glucose 113 mg/dL (74-99); Non-African American GFR(CKD) >90 (>60 ml/min/1.73 sqM); Potassium 4.3 mmol/L (3.5-5.1); Sodium 132 mmol/L (137-145); Total Bilirubin 3.9 mg/dL (0.2-1.3); Total Protein 7.2 g/dL (6.3-8.2)
[2022-12-06] MEDS ORDERED: LACTULOSE 20 GM/30 ML CUP PO ONE ×2 (16:34)
[2022-12-06] MEDS: ONDANSETRON 4 MG/2 ML VIAL IVP SCH ×2 (16:51→22:21)
[2022-12-06 20:23] LABS: Amphetamine Screen,Urine Not Detected (NotDetected); Barbiturate Screen,Urine Not Detected (NotDetected); Benzodiazepines Screen,Urine Not Detected (NotDetected); Cocaine Screen,Urine Not Detected (NotDetected); Methadone Screen, Urine Not Detected (NotDetected); Opiate Screen,Urine Detected (NotDetected); Oxycodone Screen, Urine Not Detected (NotDetected); Phencyclidine Screen,Urine Not Detected (NotDetected); Tricyclic Antidepressant,Urine Not Detected (NotDetected); Urn Cannabinoid Scrn Not Detected (NotDetected)
[2022-12-06] MEDS: LACTULOSE 20 GM/30 ML CUP PO SCH (22:21)
[2022-12-07] MEDS: ONDANSETRON 4 MG/2 ML VIAL IVP SCH ×4 (05:15→20:42)
[2022-12-07] MEDS: LACTULOSE 20 GM/30 ML CUP PO SCH ×4 (08:37→20:41)
[2022-12-07] MEDS: PANTOPRAZOLE 40 MG TABLET PO SCH (08:38)
[2022-12-07] MEDS: FOLIC ACID 1 MG TAB PO SCH (08:38)
[2022-12-07] MEDS: SPIRONOLACTONE 25 MG TAB PO SCH (08:38)
[2022-12-07 09:05] LABS: Basophils # (A) 0.06 X 10*3/uL (0.00-0.10); Basophils % (A) 1.5 %; Eosinophils # (A) 0.16 X 10*3/uL (0.04-0.35); Eosinophils % (A) 4.1 %; HCT 28.4 % (39.6-50.0); HGB 9.4 g/dL (13.0-17.0); Immature Grans, Automated 0.3 %; Lymphocytes # (A) 0.74 X 10*3/uL (0.90-5.00); Lymphocytes % (A) 18.7 %; MCH 30.7 pg (27.0-32.0); MCHC 33.1 g/dL (32.0-37.0); MCV 92.8 fL (80.0-97.0); Mean Platelet Volume 9.3 fL (9.5-12.2); Monocytes # (A) 0.56 X 10*3/uL (0.20-1.00); Monocytes % (A) 14.2 %; NRBC Per 100 WBC 0 /100 WBCS (0.0-0.0); Neutrophils # (A) 2.42 X 10*3/uL (1.80-7.70); Neutrophils % (A) 61.2 %; Platelet Count 131 X 10*3/uL (140-440); RBC 3.06 X 10*6/uL (4.40-5.60); RDW 14.6 % (11.5-14.5); WBC 3.95 X 10*3/uL (4.50-10.00)
[2022-12-07] MEDS ORDERED: LACTULOSE 20 GM/30 ML CUP PO PRN (12:20)
[2022-12-07 12:31] VITALS: BMI 22.6
--- NOTE | 2022-12-07 14:06 | P.HPIM ---
History of Present Illness H&P Date: 12/07/22 This is a 57 year old male with medical history of alcoholic cirrhosis of the liver, history of GI bleeding with variceal bleeding and banding, Diabetes mellitus, hypertension, hyperlipidemia, GERD, anemia, former smoker. Presents to the hospital with altered mentation, and abdominal distention with concern for ascites. He has had previous paracentesis in the past. He was recently admitted to [facility] where he under paracentesis and was discharged home. Family had concerns that patient was confused and that his belly seems bigger. Patient has also complained of some abdominal pain and also nausea. Patient denies drinking alcohol recently. Follows with Dr. Obie Pride and states he saw her about 2 weeks ago. Presents with an ammonia level of 149 and has been started on scheduled lactulose. Hemoglobin has dropped to 9.4 from 11.3. Platelets stable at 130. Sodium 132. Liver enzymes elevated. Afebrile, blood pressure stable, 99% on room air. Patient will be admitted and will continue on lactulose and repeat ammonia level. IR has been consulted for therapeutic paracentesis. REVIEW OF SYSTEMS: CONSTITUTIONAL: No fever, no malaise, Reports fatigue has some tremors. HEENT: No recent visual problems or hearing problems. Denied any sore throat. CARDIOVASCULAR: No chest pain, orthopnea, PND, no palpitations, no syncope. PULMONARY: No shortness of breath, no cough, no hemoptysis. GASTROINTESTINAL: No diarrhea, no vomiting. Reports nausea, abdominal pain and distention. NEUROLOGICAL: No headaches, no weakness, no numbness. HEMATOLOGICAL: Denies any bleeding or petechiae. GENITOURINARY: Denies any burning micturition, frequency, or urgency. MUSCULOSKELETAL/RHEUMATOLOGICAL: Denies any joint pain, swelling, or any muscle pain. ENDOCRINE: Denies any polyuria or polydipsia. The rest of the 14-point review of systems is negative. PHYSICAL EXAMINATION: GENERAL: The patient is alert and oriented x3, not in any acute distress. Well developed, well nourished. HEENT: Pupils are round and equally reacting to light. EOMI. No scleral icterus. No conjunctival pallor. Normocephalic, atraumatic. No pharyngeal erythema. No thyromegaly. CARDIOVASCULAR: S1 and S2 present. No murmurs, rubs, or gallops. PULMONARY: Chest is clear to auscultation, no wheezing or crackles. ABDOMEN: Soft, nontender, distended, normoactive bowel sounds. No palpable organomegaly. MUSCULOSKELETAL: No joint swelling or deformity. EXTREMITIES: No cyanosis, clubbing, or pedal edema. NEUROLOGICAL: Gross neurological examination did not reveal any focal deficits. Has some slight tremor when arm extended. SKIN: No rashes. Assessment and plan Assessment Alcoholic liver cirrhosis Altered mental status likely from hepatic encephalopathy ammonia level elevated at 149 on admission. Improved alert x3 during assessment. Acute on chronic anemia Hyponatremia, hypervolemic from hepatic congestion Thrombocytopenia Diabetes Mellitus type 2 History of alcohol use disorder GERD History of GI bleeding/variceal bleeding and banding Hypertension Hyperlipidemia Former smoker GI prophylaxis DVT prophylaxis Plan Lactulose TID scheduled and PRN, titrate with goal of 3 loose bowel movements per day, monitor ammonia level Interventional radiology has been consulted for therapeutic paracentesis Continue on home medications Repeat labs in AM The impression and plan of care has been dictated by Ruba Scott, Nurse Practitioner as directed. Dr. Saud MD I have performed a history and physical examination and medical decision making of this patient, discussed the same with the dictator, and agree with the dictators assessment and plan as written, documented as a scribe. Based on total visit time, I have performed more than 50% of this visit. Past Medical History Past Medical History: Chest Pain / Angina, Diabetes Mellitus, GERD/Reflux, GI Bleed, Hyperlipidemia, Hypertension, Pneumonia Additional Past Medical History / Comment(s): Cirrhosis, esophageal varicies with variceal bleed, lower GI bleed with transfusions, anemia, chronic low back pain with sciatica, diet controlled diabetic History of Any Multi-Drug Resistant Organisms: None Reported Past Surgical History: Cholecystectomy, Orthopedic Surgery Additional Past Surgical History / Comment(s): EGDs-last time 03/22/19 with banding, colonoscopies with benign polyps, capsule endoscopy, L ankle fracture with pins/plate, EGD Past Anesthesia/Blood Transfusion Reactions: Postoperative Nausea & Vomiting (PONV) Additional Past Anesthesia/Blood Transfusion Reaction / Comment(s): Blood transfusions without reaction. Past Psychological History: No Psychological Hx Reported Additional Psychological History / Comment(s): Pt resides with his parents. He is independent. Smoking Status: Former smoker Past Alcohol Use History: None Reported Additional Past Alcohol Use History / Comment(s): Pt started smoking 1984 and quit 01/17/15. Pt was a heavy drinker , drinking until he "fell asleep" but states he now only drinks on occasion and last time he drank was-2 months ago Past Drug Use History: None Reported - Past Family History Mother Family Medical History: Diabetes Mellitus, Pneumonia Father Family Medical History: Coronary Artery Disease (CAD), Myocardial Infarction ([place]) Additional Family Medical History / Comment(s): Father had MIs with the first [place] occuring while he was in his 60s. Medications and Allergies Home Medications Medication Instructions Recorded Confirmed Type Furosemide [Lasix] 40 mg PO DAILY #30 tab 09/03/22 12/06/22 Rx Spironolactone [Aldactone] 100 mg PO DAILY #30 tab 09/03/22 12/06/22 Rx Pantoprazole [Protonix] 40 mg PO AC-BRKFST #30 tab 09/07/22 12/06/22 Rx Folic Acid 1 mg PO DAILY 12/06/22 12/06/22 History Allergies Allergy/AdvReac Type Severity Reaction Status Date / Time No Known Allergies Allergy Verified 12/06/22 14:00 Physical Exam Vitals: Vital Signs Temp Pulse Pulse Resp BP BP Pulse Ox 12/07/22 07:46 98.2 F 93 16 108/67 99 12/07/22 01:21 99.0 F 103 H 16 124/77 99 12/06/22 22:12 99 12/06/22 20:08 97.6 F 88 16 147/86 100 12/06/22 19:18 98 16 107/85 100 12/06/22 16:50 93 16 109/73 100 12/06/22 15:15 88 16 103/74 12/06/22 15:00 88 18 103/74 100 12/06/22 13:32 88 18 114/82 100 12/06/22 11:50 97.9 F 93 18 128/89 100 Intake and Output 12/06/22 12/07/22 12/07/22 22:59 06:59 14:59 Intake Total 240 Balance 240 Intake: Oral 240 Other: # Voids 1 Weight 149.7 kg Results CBC & Chem 7: 12/07/22 04:42 12/06/22 13:30 Labs: Abnormal Lab Results - Last 24 Hours (Table) 12/06/22 12/06/22 12/06/22 Range/Units 12:56 13:30 13:30 WBC 3.3 L (3.8-10.6) k/uL RBC 3.47 L (4.30-5.90) m/uL Hgb 11.3 L (13.0-17.5) gm/dL Hct 32.8 L (39.0-53.0) % Plt Count 137 L (150-450) k/uL Lymphocytes # 0.6 L (1.0-4.8) k/uL Sodium 132 L (137-145) mmol/L Chloride 108 H (98-107) mmol/L Carbon Dioxide 17 L (22-30) mmol/L Glucose 113 H (74-99) mg/dL Calcium 8.3 L (8.4-10.2) mg/dL Total Bilirubin 3.9 H (0.2-1.3) mg/dL AST 69 H (17-59) U/L Alkaline Phosphatase 266 H (38-126) U/L Ammonia (<30) umol/L Albumin 2.7 L (3.5-5.0) g/dL Urine Opiates Screen Detected H (NotDetected) 12/06/22 12/07/22 Range/Units 13:30 08:04 WBC (3.8-10.6) k/uL RBC (4.30-5.90) m/uL Hgb (13.0-17.5) gm/dL Hct (39.0-53.0) % Plt Count (150-450) k/uL Lymphocytes # (1.0-4.8) k/uL Sodium (137-145) mmol/L Chloride (98-107) mmol/L Carbon Dioxide (22-30) mmol/L Glucose (74-99) mg/dL Calcium (8.4-10.2) mg/dL Total Bilirubin (0.2-1.3) mg/dL AST (17-59) U/L Alkaline Phosphatase (38-126) U/L Ammonia 149 H 152 H (<30) umol/L Albumin (3.5-5.0) g/dL Urine Opiates Screen (NotDetected) Thrombosis Risk Factor Assmnt - Choose All That Apply Each Factor Represents 1 point: Age 41-60 years Other Risk Factors: No Other congenital or acquired thrombophilia - If yes, enter type in comment: No Thrombosis Risk Factor Assessment Total Risk Factor Score: 1 Thrombosis Risk Factor Assessment Level: Low Risk Assessment and Plan Time with Patient: Less than 30
[2022-12-07 15:02] LABS: INR 1.3 (<1.2); Prothrombin Time 13.1 sec (9.0-12.0)
[2022-12-07] MEDS: FUROSEMIDE 40 MG TAB PO SCH (16:16)
[2022-12-08] MEDS: ONDANSETRON 4 MG/2 ML VIAL IVP SCH ×4 (04:55→23:57)
[2022-12-08] MEDS: PANTOPRAZOLE 40 MG TABLET PO SCH (06:03)
[2022-12-08] MEDS: SPIRONOLACTONE 25 MG TAB PO SCH (09:28)
[2022-12-08] MEDS: FOLIC ACID 1 MG TAB PO SCH (09:28)
[2022-12-08] MEDS: FUROSEMIDE 40 MG TAB PO SCH (09:28)
[2022-12-08] MEDS: LACTULOSE 20 GM/30 ML CUP PO SCH ×3 (09:29→21:03)
[2022-12-08 09:43] LABS: Basophils # (A) 0.07 X 10*3/uL (0.00-0.10); Basophils % (A) 1.5 %; Eosinophils # (A) 0.21 X 10*3/uL (0.04-0.35); Eosinophils % (A) 4.6 %; Immature Grans, Automated 0.2 %; Lymphocytes # (A) 1.36 X 10*3/uL (0.90-5.00); Lymphocytes % (A) 29.9 %; MCH 31.2 pg (27.0-32.0); MCHC 33.3 g/dL (32.0-37.0); MCV 93.5 fL (80.0-97.0); Mean Platelet Volume 9.3 fL (9.5-12.2); Monocytes # (A) 0.66 X 10*3/uL (0.20-1.00); Monocytes % (A) 14.5 %; NRBC Per 100 WBC 0 /100 WBCS (0.0-0.0); Neutrophils # (A) 2.24 X 10*3/uL (1.80-7.70); Neutrophils % (A) 49.3 %; Platelet Count 134 X 10*3/uL (140-440); RBC 3.21 X 10*6/uL (4.40-5.60); RDW 14.4 % (11.5-14.5); WBC 4.55 X 10*3/uL (4.50-10.00)
[2022-12-08 10:17] LABS: African American GFR (CKD) 97.1 (60.0-200.0); Albumin 2.4 g/dL (3.8-4.9); Albumin/Globulin Ratio 0.57 (1.60-3.17); Anion Gap 7.8 mmol/L (10.00-18.00); BUN/Creat Ratio 15.9 Ratio (12.00-20.00); Blood Urea Nitrogen 15.9 mg/dL (9.0-27.0); Calcium 8.2 mg/dL (8.7-10.3); Carbon Dioxide 17.2 mmol/L (20.0-27.5); Globulin 4.2 g/dL (1.6-3.3); Non-African American GFR(CKD) 83.8 (60.0-200.0); Potassium 4.2 mmol/L (3.5-5.5); Total Bilirubin 2.4 mg/dL (0.30-1.20); Total Protein 6.6 g/dL (6.2-8.2)
[2022-12-08] MEDS: ALBUMIN HUMAN 25% 50 ML in EMPTY BAG 1 BAG IVPB SCH ×2 (14:38→15:12)
[2022-12-08] MEDS: FUROSEMIDE 10 MG/ML 4 ML VIAL IV SCH (14:39)
--- NOTE | 2022-12-08 14:45 | US ---
Ultrasound-guided paracentesis. DATE OF EXAM: 12/08/2022 CLINICAL HISTORY: Ascites The procedure was discussed with the patient. The risks, complications, benefits, and alternatives we re discussed and any questions were answered. Informed consent was obtained. The patient was placed s upine on the ultrasound table and prepped and draped in the usual sterile fashion. All elements of maximal barrier technique were utilized. Under ultrasound guidance, access into the right lower quadrant was obtained, via the paracentesis catheter system and direct ultrasound guidanc e. Approximately 9.3 liters of straw-colored fluid was removed. The patient was stable throughout the pr ocedure and remained stable upon discharge from Department of Radiology. IMPRESSION: Successful paracentesis under ultrasound guidance.
--- NOTE | 2022-12-08 15:41 | P.PN ---
Subjective Progress Note Date: 12/08/22 This is a 57 year old male with medical history of alcoholic cirrhosis of the liver, history of GI bleeding with variceal bleeding and banding, Diabetes mellitus, hypertension, hyperlipidemia, GERD, anemia, former smoker. Presents to the hospital with altered mentation, and abdominal distention with concern for ascites. He has had previous paracentesis in the past. He was recently admitted to [facility] where he under paracentesis and was discharged home. Family had concerns that patient was confused and that his belly seems bigger. Patient has also complained of some abdominal pain and also nausea. Patient denies drinking alcohol recently. Follows with Dr. Obie Pride and states he saw her about 2 weeks ago. Presents with an ammonia level of 149 and has been started on scheduled lactulose. Hemoglobin has dropped to 9.4 from 11.3. Platelets stable at 130. Sodium 132. Liver enzymes elevated. Afebrile, blood pressure stable, 99% on room air. Patient will be admitted and will continue on lactulose and repeat ammonia level. IR has been consulted for therapeutic paracentesis. 12/08/2022 Patient is evaluated today resting in bed he is post-paracentesis with 9.3 L of fluid off. He will receive 2 bags of albumin. His ammonia has improved to 90 today we will continue on lactulose 3 times a day. He had multiple bowel movements overnight. The culture remains negative. Sodium has decreased to 127 and we will change Lasix to IV Lasix and repeat sodium tomorrow. Total bili is down to 2.40, AST 474, alk phos 247. Hemoglobin stable at 10.0. Afebrile, heart rate 106, blood pressure 107/58, 100/5 room air. Continues to be alert 3. Review of Systems Constitutional: Denied any fatigue denied any fever. Cardio vascular: denied any chest pain, palpitations Gastrointestinal: denied any nausea, vomiting, diarrhea Pulmonary: Denied any shortness of breath cough Neurologic denied any new focal deficits All inpatient medications were reviewed and appropriate changes in these medications as dictated in the interval history and assessment and plan. PHYSICAL EXAMINATION: GENERAL: The patient is alert and oriented x3, not in any acute distress. Well developed, well nourished. HEENT: Pupils are round and equally reacting to light. EOMI. No scleral icterus. No conjunctival pallor. Normocephalic, atraumatic. No pharyngeal erythema. No thyromegaly. CARDIOVASCULAR: S1 and S2 present. No murmurs, rubs, or gallops. PULMONARY: Chest is clear to auscultation, no wheezing or crackles. ABDOMEN: Soft, nontender, distended, normoactive bowel sounds. No palpable organomegaly. MUSCULOSKELETAL: No joint swelling or deformity. EXTREMITIES: No cyanosis, clubbing, or pedal edema. NEUROLOGICAL: Gross neurological examination did not reveal any focal deficits. Has some slight tremor when arm extended. SKIN: No rashes. Assessment and plan Assessment Alcoholic liver cirrhosis Altered mental status likely from hepatic encephalopathy ammonia level elevated at 149 on admission Improved alert x3 during assessment. Elevated ammonia level improving with lactulose Chronic anemia stable Hyponatremia, hypervolemic from hepatic congestion Thrombocytopenia Diabetes Mellitus type 2 History of alcohol use disorder GERD History of GI bleeding/variceal bleeding and banding Hypertension Hyperlipidemia Former smoker GI prophylaxis DVT prophylaxis Plan Lactulose TID scheduled and PRN, titrate with goal of 3 loose bowel movements per day, monitor ammonia level Status post paracentesis IV lasix Repeat BMP and Ammonia level in AM The impression and plan of care has been dictated by Ruba Scott, Nurse Practitioner as directed. Dr. Saud MD I have performed a history and physical examination and medical decision making of this patient, discussed the same with the dictator, and agree with the dictators assessment and plan as written, documented as a scribe. Based on total visit time, I have performed more than 50% of this visit. Objective - Vital Signs Vital signs: Vital Signs Temp 97.8 F 12/08/22 14:00 Pulse 106 H 12/08/22 14:00 Resp 16 12/08/22 14:00 BP 107/58 12/08/22 14:00 Pulse Ox 100 12/08/22 14:00 FiO2 Intake & Output 12/07/22 12/08/22 12/08/22 18:59 06:59 18:59 Weight 67.585 kg Other: # Voids 4 # Bowel Movements 1 - Labs CBC & Chem 7: 12/08/22 06:00 12/08/22 06:00 Labs: Abnormal Lab Results - Last 24 Hours (Table) 12/08/22 12/08/22 12/08/22 Range/Units 06:00 06:00 06:00 RBC 3.21 L (4.40-5.60) X 10*6/uL Hgb 10.0 L (13.0-17.0) g/dL Hct 30.0 L (39.6-50.0) % Plt Count 134 L (140-440) X 10*3/uL MPV 9.3 L (9.5-12.2) fL Sodium 127 L (135-145) mmol/L Carbon Dioxide 17.2 L (20.0-27.5) mmol/L Anion Gap 7.80 L (10.00-18.00) mmol/L Calcium 8.2 L (8.7-10.3) mg/dL Total Bilirubin 2.40 H (0.30-1.20) mg/dL AST 74 H (14-35) U/L Alkaline Phosphatase 247 H (41-126) U/L Ammonia 90 H (<30) umol/L Albumin 2.4 L (3.8-4.9) g/dL Globulin 4.2 H (1.6-3.3) g/dL Albumin/Globulin Ratio 0.57 L (1.60-3.17) g/dL Microbiology - Last 24 Hours (Table) 12/06/22 13:00 Blood Culture - Preliminary Blood No Growth after 48 hours 12/06/22 13:10 Blood Culture - Preliminary Blood No Growth after 48 hours Assessment and Plan Time with Patient: Less than 30
[2022-12-09] MEDS: ONDANSETRON 4 MG/2 ML VIAL IVP SCH ×3 (04:20→15:48)
[2022-12-09] MEDS: FUROSEMIDE 10 MG/ML 4 ML VIAL IV SCH (09:00)
[2022-12-09] MEDS: FOLIC ACID 1 MG TAB PO SCH (09:00)
[2022-12-09] MEDS: PANTOPRAZOLE 40 MG TABLET PO SCH (09:00)
[2022-12-09] MEDS: LACTULOSE 20 GM/30 ML CUP PO SCH ×3 (09:00→20:29)
[2022-12-09] MEDS: SPIRONOLACTONE 25 MG TAB PO SCH (09:00)
[2022-12-09 10:40] LABS: ALT 40 U/L (4-49); AST 62 U/L (17-59); African American GFR (CKD) >90 (>60 ml/min/1.73 sqM); Albumin 2.3 g/dL (3.5-5.0); Albumin/Globulin Ratio 0.6; Alkaline Phosphatase 252 U/L (38-126); Anion Gap 5 mmol/L; Blood Urea Nitrogen 14 mg/dL (9-20); Calcium 7.5 mg/dL (8.4-10.2); Carbon Dioxide 18 mmol/L (22-30); Chloride 106 mmol/L (98-107); Glucose 108 mg/dL (74-99); Non-African American GFR(CKD) >90 (>60 ml/min/1.73 sqM); Potassium 3.9 mmol/L (3.5-5.1); Sodium 129 mmol/L (137-145); Total Bilirubin 1.9 mg/dL (0.2-1.3); Total Protein 6.3 g/dL (6.3-8.2)
--- NOTE | 2022-12-09 13:54 | P.PN ---
Subjective Progress Note Date: 12/09/22 This is a 57 year old male with medical history of alcoholic cirrhosis of the liver, history of GI bleeding with variceal bleeding and banding, Diabetes mellitus, hypertension, hyperlipidemia, GERD, anemia, former smoker. Presents to the hospital with altered mentation, and abdominal distention with concern for ascites. He has had previous paracentesis in the past. He was recently admitted to [facility] where he under paracentesis and was discharged home. Family had concerns that patient was confused and that his belly seems bigger. Patient has also complained of some abdominal pain and also nausea. Patient denies drinking alcohol recently. Follows with Dr. Obie Pride and states he saw her about 2 weeks ago. Presents with an ammonia level of 149 and has been started on scheduled lactulose. Hemoglobin has dropped to 9.4 from 11.3. Platelets stable at 130. Sodium 132. Liver enzymes elevated. Afebrile, blood pressure stable, 99% on room air. Patient will be admitted and will continue on lactulose and repeat ammonia level. IR has been consulted for therapeutic paracentesis. 12/08/2022 Patient is evaluated today resting in bed he is post-paracentesis with 9.3 L of fluid off. He will receive 2 bags of albumin. His ammonia has improved to 90 today we will continue on lactulose 3 times a day. He had multiple bowel movements overnight. The culture remains negative. Sodium has decreased to 127 and we will change Lasix to IV Lasix and repeat sodium tomorrow. Total bili is down to 2.40, AST 474, alk phos 247. Hemoglobin stable at 10.0. Afebrile, heart rate 106, blood pressure 107/58, 100/5 room air. Continues to be alert 3. 12/09/2022 Patient evaluated today ambulating in room anxious for discharge. No acute events overnight. S/P paracentesis with 9.3 L of fluid removed. Labs today showing improving bilirubin down to 1.90, however his ammonia level is increased up to 160. He is started on rifaximin and will repeat ammonia level in the AM. Review of Systems Constitutional: Denied any fatigue denied any fever. Cardio vascular: denied any chest pain, palpitations Gastrointestinal: denied any nausea, vomiting, diarrhea Pulmonary: Denied any shortness of breath cough Neurologic denied any new focal deficits All inpatient medications were reviewed and appropriate changes in these medications as dictated in the interval history and assessment and plan. PHYSICAL EXAMINATION: GENERAL: The patient is alert and oriented x3, not in any acute distress. Well developed, well nourished. HEENT: Pupils are round and equally reacting to light. EOMI. No scleral icterus. No conjunctival pallor. Normocephalic, atraumatic. No pharyngeal erythema. No thyromegaly. CARDIOVASCULAR: S1 and S2 present. No murmurs, rubs, or gallops. PULMONARY: Chest is clear to auscultation, no wheezing or crackles. ABDOMEN: Soft, nontender, distended, normoactive bowel sounds. No palpable organomegaly. MUSCULOSKELETAL: No joint swelling or deformity. EXTREMITIES: No cyanosis, clubbing, or pedal edema. NEUROLOGICAL: Gross neurological examination did not reveal any focal deficits. Has some slight tremor when arm extended. SKIN: No rashes. Assessment and plan Assessment Alcoholic liver cirrhosis Altered mental status likely from hepatic encephalopathy ammonia level elevated at 149 on admission currently alert x 3. Elevated ammonia level on lactulose Chronic anemia stable Hyponatremia, hypervolemic from hepatic congestion Thrombocytopenia Diabetes Mellitus type 2 History of alcohol use disorder GERD History of GI bleeding/variceal bleeding and banding Hypertension Hyperlipidemia Former smoker GI prophylaxis DVT prophylaxis Plan Lactulose TID scheduled and PRN, titrate with goal of 3 loose bowel movements per day, monitor ammonia level Has been started on rifaximin and will repeat ammonia level in AM Status post paracentesis IV lasix Repeat BMP Possible D/C in the next 24 hours. The impression and plan of care has been dictated by Ruba Scott, Nurse Practitioner as directed. Dr. Saud MD I have performed a history and physical examination and medical decision making of this patient, discussed the same with the dictator, and agree with the dictators assessment and plan as written, documented as a scribe. Based on total visit time, I have performed more than 50% of this visit. Objective - Vital Signs Vital signs: Vital Signs Temp 97.6 F 12/09/22 13:46 Pulse 84 12/09/22 13:46 Resp 16 12/09/22 13:46 BP 105/57 12/09/22 13:46 Pulse Ox 100 12/09/22 13:46 FiO2 Intake & Output 01/11/23 01/12/23 01/12/23 18:59 06:59 18:59 Other: Voiding Method Toilet # Voids 1 4 - Labs CBC & Chem 7: 12/08/22 06:00 12/09/22 07:13 Labs: Abnormal Lab Results - Last 24 Hours (Table) 12/09/22 12/09/22 Range/Units 07:13 07:13 Sodium 129 L (137-145) mmol/L Carbon Dioxide 18 L (22-30) mmol/L Glucose 108 H (74-99) mg/dL Calcium 7.5 L (8.4-10.2) mg/dL Total Bilirubin 1.9 H (0.2-1.3) mg/dL AST 62 H (17-59) U/L Alkaline Phosphatase 252 H (38-126) U/L Ammonia 166 H (<30) umol/L Albumin 2.3 L (3.5-5.0) g/dL Microbiology - Last 24 Hours (Table) 12/06/22 13:00 Blood Culture - Preliminary Blood No Growth after 48 hours 12/06/22 13:10 Blood Culture - Preliminary Blood No Growth after 48 hours Assessment and Plan Time with Patient: Less than 30
[2022-12-09] MEDS: RIFAXIMIN 550 MG TABLET PO SCH ×2 (14:14→20:29)
[2022-12-10] MEDS: ONDANSETRON 4 MG/2 ML VIAL IVP SCH ×3 (01:33→12:09)
[2022-12-10] MEDS: PANTOPRAZOLE 40 MG TABLET PO SCH (08:38)
[2022-12-10] MEDS: RIFAXIMIN 550 MG TABLET PO SCH (08:38)
[2022-12-10] MEDS: FOLIC ACID 1 MG TAB PO SCH (08:40)
[2022-12-10] MEDS: SPIRONOLACTONE 25 MG TAB PO SCH (08:40)
[2022-12-10] MEDS: LACTULOSE 20 GM/30 ML CUP PO SCH (08:40)
[2022-12-10 08:57] VITALS: BP 106/70; PULSE 80; RESP 16; TEMP 98.3
[2022-12-10] MEDS: FUROSEMIDE 10 MG/ML 4 ML VIAL IV SCH (10:38)
[2022-12-10 12:20] LABS: African American GFR (CKD) 110.5 (60.0-200.0); BUN/Creat Ratio 15.63 Ratio (12.00-20.00); Calcium 8.2 mg/dL (8.7-10.3); Carbon Dioxide 16.6 mmol/L (20.0-27.5); Non-African American GFR(CKD) 95.3 (60.0-200.0); Potassium 4.1 mmol/L (3.5-5.5)
--- NOTE | 2022-12-11 22:36 | P.DS ---
Providers Date of admission: 12/06/22 16:38 Attending physician: Chung Etienne Primary care physician: Luana Amaya Hospital Course: Final Diagnosis Alcoholic liver cirrhosis Altered mental status likely from hepatic encephalopathy ammonia level elevated at 149 on admission currently alert x 3. Elevated ammonia level on lactulose Chronic anemia stable Hyponatremia, hypervolemic from hepatic congestion Thrombocytopenia Diabetes Mellitus type 2 History of alcohol use disorder GERD History of GI bleeding/variceal bleeding and banding Hypertension Hyperlipidemia Former smoker Discharge Disposition Patient is stable for discharge. Ammonia level has improved down to 90 and patient has been continued on lactulose three times a day with additional dosing as needed. Goal is for three loose bowel movements a day and to titrate lactulose as needed. Patient has also been started on Rifaxamin BID for elevated ammonia level as well and will continue on discharge. Patient is status post paracentesis with over 9 L of fluid removed and recommend to monitor labs outpatient and close follow up with Dr. Obie Pride. Lasix has been increased to 60 mg daily. Recommended to see his primary provider, Dr. Amaya in 1 to 2 days. Hospital Course This is a 57 year old male with medical history of alcoholic cirrhosis of the liver, history of GI bleeding with variceal bleeding and banding, Diabetes mellitus, hypertension, hyperlipidemia, GERD, anemia, former smoker. Presents to the hospital with altered mentation, and abdominal distention with concern for ascites. He has had previous paracentesis in the past. He was recently admitted to [facility] where he under paracentesis and was discharged home. Family had concerns that patient was confused and that his belly seems bigger. Patient has also complained of some abdominal pain and also nausea. Patient denies drinking alcohol recently. Follows with Dr. Obie Pride and states he saw her about 2 weeks ago. Presents with an ammonia level of 149 and has been started on scheduled lactulose. Hemoglobin has dropped to 9.4 from 11.3 with no signs of active bleeding. Platelets stable at 130. Sodium 132 on admission. Liver enzymes elevated. Patient was started on IV lasix for a drop in sodium of 127 on day 2 of hospital stay. He underwent ultrasound guided therapuetic paracentesis with IR with 9.3 L of fluid removed. He received 2 bags of albumin post procedure. Sodium had improved up to 130. Ammonia initially had improved than increased up to 160 again, lactulose was increased to TID and TID PRN and also patient had been started on rifaximin. Ammonia level improved to 94 and patient would like to discharge home. Although ammonia level is still elevated it has improved and clinically patient is doing well. He has been ambulating around the room independently. He is alert x 3 no neurological deficits and also his upper extremity tremors have improved. Kidney function is stable. Blood pressure has improved to 106/70. Patient is stable for discharge home and is recommended to repeat his ammonia level in 2 to 3 days. 12/10/2022 Patient is evaluated today ambulating in room independently. No acute events overnight. He denies chest pain, no shortness of breath. No abdominal pain. No n ausea, vomiting or diarrhea. Tolerating diet. He underwent paracentesis yesterday. His lungs are clear, S1 S2 auscultated, and abdomen is soft and nontender with normoactive bowel sounds. He is alert x 3 and focal neurological exam is negative. Labs have improved today sodium is 130, potassium level 4.1, BUN 14.0, creatinine 0.9. He is afebrile, heart rate 80, blood pressure 106/70, 100% on room air. He will be discharged home with the above mentioned recommendations. Please see medication reconciliation for a list of current medication. Thank you for allowing us to participate in the care of this patient. The impression and plan of care has been dictated by Ruba Scott, Nurse Practitioner as directed. Dr. Saud MD I have performed a history and physical examination and medical decision making of this patient, discussed the same with the dictator, and agree with the dictators assessment and plan as written, documented as a scribe. Based on total visit time, I have performed more than 50% of this visit. Patient Condition at Discharge: Stable Plan - Discharge Summary Discharge Rx Participant: No New Discharge Prescriptions: New Famotidine [Pepcid] 20 mg PO DAILY #30 tablet Lactulose [Cephulac] 30 gm PO TID 15 Days #2000 ml Furosemide [Lasix] 60 mg PO DAILY #30 tab Rifaximin [Xifaxan] 550 mg PO BID #60 tab Continue Spironolactone [Aldactone] 100 mg PO DAILY #30 tab Pantoprazole [Protonix] 40 mg PO AC-BRKFST #30 tab Folic Acid 1 mg PO DAILY Discontinued Furosemide [Lasix] 40 mg PO DAILY #30 tab Discharge Medication List Spironolactone [Aldactone] 100 mg PO DAILY #30 tab 09/03/22 [Rx] Pantoprazole [Protonix] 40 mg PO AC-BRKFST #30 tab 09/07/22 [Rx] Folic Acid 1 mg PO DAILY 12/06/22 [History] Famotidine [Pepcid] 20 mg PO DAILY #30 tablet 12/10/22 [Rx] Furosemide [Lasix] 60 mg PO DAILY #30 tab 12/10/22 [Rx] Lactulose [Cephulac] 30 gm PO TID 15 Days #2000 ml 12/10/22 [Rx] Rifaximin [Xifaxan] 550 mg PO BID #60 tab 12/10/22 [Rx] Follow up Appointment(s)/Referral(s): Lorin Pride MD [STAFF PHYSICIAN] - 1 Week (Office closed at time of discharge. Please call to schedule appointment) Luana Amaya MD [Primary Care Provider] - 1-2 days (Office closed at time of discharge. Please call to schedule appointment ) Ambulatory/Diagnostic Orders: Basic Metabolic Panel [LAB.AMB] Time Frame: 3 Days, Location: None Selected Miscellaneous Lab Order [LAB.AMB] Time Frame: 2 Days, Location: None Selected Patient Instructions/Handouts: Famotidine (By mouth), Furosemide (By mouth), Lactulose (By mouth), Rifaximin (By mouth), Ascites (DC), Encephalopathy (IP), Paracentesis (DC) Activity/Diet/Wound Care/Special Instructions: Continue on lactulose three times a day and titrate for up to 6 doses a day if needed. Recommend for 3 loose bowel movements a day. Follow up with PCP in 1 to 2 days Follow up with GI services in 1 week Repeat labs in 2 to 3 days Repeat ammonia level in 2 days Discharge Disposition: HOME SELF-CARE
== END 2022-12-10 13:36 | disposition home or self-care (01) | DRG 433 ==
LOC: EC 11:45 → 4SSUR 16:38
PROVIDERS: ADMIT Hospitalist; ATTEND Hospitalist
PROC: 0W9G30Z Drainage of Peritoneal Cavity with Drainage Device, Percutaneous Approach (ICD-10-PCS; principal; 2022-12-08)
DX: K70.31 Alcoholic cirrhosis of liver with ascites (principal); E87.1 Hypo-osmolality and hyponatremia; R41.0 Disorientation, unspecified; K70.40 Alcoholic hepatic failure without coma; K76.1 Chronic passive congestion of liver; F10.20 Alcohol dependence, uncomplicated; K76.82 Hepatic encephalopathy; D64.9 Anemia, unspecified; D69.6 Thrombocytopenia, unspecified; E11.649 Type 2 diabetes mellitus with hypoglycemia without coma; F17.210 Nicotine dependence, cigarettes, uncomplicated; I10 Essential (primary) hypertension; G89.29 Other chronic pain; E78.5 Hyperlipidemia, unspecified; E87.70 Fluid overload, unspecified; M54.50 Low back pain, unspecified; K21.9 Gastro-esophageal reflux disease without esophagitis; Z79.899 Other long term (current) drug therapy; Z90.49 Acquired absence of other specified parts of digestive tract; Z87.01 Personal history of pneumonia (recurrent)
CPT/HCPCS: 36415; 49083; 80048; 80053; 80306; 82140; 83519; 83735; 84484; 85025; 85610; 87040; 93005; 94760

== ENCOUNTER → 2022-12-13 | Outpatient (CLI) | payer OTHER ==
[2022-12-13 14:04] LABS: African American GFR (CKD) >90 (>60 ml/min/1.73 sqM); Anion Gap 7 mmol/L; Blood Urea Nitrogen 19 mg/dL (9-20); Calcium 8.2 mg/dL (8.4-10.2); Carbon Dioxide 18 mmol/L (22-30); Chloride 101 mmol/L (98-107); Glucose 113 mg/dL (74-99); Non-African American GFR(CKD) 87 (>60 ml/min/1.73 sqM); Potassium 5.1 mmol/L (3.5-5.1); Sodium 126 mmol/L (137-145)
== END ==
LOC: LAB 13:18
PROVIDERS: ATTEND Nurse Practitioner Family
DX: E87.1 Hypo-osmolality and hyponatremia (principal); E72.20 Disorder of urea cycle metabolism, unspecified
CPT/HCPCS: 80048; 82140

== ENCOUNTER 2022-12-15 15:48 | Inpatient (IN) | payer OTHER ==
[2022-12-15] MEDS ORDERED: SODIUM CHLORIDE 0.9% 1,000 ML IV ONE (16:05)
[2022-12-15] MEDS ORDERED: METOCLOPRAMIDE 5 MG/ML 2 ML VIAL IVP STA (16:22)
[2022-12-15] MEDS ORDERED: SODIUM CHLORIDE 0.9% 500 ML 500 ML IV STA (16:22)
[2022-12-15 16:43] LABS: Basophils % (A) 0 %; Eosinophils # (A) 0.1 k/uL (0-0.7); Eosinophils % (A) 2 %; HCT 31.9 % (39.0-53.0); HGB 10.6 gm/dL (13.0-17.5); Lymphocytes # (A) 0.7 k/uL (1.0-4.8); Lymphocytes % (A) 15 %; MCH 31.4 pg (25.0-35.0); MCHC 33.3 g/dL (31.0-37.0); MCV 94.5 fL (80.0-100.0); Mean Platelet Volume 7.5; Monocytes # (A) 0.4 k/uL (0-1.0); Monocytes % (A) 9 %; Neutrophils # (A) 3.2 k/uL (1.3-7.7); Neutrophils % (A) 71 %; Platelet Count 181 k/uL (150-450); RBC 3.37 m/uL (4.30-5.90); RDW 14.6 % (11.5-15.5); WBC 4.5 k/uL (3.8-10.6)
[2022-12-15 16:51] LABS: ALT 47 U/L (4-49); AST 85 U/L (17-59); African American GFR (CKD) >90 (>60 ml/min/1.73 sqM); Albumin 2.6 g/dL (3.5-5.0); Alcohol <10 mg/dL; Alkaline Phosphatase 295 U/L (38-126); Anion Gap 7 mmol/L; Blood Urea Nitrogen 21 mg/dL (9-20); Calcium 7.8 mg/dL (8.4-10.2); Carbon Dioxide 16 mmol/L (22-30); Chloride 104 mmol/L (98-107); Glucose 104 mg/dL (74-99); Lipase 278 U/L (23-300); Magnesium 1.8 mg/dL (1.6-2.3); Non-African American GFR(CKD) >90 (>60 ml/min/1.73 sqM); Potassium 4.7 mmol/L (3.5-5.1); Sodium 127 mmol/L (137-145); Total Bilirubin 3.7 mg/dL (0.2-1.3); Total Protein 7.3 g/dL (6.3-8.2)
--- NOTE | 2022-12-15 17:31 | ED ---
General Adult HPI - General Chief complaint: Abdominal Pain Stated complaint: Abd Pain,Vomiting Time Seen by Provider: 12/15/22 16:04 Source: EMS Mode of arrival: EMS Limitations: no limitations - History of Present Illness Initial comments: This is a 57-year-old male with a past medical history including liver failure status post paracentesis 3 days ago with 9.6 L taken off, presents emergency department via EMS for acute abdominal pain. The patient stated that he states that it feels like his similar abdominal pain from the last and he was in the em ergency department. The patient stated he feels that his ammonia level is elevated once again. The patient did state that his abdomen was distended however was not as bad as it improves he had been according to him. The patient denied any lightheadedness or dizziness but did state that he had some nausea. The patient denied any other acute pain or complaints at this time. - Related Data Home Medications Medication Instructions Recorded Confirmed Folic Acid 1 mg PO DAILY 12/06/22 12/15/22 Previous Rx's Medication Instructions Recorded Spironolactone [Aldactone] 100 mg PO DAILY #30 tab 09/03/22 Pantoprazole [Protonix] 40 mg PO AC-BRKFST #30 tab 09/07/22 Famotidine [Pepcid] 20 mg PO DAILY #30 tablet 12/10/22 Furosemide [Lasix] 60 mg PO DAILY #30 tab 12/10/22 Lactulose [Cephulac] 30 gm PO TID 15 Days #2000 ml 12/10/22 Rifaximin [Xifaxan] 550 mg PO BID #60 tab 12/10/22 Allergies Allergy/AdvReac Type Severity Reaction Status Date / Time No Known Allergies Allergy Verified 12/15/22 17:36 Review of Systems ROS Statement: Those systems with pertinent positive or pertinent negative responses have been documented in the HPI. ROS Other: All systems not noted in ROS Statement are negative. Past Medical History Past Medical History: Chest Pain / Angina, Diabetes Mellitus, GERD/Reflux, GI Bleed, Hyperlipidemia, Hypertension, Pneumonia Additional Past Medical History / Comment(s): Cirrhosis, esophageal varicies with variceal bleed, lower GI bleed with transfusions, anemia, chronic low back pain with sciatica, diet controlled diabetic History of Any Multi-Drug Resistant Organisms: None Reported Past Surgical History: Cholecystectomy, Orthopedic Surgery Additional Past Surgical History / Comment(s): EGDs-last time 03/22/19 with banding, colonoscopies with benign polyps, capsule endoscopy, L ankle fracture with pins/plate, EGD Past Anesthesia/Blood Transfusion Reactions: Postoperative Nausea & Vomiting (PONV) Additional Past Anesthesia/Blood Transfusion Reaction / Comment(s): Blood transfusions without reaction. Past Psychological History: No Psychological Hx Reported Smoking Status: Former smoker Past Alcohol Use History: None Reported Past Drug Use History: None Reported - Past Family History Mother Family Medical History: Diabetes Mellitus, Pneumonia Father Family Medical History: Coronary Artery Disease (CAD), Myocardial Infarction ([place]) Additional Family Medical History / Comment(s): Father had MIs with the first [place] occuring while he was in his 60s. General Exam Limitations: no limitations General appearance: alert, in no apparent distress Head exam: Present: atraumatic, normocephalic, normal inspection Eye exam: Present: normal appearance, PERRL Pupils: Present: normal accommodation ENT exam: Present: normal exam, normal oropharynx, mucous membranes moist Neck exam: Present: normal inspection, full ROM Respiratory exam: Present: normal lung sounds bilaterally Cardiovascular Exam: Present: regular rate, normal rhythm, normal heart sounds GI/Abdominal exam: Present: soft, distended Extremities exam: Present: normal inspection, full ROM Back exam: Present: normal inspection, full ROM Neurological exam: Present: alert, oriented X3, CN II-XII intact Psychiatric exam: Present: normal affect, normal mood Skin exam: Present: warm, dry Course Vital Signs 12/15/22 15:52 Temperature 97.7 F Pulse Rate 104 H Respiratory 18 Rate Blood Pressure 125/75 O2 Sat by Pulse 100 Oximetry Medical Decision Making - Medical Decision Making Was pt. sent in by a medical professional or institution (, PA, SPIKE MACHINE OPERATOR, urgent care, hospital, or [place] health care facility...) When possible be specific @ -No Did you speak to anyone other than the patient for history (EMS, parent, family, police, friend...)? What history was obtained from this source @ -No Did you review nursing and triage notes (agree or disagree)? Why? @ -I reviewed and agree with nursing and triage notes Were old charts reviewed (outside hosp., previous admission, EMS record, old EKG, old radiological studies, urgent care reports/EKG's, [place] health care facility records)? Report findings @ -No old charts were reviewed Differential Diagnosis (chest pain, altered mental status, abdominal pain women, abdominal pain men, vaginal bleeding, weakness, fever, dyspnea, syncope, headache, dizziness, GI bleed, back pain, seizure, CVA, palpatations, mental health)? @ -Cirrhosis, hyperammonemia, worsening ascites EKG interpreted by me (3pts min.). @ -None X-rays interpreted by me (1pt min.). @ -None done CT interpreted by me (1pt min.). @ -CT abdomen and pelvis with contrast was obtained and was interpreted by myself showing massive abdominal ascites. There is a regular small liver consistent with advanced cirrhosis. Portal venous hypertension was noted. There is significant progression of disease compared to the old exam. U/S interpreted by me (1pt. min.). @ -None done What testing was considered but not performed or refused? (CT, X-rays, U/S, labs)? Why? @ -None What meds were considered but not given or refused? Why? @ -None Did you discuss the management of the patient with other professionals (professionals i.e. , PA, SPIKE MACHINE OPERATOR, lab, RT, psych nurse, social work manager, shield operator, teacher, corporation officer, pillowcase sewer)? Give summary @ -Yes, admitting physician Was smoking cessation discussed for >3mins.? @ -No Was critical care preformed (if so, how long)? @ -No Were there social determinants of health that impacted care today? How? (Homelessness, low income, unemployed, alcoholism, drug addiction, transportation, low edu. Level, literacy, decrease access to med. care, intermediate, rehab)? @ -No Was there de-escalation of care discussed even if they declined (Discuss DNR or withdrawal of care, Hospice)? DNR status @ -No What co-morbidities impacted this encounter? (DM, HTN, Smoking, COPD, CAD, Cancer, CVA, ARF, Chemo, Hep., AIDS, mental health diagnosis, sleep apnea, morbid obesity)? @ -Cirrhosis, diabetes Was patient admitted / discharged? Hospital course, mention meds given and route, prescriptions, significant lab abnormalities, going to OR and other pertinent info. @ -The patient was seen and evaluated in the emergency department. Physical exam, the patient was resting in bed without any acute distress. Vital signs we re stable. Laboratory workup did show an elevated ammonia at 126 the patient was given lactulose. Lactic acid also elevated at 2.5 but the patient was given a bolus of 500 mL of normal saline fluid. Computed tomography scan showed worsening condition plus significant ascites. Due to this, and the setting of the patient's high ammonia level, the patient will be admitted for further workup and evaluation and planned paracentesis. The patient was agreeable to this plan and was accepted for admission by the covering physician, Dr. Grover at 1826. The patient was admitted in stable condition. Undiagnosed new problem with uncertain prognosis? @ -No Drug Therapy requiring intensive monitoring for toxicity (Heparin, Nitro, Insulin, Cardizem)? @ -No Were any procedures done? @ -No Diagnosis/symptom? @ -Hyperammonemia secondary to cirrhosis Acute, or Chronic, or Acute on Chronic? @ -Acute on chronic Uncomplicated (without systemic symptoms) or Complicated (systemic symptoms)? @ -Complicated Side effects of treatment? @ -No Exacerbation, Progression, or Severe Exacerbation? @ -No Poses a threat to life or bodily function? How? (Chest pain, [place], [place], pneumonia, PE, COPD, DKA, ARF, appy, cholecystitis, CVA, Diverticulitis, Homicidal, Suicidal, threat to staff... and all critical care pts) @ -No - Lab Data Result diagrams: 12/15/22 16:25 12/15/22 16:25 Lab Results 12/15/22 12/15/22 12/15/22 Range/Units 16:25 16:25 16:25 WBC 4.5 (3.8-10.6) k/uL RBC 3.37 L (4.30-5.90) m/uL Hgb 10.6 L (13.0-17.5) gm/dL Hct 31.9 L (39.0-53.0) % MCV 94.5 (80.0-100.0) fL MCH 31.4 (25.0-35.0) pg MCHC 33.3 (31.0-37.0) g/dL RDW 14.6 (11.5-15.5) % Plt Count 181 (150-450) k/uL MPV 7.5 Neutrophils % 71 % Lymphocytes % 15 % Monocytes % 9 % Eosinophils % 2 % Basophils % 0 % Neutrophils # 3.2 (1.3-7.7) k/uL Lymphocytes # 0.7 L (1.0-4.8) k/uL Monocytes # 0.4 (0-1.0) k/uL Eosinophils # 0.1 (0-0.7) k/uL Basophils # 0.0 (0-0.2) k/uL Sodium 127 L (137-145) mmol/L Potassium 4.7 (3.5-5.1) mmol/L Chloride 104 (98-107) mmol/L Carbon Dioxide 16 L (22-30) mmol/L Anion Gap 7 mmol/L BUN 21 H (9-20) mg/dL Creatinine 0.84 (0.66-1.25) mg/dL Est GFR (CKD-EPI)AfAm >90 (>60 ml/min/1.73 sqM) Est GFR (CKD-EPI)NonAf >90 (>60 ml/min/1.73 sqM) Glucose 104 H (74-99) mg/dL Plasma Lactic Acid Ranjit 2.5 H* (0.7-2.0) mmol/L Calcium 7.8 L (8.4-10.2) mg/dL Magnesium 1.8 (1.6-2.3) mg/dL Total Bilirubin 3.7 H (0.2-1.3) mg/dL AST 85 H (17-59) U/L ALT 47 (4-49) U/L Alkaline Phosphatase 295 H (38-126) U/L Ammonia 126 H (<30) umol/L NT-Pro-B Natriuret Pep pg/mL Total Protein 7.3 (6.3-8.2) g/dL Albumin 2.6 L (3.5-5.0) g/dL Lipase 278 (23-300) U/L Serum Alcohol <10 mg/dL 12/15/22 Range/Units 16:25 WBC (3.8-10.6) k/uL RBC (4.30-5.90) m/uL Hgb (13.0-17.5) gm/dL Hct (39.0-53.0) % MCV (80.0-100.0) fL MCH (25.0-35.0) pg MCHC (31.0-37.0) g/dL RDW (11.5-15.5) % Plt Count (150-450) k/uL MPV Neutrophils % % Lymphocytes % % Monocytes % % Eosinophils % % Basophils % % Neutrophils # (1.3-7.7) k/uL Lymphocytes # (1.0-4.8) k/uL Monocytes # (0-1.0) k/uL Eosinophils # (0-0.7) k/uL Basophils # (0-0.2) k/uL Sodium (137-145) mmol/L Potassium (3.5-5.1) mmol/L Chloride (98-107) mmol/L Carbon Dioxide (22-30) mmol/L Anion Gap mmol/L BUN (9-20) mg/dL Creatinine (0.66-1.25) mg/dL Est GFR (CKD-EPI)AfAm (>60 ml/min/1.73 sqM) Est GFR (CKD-EPI)NonAf (>60 ml/min/1.73 sqM) Glucose (74-99) mg/dL Plasma Lactic Acid Ranjit (0.7-2.0) mmol/L Calcium (8.4-10.2) mg/dL Magnesium (1.6-2.3) mg/dL Total Bilirubin (0.2-1.3) mg/dL AST (17-59) U/L ALT (4-49) U/L Alkaline Phosphatase (38-126) U/L Ammonia (<30) umol/L NT-Pro-B Natriuret Pep 215 pg/mL Total Protein (6.3-8.2) g/dL Albumin (3.5-5.0) g/dL Lipase (23-300) U/L Serum Alcohol mg/dL Disposition Clinical Impression: Ascites, Hyperammonemia, Cirrhosis Disposition: ADMITTED IP TO THIS [facility] Condition: Stable Is patient prescribed a controlled substance at d/c from ED?: No Referrals: Luana Amaya MD [Primary Care Provider] - 1-2 days Time of Disposition: 18:20 Decision to Admit Reason: Admit from EC Decision Date: 12/15/22 Decision Time: 18:20
[2022-12-15 17:49] LABS: Lactic Acid, Venous 2.5 mmol/L (0.7-2.0)
--- NOTE | 2022-12-15 18:13 | CT ---
EXAMINATION TYPE: CT abdomen pelvis w con DATE OF EXAM: 12/15/2022 COMPARISON: 02/14/2016 HISTORY: abdominal pain and distention CT DLP: 1011.9 mGycm Automated exposure control for dose reduction was used. CONTRAST: Performed with IV Contrast, patient injected with 100 mL of Isovue 300. Images obtained from the diaphragm to the floor the pelvis with the IV contrast. The lung bases are clear of infiltrate. No pleural effusion. There is mild subsegmental atelectasis a t the lung bases. There is no pericardial effusion. Liver is irregular and small and consistent with advanced cirrhosis. Spleen is intact. Stomach is int act. There is no pancreatic mass. The bile base are nondilated. There is massive abdominal ascites fl uid. There are multiple portosystemic varices noted in the right side of the abdomen. There are a few varices at the at the gastroesophageal junction. There is no adrenal mass. Kidneys show satisfactory contrast opacification. No hydronephrosis. The ur eters are not dilated. No retroperitoneal adenopathy. The bladder distends smoothly. No inguinal lashell ia. There is some prosthetic calcification. There is no evidence of a bowel obstruction. There appears to be visualization of air filled appendix which appears normal. The lumbar vertebra appear intact. No compression fracture. Posterior elements are intact. The bony p rupert appears intact. No fracture seen. IMPRESSION: Massive abdominal ascites. Irregular small liver consistent with advanced cirrhosis. Portal venous hy pertension. There is significant progression of disease compared to the old exam.
[2022-12-15] MEDS ORDERED: LACTULOSE 20 GM/30 ML CUP PO ONE (18:17)
[2022-12-15] MEDS ORDERED: NALOXONE 0.4 MG/ML 1 ML VIAL IV PRN (18:58)
[2022-12-15 20:39] LABS: Glucose,Whole Blood 122 mg/dL (70-110)
[2022-12-16 05:49] LABS: Glucose,Whole Blood 108 mg/dL (70-110)
[2022-12-16] MEDS: PANTOPRAZOLE 40 MG TABLET PO SCH ×2 (05:49→07:44)
[2022-12-16] MEDS: RIFAXIMIN 550 MG TABLET PO SCH ×2 (07:43→20:38)
[2022-12-16] MEDS: LACTULOSE 20 GM/30 ML CUP PO SCH ×3 (07:43→20:38)
[2022-12-16] MEDS: SPIRONOLACTONE 25 MG TAB PO SCH (07:44)
[2022-12-16] MEDS: FUROSEMIDE 20 MG TAB PO SCH (07:44)
[2022-12-16] MEDS: FOLIC ACID 1 MG TAB PO SCH (07:44)
[2022-12-16] MEDS: traMADol 50 MG TAB PO PRN ×2 (07:45→16:21)
[2022-12-16] MEDS: ONDANSETRON 4 MG/2 ML VIAL IVP PRN ×2 (07:45→16:20)
[2022-12-16 11:56] LABS: Glucose,Whole Blood 125 mg/dL (70-110)
[2022-12-16 13:50] VITALS: BMI 22.7
--- NOTE | 2022-12-16 13:50 | P.HPIM ---
History of Present Illness H&P Date: 12/16/22 History of present illness: This is a 57 year old male with medical history of alcoholic cirrhosis of the liver, history of GI bleeding with variceal bleeding and banding, Diabetes mellitus, hypertension, hyperlipidemia, GERD, anemia, former smoker who presented to the ER because of abdominal pain. Patient only recently discharged 2 days ago after being admitted for similar problems, at that time he had paracentesis done with 9.6 L taken off. Patient denies any nausea or vomiting, no complaint of hematemesis The patient denied any lightheadedness or dizziness. Patient was worked in the ER, initial lab work showed white count of 4.5, hemoglobin 10.6, sodium 127, potassium 4.7, BUN 21, creatinine 0.84. Initial lactate was elevated at 2.5, repeat was 1.6. Patient was admitted for further evaluation and treatment REVIEW OF SYSTEMS: CONSTITUTIONAL: No fever, no malaise, no fatigue. HEENT: No recent visual problems or hearing problems. Denied any sore throat. CARDIOVASCULAR: No chest pain, orthopnea, PND, no palpitations, no syncope. PULMONARY: No shortness of breath, no cough, no hemoptysis. GASTROINTESTINAL: As mentioned in HPI NEUROLOGICAL: No headaches, no weakness, no numbness. HEMATOLOGICAL: Denies any bleeding or petechiae. GENITOURINARY: Denies any burning micturition, frequency, or urgency. MUSCULOSKELETAL/RHEUMATOLOGICAL: Denies any joint pain, swelling, or any muscle pain. ENDOCRINE: Denies any polyuria or polydipsia. The rest of the 14-point review of systems is negative. PHYSICAL EXAMINATION: GENERAL: The patient is alert and oriented x3, not in any acute distress. Well developed, well nourished. HEENT: Pupils are round and equally reacting to light. EOMI. No scleral icterus. No conjunctival pallor. Normocephalic, atraumatic. No pharyngeal erythema. No thyromegaly. CARDIOVASCULAR: S1 and S2 present. No murmurs, rubs, or gallops. PULMONARY: Chest is clear to auscultation, no wheezing or crackles. ABDOMEN: Distended, no tenderness, no guarding. No palpable organomegaly. MUSCULOSKELETAL: No joint swelling or deformity. EXTREMITIES: No cyanosis, clubbing, or pedal edema. NEUROLOGICAL: Gross neurological examination did not reveal any focal deficits. SKIN: No rashes. Assessment and plan Alcoholic liver cirrhosis Altered mental status likely from hepatic encephalopathy ammonia level elevated at 149 on admission currently alert x 3. Elevated ammonia level on lactulose Chronic anemia stable Hyponatremia, hypervolemic from hepatic congestion Thrombocytopenia Diabetes Mellitus type 2 History of alcohol use disorder GERD History of GI bleeding/variceal bleeding and banding Hypertension Hyperlipidemia Former smoker Plan; Monitor vital signs Monitor CBC Monitor LFTs Trend ammonia levels. Continue lactulose Continue Lasix, Aldactone and rifaximin Resume home meds Past Medical History Past Medical History: Chest Pain / Angina, Diabetes Mellitus, GERD/Reflux, GI Bleed, Hyperlipidemia, Hypertension, Pneumonia Additional Past Medical History / Comment(s): Cirrhosis, esophageal varicies with variceal bleed, lower GI bleed with transfusions, anemia, chronic low back pain with sciatica, diet controlled diabetic History of Any Multi-Drug Resistant Organisms: None Reported Past Surgical History: Cholecystectomy, Orthopedic Surgery Additional Past Surgical History / Comment(s): EGDs-last time 03/22/19 with banding, colonoscopies with benign polyps, capsule endoscopy, L ankle fracture w ith pins/plate, EGD, Multiple Paracentesis Past Anesthesia/Blood Transfusion Reactions: No Reported Reaction, Postoperative Nausea & Vomiting (PONV) Additional Past Anesthesia/Blood Transfusion Reaction / Comment(s): Blood transfusions without reaction. Past Psychological History: No Psychological Hx Reported Additional Psychological History / Comment(s): Pt resides with his parents. He is independent. Smoking Status: Former smoker Past Alcohol Use History: None Reported Additional Past Alcohol Use History / Comment(s): Pt started smoking 1984 and quit 01/17/15. Pt was a heavy drinker , drinking until he "fell asleep" but states he now only drinks on occasion and last time he drank was-2 months ago Past Drug Use History: None Reported - Past Family History Mother Family Medical History: Diabetes Mellitus, Pneumonia Father Family Medical History: Coronary Artery Disease (CAD), Myocardial Infarction ( [place]) Additional Family Medical History / Comment(s): Father had MIs with the first [place] occuring while he was in his 60s. Medications and Allergies Home Medications Medication Instructions Recorded Confirmed Type Spironolactone [Aldactone] 100 mg PO DAILY #30 tab 09/03/22 12/15/22 Rx Pantoprazole [Protonix] 40 mg PO AC-BRKFST #30 tab 09/07/22 12/15/22 Rx Folic Acid 1 mg PO DAILY 12/06/22 12/15/22 History Famotidine [Pepcid] 20 mg PO DAILY #30 tablet 12/10/22 12/15/22 Rx Furosemide [Lasix] 60 mg PO DAILY #30 tab 12/10/22 12/15/22 Rx Lactulose [Cephulac] 30 gm PO TID 15 Days #2000 ml 12/10/22 12/15/22 Rx Rifaximin [Xifaxan] 550 mg PO BID #60 tab 12/10/22 12/15/22 Rx Allergies Allergy/AdvReac Type Severity Reaction Status Date / Time No Known Allergies Allergy Verified 12/15/22 17:36 Physical Exam Vitals: Vital Signs Temp Pulse Pulse Pulse Resp BP BP 12/16/22 10:54 98.3 F 95 18 97/63 12/16/22 07:53 98.2 F 106 H 18 114/73 12/16/22 07:43 106 H 18 12/16/22 02:00 98.4 F 109 H 17 116/73 12/15/22 20:00 98 F 104 H 17 124/85 12/15/22 15:52 97.7 F 104 H 18 125/75 Pulse Ox 12/16/22 10:54 12/16/22 07:53 99 12/16/22 07:43 12/16/22 02:00 100 12/15/22 20:00 100 12/15/22 15:52 100 Intake and Output 12/15/22 12/16/22 12/16/22 22:59 06:59 14:59 Other: Voiding Method Toilet Toilet # Voids 3 Weight 65.771 kg Results CBC & Chem 7: 12/15/22 16:25 12/15/22 16:25 Labs: Abnormal Lab Results - Last 24 Hours (Table) 12/15/22 12/15/22 12/15/22 Range/Units 16:25 16:25 16:25 RBC 3.37 L (4.30-5.90) m/uL Hgb 10.6 L (13.0-17.5) gm/dL Hct 31.9 L (39.0-53.0) % Lymphocytes # 0.7 L (1.0-4.8) k/uL Sodium 127 L (137-145) mmol/L Carbon Dioxide 16 L (22-30) mmol/L BUN 21 H (9-20) mg/dL Glucose 104 H (74-99) mg/dL POC Glucose (mg/dL) (70-110) mg/dL Plasma Lactic Acid Ranjit 2.5 H* (0.7-2.0) mmol/L Calcium 7.8 L (8.4-10.2) mg/dL Total Bilirubin 3.7 H (0.2-1.3) mg/dL AST 85 H (17-59) U/L Alkaline Phosphatase 295 H (38-126) U/L Ammonia 126 H (<30) umol/L Albumin 2.6 L (3.5-5.0) g/dL 12/15/22 12/16/22 Range/Units 20:38 11:54 RBC (4.30-5.90) m/uL Hgb (13.0-17.5) gm/dL Hct (39.0-53.0) % Lymphocytes # (1.0-4.8) k/uL Sodium (137-145) mmol/L Carbon Dioxide (22-30) mmol/L BUN (9-20) mg/dL Glucose (74-99) mg/dL POC Glucose (mg/dL) 122 H 125 H (70-110) mg/dL Plasma Lactic Acid Ranjit (0.7-2.0) mmol/L Calcium (8.4-10.2) mg/dL Total Bilirubin (0.2-1.3) mg/dL AST (17-59) U/L Alkaline Phosphatase (38-126) U/L Ammonia (<30) umol/L Albumin (3.5-5.0) g/dL Thrombosis Risk Factor Assmnt - Choose All That Apply Each Factor Represents 1 point: Age 41-60 years Thrombosis Risk Factor Assessment Total Risk Factor Score: 1 Thrombosis Risk Factor Assessment Level: Low Risk
[2022-12-16 16:55] LABS: Glucose,Whole Blood 128 mg/dL (70-110)
[2022-12-17 06:06] LABS: Glucose,Whole Blood 129 mg/dL (70-110)
[2022-12-17] MEDS: ONDANSETRON 4 MG/2 ML VIAL IVP PRN (08:13)
[2022-12-17 08:55] LABS: Basophils # (A) 0.05 X 10*3/uL (0.00-0.10); Basophils % (A) 0.9 %; Eosinophils # (A) 0.28 X 10*3/uL (0.04-0.35); Eosinophils % (A) 5.2 %; HCT 27.2 % (39.6-50.0); HGB 9.2 g/dL (13.0-17.0); Immature Grans, Automated 0.4 %; Lymphocytes # (A) 1.01 X 10*3/uL (0.90-5.00); Lymphocytes % (A) 18.7 %; MCHC 33.8 g/dL (32.0-37.0); MCV 91.6 fL (80.0-97.0); Mean Platelet Volume 9.4 fL (9.5-12.2); Monocytes % (A) 16.6 %; NRBC Per 100 WBC 0 /100 WBCS (0.0-0.0); Neutrophils # (A) 3.15 X 10*3/uL (1.80-7.70); Neutrophils % (A) 58.2 %; Platelet Count 158 X 10*3/uL (140-440); RBC 2.97 X 10*6/uL (4.40-5.60); RDW 14.3 % (11.5-14.5); WBC 5.41 X 10*3/uL (4.50-10.00)
[2022-12-17 09:03] LABS: Albumin 2.4 g/dL (3.8-4.9); Albumin/Globulin Ratio 0.6 (1.60-3.17); Anion Gap 9.7 mmol/L (10.00-18.00); BUN/Creat Ratio 18.09 Ratio (12.00-20.00); Blood Urea Nitrogen 16.7 mg/dL (9.0-27.0); Calcium 8.3 mg/dL (8.7-10.3); Carbon Dioxide 17.7 mmol/L (20.0-27.5); Non-African American GFR(CKD) 92.3 (60.0-200.0); Potassium 4.2 mmol/L (3.5-5.5); Total Bilirubin 2.2 mg/dL (0.30-1.20); Total Protein 6.3 g/dL (6.2-8.2)
[2022-12-17] MEDS: FOLIC ACID 1 MG TAB PO SCH (10:03)
[2022-12-17] MEDS: traMADol 50 MG TAB PO PRN (10:04)
[2022-12-17] MEDS: RIFAXIMIN 550 MG TABLET PO SCH ×2 (10:05→20:22)
[2022-12-17] MEDS: PANTOPRAZOLE 40 MG TABLET PO SCH (10:05)
[2022-12-17] MEDS: FUROSEMIDE 20 MG TAB PO SCH (10:05)
[2022-12-17] MEDS: SPIRONOLACTONE 25 MG TAB PO SCH (10:06)
[2022-12-17] MEDS: LACTULOSE 20 GM/30 ML CUP PO SCH ×3 (10:07→20:22)
[2022-12-17 11:44] LABS: Glucose,Whole Blood 121 mg/dL (70-110)
[2022-12-17 13:05] LABS: African American GFR (CKD) >90 (>60 ml/min/1.73 sqM); Anion Gap 7 mmol/L; Blood Urea Nitrogen 16 mg/dL (9-20); Calcium 7.9 mg/dL (8.4-10.2); Carbon Dioxide 17 mmol/L (22-30); Chloride 101 mmol/L (98-107); Glucose 142 mg/dL (74-99); Non-African American GFR(CKD) >90 (>60 ml/min/1.73 sqM); Potassium 3.8 mmol/L (3.5-5.1); Sodium 125 mmol/L (137-145)
[2022-12-17 16:40] LABS: Glucose,Whole Blood 128 mg/dL (70-110)
--- NOTE | 2022-12-17 18:38 | P.PN ---
Subjective Progress Note Date: 12/17/22 57 year old male with medical history of alcoholic cirrhosis of the liver, history of GI bleeding with variceal bleeding and banding, Diabetes mellitus, hypertension, hyperlipidemia, GERD, anemia, former smoker who presented to the ER because of abdominal pain. Patient only recently discharged 2 days ago after being admitted for similar problems, at that time he had paracentesis done with 9.6 L taken off. Patient denies any nausea or vomiting, no complaint of hematemesis The patient denied any lightheadedness or dizziness. Patient was worked in the ER, initial lab work showed white count of 4.5, hemoglobin 10.6, sodium 127, potassium 4.7, BUN 21, creatinine 0.84. Initial lactate was elevated at 2.5, repeat was 1.6. Patient was admitted for further evaluation and treatment Objective - Vital Signs Vital signs: Vital Signs Temp 97.9 F 12/17/22 08:00 Pulse 94 12/17/22 08:00 Resp 18 12/17/22 08:00 BP 106/74 12/17/22 08:00 Pulse Ox 92 L 12/17/22 02:00 FiO2 Intake & Output 12/16/22 12/17/22 12/17/22 18:59 06:59 18:59 Weight 65.771 kg Other: Voiding Method Toilet Toilet # Voids 3 4 - Exam PHYSICAL EXAMINATION: GENERAL: The patient is alert and oriented x3, not in any acute distress. Well developed, well nourished. HEENT: Pupils are round and equally reacting to light. EOMI. No scleral icterus. No conjunctival pallor. Normocephalic, atraumatic. No pharyngeal erythema. No thyromegaly. CARDIOVASCULAR: S1 and S2 present. No murmurs, rubs, or gallops. PULMONARY: Chest is clear to auscultation, no wheezing or crackles. ABDOMEN: Soft, nontender, nondistended, normoactive bowel sounds. No palpable organomegaly. MUSCULOSKELETAL: No joint swelling or deformity. EXTREMITIES: No cyanosis, clubbing, or pedal edema. NEUROLOGICAL: Gross neurological examination did not reveal any focal deficits. SKIN: No rashes. - Labs CBC & Chem 7: 12/17/22 04:00 12/17/22 12:35 Labs: Abnormal Lab Results - Last 24 Hours (Table) 12/16/22 12/16/22 12/17/22 Range/Units 11:54 16:53 04:00 RBC 2.97 L (4.40-5.60) X 10*6/uL Hgb 9.2 L (13.0-17.0) g/dL Hct 27.2 L (39.6-50.0) % MPV 9.4 L (9.5-12.2) fL Sodium (135-145) mmol/L Carbon Dioxide (20.0-27.5) mmol/L Anion Gap (10.00-18.00) mmol/L POC Glucose (mg/dL) 125 H 128 H (70-110) mg/dL Calcium (8.7-10.3) mg/dL Total Bilirubin (0.30-1.20) mg/dL AST (14-35) U/L Alkaline Phosphatase (41-126) U/L Albumin (3.8-4.9) g/dL Globulin (1.6-3.3) g/dL Albumin/Globulin Ratio (1.60-3.17) g/dL 12/17/22 12/17/22 12/17/22 Range/Units 04:00 06:05 11:43 RBC (4.40-5.60) X 10*6/uL Hgb (13.0-17.0) g/dL Hct (39.6-50.0) % MPV (9.5-12.2) fL Sodium 126 L (135-145) mmol/L Carbon Dioxide 17.7 L (20.0-27.5) mmol/L Anion Gap 9.70 L (10.00-18.00) mmol/L POC Glucose (mg/dL) 129 H 121 H (70-110) mg/dL Calcium 8.3 L (8.7-10.3) mg/dL Total Bilirubin 2.20 H (0.30-1.20) mg/dL AST 69 H (14-35) U/L Alkaline Phosphatase 243 H (41-126) U/L Albumin 2.4 L (3.8-4.9) g/dL Globulin 4.0 H (1.6-3.3) g/dL Albumin/Globulin Ratio 0.60 L (1.60-3.17) g/dL Assessment and Plan Assessment: 57 year old male with medical history of alcoholic cirrhosis of the liver, history of GI bleeding with variceal bleeding and banding, Diabetes mellitus, hypertension, hyperlipidemia, GERD, anemia, former smoker who presented to the ER because of abdominal pain. Patient only recently discharged 2 days ago after being admitted for similar problems, at that time he had paracentesis done with 9.6 L taken off. Patient denies any nausea or vomiting, no complaint of hematemesis The patient denied any lightheadedness or dizziness. Patient was worked in the ER, initial lab work showed white count of 4.5, hemoglobin 10.6, sodium 127, potassium 4.7, BUN 21, creatinine 0.84. Initial lactate was elevated at 2.5, repeat was 1.6. Patient was admitted for further evaluation and treatment Assessment and plan Alcoholic liver cirrhosis Altered mental status likely from hepatic encephalopathy ammonia level elevated at 149 on admission currently alert x 3. Elevated ammonia level on lactulose Chronic anemia stable Hyponatremia, hypervolemic from hepatic congestion Thrombocytopenia Diabetes Mellitus type 2 History of alcohol use disorder GERD History of GI bleeding/variceal bleeding and banding Hypertension Hyperlipidemia Former smoker Plan; Monitor vital signs Monitor CBC Monitor LFTs Trend ammonia levels. Continue lactulose Continue Lasix, Aldactone and rifaximin Resume home meds
[2022-12-17 20:40] LABS: Glucose,Whole Blood 199 mg/dL (70-110)
[2022-12-18] MEDS: PANTOPRAZOLE 40 MG TABLET PO SCH (05:03)
[2022-12-18 05:54] LABS: Glucose,Whole Blood 94 mg/dL (70-110)
[2022-12-18] MEDS: LACTULOSE 20 GM/30 ML CUP PO SCH ×3 (08:42→20:51)
[2022-12-18] MEDS: SPIRONOLACTONE 25 MG TAB PO SCH (08:42)
[2022-12-18] MEDS: RIFAXIMIN 550 MG TABLET PO SCH ×2 (08:42→20:51)
[2022-12-18] MEDS: FUROSEMIDE 20 MG TAB PO SCH (08:42)
[2022-12-18] MEDS: FOLIC ACID 1 MG TAB PO SCH (08:42)
[2022-12-18 09:32] LABS: African American GFR (CKD) 110.3 (60.0-200.0); Anion Gap 6.9 mmol/L (10.00-18.00); BUN/Creat Ratio 16.33 Ratio (12.00-20.00); Blood Urea Nitrogen 14.7 mg/dL (9.0-27.0); Calcium 8.2 mg/dL (8.7-10.3); Carbon Dioxide 19.1 mmol/L (20.0-27.5); Non-African American GFR(CKD) 95.1 (60.0-200.0); Potassium 4.2 mmol/L (3.5-5.5)
[2022-12-18 09:42] LABS: HCT 27.2 % (39.6-50.0); HGB 9.2 g/dL (13.0-17.0); MCH 31.4 pg (27.0-32.0); MCHC 33.8 g/dL (32.0-37.0); MCV 92.8 fL (80.0-97.0); Mean Platelet Volume 9.2 fL (9.5-12.2); NRBC Per 100 WBC 0 /100 WBCS (0.0-0.0); Platelet Count 149 X 10*3/uL (140-440); RBC 2.93 X 10*6/uL (4.40-5.60); RDW 14.1 % (11.5-14.5); WBC 4.53 X 10*3/uL (4.50-10.00)
--- NOTE | 2022-12-18 10:49 | P.NPCON ---
History of Present Illness - Reason for Consult acute renal failure, hyponatremia - History of Present Illness Patient is a 57-year-old male with history of alcoholic liver cirrhosis, GI bleed from esophageal varices and previous history of banding. Patient also has underlying history of diabetes, hypertension. He is admitted to the hospital with complaints of nausea, abdominal discomfort. He was recently discharged from the hospital on 12/10/2022 and is readmitted 5 days later. Sodium had been around 129-1 27 mg/L last admission. On this admission it has been progressively decreasing from 127-125 today. Patient states he has been voiding. He reports decreased oral intake No significant nausea or vomiting currently No diarrhea Systolic blood pressure around 98-10 8 mmHg Currently awaiting paracentesis Review of Systems As per HPI other systems negative Past Medical History Past Medical History: Chest Pain / Angina, Diabetes Mellitus, GERD/Reflux, GI Bleed, Hyperlipidemia, Hypertension, Pneumonia Additional Past Medical History / Comment(s): Cirrhosis, esophageal varicies with variceal bleed, lower GI bleed with transfusions, anemia, chronic low back pain with sciatica, diet controlled diabetic History of Any Multi-Drug Resistant Organisms: None Reported Past Surgical History: Cholecystectomy, Orthopedic Surgery Additional Past Surgical History / Comment(s): EGDs-last time 03/22/19 with banding, colonoscopies with benign polyps, capsule endoscopy, L ankle fracture with pins/plate, EGD, Multiple Paracentesis Past Anesthesia/Blood Transfusion Reactions: No Reported Reaction, Postoperative Nausea & Vomiting (PONV) Additional Past Anesthesia/Blood Transfusion Reaction / Comment(s): Blood transfusions without reaction. Past Psychological History: No Psychological Hx Reported Additional Psychological History / Comment(s): Pt resides with his parents. He is independent. Smoking Status: Former smoker Past Alcohol Use History: None Reported Additional Past Alcohol Use History / Comment(s): Pt started smoking 1984 and quit 01/17/15. Pt was a heavy drinker , drinking until he "fell asleep" but states he now only drinks on occasion and last time he drank was-2 months ago Past Drug Use History: None Reported - Past Family History Mother Family Medical History: Diabetes Mellitus, Pneumonia Father Family Medical History: Coronary Artery Disease (CAD), Myocardial Infarction ([place]) Additional Family Medical History / Comment(s): Father had MIs with the first CT occuring while he was in his 60s. Medications and Allergies Home Medications Medication Instructions Recorded Confirmed Type Spironolactone [Aldactone] 100 mg PO DAILY #30 tab 09/03/22 12/15/22 Rx Pantoprazole [Protonix] 40 mg PO AC-BRKFST #30 tab 09/07/22 12/15/22 Rx Folic Acid 1 mg PO DAILY 12/06/22 12/15/22 History Famotidine [Pepcid] 20 mg PO DAILY #30 tablet 12/10/22 12/15/22 Rx Furosemide [Lasix] 60 mg PO DAILY #30 tab 12/10/22 12/15/22 Rx Lactulose [Cephulac] 30 gm PO TID 15 Days #2000 ml 12/10/22 12/15/22 Rx Rifaximin [Xifaxan] 550 mg PO BID #60 tab 12/10/22 12/15/22 Rx Allergies Allergy/AdvReac Type Severity Reaction Status Date / Time No Known Allergies Allergy Verified 12/15/22 17:36 Physical Exam Vitals: Vital Signs Temp Pulse Resp BP Pulse Ox 12/18/22 08:00 99 17 12/18/22 07:00 97.7 F 99 17 108/70 99 12/18/22 01:39 98.0 F 97 14 109/72 96 12/17/22 19:27 98.1 F 103 H 15 119/82 100 12/17/22 14:25 98.6 F 99 16 106/70 100 Intake and Output 12/17/22 12/18/22 12/18/22 22:59 06:59 14:59 Intake Total 240 Output Total 0 Balance 0 240 Intake: Oral 240 Output: Urine 0 Other: Voiding Method Toilet # Voids 5 # Bowel Movements 1 Patient is awake, comfortable, no acute distress Examination of the heart S1 and S2 Examination lungs decreased breath sounds at the bases Abdomen is soft with ascites nontender Examination lower extremity shows no significant edema JAVA TECHNICAL ARCHITECT exam grossly intact Results - Lab Results Most recent lab results Calcium 8.2 mg/dL (8.7-10.3) L 12/18/22 05:51 Magnesium 1.8 mg/dL (1.6-2.3) 12/15/22 16:25 12/18/22 05:51 12/18/22 05:51 Assessment and Plan Assessment: 1. Hyponatremia, appears to be hypovolemic. Urine sodium is low with elevated urine osmolality suggesting prerenal state. This can also be associated with underlying chronic liver disease and liver cirrhosis. I will challenge with normal saline. 2. Chronic liver disease EtOH related with recurrent ascites and esophageal varices is 3. History of GI bleeds associated with esophageal varices status post banding 4. Hepatic encephalopathy, maintained on lactulose with improvement in ammonia levels and mentation 5. Chronic anemia rule out iron deficiency Plan: Start normal saline Repeat sodium this afternoon Admitted to drain as blood pressure remains low Repeat labs in a.m. Thank you for the consultation. We will continue to follow the patient with you during his hospitalization.
[2022-12-18 11:40] LABS: Glucose,Whole Blood 213 mg/dL (70-110)
[2022-12-18] MEDS: SODIUM CHLORIDE 0.9% 1,000 ML IV SCH ×2 (16:17→20:52)
[2022-12-18 17:14] LABS: Glucose,Whole Blood 111 mg/dL (70-110)
--- NOTE | 2022-12-18 18:47 | P.PN ---
Subjective Progress Note Date: 12/18/22 57 year old male with medical history of alcoholic cirrhosis of the liver, history of GI bleeding with variceal bleeding and banding, Diabetes mellitus, hypertension, hyperlipidemia, GERD, anemia, former smoker who presented to the ER because of abdominal pain. Patient only recently discharged 2 days ago after being admitted for similar problems, at that time he had paracentesis done with 9.6 L taken off. Patient denies any nausea or vomiting, no complaint of hematemesis The patient denied any lightheadedness or dizziness. Patient was worked in the ER, initial lab work showed white count of 4.5, hemoglobin 10.6, sodium 127, potassium 4.7, BUN 21, creatinine 0.84. Initial lactate was elevated at 2.5, repeat was 1.6. Patient was admitted for further evaluation and treatment 24 hour interval change 12/18/2022 Patient is seen and evaluated testing comfortably in bed; abdominal distention; inquiring about possible thoracentesis Vital signs are reviewed and remained stable Sodium had been around 129-1 27 mg/L last admission. On this admission it has been progressively decreasing from 127-125 today. Nephrology has been consulted for hyponatremia and is recommending to start normal saline and monitor electrolytes closely Patient admitted with hepatic encephalopathy which has resolved Objective - Vital Signs Vital signs: Vital Signs Temp 97.7 F 12/18/22 07:00 Pulse 99 12/18/22 08:00 Resp 17 12/18/22 08:00 BP 108/70 12/18/22 07:00 Pulse Ox 99 12/18/22 07:00 FiO2 Intake & Output 12/17/22 12/18/22 12/18/22 18:59 06:59 18:59 Intake Total 240 Output Total 0 Balance 0 240 Intake: Oral 240 Output: Urine 0 Other: Voiding Method Toilet Toilet # Voids 5 # Bowel Movements 1 - Exam PHYSICAL EXAMINATION: GENERAL: The patient is alert and oriented x3, not in any acute distress. Well developed, well nourished. HEENT: Pupils are round and equally reacting to light. EOMI. No scleral icterus. No conjunctival pallor. Normocephalic, atraumatic. No pharyngeal erythema. No thyromegaly. CARDIOVASCULAR: S1 and S2 present. No murmurs, rubs, or gallops. PULMONARY: Chest is clear to auscultation, no wheezing or crackles. ABDOMEN: Soft, nontender, nondistended, normoactive bowel sounds. No palpable organomegaly. MUSCULOSKELETAL: No joint swelling or deformity. EXTREMITIES: No cyanosis, clubbing, or pedal edema. NEUROLOGICAL: Gross neurological examination did not reveal any focal deficits. SKIN: No rashes. - Labs CBC & Chem 7: 12/18/22 05:51 12/18/22 14:06 Labs: Abnormal Lab Results - Last 24 Hours (Table) 12/17/22 12/17/22 12/17/22 Range/Units 16:37 19:28 20:39 RBC (4.40-5.60) X 10*6/uL Hgb (13.0-17.0) g/dL Hct (39.6-50.0) % MPV (9.5-12.2) fL Sodium (135-145) mmol/L Carbon Dioxide (20.0-27.5) mmol/L Anion Gap (10.00-18.00) mmol/L POC Glucose (mg/dL) 128 H 199 H (70-110) mg/dL Calcium (8.7-10.3) mg/dL Ur Random Sodium <20 L (40-220) mmol/L 12/18/22 12/18/22 12/18/22 Range/Units 05:51 05:51 11:38 RBC 2.93 L (4.40-5.60) X 10*6/uL Hgb 9.2 L (13.0-17.0) g/dL Hct 27.2 L (39.6-50.0) % MPV 9.2 L (9.5-12.2) fL Sodium 125 L (135-145) mmol/L Carbon Dioxide 19.1 L (20.0-27.5) mmol/L Anion Gap 6.90 L (10.00-18.00) mmol/L POC Glucose (mg/dL) 213 H (70-110) mg/dL Calcium 8.2 L (8.7-10.3) mg/dL Ur Random Sodium (40-220) mmol/L Assessment and Plan Assessment: 57 year old male with medical history of alcoholic cirrhosis of the liver, history of GI bleeding with variceal bleeding and banding, Diabetes mellitus, hy pertension, hyperlipidemia, GERD, anemia, former smoker who presented to the ER because of abdominal pain. Patient only recently discharged 2 days ago after being admitted for similar problems, at that time he had paracentesis done with 9.6 L taken off. Patient denies any nausea or vomiting, no complaint of hematemesis The patient denied any lightheadedness or dizziness. Patient was worked in the ER, initial lab work showed white count of 4.5, hemoglobin 10.6, sodium 127, potassium 4.7, BUN 21, creatinine 0.84. Initial lactate was elevated at 2.5, repeat was 1.6. Patient was admitted for further evaluation and treatment Assessment and plan Alcoholic liver cirrhosis Altered mental status likely from hepatic encephalopathy ammonia level elevated at 149 on admission currently alert x 3. Elevated ammonia level on lactulose Chronic anemia stable Hyponatremia, hypervolemic from hepatic congestion Thrombocytopenia Diabetes Mellitus type 2 History of alcohol use disorder GERD History of GI bleeding/variceal bleeding and banding Hypertension Hyperlipidemia Former smoker Plan; Monitor vital signs Monitor CBC Monitor LFTs Trend ammonia levels. Continue lactulose Continue Lasix, Aldactone and rifaximin Resume home meds
[2022-12-18 20:10] LABS: Glucose,Whole Blood 116 mg/dL (70-110)
[2022-12-19] MEDS: PANTOPRAZOLE 40 MG TABLET PO SCH (05:27)
[2022-12-19 06:08] LABS: Glucose,Whole Blood 104 mg/dL (70-110)
[2022-12-19] MEDS: FOLIC ACID 1 MG TAB PO SCH (08:54)
[2022-12-19] MEDS: SPIRONOLACTONE 25 MG TAB PO SCH (08:54)
[2022-12-19] MEDS: RIFAXIMIN 550 MG TABLET PO SCH ×2 (08:54→21:04)
[2022-12-19] MEDS: LACTULOSE 20 GM/30 ML CUP PO SCH ×3 (08:55→21:04)
[2022-12-19 10:22] LABS: African American GFR (CKD) 110.3 (60.0-200.0); BUN/Creat Ratio 15.78 Ratio (12.00-20.00); Blood Urea Nitrogen 14.2 mg/dL (9.0-27.0); Calcium 8.4 mg/dL (8.7-10.3); Non-African American GFR(CKD) 95.1 (60.0-200.0); Potassium 4.4 mmol/L (3.5-5.5)
[2022-12-19] MEDS ORDERED: SODIUM CHLORIDE TAB 1 GM TAB PO STA (10:32)
--- NOTE | 2022-12-19 10:32 | P.PN ---
Subjective Patient is seen for follow-up for hyponatremia. He has underlying history of chronic liver disease. He has been hypotensive. Serum sodium had been around 126-1 25 mg/L. Urine sodium was less than 20 and urine osmolality was 459. Patient was started on saline yesterday and this morning sodium has dropped to 123. Patient is complaining of weakness. No significant nausea or vomiting. No diarrhea noted. Blood pressure remains on the lower side. Objective - Vital Signs Vital signs: Vital Signs Temp 97.7 F 12/19/22 07:36 Pulse 106 H 12/19/22 08:50 Resp 18 12/19/22 08:00 BP 114/72 12/19/22 07:36 Pulse Ox 99 12/19/22 07:36 FiO2 Intake & Output 12/18/22 12/19/22 12/19/22 18:59 06:59 18:59 Intake Total 1483 Balance 1483 Intake: Intake, IV Titration 600 Amount Sodium Chloride 0.9% 1, 600 000 ml @ 75 mls/hr IV . [id number] [facility] Rx#:[id number] Oral 883 Other: Voiding Method Toilet Toilet # Voids 2 - Exam Awake, comfortable, no acute distress Examination of the heart S1 and S2 Examination of the lungs decreased breath sounds at the bases Abdomen is soft nontender, situs Examination of the lower extremities shows no significant edema POWER CRANE OPERATOR exam grossly intact - Labs CBC & Chem 7: 12/18/22 05:51 12/19/22 06:11 Labs: Abnormal Lab Results - Last 24 Hours (Table) 12/18/22 12/18/22 12/18/22 Range/Units 11:38 14:06 17:13 Sodium 126 L (137-145) mmol/L Carbon Dioxide (20.0-27.5) mmol/L Anion Gap (10.00-18.00) mmol/L POC Glucose (mg/dL) 213 H 111 H (70-110) mg/dL Calcium (8.7-10.3) mg/dL 12/18/22 12/19/22 Range/Units 20:08 06:11 Sodium 123 L (137-145) mmol/L Carbon Dioxide 15.0 L (20.0-27.5) mmol/L Anion Gap 8.00 L (10.00-18.00) mmol/L POC Glucose (mg/dL) 116 H (70-110) mg/dL Calcium 8.4 L (8.7-10.3) mg/dL Assessment and Plan Assessment: 1. Hyponatremia, secondary to chronic liver disease. Urine sodium less than 20 and urine osmolality at 459 Sodium has worsened with saline administration. Saline will be discontinued. I will give 1 dose of Samsca. A dose of sodium chloride Will be administered as well. Need to avoid high salt intake given his underlying chronic liver disease and worsening ascites and lower extremity edema with increased sodium intake. 2. Chronic liver disease EtOH related with recurrent ascites and esophageal varices is 3. History of GI bleeds associated with esophageal varices status post banding 4. Hepatic encephalopathy, maintained on lactulose with improvement in ammonia levels and mentation 5. Chronic anemia rule out iron deficiency Plan: DC normal saline Sodium chloride Tabs 1 Samsca by mouth 1 Repeat sodium this evening
[2022-12-19 11:43] LABS: Glucose,Whole Blood 103 mg/dL (70-110)
[2022-12-19] MEDS ORDERED: TOLVAPTAN 15 MG 1/2 TABLET PO ONE (11:44)
[2022-12-19 16:35] LABS: Glucose,Whole Blood 144 mg/dL (70-110)
--- NOTE | 2022-12-19 17:18 | P.PN ---
Subjective Progress Note Date: 12/19/22 Principal diagnosis: Worsening hyponatremia/hypervolemic hyponatremia from hepatic congestion Alcoholic liver cirrhosis Altered mental status/hepatic encephalopathy 57 year old male with medical history of alcoholic cirrhosis of the liver, history of GI bleeding with variceal bleeding and banding, Diabetes mellitus, hypertension, hyperlipidemia, GERD, anemia, former smoker who presented to the ER because of abdominal pain. Patient only recently discharged 2 days ago after being admitted for similar problems, at that time he had paracentesis done with 9.6 L taken off. Patient denies any nausea or vomiting, no complaint of hematemesis The patient denied any lightheadedness or dizziness. Patient was worked in the ER, initial lab work showed white count of 4.5, hemoglobin 10.6, sodium 127, potassium 4.7, BUN 21, creatinine 0.84. Initial lactate was elevated at 2.5, repeat was 1.6. Patient was admitted for further evaluation and treatment 24 hour interval change 12/19/2022 Patient is seen and evaluated testing comfortably in bed; abdominal distention; inquiring about possible paracentesis Patient is seen for follow-up for hyponatremia. He has underlying history of chronic liver disease. He has been hypotensive. Serum sodium had been around 126-1 25 mg/L. Urine sodium was less than 20 and urine osmolality was 459. Patient was started on saline yesterday and this morning sodium has dropped to 123. -- Nephrology recommending to discontinue normal saline; patient has been given sodium chloride tablets; Samsca by mouth 1; continue to monitor lites closely Objective - Vital Signs Vital signs: Vital Signs Temp 97.7 F 12/19/22 07:36 Pulse 106 H 12/19/22 08:50 Resp 18 12/19/22 08:00 BP 114/72 12/19/22 07:36 Pulse Ox 99 12/19/22 07:36 FiO2 Intake & Output 12/18/22 12/19/22 12/19/22 18:59 06:59 18:59 Intake Total 1483 Balance 1483 Intake: Intake, IV Titration 600 Amount Sodium Chloride 0.9% 1, 600 000 ml @ 75 mls/hr IV . [id number] [facility] Rx#:[id number] Oral 883 Other: Voiding Method Toilet Toilet # Voids 2 - Exam PHYSICAL EXAMINATION: GENERAL: The patient is alert and oriented x3, not in any acute distress. Well developed, well nourished. HEENT: Pupils are round and equally reacting to light. EOMI. No scleral icterus. No conjunctival pallor. Normocephalic, atraumatic. No pharyngeal erythema. No thyromegaly. CARDIOVASCULAR: S1 and S2 present. No murmurs, rubs, or gallops. PULMONARY: Chest is clear to auscultation, no wheezing or crackles. ABDOMEN: Soft, nontender, nondistended, normoactive bowel sounds. No palpable organomegaly. MUSCULOSKELETAL: No joint swelling or deformity. EXTREMITIES: No cyanosis, clubbing, or pedal edema. NEUROLOGICAL: Gross neurological examination did not reveal any focal deficits. SKIN: No rashes. - Labs CBC & Chem 7: 12/18/22 05:51 12/19/22 06:11 Labs: Abnormal Lab Results - Last 24 Hours (Table) 12/18/22 12/18/22 12/18/22 Range/Units 14:06 17:13 20:08 Sodium 126 L (137-145) mmol/L Carbon Dioxide (20.0-27.5) mmol/L Anion Gap (10.00-18.00) mmol/L POC Glucose (mg/dL) 111 H 116 H (70-110) mg/dL Calcium (8.7-10.3) mg/dL 12/19/22 Range/Units 06:11 Sodium 123 L (137-145) mmol/L Carbon Dioxide 15.0 L (20.0-27.5) mmol/L Anion Gap 8.00 L (10.00-18.00) mmol/L POC Glucose (mg/dL) (70-110) mg/dL Calcium 8.4 L (8.7-10.3) mg/dL Assessment and Plan Assessment: 57 year old male with medical history of alcoholic cirrhosis of the liver, history of GI bleeding with variceal bleeding and banding, Diabetes mellitus, hypertension, hyperlipidemia, GERD, anemia, former smoker who presented to the ER because of abdominal pain. Patient only recently discharged 2 days ago after being admitted for similar problems, at that time he had paracentesis done with 9.6 L taken off. Patient denies any nausea or vomiting, no complaint of hematemesis The patient denied any lightheadedness or dizziness. Patient was worked in the ER, initial lab work showed white count of 4.5, hemoglobin 10.6, sodium 127, potassium 4.7, BUN 21, creatinine 0.84. Initial lactate was elevated at 2.5, repeat was 1.6. Patient was admitted for further evaluation and treatment Assessment and plan Alcoholic liver cirrhosis Altered mental status likely from hepatic encephalopathy ammonia level elevated at 149 on admission currently alert x 3. Elevated ammonia level on lactulose Chronic anemia stable Hyponatremia, hypervolemic from hepatic congestion Thrombocytopenia Diabetes Mellitus type 2 History of alcohol use disorder GERD History of GI bleeding/variceal bleeding and banding Hypertension Hyperlipidemia Former smoker Plan; Monitor vital signs Monitor CBC Monitor LFTs Trend ammonia levels. Continue lactulose Continue Lasix, Aldactone and rifaximin Resume home meds
[2022-12-19 20:57] LABS: Glucose,Whole Blood 144 mg/dL (70-110)
[2022-12-20] MEDS: PANTOPRAZOLE 40 MG TABLET PO SCH (05:16)
[2022-12-20 06:33] LABS: Glucose,Whole Blood 121 mg/dL (70-110)
[2022-12-20] MEDS: FOLIC ACID 1 MG TAB PO SCH (09:08)
[2022-12-20] MEDS: SPIRONOLACTONE 25 MG TAB PO SCH (09:08)
[2022-12-20] MEDS: RIFAXIMIN 550 MG TABLET PO SCH ×2 (09:08→22:00)
[2022-12-20] MEDS: LACTULOSE 20 GM/30 ML CUP PO SCH ×3 (09:08→22:00)
--- NOTE | 2022-12-20 09:34 | P.PN ---
Subjective Patient is seen in follow-up for hyponatremia. Patient has history of liver cirrhosis. Her to maintain on Aldactone. Paracentesis pending. Has been voiding. GFR at baseline. Vital signs are stable. General: No acute distress. HEENT: Head exam is unremarkable. LUNGS: Breath sounds decreased. HEART: Rate and Rhythm are regular. ABDOMEN: Distention present. EXTREMITITES: Trace edema. Objective - Vital Signs Vital signs: Vital Signs Temp 98.2 F 12/20/22 07:49 Pulse 96 12/20/22 08:00 Resp 18 12/20/22 08:00 BP 104/75 12/20/22 07:49 Pulse Ox 99 12/20/22 03:15 FiO2 Intake & Output 12/19/22 12/20/22 12/20/22 18:59 06:59 18:59 Output Total 900 600 Balance -900 -600 Output: Urine 900 600 Other: Voiding Method Toilet Toilet # Voids 2 2 - Labs CBC & Chem 7: 12/18/22 05:51 12/19/22 22:11 Labs: Abnormal Lab Results - Last 24 Hours (Table) 12/19/22 12/19/22 12/19/22 Range/Units 06:11 16:34 20:56 Sodium 123 L (135-145) mmol/L Carbon Dioxide 15.0 L (20.0-27.5) mmol/L Anion Gap 8.00 L (10.00-18.00) mmol/L POC Glucose (mg/dL) 144 H 144 H (70-110) mg/dL Calcium 8.4 L (8.7-10.3) mg/dL 12/19/22 12/20/22 Range/Units 22:11 06:31 Sodium 125 L (135-145) mmol/L Carbon Dioxide (20.0-27.5) mmol/L Anion Gap (10.00-18.00) mmol/L POC Glucose (mg/dL) 121 H (70-110) mg/dL Calcium (8.7-10.3) mg/dL Assessment and Plan Plan: Assessment: 1. Hyponatremia, hypervolemic. Urine sodium less than 20 and urine osmolality 459. Urine studies consistent with hepatorenal. TSH and cortisol level normal. 2. Metabolic acidosis secondary to compensation for underlying respiratory alkalosis from liver cirrhosis. 3. Ascites. 4. Chronic liver disease related to alcohol abuse. 5. History of GI bleed due to esophageal varices status post banding. Plan: Maintain spironolactone. Add Lasix 20 mg once daily. 1200 mL fluid restriction. Status postoperative this admission. Check iron studies. Morning labs pending. Paracentesis pending. 25 g IV albumin before procedure and an additional 25 g if more than 5 L drained.
[2022-12-20 11:04] LABS: African American GFR (CKD) 110.3 (60.0-200.0); Anion Gap 6.2 mmol/L (10.00-18.00); BUN/Creat Ratio 16.56 Ratio (12.00-20.00); Blood Urea Nitrogen 14.9 mg/dL (9.0-27.0); Calcium 8.7 mg/dL (8.7-10.3); Carbon Dioxide 17.8 mmol/L (20.0-27.5); Non-African American GFR(CKD) 95.1 (60.0-200.0); Potassium 4.2 mmol/L (3.5-5.5)
[2022-12-20] MEDS: ALBUMIN HUMAN 25% 50 ML in EMPTY BAG 1 BAG IVPB SCH ×4 (11:10→18:58)
[2022-12-20] MEDS: FUROSEMIDE 20 MG TAB PO SCH (11:18)
[2022-12-20 11:26] LABS: Glucose,Whole Blood 123 mg/dL (70-110)
--- NOTE | 2022-12-20 12:17 | P.PN ---
Subjective 57 year old male with medical history of alcoholic cirrhosis of the liver, history of GI bleeding with variceal bleeding and banding, Diabetes mellitus, hypertension, hyperlipidemia, GERD, anemia, former smoker who presented to the ER because of abdominal pain. Patient only recently discharged 2 days ago after being admitted for similar problems, at that time he had paracentesis done with 9.6 L taken off. Patient denies any nausea or vomiting, no complaint of hematemesis The patient denied any lightheadedness or dizziness. Patient was worked in the ER, initial lab work showed white count of 4.5, hemoglobin 10.6, sodium 127, potassium 4.7, BUN 21, creatinine 0.84. Initial lactate was elevated at 2.5, repeat was 1.6. Patient was admitted for further evaluation and treatment 24 hour interval change 12/19/2022 Patient is seen and evaluated testing comfortably in bed; abdominal distention; inquiring about possible paracentesis Patient is seen for follow-up for hyponatremia. He has underlying history of ch ronic liver disease. He has been hypotensive. Serum sodium had been around 126-1 25 mg/L. Urine sodium was less than 20 and urine osmolality was 459. Patient was started on saline yesterday and this morning sodium has dropped to 123. -- Nephrology recommending to discontinue normal saline; patient has been given sodium chloride tablets; Samsca by mouth 1; continue to monitor lites closely 12/20/2022 This is a pleasant 57 years old male with history of alcoholic liver cirrhosis presents with chief complaint of abdominal distention and discomfort secondary to ascites. CT of the abdomen showing advance liver cirrhosis with massive ascites Patient is fully awake and oriented, not encephalopathic and is having 4-5 bowel movements each day. No other complaints. No GI bleed or black stool. Sodium improved today to 125 Plan for paracentesis with albumin infusion before and possible after the procedure. Check labs in the morning. Possible discharge in 2047 hrs. if he keeps improving Objective - Vital Signs Vital signs: Vital Signs Temp 98.2 F 12/20/22 07:49 Pulse 96 12/20/22 08:00 Resp 18 12/20/22 08:00 BP 104/75 12/20/22 07:49 Pulse Ox 99 12/20/22 03:15 FiO2 Intake & Output 12/19/22 12/20/22 12/20/22 18:59 06:59 18:59 Output Total 900 600 Balance -900 -600 Output: Urine 900 600 Other: Voiding Method Toilet Toilet # Voids 2 2 - Exam GENERAL: The patient is alert and oriented x3, not in any acute distress. Well developed, well nourished. HEENT: Pupils are round and equally reacting to light. EOMI. No scleral icterus. No conjunctival pallor. Normocephalic, atraumatic. No pharyngeal erythema. No thyromegaly. CARDIOVASCULAR: S1 and S2 present. No murmurs, rubs, or gallops. PULMONARY: Chest is clear to auscultation, no wheezing or crackles. -ABDOMEN: Soft, nontender, distended, normoactive bowel sounds. No palpable organomegaly. MUSCULOSKELETAL: No joint swelling or deformity. EXTREMITIES: No cyanosis, clubbing, or pedal edema. NEUROLOGICAL: Gross neurological examination did not reveal any focal deficits. SKIN: No rashes. no petechiae. - Labs CBC & Chem 7: 12/18/22 05:51 12/20/22 07:24 Labs: Abnormal Lab Results - Last 24 Hours (Table) 12/19/22 12/19/22 12/19/22 Range/Units 16:34 20:56 22:11 Sodium 125 L (137-145) mmol/L Carbon Dioxide (20.0-27.5) mmol/L Anion Gap (10.00-18.00) mmol/L Glucose (70-110) mg/dL POC Glucose (mg/dL) 144 H 144 H (70-110) mg/dL 12/20/22 12/20/22 12/20/22 Range/Units 06:31 07:24 11:19 Sodium 125 L (137-145) mmol/L Carbon Dioxide 17.8 L (20.0-27.5) mmol/L Anion Gap 6.20 L (10.00-18.00) mmol/L Glucose 113 H (70-110) mg/dL POC Glucose (mg/dL) 121 H 123 H (70-110) mg/dL Assessment and Plan Assessment: Decompensated liver cirrhosis Hypervolemic hyponatremia Thrombocytopenia Diabetes Mellitus type 2 History of alcohol use disorder GERD History of GI bleeding/variceal bleeding and banding Hypertension Hyperlipidemia Former smoker Plan: Paracentesis today Monitor sodium Continue with oral Lasix 20 mg 100 by gluing machine adjuster Labs and medication were reviewed.. Continue same treatment. Continue with symptomatic treatment. Resume home medication. Monitor labs and vitals. DVT and GI prophylaxis. Further recommendations as per clinical course of the patient DVT prophylaxis: Subcutaneous heparin GI Prophylaxis: Ppi Prognosis is guarded
--- NOTE | 2022-12-20 15:41 | US ---
EXAMINATION TYPE: US paracentesis abd w/image DATE OF EXAM: 12/20/2022 CLINICAL HISTORY: Ascites The procedure was discussed with the patient. The risks, complications, benefits, and alternatives we re discussed and any questions were answered. Informed consent was obtained. The patient was placed s upine on the ultrasound table and prepped and draped in the usual sterile fashion. All elements of maximal barrier technique were utilized. Ultrasound was used to hellen an appropriate s ite in the right lower quadrant. Access to the ascites was obtained with the paracentesis catheter. Approximately 7.8 liters of straw-colored fluid was removed. The patient was stable throughout the pr ocedure and remained stable upon discharge from Department of Radiology. IMPRESSION: Successful therapeutic paracentesis under ultrasound guidance.
[2022-12-20 16:28] LABS: Glucose,Whole Blood 124 mg/dL (70-110)
[2022-12-20 17:22] LABS: % Iron Saturation 53.43 (15.00-50.00)
[2022-12-20 20:37] LABS: Glucose,Whole Blood 217 mg/dL (70-110)
[2022-12-20] MEDS: HEPARIN SODIUM,PORCINE/PF 5,000 UNIT/0.5 ML SYRINGE SQ SCH (22:00)
[2022-12-21 02:36] VITALS: TEMP 98
[2022-12-21 06:00] LABS: Glucose,Whole Blood 123 mg/dL (70-110)
[2022-12-21] MEDS: PANTOPRAZOLE 40 MG TABLET PO SCH (06:29)
[2022-12-21 07:36] VITALS: BP 101/64; PULSE 96; RESP 16
[2022-12-21 10:30] LABS: Magnesium 1.7 mg/dL (1.5-2.4)
[2022-12-21] MEDS: FUROSEMIDE 20 MG TAB PO SCH (10:34)
[2022-12-21] MEDS: RIFAXIMIN 550 MG TABLET PO SCH (10:34)
[2022-12-21] MEDS: FOLIC ACID 1 MG TAB PO SCH (10:34)
[2022-12-21] MEDS: LACTULOSE 20 GM/30 ML CUP PO SCH (10:35)
[2022-12-21] MEDS: SPIRONOLACTONE 25 MG TAB PO SCH (10:35)
[2022-12-21] MEDS: HEPARIN SODIUM,PORCINE/PF 5,000 UNIT/0.5 ML SYRINGE SQ SCH (10:35)
--- NOTE | 2022-12-21 10:40 | P.PN ---
Subjective Patient is seen in follow-up for hyponatremia. Patient has history of liver cirrhosis. Her to maintain on Aldactone. Lasix was also added yesterday. Underwent paracentesis yesterday with 7.8 L drained. Received total 50 g of albumin. Has been voiding. GFR at baseline. Vital signs are stable. General: No acute distress. HEENT: Head exam is unremarkable. LUNGS: Breath sounds decreased. HEART: Rate and Rhythm are regular. ABDOMEN: Mild distention present. EXTREMITITES: Trace edema. Objective - Vital Signs Vital signs: Vital Signs Temp 98.0 F 12/21/22 07:35 Pulse 96 12/21/22 07:35 Resp 16 12/21/22 07:35 BP 101/64 12/21/22 07:35 Pulse Ox 99 12/21/22 07:35 FiO2 Intake & Output 12/20/22 12/21/22 12/21/22 18:59 06:59 18:59 Output Total 600 Balance -600 Output: Urine 600 Other: Voiding Method Toilet # Voids 2 3 - Labs CBC & Chem 7: 12/18/22 05:51 12/20/22 07:24 Labs: Abnormal Lab Results - Last 24 Hours (Table) 12/20/22 12/20/22 12/20/22 Range/Units 07:24 07:24 11:19 Sodium 125 L (135-145) mmol/L Carbon Dioxide 17.8 L (20.0-27.5) mmol/L Anion Gap 6.20 L (10.00-18.00) mmol/L Glucose 113 H (70-110) mg/dL POC Glucose (mg/dL) 123 H (70-110) mg/dL TIBC 172 L (228-460) ug/dL % Saturation 53.43 H (15.00-50.00) Transferrin 123.0 L (204.0-354.0) mg/dL Ferritin 588.0 H (22.0-322.0) ng/mL 12/20/22 12/20/22 12/21/22 Range/Units 16:26 20:36 05:59 Sodium (135-145) mmol/L Carbon Dioxide (20.0-27.5) mmol/L Anion Gap (10.00-18.00) mmol/L Glucose (70-110) mg/dL POC Glucose (mg/dL) 124 H 217 H 123 H (70-110) mg/dL TIBC (228-460) ug/dL % Saturation (15.00-50.00) Transferrin (204.0-354.0) mg/dL Ferritin (22.0-322.0) ng/mL Assessment and Plan Plan: Assessment: 1. Hyponatremia, hypervolemic. Urine sodium less than 20 and urine osmolality 459. Urine studies consistent with hepatorenal. TSH and cortisol level normal. 2. Metabolic acidosis secondary to compensation for underlying respiratory alkalosis from liver cirrhosis. 3. Ascites. Status post paracentesis done 12/20/2022 with 7.8 L drained. 4. Chronic liver disease related to alcohol abuse. 5. History of GI bleed due to esophageal varices status post banding. Iron replete. Plan: Maintain spironolactone. Maintain Lasix. 1200 mL fluid restriction. Morning labs pending. Repeat BMP and magnesium level 2-3 days postdischarge. Follow up outpatient in 1 week.
[2022-12-21 10:49] LABS: African American GFR (CKD) 115.7 (60.0-200.0); Anion Gap 8.5 mmol/L (10.00-18.00); BUN/Creat Ratio 12.88 Ratio (12.00-20.00); Blood Urea Nitrogen 10.3 mg/dL (9.0-27.0); Calcium 8.9 mg/dL (8.7-10.3); Carbon Dioxide 18.5 mmol/L (20.0-27.5); Non-African American GFR(CKD) 99.9 (60.0-200.0); Potassium 4.3 mmol/L (3.5-5.5)
[2022-12-21] MEDS ORDERED: SODIUM CHLORIDE 0.9% 1,000 ML IV SCH (11:00)
[2022-12-21] MEDS ORDERED: MAGNESIUM OXIDE 400 MG TAB PO SCH (11:00)
--- NOTE | 2022-12-21 22:12 | P.DS ---
Providers Date of admission: 12/15/22 18:58 Attending physician: Briana Grover Consults: 12/17/22 11:44 Consult Physician Routine Consulting Provider: Addy Kebede Consult Reason/Comments: Hyponatremia Do you want consulting provider notified?: Yes Primary care physician: Luana Amaya Hospital Course: Diagnoses: Decompensated liver cirrhosis with ascites, status post paracentesis 7.8 L removed Hypervolemic hyponatremia. Improved significantly Thrombocytopenia Diabetes Mellitus type 2 History of alcohol use disorder GERD History of GI bleeding/variceal bleeding and banding Hypertension Hyperlipidemia Former smoker Hospital course: 57 year old male with medical history of alcoholic cirrhosis of the liver, history of GI bleeding with variceal bleeding and banding, Diabetes mellitus, hypertension, hyperlipidemia, GERD, anemia, former smoker who presented to the ER because of abdominal pain. Patient only recently discharged 2 days ago after being admitted for similar problems, at that time he had paracentesis done with 9.6 L taken off. This time he presents with abdominal discomfort secondary to abdominal distention. He under went paracentesis yesterday were 7.8 L taken out and albumine infused 2 units. Patient tolerates procedure well. Sodium improved to 131 today. Patient remains asymptomatic today with no chest pain or dyspnea. No headache or neurological symptoms. Get up and go test is normal. Patient woke up with no difficulty. No abdominal pain. Sensation resolved. No vomiting, tolerates diet and he has 3-4 bowel movements per day, his mentation is at baseline and normal. Patient was cleared for discharge by collection officer Upon discharge with lower the dose of his Lasix 60 mg in 20 mg daily as blood pressure was on the low side on admission and received IV fluids Patient denies any other new symptoms. Problems and management plan were discussed with the patient and he verbalized understanding and acceptance Patient was found stable and can be discharged home in guarded prognosis however he needs follow-up as an outpatient. Patient was instructed to follow up with PCP Dr. Amaya within one week and patient agrees Patient was instructed to follow up with GI Dr. Pride in 1-2 weeks and he agrees to call and make his own appointment Physical exam Gen: patient is a AAOx3, no distress CVS: S1-S2, RRR, no murmur Lungs: B/L CTA, no wheezing Abdomen: soft, no distention, no tenderness, positive bowel sounds Extremity: no leg edema or induration Time spent more than 35 minutes Patient Condition at Discharge: Stable Plan - Discharge Summary Discharge Rx Participant: No New Discharge Prescriptions: New Furosemide [Lasix] 20 mg PO DAILY #30 tab Continue Spironolactone [Aldactone] 100 mg PO DAILY #30 tab Pantoprazole [Protonix] 40 mg PO AC-BRKFST #30 tab Folic Acid 1 mg PO DAILY Famotidine [Pepcid] 20 mg PO DAILY #30 tablet Lactulose [Cephulac] 30 gm PO TID 15 Days #2000 ml Rifaximin [Xifaxan] 550 mg PO BID #60 tab Discontinued Furosemide [Lasix] 60 mg PO DAILY #30 tab Discharge Medication List Spironolactone [Aldactone] 100 mg PO DAILY #30 tab 09/03/22 [Rx] Pantoprazole [Protonix] 40 mg PO AC-BRKFST #30 tab 09/07/22 [Rx] Folic Acid 1 mg PO DAILY 12/06/22 [History] Famotidine [Pepcid] 20 mg PO DAILY #30 tablet 12/10/22 [Rx] Lactulose [Cephulac] 30 gm PO TID 15 Days #2000 ml 12/10/22 [Rx] Rifaximin [Xifaxan] 550 mg PO BID #60 tab 12/10/22 [Rx] Furosemide [Lasix] 20 mg PO DAILY #30 tab 12/21/22 [Rx] Follow up Appointment(s)/Referral(s): Lorin Pride MD [STAFF PHYSICIAN] - 12/28/22 2:15 pm Luana Amaya MD [Primary Care Provider] - 12/22/22 12:00 pm Addy Kebede DO [STAFF PHYSICIAN] - 01/17/23 10:20 am (with icer machine operator) Ambulatory/Diagnostic Orders: Basic Metabolic Panel [LAB.AMB] Location: None Selected Patient Instructions/Handouts: Cirrhosis (DC), Ascites (DC) Activity/Diet/Wound Care/Special Instructions: Heart healthy diet. We recommend fluid and salt restriction to 1200 mL per day activity is restricted till you see your doctor Discharge Disposition: HOME SELF-CARE
== END 2022-12-21 11:25 | disposition home or self-care (01) | DRG 433 ==
LOC: EC 15:48 → 4SSUR 18:58
PROVIDERS: ADMIT Internal Medicine; ATTEND Internal Medicine
PROC: 0W9G3ZZ Drainage of Peritoneal Cavity, Percutaneous Approach (ICD-10-PCS; principal; 2022-12-20 08:30)
DX: K70.31 Alcoholic cirrhosis of liver with ascites (principal); E87.1 Hypo-osmolality and hyponatremia; E87.3 Alkalosis; E87.20 Acidosis, unspecified; K76.6 Portal hypertension; I85.10 Secondary esophageal varices without bleeding; D69.6 Thrombocytopenia, unspecified; D64.9 Anemia, unspecified; I95.9 Hypotension, unspecified; F10.11 Alcohol abuse, in remission; I10 Essential (primary) hypertension; K76.82 Hepatic encephalopathy; E11.9 Type 2 diabetes mellitus without complications; K21.9 Gastro-esophageal reflux disease without esophagitis; E78.5 Hyperlipidemia, unspecified; K76.1 Chronic passive congestion of liver; E87.70 Fluid overload, unspecified; G89.29 Other chronic pain; M54.40 Lumbago with sciatica, unspecified side; Z79.899 Other long term (current) drug therapy; Z87.891 Personal history of nicotine dependence; Z87.19 Personal history of other diseases of the digestive system
CPT/HCPCS: 36410; 36415; 49083; 74177; 76937; 80048; 80053; 80320; 82140; 82533; 82728; 83540; 83550; 83605; 83690; 83735; 83880; 83935; 84295; 84300; 84443; 85025; 85027; 96361; 96374; 99285